=== PATIENT | female | born 1960 | race Caucasian/White ===

== ENCOUNTER 2018-08-29 16:00 | Outpatient (RCR) | payer BC, SELFPAY ==
--- NOTE | 2018-08-26 09:31 | HP.PCM_ITS ---
(1) Pilonidal cyst with abscess Status: Acute Current Visit: Yes Code(s): L05.01 - Pilonidal cyst with abscess (2) Open wound Status: Acute Current Visit: Yes Code(s): T14.8XXA - Other injury of unsp ecified body region, initial encounter History of Present Illness Date of Service: 08/26/18 Chief Complaint: Pilonidal cyst that was drained 08/21/18 at the [facility] ED. History of Wound: Patient has a history of pilonidal cysts. The last time she had one was 7 years ago. She has had a total of 4 occurances in her life, the first one being when she 16 years old. She went to the [facility] ED on Sunday08/21/18 where they drained it and placed her on clindamycin. She was referred to the wound center in [place], but she requested to come to [place] since it is closer to her home. Her wound was packed from the ED with iodiform guaze and then again from her PCP, Dr. Mayers, at the end of the last week where it was repacked. Past Medical History Surgical History: hysterectomy Lives: With Family Smoking Status: Never smoker Tobacco Use: Non-smoker Review of Systems Constitutional: Denies: Chills, Fever, Weight Change Eyes: Denies: Pain, Vision Change HEENT: Denies: Difficulty Hearing, Difficulty Swallowing, Sinus Congestion Cardiovascular: Denies: Chest Pain, Palpitations Gastrointestinal: Denies: Diarrhea, Nausea, Vomiting Genitourinary: Denies: Dysuria, Hematuria Musculoskeletal: Denies: Back Pain, Joint Pain Skin: Reports: Lesions - Pilonidal cyst that is open. Denies: Dryness Neurological: Denies: Balance problems, Blurred vision, Headaches Psychiatric: Denies: Anxiety, Depression Endocrine: Denies: Heat/ Cold Intolerance, Polydipsia, Polyuria Hematologic/ Lymphatic: Denies: Easy Bruising, Easy Bleeding - Physical Exam General: Alert, Oriented x3, Cooperative HEENT: Atraumatic Oral: Moist Mucosa Lungs: Clear to auscultation, Normal air movement, No rhonchi Cardiovascular: Regular rate, Regular Rhythm Abdomen: Bowel Sounds Present, Soft, Non Tender Extremities: No edema, Capillary Refill Less than 3 Seconds, No Calf Tenderness Skin: No rashes, Ulcer/ Wound - Opened wound, pilonidal cyst Musculoskeletal: No Tenderness to Palpation of Joints or Extremities, No Muscle Wasting Neurological: Neuro grossly intact Psych/Mental Status: Normal Affect, Appropriate Debridement Note Wound debrided: Pilonidal cyst Laterality: Not Applicable Type of Debridement: Excisional debridement Anesthesia Used: 4% Lidocaine Solution Depth: Down to and including healthy tissue, in the subcutaneous layer Percentage of wound debrided: 100 Instrument Used: 3mm curette Tissue Removed: Subcutaneous tissue and slough Severity: Limited To Skin Breakdown Amount of bleeding with debridement: Mild Bleeding Controlled with: Pressure, Compression and gauze Patient tolerated procedure well Assessment/Plan Active Problems Pilonidal cyst with abscess (Acute) Open wound (Acute) Assessment: 1. Pilonidal cyst with abscess. 2. Open wound Plan: Patient has an opened Pilonidal cyst that was was lanced on 08/21/18 in the [facility] ED. We will start doing aquacel silver robe wicked in the wound. She was placed on Clindamycin for 7 days in the ED. Will renew this. The patient works for [employer] and can be deployed at anytime. Will send her with a refill in case she would need it. Instructed to take a probiotic twice daily with the antibiotic. Instructed her to wash area with soap and water. Recommend a surgical consult for further debridement. Patient refuses due to work. She states she would consider that when she is not likely to get deployed such as the winter months of June-August and have enough time to heal. Follow up one week. Code Visit Office Visits / Consults: [id number] OV L3 Est - 25 modifier [id number]: [id number] Meagan subq tissue 20 sq cm/<
[2018-08-26 09:49] VITALS: BP 175/90; PULSE 61; RESP 18; TEMP 36.9; BMI 30.1
[2018-08-29 16:21] VITALS: BP 149/89; PULSE 69; RESP 18; TEMP 36.6; BMI 30.1
== END 2018-08-29 23:59 ==
LOC: WC 16:00
PROVIDERS: Visit Provider Nurse Practitioner Family
DX: L05.01 Pilonidal cyst with abscess (principal); L98.491 Non-pressure chronic ulcer of skin of other sites limited to breakdown of skin
CPT/HCPCS: 11042; 99203; 99212; G0463

== ENCOUNTER 2018-09-02 11:17 | Outpatient (RCR) | payer BC, SELFPAY ==
[2018-08-30 01:51] VITALS: BP 149/89; PULSE 69; RESP 18; TEMP 36.6
[2018-09-02 11:40] VITALS: BP 168/69; PULSE 78; RESP 20; TEMP 37; BMI 30.1
--- NOTE | 2018-09-02 12:59 | PCM.WC.PN ---
(1) Pilonidal cyst with abscess Status: Acute Current Visit: Yes Code(s): L05.01 - Pilonidal cyst with abscess (2) Open wound Status: Acute Current Visit: Yes Code(s): T14.8XXA - Other injury of unspecified body region, initial encounter Type of Wound Date of Service: 09/02/18 Chief Complaint: Pilonidal cyst that was drained 08/21/18 at the [facility] ED. History of Wound: Patient has a history of pilonidal cysts. The last time she had one was 7 years ago. She has had a total of 4 occurances in her life, the first one being when she 16 years old. She went to the [facility] ED on Sunday08/21/18 where they drained it and placed her on clindamycin. She was referred to the wound center in [place], but she requested to come to [place] since it is closer to her home. Her wound was packed from the ED with iodiform guaze and then again from her PCP, Dr. Mayers, at the end of the last week where it was repacked. Progress of Wound: Healed - Physical Exam Vital Signs Temp Pulse Resp BP 98.6 F 78 20 H 168/69 H 09/02/18 11:40 09/02/18 11:40 09/02/18 11:40 09/02/18 11:40 General: Alert, Oriented x3, Cooperative HEENT: Atraumatic Oral: Moist Mucosa Lungs: Normal air movement Cardiovascular: Regular rate Extremities: No edema, Capillary Refill Less than 3 Seconds, Peripheral Pulses Normal Skin: Ulcer/ Wound - Pilonidal cyst is healed Wound Measurements and Assessment WC - Nurse 1 - General Ulcer Measurement Start: 09/02/18 11:38 Freq: Status: Active Protocol: Activity Type Activity Date Activity User E-Sign Co-Sign Detail Recorded Client Recorded Date Recorded By Document 09/02/18 11:40 DL [id number] 09/02/18 11:46 DL 09/02/18 11:40 Wound Center Nurse 1 [Ulcer Assessment] pilonidal cyst -Current Size (cm) - Length 0 -Current Size (cm) - Width 0 -Current Size (cm) - Depth 0 -Total Square Cm 0 -Photo Taken Yes -Exudate Amt None Present -Wound Margin Flat & Intact -Granulation Amt Large (67-100%) -Granulation Quality [place] -Necrosis Amt None Present (0 %) -Structure Exposed N/A -Texture (Falguni-wound Skin Appearance) Scarring -Moisture (Falguni-wound Skin Appearance No Abnormality ) -Color (Falguni-wound Skin Appearance) No Abnormality -Temperature (Falguni-wound Skin No Abnormality Appearance) (Pt Warm) -Tenderness on Palpation (Falguni-wound No Skin Appearance) -Ulcer Cleansing Rinsed/ Irrigated with Saline -Foul Odor after Cleansing No WC - Nurse 2 - General Ulcer CM Notes Start: 09/02/18 11:38 Freq: Status: Active Protocol: Activity Type Activity Date Activity User E-Sign Co-Sign Detail Recorded Client Recorded Date Recorded By Document 09/02/18 12:07 DV [id number] 09/02/18 12:11 DV 09/02/18 12:07 Wound Center Nurse 2 [Procedure/Treatment] -Time 12:08 -Correct Patient Yes -Correct Side, Site, Position Yes -Procedure Performed No -Post Debridement Size (cm) - Length 0 -Post Debridement Size (cm) - Width 0 -Post Debridement Size (cm) - Depth 0 -Total Square Cm 0 -Wound/Ulcer Outcome Healed- Epithelialized [See Physician Procedure note for Specifics] Pain Scale: 0-10 Numeric [Pain] -Is Patient Pain Free? Yes Musculoskeletal: No Tenderness to Palpation of Joints or Extremities Neurological: Neuro grossly intact Psych/Mental Status: Normal Affect, Appropriate Debridement Note Post-Debridement Measurements/Treatment - Nurse 2 - General Ulcer CM Notes Start: 09/02/18 11:38 Freq: Status: Active Protocol: Activity Type Activity Date Activity User E-Sign Co-Sign Detail Recorded Client Recorded Date Recorded By Document 09/02/18 12:07 DV [id number] 09/02/18 12:11 DV 09/02/18 12:07 Wound Center Nurse 2 pilonidal cyst -Time 12:08 -Correct Patient Yes -Correct Side, Site, Position Yes -Procedure Performed No -Post Debridement Size (cm) - Length 0 -Post Debridement Size (cm) - Width 0 -Post Debridement Size (cm) - Depth 0 -Total Square Cm 0 -Wound/Ulcer Outcome Healed- Epithelialized Pain Scale: 0-10 Numeric Is Patient Pain Free? Yes No debridement was completed today Assessment/Plan Active Problems Pilonidal cyst with abscess (Acute) Open wound (Acute) Assessment: 1. Pilonidal cyst with abscess. 2. Open wound Plan: Patient has an opened Pilonidal cyst that was was lanced on 08/21/18 in the [facility] ED. We will start doing aquacel silver robe wicked in the wound. She was placed on Clindamycin for 7 days in the ED. Will renew this. She is now healed so will stop the aquacel silver. The patient works for [employer] and can be deployed at anytime. Will send her with a refill in case she would need it. Instructed to take a probiotic twice daily with the antibiotic. Instructed her to wash area with soap and water. She now appears healed. Instructed her to watch for this to open and if it does to come back or be seen for I&D at urgent care or ED. She is being deployed tommorrow. She will finish this round of antibiotics. Follow up as needed. Code Visit Office Visits / Consults: [id number] OV L3 Est
--- NOTE | 2018-09-03 11:06 | PN.PCM_ITS ---
(1) Pilonidal cyst with abscess Status: Acute Current Visit: Yes Code(s): L05.01 - Pilonidal cyst with abscess (2) Open wound Status: Acute Current Visit: Yes Code(s): T14.8XXA - Other injury of unsp ecified body region, initial encounter Type of Wound Date of Service: 09/02/18 Chief Complaint: Pilonidal cyst that was drained 08/21/18 at the [facility] ED. History of Wound: Patient has a history of pilonidal cysts. The last time she had one was 7 years ago. She has had a total of 4 occurances in her life, the first one being when she 16 years old. She went to the [facility] ED on Sunday08/21/18 where they drained it and placed her on clindamycin. She was referred to the wound center in [place], but she requested to come to [place] since it is closer to her home. Her wound was packed from the ED with iodiform guaze and then again from her PCP, Dr. Mayers, at the end of the last week where it was repacked. Progress of Wound: Healed - Physical Exam Vital Signs Temp Pulse Resp BP 98.6 F 78 20 H 168/69 H 09/02/18 11:40 09/02/18 11:40 09/02/18 11:40 09/02/18 11:40 General: Alert, Oriented x3, Cooperative HEENT: Atraumatic Oral: Moist Mucosa Lungs: Normal air movement Cardiovascular: Regular rate Extremities: No edema, Capillary Refill Less than 3 Seconds, Peripheral Pulses Normal Skin: Ulcer/ Wound - Pilonidal cyst is healed Wound Measurements and Assessment WC - Nurse 1 - General Ulcer Measurement Start: 09/02/18 11:38 Freq: Status: Active Protocol: Activity Type Activity Date Activity User E-Sign Co-Sign Detail Recorded Client Recorded Date Recorded By Document 09/02/18 11:40 DL [id number] 09/02/18 11:46 DL 09/02/18 11:40 Wound Center Nurse 1 [Ulcer Assessment] pilonidal cyst -Current Size (cm) - Length 0 -Current Size (cm) - Width 0 -Current Size (cm) - Depth 0 -Total Square Cm 0 -Photo Taken Yes -Exudate Amt None Present -Wound Margin Flat & Intact -Granulation Amt Large (67-100%) -Granulation Quality [place] -Necrosis Amt None Present (0 %) -Structure Exposed N/A -Texture (Falguni-wound Skin Appearance) Scarring -Moisture (Falguni-wound Skin Appearance No Abnormality ) -Color (Falguni-wound Skin Appearance) No Abnormality -Temperature (Falguni-wound Skin No Abnormality Appearance) (Pt Warm) -Tenderness on Palpation (Falguni-wound No Skin Appearance) -Ulcer Cleansing Rinsed/ Irrigated with Saline -Foul Odor after Cleansing No WC - Nurse 2 - General Ulcer CM Notes Start: 09/02/18 11:38 Freq: Status: Active Protocol: Activity Type Activity Date Activity User E-Sign Co-Sign Detail Recorded Client Recorded Date Recorded By Document 09/02/18 12:07 DV [id number] 09/02/18 12:11 DV 09/02/18 12:07 Wound Center Nurse 2 [Procedure/Treatment] -Time 12:08 -Correct Patient Yes -Correct Side, Site, Position Yes -Procedure Performed No -Post Debridement Size (cm) - Length 0 -Post Debridement Size (cm) - Width 0 -Post Debridement Size (cm) - Depth 0 -Total Square Cm 0 -Wound/Ulcer Outcome Healed- Epithelialized [See Physician Procedure note for Specifics] Pain Scale: 0-10 Numeric [Pain] -Is Patient Pain Free? Yes Musculoskeletal: No Tenderness to Palpation of Joints or Extremities Neurological: Neuro grossly intact Psych/Mental Status: Normal Affect, Appropriate Debridement Note Post-Debridement Measurements/Treatment - Nurse 2 - General Ulcer CM Notes Start: 09/02/18 11:38 Freq: Status: Active Protocol: Activity Type Activity Date Activity User E-Sign Co-Sign Detail Recorded Client Recorded Date Recorded By Document 09/02/18 12:07 DV [id number] 09/02/18 12:11 DV 09/02/18 12:07 Wound Center Nurse 2 pilonidal cyst -Time 12:08 -Correct Patient Yes -Correct Side, Site, Position Yes -Procedure Performed No -Post Debridement Size (cm) - Length 0 -Post Debridement Size (cm) - Width 0 -Post Debridement Size (cm) - Depth 0 -Total Square Cm 0 -Wound/Ulcer Outcome Healed- Epithelialized Pain Scale: 0-10 Numeric Is Patient Pain Free? Yes No debridement was completed today Assessment/Plan Active Problems Pilonidal cyst with abscess (Acute) Open wound (Acute) Assessment: 1. Pilonidal cyst with abscess. 2. Open wound Plan: Patient has an opened Pilonidal cyst that was was lanced on 08/21/18 in the [facility] ED. We will start doing aquacel silver robe wicked in the wound. She was placed on Clindamycin for 7 days in the ED. Will renew this. She is now healed so will stop the aquacel silver. The patient works for [employer] and can be deployed at anytime. Will send her with a refill in case she would need it. Instructed to take a probiotic twice daily with the antibiotic. Instructed her to wash area with soap and water. She now appears healed. Instructed her to watch for this to open and if it does to come back or be seen for I&D at urgent care or ED. She is being deployed tommorrow. She will finish this round of antibiotics. Follow up as needed. Code Visit Office Visits / Consults: [id number] OV L3 Est
== END 2018-09-29 23:59 ==
LOC: WC 11:17
PROVIDERS: Visit Provider Nurse Practitioner Family
DX: Z09 Encounter for follow-up examination after completed treatment for conditions other than malignant neoplasm (principal)
CPT/HCPCS: 99212; G0463

== ENCOUNTER → 2020-04-19 | Outpatient (CLI) | payer BC, SELFPAY ==
[2019-02-24 19:08] VITALS: BMI 30.1
== END | disposition home or self-care (01) ==
LOC: LABSPEC 15:26
PROVIDERS: Referring Provider Dermatology Pediatric Dermatology; Visit Provider Dermatology Pediatric Dermatology
DX: L02.91 Cutaneous abscess, unspecified (principal); L72.0 Epidermal cyst
CPT/HCPCS: 87070; 87205

== ENCOUNTER → 2025-04-10 | Outpatient (CLI) | payer BC, SELFPAY ==
[2025-04-10 10:36] LABS: Hematocrit 42.0 % (37-47); Hemoglobin 14.3 g/dL (12.0-15.0); Mean Corp Hgb Conc 34.0 g/dL (32-36); Mean Corpuscular Volume 88.2 fL (81-99); Mean Platelet Vol. 12.7 fl (6.2-12.0); Platelet Count 171 K/mm3 (150-450); RBC Distribution Width CV 12.4 % (11.6-14.6); RBC Distribution Width SD 40.2 fl (35.1-43.9); Red Blood Count 4.76 M/mm3 (4.2-5.4); White Blood Count 7.1 K/mm3 (4.4-11.0)
[2025-04-10 11:02] LABS: AST(SGOT) 23 U/L (<=31); Alanine Aminotransfer ALT/SGPT 19 U/L (<=34); Albumin, Serum 4.2 g/dL (3.4-4.8); Alkaline Phosphatase 74 U/L (35-104); Anion Gap 10 (5-15); BUN 17 mg/dL (4-19); BUN/Creat Ratio 26.6 RATIO (10-20); Calcium,Total 9.2 mg/dL (7.6-11.0); Carbon Dioxide 25.2 mmol/L (21.0-32.0); Chloride 104 mmol/L (98-108); Globulin 3.5 g/dL (2.2-4.2); Glucose 103 mg/dL (70-99); Magnesium 2.1 mg/dL (1.5-2.2); Potassium 3.9 mmol/L (3.3-5.1)
[2025-04-10 11:54] LABS: Vitamin B12 > 4000 pg/mL (180-914)
[2025-04-13 14:08] LABS: ANTINUCLEAR ANTIBODIES DIRECT Negative (Negative); Vitamin D 1,25-Dihydroxy 67.3 pg/mL (24.8-81.5)
[2025-04-14 22:07] LABS: Folate, Hemolysate Test 540.0 ng/mL (Not Estab.); Folate, RBC (Hct) Test 43.0 % (34.0-46.6); Folates, RBC Test 1256 ng/mL (>498); VITAMIN B6 12.8 ug/L (3.4-65.2); Vitamin B1, Thiamine 156.2 nmol/L (66.5-200.0)
== END | disposition home or self-care (01) ==
LOC: LAB.FUTURE 08:11
PROVIDERS: PCP Nurse Practitioner Family; Referring Provider Psychiatry & Neurology Neurology; Visit Provider Psychiatry & Neurology Neurology
DX: G51.31 Clonic hemifacial spasm, right (principal); G62.9 Polyneuropathy, unspecified
CPT/HCPCS: 36415; 80053; 82607; 82652; 82747; 83735; 83883; 84207; 84425; 84443; 85014; 85027; 85652; 86038; 86225

== ENCOUNTER → 2025-04-20 | Outpatient (CLI) | payer BC, SELFPAY ==
--- NOTE | 2025-04-20 13:13 | MRI_ITS ---
PROCEDURE: BRAIN W/WO CONTRAST 04/20/2025 REASON FOR EXAM: RIGHT HEMIFACIAL SPASM; R CHOLESTEATOMA RESECTION TECHNIQUE: Procedure Code: [id number] Modality: MR Procedure: BRAIN W/WO CONTRAST Multiplanar and multisequence images were obtained. CONTRAST: Clariscan VOLUME: 17 mL COMPARISON: None. FINDINGS: Brain: Few foci of hyperintense signal on T2 and FLAIR in the white matter which are nonspecific but most likely due to chronic small-vessel ischemia. No restricted diffusion. No hemorrhage. No abnormal enhancement. No masses or midline shift. The orbits are unremarkable. The craniocervical junction is unremarkable. IAC: No abnormal enhancement. No masses at the cerebellopontine angles or internal acoustic canals. The inner ears are unremarkable. Diffusion: No restricted diffusion. Ventricles: No ventriculomegaly. Major Intracranial Vessels: Patent. Sinuses: Opacification of the lateral ventricles. Mastoids: Fluid retention in the right mastoid cells. The left mastoid cells are clear. Other: Fluid and soft tissue intensity from the right middle ear. MRI/Brain W/WO Contrast IMPRESSION: Minimal white matter changes which are most likely due to chronic small-vessel ischemia. Otherwise unremarkable MRI of the brain and the internal acoustic canal and cer ebellopontine angles without mass lesions or abnormal enhancement. Fluid and soft tissue intensity from the right middle ear. High-resolution CT scan with temporal protocol may provide further evaluation. Reading Location: [facility]
== END | disposition home or self-care (01) ==
PROVIDERS: PCP Nurse Practitioner Family; Referring Provider Psychiatry & Neurology Neurology; Visit Provider Psychiatry & Neurology Neurology
DX: G51.31 Clonic hemifacial spasm, right (principal); Z86.69 Personal history of other diseases of the nervous system and sense organs
CPT/HCPCS: 70553; A9575; A4216

== ENCOUNTER → 2025-06-20 | Outpatient (CLI) | payer BC, SELFPAY ==
--- NOTE | 2025-06-20 07:52 | CT_ITS ---
PROCEDURE: ORB SELLA POST FOSSA EAR W/O 06/20/2025 REASON FOR EXAM: HISTORY OF CHOLESTEATOMA RESECTION (2022) TECHNIQUE: Thin cut axial CT imaging of the temporal bones without contrast using a high- resolution bone algorithm and multiplanar reformatting. One or more dose reduction techniques were used (e.g., Automated exposure control, adjustment of the mA and/or kV according to patient size, use of iterative reconstruction technique). RADIATION DOSE SUMMARY: CTDlvol: 67.5 mGy DLP: 1055.5 mGycm COMPARISON: April 20, 2025 FINDINGS: RIGHT TEMPORAL BONE: External Auditory Canal: Patent. Tympanic Membrane: Intact Middle Ear Cavity: No significant inner air-fluid. Ossicles: Opacified material is noted lateral to the ossicles contacting the tympanic membrane. Cochlea and Vestibule: Within normal limits. Semicircular Canals: Normal without evidence of dehiscence. Vestibular Aqueduct: Normal. Mastoid: Findings compatible with previous right mastoidectomy. Temporomandibular Joint: The right temporomandibular joint is normal. LEFT TEMPORAL BONE: External Auditory Canal: Patent Tympanic Membrane: Intact Middle Ear Cavity: No evidence of inner air-fluid. Ossicles: Middle ear ossicles are normal. Cochlea and Vestibule: Normal Semicircular Canals: Normal Vestibular Aqueduct: Normal Mastoid: Mastoid air cells are clear. Temporomandibular Joint: The left temporomandibular joint is normal Visualized intracranial contents are within normal limits. CT/Orb Sella Post Fossa Ear w/o IMPRESSION: 1. Opacified material within the right middle ear for which recurrent choleste atoma is a consideration. Prior computed tomographic exams would be helpful to establish chronicity of this finding. 2. Previous right mastoidectomy. Reading Location: [id number]
--- OUTSIDE RECORDS SUMMARY | 2025-06-20 07:54 | XMS RPT_ITS | CCD ---
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 Name Role Phone Queden BANQUET STEWARDESS.LISA Cherie A Primary Care Provider QUEDEN, CHERIE A Primary Care Unavailable VETOVITZ, ANAMARIA Referring Unavailable QUEDEN, CHERIE A Primary Care Unavailable PROVIDER, UNKNOWN Referring Unavailable QUEDEN, CHERIE A Primary Care Unavailable QUEDEN, CHERIE A Primary Care Unavailable Queden BANQUET STEWARDESS.DIRECTOR COMPLIANCE Cherie A Primary Care Provider VETOVITZ, ANAMARIA Attending Unavailable QUEDEN, CHERIE A Primary Care Unavailable HAURY, SARAH Attending Unavailable QUEDEN, CHERIE A Primary Care Unavailable VETOVITZ, ANAMARIA Attending Unavailable QUEDEN, CHERIE A Primary Care Unavailable VETOVITZ, ANAMARIA Attending Unavailable QUEDEN, CHERIE A Primary Care Unavailable HARRINGTON AL, MALKA Referring Unavailable HARRINGTON AL, MLAKA Attending Unavailable QUEDEN, CHERIE A Primary Care Unavailable QUEDEN, CHERIE A Attending Unavailable QUEDEN, CHERIE A Primary Care Unavailable QUEDEN, CHERIE A Attending Unavailable QUEDEN, CHERIE A Primary Care Unavailable QUEDEN, CHERIE A Primary Care Unavailable ANALI GOODMAN Attending Unavailable HAURY, SARAH Referring Unavailable QUEDEN, CHERIE A Primary Care Unavailable QUEDEN, CHERIE A Referring Unavailable QUEDEN, CHERIE A Primary Care Unavailable QUEDEN, CHERIE A Referring Unavailable QUEDEN, CHERIE A Primary Care Unavailable Care Physician, No Primary Primary Care Physicia n Unavailable Care Physician, No Primary Referring Provider Un available Madonna GARZA, Dr. Dixon Attending Physician Ekaterina ASSISTANT PROFESSOR OF MUSIC, Cherie Primary Care Unavailable Zack Peacock Attending Unavailable Zack Peacock Referring Unavailable Ekaterina ASSISTANT PROFESSOR OF MUSIC, Cherie Primary Care Unavailable Zack Peacock Attending Unavailable Zack Peacock Referring Unavailable Care Physician, No Primary Referring Unava ilable Zack Peacock Attending Unavailable Care Physician, No Primary Primary Care Unava ilable Allergies Allergy Classification Reported Allergen(s) Allergy Type Date of Onset Reaction(s) Facility Latex (1 source) Latex Substance Allergy Rash [facility] POISON VIVIANA EXTRACT (1 source) POISON VIVIANA EXTRACT Drug Allergy 2 Intolerance, Itching, Rash, Swelling [facility] (20 sources) Latex; Translations: [LATEX] Drug Allergy Rash [facility] (20 sources) POISON VIVIANA EXTRACT; Translations: [POISON VIVIANA EXTRACT] Drug Allergy 2 Intolerance, Itching, Rash, Swelling [facility] (1 source) natural latex rubber Allergy to substance 5 itch [facility] Comment on above: bumps (1 source) natural latex rubber Drug allergy (disorder) 5 [facility] Repository Medications Current Medications Medication Drug Class(es) Dates Sig (Normalized) Sig (Original) [id number] 200 actuat albuterol 0.09 mg/actuat metered dose inhaler (20 sources) beta2-Adrenergic Agonist Start: 08-04-2021 End: 10-20-2024 take 2 puff(s) by mouth every four to six hours albuterol HFA (PROVENTIL HFA, VENTOLIN HFA) 90 mcg/actuation inhaler Indications: SOB (shortness of breath) INHALE 2 PUFFS BY MOUTH EVERY 4 TO 6 HOURS 18 g 1 10/20/2024 Active Comment on above: INHALE 2 PUFFS BY MO UTH EVERY 4 TO 6 HOURS 12 hr amoxicillin 1000 mg / clavulanate 62.5 mg extended release oral tablet (1 source) Penicillin-class Antibacterial Start: 06-03-2024 End: 06-13-2024 take 2 tablets by mouth twice daily amoxicillin-clavula rich potassium (AUGMENTIN XR) 1,000-62.5 mg per tablet Indications: Right maxillary sinusitis Take 2 tablets by mouth two times a day for 10 days. 40 tablet 06/03/2024 06/13/2024 Active carBAMazepine 100 mg chewable tablet (1 source) Mood Stabilizer Start: 04-06-2025 take 1 tablet by mouth once daily, then take 1 tablet by mouth twice daily Carbamazepine 100 mg tablet,chewable Active 0 .ROUTE .COMPLEX 60 April 06, 2025 12:00am Take 1 tablet orally daily for 1 week then 1 tablet twice daily thereafter. Complies with drug therapy ergocalciferol, vitamin D2, (VITAMIN D2 PO) (2 sources) ergocalciferol, vitamin D2, (VITAMIN D2 PO) Take by mouth. Active ibuprofen 200 mg oral tablet (20 sources) Nonsteroidal Anti-inflammatory Drug take 1 tablet by mouth every six hours as needed ibuprofen (MOTRIN) 200 mg tablet Take 200 mg by mouth every 6 hours as needed. Active Comment on above: Take 200 mg by mouth every 6 hours as needed. iv contrast (will be provided with radiology test) (4 sources) Start: 12-12-2021 End: 12-13-2021 iv contrast (will be provided with radiology test) Indications: Post-acute sequelae of COVID-19 (PASC) , Positive D dimer , SOB (shortness of breath) CT Chest PE -Inject, intravenously, once for 1 dose.No IV access, insert saline lock prior to the beginning of sedation, infusion, injection of imaging exam. Discontinue saline lock post exam. If Pt. has a central line or IVAD, may access for administration according to line specific nursing protocol. Once exam is complete flush line and de-access according to line specific nursing protocol in the CT contrast administration guidelines link. 1 Each 0 12/12/2021 12/13/2021 Active Comment on above: CT Chest PE -Inject, intravenously, once for 1 dose.No IV access, insert saline lock prior to the beginning of sedation, infusion, injection of imaging exam. Discontinue saline lock post exam. If Pt. has a central line or IVAD, may access for administration according to line specific nursing protocol. Once exam is complete flush line and de-access according to line specific nursing protocol in the CT contrast administration guidelines link. MULTIVITAMIN ORAL (20 sources) MULTIVITAMIN ORA L Take by mouth once daily. Active MULTIVITAMIN ORA L Take by mouth once daily. 0 Active Comment on above: Take by mouth once d aily. nitrofurantoin, macrocrystals 25 mg / nitrofurantoin, monohydrate 75 mg oral capsule (2 sources) Nitrofuran Antibacterial Start: 01-17-20 End: 01-22-20 take 1 capsule by mouth twice daily nitrofurantoin monohydrate and macrocrystal (MACROBID) 100 mg capsule Indications: UTI symptoms Take 1 capsule by mouth twice daily for 5 days. 10 capsule 0 01/16/2022 01/21/2022 Active Comment on above: Take 1 capsule by [facility] twice daily for 5 days. omega-3/dha/epa/fish oil (OMEGA-3 ORAL) (20 sources) take 1000 mg by mouth once daily omega-3/dha/epa/fish oil (OMEGA-3 ORAL) Take 1,000 mg by mouth once daily. Active take 1000 mg by mouth once daily omega-3/dha/epa/fish oil (OMEGA-3 ORAL) Take 1,000 mg by mouth once daily. 0 Active Comment on above: Take 1,000 mg by [facility] once daily. perflutren lipid microspheres 1.3 mL in NaCl (PF) 0.9% 10 mL injection (DEFINITY) (12 sources) Start: End: perflutren lipid microspheres 1.3 mL in NaCl (PF) 0.9% 10 mL injection (DEFINITY) 125 ml sodium chloride 9 mg/ml prefilled syringe (12 sources) Start: End: sodium chloride 0.9 % (flush) 10 mL (BD POSIFLUSH) sulfamethoxazole 800 mg / trimethoprim 160 mg oral tablet (4 sources) Dihydrofolate Reductase Inhibitor Antibacterial, Sulfonamide Antimicrobial Start: End: take 1 tablet by mouth twice daily sulfamethoxazole-tri methoprim (BACTRIM DS) 800-160 mg per tablet Take 1 tablet by mouth twice daily for 5 days. 10 tablet 0 12/12/2021 12/17/2021 Active Comment on above: Take 1 tablet by [facility] twice daily for 5 days. triamcinolone acetonide 0.25 mg/ml topical cream (12 sources) Corticosteroid Start: triamcinolone (KENALOG) 0.025 % cream APPLY TO THE AFFECTED AREA(S) TWICE DAILY FOR 7 DAYS 80 g 1 02/03/2025 Active Start: 12-10-2023 End: 12-17-2023 triamcinolone (KENALOG) 0.02 5 % cream Apply to affected area twice daily for 7 days. 80 g 0 12/10/2023 12/17/2023 Active Start: 03-12-2022 End: 03-19-2022 triamcinolone (KENALOG) 0.02 5 % cream Apply to affected area twice daily for 7 days. 80 g 0 03/12/2022 03/19/2022 Active Start: 12-06-2021 End: 12-13-2021 triamcinolone (KENALOG) 0.02 5 % cream Apply to affected area twice daily for 7 days. 15 g 0 12/06/2021 12/13/2021 Active Comment on above: Apply to affected ar ea twice daily for 7 days. Completed/Discontinued Medications Medication Drug Class(es) Dates Sig (Normalized) Sig (Original) amoxicillin 875 mg oral tablet (2 sources) Penicillin-class Antibacterial Start: 02-24-2019 End: 04-06-2025 take 1 tablet by mouth twice daily Amoxicillin 875 mg tablet Discontinued 875 mg PO TWICE A DAY 20 2 February 24, 2019 7:16pm April 06, 2025 8:57am ergocalciferol 1.25 mg oral capsule (1 source) Provitamin D2 Compound End: 02-13-2025 take 1 capsule by mouth every week ergocalciferol 50,000 unit capsule (VITAMIN D2, DRISDOL) Take 50,000 Units by mouth one time a week. 02/13/2025 Discontinued GI-Revive 225 gram Powder ([employer]) (17 sources) Start: 01-23-2022 End: 05-19-2022 GI-Revive 225 gram Powder ([employer]) Indications: Abdominal bloating Take 1 teaspoon twice daily (1 teaspoon = 1.5 grams L-glut) 0 01/23/2022 05/19/2022 Discontinued (Discontinued by Patient) Start: 01-23-2022 GI-Revive 225 gram Powder ([employer]) Indications: Abdominal bloating Take 1 teaspoon twice daily (1 teaspoon = 1.5 grams L-glut) 0 01/23/2022 Active Comment on above: Take 1 teaspoon twic e daily (1 teaspoon = 1.5 grams L-glut) glucosamine hydrochloride 750 mg oral tablet (17 sources) End: 06-03-20 glucosamine HCl 750 mg tab Take 0.5 tablets by mouth once daily. Take one half tablet 06/03/2024 Discontinued Comment on above: Take 0.5 tablets by mouth once daily. Take one half tablet hydrOXYzine hydrochloride 25 mg oral tablet (3 sources) Antihistamine Start: 03-14-20 take 1 tablet by mouth every twenty-four hours as needed hydrOXYzine HCl (ATARAX) 25 mg tablet Take 1 tablet by mouth at bedtime as needed for anxiety. 30 tablet 0 03/14/2021 Active Comment on above: Take 1 tablet by riky [facility] at bedtime as needed for anxiety. loratadine 10 mg oral tablet (14 sources) Start: 05-07-20 End: 06-03-20 take 1 tablet by mouth once daily as needed loratadine (CLARITIN) 10 mg tablet Take 1 tablet by mouth once daily as needed. 05/07/2023 06/03/2024 Discontinued Comment on above: Take 1 tablet by riky [facility] once daily as needed. lovastatin 20 mg oral tablet (14 sources) HMG-CoA Reductase Inhibitor Start: 04-24-20 End: 09-30-19 take 1 tablet by mouth once daily at dinner lovastatin (MEVACOR) 20 mg tablet Take 1 tablet by mouth daily with dinner. 30 tablet 2 04/24/2022 09/29/2022 Discontinued (Discontinued by Patient) Comment on above: Take 1 tablet by riky [facility] daily with dinner. Magnesium glycinate (20 sources) Start: 01-24-20 End: 09-30-19 Magnesium Glycinate 120mg (Pure Encapsulations) Indications: Poor sleep Take 4 capsules 30 to 60 minutes prior to sleep 0 01/23/2022 09/29/2022 Discontinued Start: 01-23-2022 Magnesium Glyc inate 120mg (Pure Encapsulations) Indications: Poor sleep Take 4 capsules 30 to 60 minutes prior to sleep 0 01/23/2022 Active Comment on above: Take 4 capsules 30 t o 60 minutes prior to sleep methylPREDNISolone (20 sources) Corticosteroid Start: 06-03-2024 End: 08-05-2024 methylPREDNISolone (MEDROL, FRANCES,) 4 mg Dose-Pack Indications: Right maxillary sinusitis As Instructed per package 21 tablet 06/03/2024 08/05/2024 Discontinued Start: 06-03-2024 methylPREDNISo lone (MEDROL, FRANCES,) 4 mg Dose-Pack Indications: Right maxillary sinusitis As Instructed per package 21 tablet 06/03/2024 Active Start: 01-25-2023 End: 05-07-2023 methylPREDNISolone (MEDROL, FRANCES,) 4 mg Dose-Pack Indications: Swelling of left parotid gland As Instructed per package 21 tablet 0 01/25/2023 05/07/2023 Discontinued Start: 01-25-2023 methylPREDNISo lone (MEDROL, FRANCES,) 4 mg Dose-Pack Indications: Swelling of left parotid gland As Instructed per package 21 tablet 0 01/25/2023 Active Start: 12-06-2021 End: 01-10-2022 methylPREDNISolone (MEDROL, FRANCES,) 4 mg Dose-Pack As Instructed per package 1 Package 0 12/06/2021 01/10/2022 Discontinued (Course of therapy completed) Start: 12-06-2021 methylPREDNISo lone (MEDROL, FRANCES,) 4 mg Dose-Pack As Instructed per package 1 Package 0 12/06/2021 Active Start: 03-22-2021 methylPREDNISo lone (MEDROL, FRANCES,) 4 mg Dose-Pack As Instructed per package 1 Package 0 03/22/2021 Active Comment on above: As Instructed per isiah ross [id number] (PHYTOMULTI) 3-3-200 mg tab (20 sources) Start: 01-23-2022 End: 09-29-2022 take 1 tablet by mouth twice daily [id number] (PHYTOMULTI) 3-3-200 mg tab Indications: Poor diet Take 1 tablet by mouth twice daily. 1 tablet 0 01/23/2022 09/29/2022 Discontinued Start: 01-23-2022 take 1 tablet by riky [facility] twice daily [id number] (PHYTOMUL TI) 3-3-200 mg tab Indications: Poor diet Take 1 tablet by mouth twice daily. 1 tablet 0 01/23/2022 Active Comment on above: Take 1 tablet by riky [facility] twice daily. niacin 500 mg extended release oral tablet (20 sources) Nicotinic Acid Start: 06-02-2022 End: 09-15-2024 take 1 tablet by mouth once daily niacin 500 mg TbER Take 1 tablet by mouth once daily. 06/02/2022 09/15/2024 Discontinued (Side Effects) Comment on above: Take 1 tablet by riky once daily. O.N.E. Wray (Pure Encapsulations) (17 sources) Start: 01-23-2022 End: 05-19-2022 take 1 capsule by mouth twice daily O.N.E. Wray (Pure Encapsulations) Indications: Poor diet Take 1 capsule by mouth twice daily. 0 01/23/2022 05/19/2022 Discontinued (Discontinued by Patient) Start: 01-23-2022 take 1 capsule by [facility] [place] twice daily O.N.E. Wray (Pure Encapsulations) Indications: Poor diet Take 1 capsule by mouth twice daily. 0 01/23/2022 Active Comment on above: Take 1 capsule by [facility] [place] twice daily. 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 01/23/2022 09/15/2024 Discontinued (Course of therapy completed) Comment on above: Take [address] [facility] twice daily. Ther-Biotic Complete Capsules (klaire/Prothera) (17 sources) Start: End: take 1 capsule by mouth once daily Ther-Biotic Complete Capsules (klaire/Prothera) Indications: Abdominal bloating Take 1 capsule by mouth once daily. 0 01/23/2022 05/19/2022 Discontinued (Discontinued by Patient) Start: 01-23-2022 take 1 capsule by [facility] once daily Ther-Biotic Complete Capsules (klaire/Prothera) Indications: Abdominal bloating Take 1 capsule by mouth once daily. 0 01/23/2022 Active Comment on above: Take 1 capsule by [facility] once daily. topiramate 25 mg oral tablet (8 sources) Start: 09-25-2023 End: 06-03-2024 take 32-32.9 tablets by mouth once daily topiramate (TOPAMAX) 25 mg tablet Indications: Class 1 obesity with body mass index (BMI) of 32.0 to 32.9 in adult, unspecified obesity type, unspecified whether serious comorbidity present Take 1 tablet by mouth daily at bedtime. 30 tablet 2 09/25/2023 06/03/2024 Discontinued Comment on above: Take 1 tablet by riky [facility] daily at bedtime. Problems Active Problems Problem Classification Problem Date Documented Da te Episodic/Chronic Anxiety disorders (20 sources) Anxiety; Translations: [Anxiety disorder, unspecified] Onset: 03-11-2021 03-11-2021 Chronic Asthma (1 source) Mild intermittent asthma; Translations: [Mild intermittent asthma, uncomplicated] Chronic Diseases of mouth; excluding dental (1 source) Hypertrophy of parotid gland; Translations: [Hypertrophy of salivary gland] Episodic Disorders of lipid metabolism (20 sources) Mixed hyperlipidemia; Translations: [Mixed hyperlipidemia] Onset: 09-29-2022 Chronic Disorders usually diagnosed in infancy, childhood, or adolescence (20 sources) Facial tic disorder; 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, unspecified] Onset: 12-29-2022 Chronic E Codes: Fall (4 sources) Fall; Translations: [Unspecified fall, subsequent encounter] Onset: 07-31-2024 07-31-2024 Episodic E Codes: Natural/environment (1 source) Tick bite; Translations: [Bitten or stung by nonvenomous insect and other nonvenomous arthropods, initial encounter] 01-13-2024 Episodic Genitourinary symptoms and ill-defined conditions (1 source) Urinary symptoms ; Translations: [Unspecified symptoms and signs involving the genitourinary system] Episodic Immunizations and screening for infectious disease (4 sources) Patient encounter status; Translations: [Encounter for immunization] Episodic Joint disorders and dislocations; trauma-related (1 source) Acute tear of medial meniscus of left knee; Translations: [Other tear of medial meniscus, current injury, left knee, sequela] Episodic Nonmalignant breast conditions (2 sources) Breasts asymmetrical; Translations: [Other specified disorders of breast] Episodic Nonspecific chest pain (6 sources) Chest pain; Translations: [Chest pain, unspecified] Episodic Nutritional deficiencies (1 source) Diet poor; Translations: [Nutritional deficiency, unspecified] Episodic Other connective tissue disease (2 sources) Swelling of lower limb; Translations: [Other specified soft tissue disorders] Episodic Other connective tissue disease (1 source) Myalgia, unspecified site; Translations: [Myalgia and myositis, unspecified] Episodic Other connective tissue disease (1 source) Muscle pain; Translations: [Myalgia, unspecified site] Episodic Other connective tissue disease (1 source) Weakness of face muscles; Translations: [Facial weakness] Episodic Other connective tissue disease (1 source) Pain of left hand; Translations: [Pain in left hand] 07-31-2024 Episodic Other ear and sense organ disorders (20 sources) Hearing loss of right ear; Translations: [Unspecified hearing loss, right ear] Onset: 12-29-2022 Chronic Other ear and sense organ disorders (1 source) Hearing loss; Translations: [Other specified hearing loss, unspecified ear] Chronic Other ear and sense organ disorders (4 sources) Mixed conductive and sensorineural hearing loss, unilateral, right ear, with unrestricted hearing on the contralateral side; Translations: [Mixed hearing loss, unilateral] Chronic Other ear and sense organ disorders (20 sources) Mixed conductive AND sensorineural hearing loss; Translations: [Mixed conductive and sensorineural hearing loss, unilateral, right ear with restricted hearing on the contralateral side] Onset: 12-27-2022 12-27-2022 Chronic Other ear and sense organ disorders (1 source) Hearing loss of left ear; Translations: [Unspecified hearing loss, left ear] 09-07-2023 Chronic Other ear and sense organ disorders (1 source) Otalgia, left ear; Translations: [Otalgia, unspecified] 01-25-2023 Episodic Other female genital disorders (1 source) Vaginal discharge; Translations: [Other specified noninflammatory disorders of vagina] 09-13-2023 Episodic Other gastrointestinal disorders (5 sources) Abdominal bloating; Translations: [Abdominal distension (gaseous)] Episodic Other gastrointestinal disorders (2 sources) Abdominal distension (gaseous); Translations: [Bloating] Onset: 02-13-2025 Episodic Other infections; including parasitic (20 sources) Late effects of other and unspecified infectious and parasitic diseases; Translations: [Post-acute sequelae of COVID-19 (PASC)] Onset: 12-28-2021 Chronic Other infections; including parasitic (1 source) Post-viral disorder; Translations: [Post-COVID syndrome] 05-07-2023 Chronic Other injuries and conditions due to external causes (1 source) Open wound; Translations: [Other injury of unspecified body region, initial encounter] 08-26-2018 Episodic Other lower respiratory disease (6 sources) Cough; Translations: [Cough] Episodic Other lower respiratory disease (1 source) Other forms of dyspnea; Translations: [Other respiratory abnormalities] Episodic Other nervous system disorders (1 source) Chronic pain syndrome; Translations: [Chronic pain syndrome] Chronic Other nervous system disorders (2 sources) Polyneuropathy; Translations: [Polyneuropathy, unspecified] 04-06-2025 Chronic Other nervous system disorders (4 sources) Hemifacial spasm; Translations: [Clonic hemifacial spasm, right] Episodic Other nervous system disorders (2 sources) Clonic hemifacial spasm, right; Translations: [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] Onset: 09-15-2024 Episodic Other nervous system disorders (2 sources) H/O: ear disorder; Translations: [Personal history of other diseases of the nervous system and sense organs] 04-06-2025 Episodic Other nervous system disorders (1 source) Personal history of other diseases of the nervous system and sense organs; Translations: [Personal history of other diseases of the nervous system and sense organs] Onset: 04-06-2025 Episodic Other non-traumatic joint disorders (8 sources) Joint pain; Translations: [Pain in unspecified joint] Episodic Other non-traumatic joint disorders (1 source) Pain in unspecified joint; Translations: [Pain in joint, site unspecified] Episodic Other non-traumatic joint disorders (2 sources) Pain in left knee; Translations: [Pain in joint, lower leg] Episodic Other non-traumatic joint disorders (1 source) Pain in right knee; Translations: [Pain in joint, lower leg] 07-29-2024 Episodic Other nutritional; endocrine; and metabolic disorders (20 sources) Obese class I; Translations: [Obesity, unspecified] Onset: 01-08-2019 01-08-2019 Chronic Other nutritional; endocrine; and metabolic disorders (1 source) Obesity; Translations: [Obesity, unspecified] 09-25-2023 Chronic Other screening for suspected conditions (not mental disorders or infectious disease) (18 sources) Mammography abnormal; Translations: [Other abnormal and inconclusive findings on diagnostic imaging of breast] Onset: 09-15-2024 Episodic Other upper respiratory infections (2 sources) Maxillary sinusitis; Translations: [Chronic maxillary sinusitis] Onset: 06-03-2024 06-03-2024 Chronic Other upper respiratory infections (2 sources) Acute maxillary sinusitis; Translations: [Acute maxillary sinusitis, unspecified] 02-24-2019 Episodic Otitis media and related conditions (1 source) Dysfunction of bilateral eustachian tubes; Translations: [Unspecified Eustachian tube disorder, bilateral] 09-07-2023 Episodic Residual codes; unclassified (1 source) Pain; Translations: [Pain, unspecified] Episodic Residual codes; unclassified (1 source) Left parotid gland swelling; Translations: [Localized edema] 01-25-2023 Episodic Residual codes; unclassified (4 sources) Family history of malignant neoplasm of ovary; Translations: [Family history of malignant neoplasm of ovary] 02-13-2025 Episodic Residual codes; unclassified (2 sources) Menopause present; Translations: [Asymptomatic menopausal state] 02-13-2025 Episodic Residual codes; unclassified (2 sources) Family history of malignant neoplasm of ovary; Translations: [Family history of ovarian cancer] Onset: 02-13-2025 Episodic Residual codes; unclassified (1 source) Asymptomatic menopausal state; Translations: [Asymptomatic menopausal state] Onset: 02-13-2025 Episodic Skin and subcutaneous tissue infections (1 source) Pilonidal cyst with abscess; Translations: [Pilonidal cyst with abscess] 08-26-2018 Episodic Unclassified (1 source) Radiology CT Onset: 12-07-2023 Unclassified (2 sources) Patient encounter status 02-13-2025 Past or Other Problems Problem Classification Problem Date Documented Da te Episodic/Chronic Administrative/social admission (20 sources) Reduced mobility; Translations: [Other reduced mobility] Onset: 12-28-2021 Episodic Conditions associated with dizziness or vertigo (9 sources) Dizziness; Translations: [Dizziness and giddiness] Onset: 06-03-2024 Episodic Fracture of lower limb (13 sources) Closed fracture of tibial tuberosity; Translations: [Nondisplaced fracture of right tibial tuberosity, initial encounter for closed fracture] Onset: 07-24-2024 07-31-2024 Episodic Malaise and fatigue (20 sources) Asthenia; Translations: [Weakness] Onset: 12-28-2021 Episodic Nausea and vomiting (20 sources) Nausea; Translations: [Nausea] Onset: 05-07-2023 Episodic Other ear and sense organ disorders (20 sources) Cholesteatoma; Translations: [Unspecified cholesteatoma, right ear] Onset: 12-29-2022 Episodic Other lower respiratory disease (20 sources) Dyspnea; Translations: [Shortness of breath] Onset: 12-28-2021 Episodic Other nervous system disorders (20 sources) Facial paresthesia; Translations: [Anesthesia of skin] Onset: 12-29-2022 Episodic Residual codes; unclassified (20 sources) Total body pain syndrome; Translations: [Pain, unspecified] Onset: 05-19-2022 Episodic Results Test Name Value Interpretation Reference Range Facility OMEGA w/ Reflex Mult Confirmon 04-20-2025 ANTI-DNA (DS)AB TNP Normal [facility] Comment on above: Performed By: #### L 500.4050, L3100.5450, L501.9520, L503.0106, L3300.0960, L100.0500, L3300.8200, L3130.0010, L3300.8000, L3100.1725, L501.5200, L101.9900 #### [facility] Laboratory [facility] [place], [address] ANTI-SS-A TNP Normal [facility] Comment on above: Performed By: #### L 500.4050, L3100.5450, L501.9520, L503.0106, L3300.0960, L100.0500, L3300.8200, L3130.0010, L3300.8000, L3100.1725, L501.5200, L101.9900 #### [facility] Laboratory [address] [place], [place], [id number] ANTI-SS-B TNP Normal [facility] Comment on above: Performed By: #### L 500.4050, L3100.5450, L501.9520, L503.0106, L3300.0960, L100.0500, L3300.8200, L3130.0010, L3300.8000, L3100.1725, L501.5200, L101.9900 #### [facility] [address] [facility]. [place], [place], [id number] Brain W/WO Contraston 2024 Brain W/WO Contrast [facility] [address] [place], [place] [id number] Brain W/WO Contrast MR#: [id number] Acct: [id number] Name: VELMA CH Rep #: [id number] : 1960 F 65 From: Henry Davies MD PCP: JACOB bAel Status: REG CLI Study: Brain W/WO Contrast Date of Exam: 04/20/25 Exam# [id number] Ordering Dr: Zack Peacock MD PROCEDURE: BRAIN W/WO CONTRAST 04/20/2025 REASON FOR EXAM: RIGHT HEMIFACIAL SPASM; R CHOLESTEATOMA RESECTION TECHNIQUE: Procedure Code: MRIBRWW Modality: MR Procedure: BRAIN W/WO CONTRAST Multiplanar and multisequence images were obtained. CONTRAST: Clariscan VOLUME: 17 mL COMPARISON: None. FINDINGS: Brain: Few foci of hyperintense signal on T2 and FLAIR in the white matter which are nonspecific but most likely due to chronic small-vessel ischemia. No restricted diffusion. No hemorrhage. No abnormal enhancement. No masses or midline shift. The orbits are unremarkable. The craniocervical junction is unremarkable. IAC: No abnormal enhancement. No masses at the cerebellopontine angles or internal acoustic canals. The inner ears are unremarkable. Diffusion: No restricted diffusion. Ventricles: No ventriculomegaly. Major Intracranial Vessels: Patent. Sinuses: Opacification of the lateral ventricles. Mastoids: Fluid retention in the right mastoid cells. The left mastoid cells are clear. Other: Fluid and soft tissue intensity from the right middle ear. MRI/Brain W/WO Contrast IMPRESSION: Minimal white matter changes which are most likely due to chronic small-vessel ischemia. Otherwise unremarkable MRI of the brain and the internal acoustic canal and cerebellopontine angles without mass lesions or abnormal enhancement. Fluid and soft tissue intensity from the right middle ear. High-resolution CT scan with temporal protocol may provide further evaluation. Reading Location: [facility] CC: JACOB Tobar; Dr. Zack Peacock MD Property Consultant: Signed Normal [facility] Folates, RBCon 04-14-2025 Fol.,Hemolysate 540.0 ng/mL Normal Not Estab. [facility] Comment on above: Order Comment: Test( s) 581484-Ryoqejn B6 was developed and its performance characteristics determined by [employer]. It has not been cleared or approved by the Food and Drug Administration. Performed By: #### L 500.4050, L3100.5450, L501.9520, L503.0106, L3300.0960, L100.0500, L3300.8200, L3130.0010, L3300.8000, L3100.1725, L501.5200, L101.9900 #### [facility] [address] [place], [address] Folate, RBC 1256 ng/mL Normal >498 [facility] Comment on above: Order Comment: Test( s) 319727-Pjbwkld B6 was developed and its performance characteristics determined by [employer]. It has not been cleared or approved by the Food and Drug Administration. Performed By: #### L 500.4050, L3100.5450, L501.9520, L503.0106, L3300.0960, L100.0500, L3300.8200, L3130.0010, L3300.8000, L3100.1725, L501.5200, L101.9900 #### [facility] Laboratory [address] [place], [place], [phone] ([phone]) Hematocrit (Bld) [Volume fraction] 43.0 % Normal 34.0-46.6 [facility] Comment on above: Order Comment: Test( s) 451937-Ypxezmp B6 was developed and its performance characteristics determined by [facility]. It has not been cleared or approved by the Food and Drug Administration. Performed By: #### L 500.4050, L3100.5450, L501.9520, L503.0106, L3300.0960, L100.0500, L3300.8200, L3130.0010, L3300.8000, L3100.1725, L501.5200, L101.9900 #### [facility] [address] [place], [place], [phone] (136) [place] Lambda Light Chainson 04-14-2025 FR KAPPA LT CHN 18.8 mg/L Normal 3.3-19.4 [facility] Comment on above: Order Comment: Test( s) 138484-Uauaqfq B6was developed and its performance characteristicsdetermined by [facility]. It has not been cleared or approvedby the Food and Drug Administration. Performed By: #### L 500.4050, L3100.5450, L501.9520, L503.0106, L3300.0960, L100.0500, L3300.8200, L3130.0010, L3300.8000, L3100.1725, L501.5200, L101.9900 #### [facility] Laboratory [address] [place], [address] FR LAMBDA LT CH 16.8 mg/L Normal 5.7-26.3 [facility] Comment on above: Order Comment: Test( s) 961792-Ismuckq B6was developed and its performance characteristicsdetermined by [employer]. It has not been cleared or approvedby the Food and Drug Administration. Performed By: #### L 500.4050, L3100.5450, L501.9520, L503.0106, L3300.0960, L100.0500, L3300.8200, L3130.0010, L3300.8000, L3100.1725, L501.5200, L101.9900 #### [facility] [address] [place], [place], [address] KAPPA/LAMBDA % 1.12 Normal 0.26-1.65 [facility] Comment on above: Order Comment: Test( s) 743275-Kjqcklo B6was developed and its performance characteristicsdetermined by [employer]. It has not been cleared or approvedby the Food and Drug Administration. Performed By: #### L 500.4050, L3100.5450, L501.9520, L503.0106, L3300.0960, L100.0500, L3300.8200, L3130.0010, L3300.8000, L3100.1725, L501.5200, L101.9900 #### [facility] [address] [place], [address] L3300.8200on 04-14-2025 VITAMIN B6 12.8 ug/L Normal 3.4-65.2 [facility] Comment on above: Order Comment: Test( s) 162987-Lkrcexx B6was developed and its performance characteristicsdetermined by [employer]. It has not been cleared or approvedby the Food and Drug Administration. Result Comment: Defi ciency: <3.4 Marginal: 3.4 - 5.1 Adequate: >5.1 Performed By: #### L 500.4050, L3100.5450, L501.9520, L503.0106, L3300.0960, L100.0500, L3300.8200, L3130.0010, L3300.8000, L3100.1725, L501.5200, L101.9900 #### [facility] [address] [place], [place], [id number] Vitamin B1, Thiamineon 04-14 VIT B1 THIAMINE 156.2 nmol/L Normal 66.5-200.0 [facility] Comment on above: Order Comment: Test( s) 981750-Zfcqovs B6was developed and its performance characteristicsdetermined by [employer]. It has not been cleared or approvedby the Food and Drug Administration. Result Comment: Perf ormed at: [address] [id number] Digital Recruiter: Maximino Berrios PhD, Phone: [phone] Performed at: [address] [id number] Digital Recruiter: Benitez Vilchis MD, Phone: [phone] Performed By: #### L 500.4050, L3100.5450, L501.9520, L503.0106, L3300.0960, L100.0500, L3300.8200, L3130.0010, L3300.8000, L3100.1725, L501.5200, L101.9900 #### [facility] Laboratory [address] [place], [place], [id number] Vitamin D 1,25-Dihydroxyon 1 VIT D 1,25 DIHY 67.3 pg/mL Normal 24.8-81.5 [facility] Comment on above: Performed By: #### L 500.4050, L3100.5450, L501.9520, L503.0106, L3300.0960, L100.0500, L3300.8200, L3130.0010, L3300.8000, L3100.1725, L501.5200, L101.9900 #### [facility] [address] [place], [place], [phone] CBC-Complete Blood Cnt No Di ffon 04-10-2025 Erythrocyte distribution width (RBC) [Ratio] 12.4 % Normal 11.6-14.6 [facility] Comment on above: Performed By: #### L 500.4050, L3100.5450, L501.9520, L503.0106, L3300.0960, L100.0500, L3300.8200, L3130.0010, L3300.8000, L3100.1725, L501.5200, L101.9900 #### [facility] [address] [place], [address] Hematocrit (Bld) [Volume fraction] 42.0 % Normal 37-47 [facility] Comment on above: Performed By: #### L 500.4050, L3100.5450, L501.9520, L503.0106, L3300.0960, L100.0500, L3300.8200, L3130.0010, L3300.8000, L3100.1725, L501.5200, L101.9900 #### [facility] Laboratory [address] [facility] [place], [address] Hemoglobin (Bld) [Mass/Vol] 14.3 g/dL Normal 12.0-15.0 [facility] Comment on above: Performed By: #### L 500.4050, L3100.5450, L501.9520, L503.0106, L3300.0960, L100.0500, L3300.8200, L3130.0010, L3300.8000, L3100.1725, L501.5200, L101.9900 #### [facility] Laboratory [address] [facility]. [place], [place], [phone] MCH (RBC) [Entitic mass] 30.0 pg Normal 27.0-32.0 [facility] Comment on above: Performed By: #### L 500.4050, L3100.5450, L501.9520, L503.0106, L3300.0960, L100.0500, L3300.8200, L3130.0010, L3300.8000, L3100.1725, L501.5200, L101.9900 #### [facility] Laboratory [address] [place], [address] MCHC (RBC) [Mass/Vol] 34.0 g/dL Normal 32-36 [facility] Comment on above: Performed By: #### L 500.4050, L3100.5450, L501.9520, L503.0106, L3300.0960, L100.0500, L3300.8200, L3130.0010, L3300.8000, L3100.1725, L501.5200, L101.9900 #### [facility] Laboratory [address] [place], [address] MCV (RBC) [Entitic vol] 88.2 fL Normal 81-99 [facility] Comment on above: Performed By: #### L 500.4050, L3100.5450, L501.9520, L503.0106, L3300.0960, L100.0500, L3300.8200, L3130.0010, L3300.8000, L3100.1725, L501.5200, L101.9900 #### [facility] Laboratory [address] [place], [address] Platelet mean volume (Bld) [Entitic vol] 12.7 fL High 6.2-12.0 [facility] Comment on above: Performed By: #### L 500.4050, L3100.5450, L501.9520, L503.0106, L3300.0960, L100.0500, L3300.8200, L3130.0010, L3300.8000, L3100.1725, L501.5200, L101.9900 #### [facility] Laboratory [address] [place], [address] Platelets (Bld) [#/Vol] 171 10*3/uL Normal 150-450 [facility] Comment on above: Performed By: #### L 500.4050, L3100.5450, L501.9520, L503.0106, L3300.0960, L100.0500, L3300.8200, L3130.0010, L3300.8000, L3100.1725, L501.5200, L101.9900 #### [facility] Laboratory [address] [facility] [place], [address] RBC (Bld) [#/Vol] 4.76 10*6/uL Normal 4.2-5.4 [facility] Comment on above: Performed By: #### L 500.4050, L3100.5450, L501.9520, L503.0106, L3300.0960, L100.0500, L3300.8200, L3130.0010, L3300.8000, L3100.1725, L501.5200, L101.9900 #### [facility] Laboratory [address] [facility] [place], [place], [phone] (537) RDW SD 40.2 fl Normal 35.1-43.9 [facility] Comment on above: Performed By: #### L 500.4050, L3100.5450, L501.9520, L503.0106, L3300.0960, L100.0500, L3300.8200, L3130.0010, L3300.8000, L3100.1725, L501.5200, L101.9900 #### [facility] [address] [facility] [place], [place], [phone] (968) WBC (Bld) [#/Vol] 7.1 10*3/uL Normal 4.4-11.[address] [facility] Comment on above: Performed By: #### L 500.4050, L3100.5450, L501.9520, L503.0106, L3300.0960, L100.0500, L3300.8200, L3130.0010, L3300.8000, L3100.1725, L501.5200, L101.9900 #### [facility] Laboratory [address] [place], [place], [phone] (478) Comprehensive Metabolic Prof ilon 04-10-2025 Albumin [Mass/Vol] 4.2 g/dL Normal 3.4-4.8 [facility] Comment on above: Performed By: #### L 500.4050, L3100.5450, L501.9520, L503.0106, L3300.0960, L100.0500, L3300.8200, L3130.0010, L3300.8000, L3100.1725, L501.5200, L101.9900 #### [facility] Laboratory [address] [place], [place], [phone] (394) Albumin/Globulin [Mass ratio] 1.2 {ratio} Normal 0.9-2.4 [facility] Comment on above: Performed By: #### L 500.4050, L3100.5450, L501.9520, L503.0106, L3300.0960, L100.0500, L3300.8200, L3130.0010, L3300.8000, L3100.1725, L501.5200, L101.9900 #### [facility] Laboratory [address] [place], [place], [id number] ALK PHOS 74 U/L Normal 35-104 [facility] Comment on above: Performed By: #### L 500.4050, L3100.5450, L501.9520, L503.0106, L3300.0960, L100.0500, L3300.8200, L3130.0010, L3300.8000, L3100.1725, L501.5200, L101.9900 #### [facility] Laboratory [address] [place], [place], [phone] ALT [Catalytic activity/Vol] 19 U/L Normal <=34 [facility] Comment on above: Performed By: #### L 500.4050, L3100.5450, L501.9520, L503.0106, L3300.0960, L100.0500, L3300.8200, L3130.0010, L3300.8000, L3100.1725, L501.5200, L101.9900 #### [facility] Laboratory [address] [place], [address] AST [Catalytic activity/Vol] 23 U/L Normal <=31 [facility] Comment on above: Performed By: #### L 500.4050, L3100.5450, L501.9520, L503.0106, L3300.0960, L100.0500, L3300.8200, L3130.0010, L3300.8000, L3100.1725, L501.5200, L101.9900 #### [facility] Laboratory [address] [place], [address] Bilirubin [Mass/Vol] 0.40 mg/dL Normal 0.00-1.30 [facility] Comment on above: Performed By: #### L 500.4050, L3100.5450, L501.9520, L503.0106, L3300.0960, L100.0500, L3300.8200, L3130.0010, L3300.8000, L3100.1725, L501.5200, L101.9900 #### [facility] Laboratory [address] [place], [place], [phone] BUN/CRE 26.6 RATIO High 10-20 [facility] Comment on above: Performed By: #### L 500.4050, L3100.5450, L501.9520, L503.0106, L3300.0960, L100.0500, L3300.8200, L3130.0010, L3300.8000, L3100.1725, L501.5200, L101.9900 #### [facility] Laboratory [address] [place], [place], [phone] Calcium [Mass/Vol] 9.2 mg/dL Normal 7.6-11.0 [facility] Comment on above: Performed By: #### L 500.4050, L3100.5450, L501.9520, L503.0106, L3300.0960, L100.0500, L3300.8200, L3130.0010, L3300.8000, L3100.1725, L501.5200, L101.9900 #### [facility] Laboratory [address] [place], [place], [phone] (526) Chloride [Moles/Vol] 104 mmol/L Normal 98-108 [facility] Comment on above: Performed By: #### L 500.4050, L3100.5450, L501.9520, L503.0106, L3300.0960, L100.0500, L3300.8200, L3130.0010, L3300.8000, L3100.1725, L501.5200, L101.9900 #### [facility] Laboratory [address] [place], [place], [phone] (897) CO2 [Moles/Vol] 25.2 mmol/L Normal 21.0-32.0 [facility] Comment on above: Performed By: #### L 500.4050, L3100.5450, L501.9520, L503.0106, L3300.0960, L100.0500, L3300.8200, L3130.0010, L3300.8000, L3100.1725, L501.5200, L101.9900 #### [facility] [address] [place], [place], [phone] (809) Creatinine [Mass/Vol] 0.64 mg/dL Low 0.70-1.20 [facility] Comment on above: Performed By: #### L 500.4050, L3100.5450, L501.9520, L503.0106, L3300.0960, L100.0500, L3300.8200, L3130.0010, L3300.8000, L3100.1725, L501.5200, L101.9900 #### [facility] [address] [place], [place], [phone] (848) GAP 10 Normal 5-15 [facility] Comment on above: Performed By: #### L 500.4050, L3100.5450, L501.9520, L503.0106, L3300.0960, L100.0500, L3300.8200, L3130.0010, L3300.8000, L3100.1725, L501.5200, L101.9900 #### [facility] [address] [facility] [place], [address] GFR/1.73 sq M.predicted among non-blacks MDRD (S/P/Bld) [Vol rate/Area] 98 mL/min/{1.73_m2} Normal >60 [facility] Comment on above: Result Comment: mL/m in/1.73m2 CKD-EPI Creatinine Equation (2020) Performed By: #### L 500.4050, L3100.5450, L501.9520, L503.0106, L3300.0960, L100.0500, L3300.8200, L3130.0010, L3300.8000, L3100.1725, L501.5200, L101.9900 #### [facility] [address] [place], [address] Globulin (S) [Mass/Vol] 3.5 g/dL Normal 2.2-4.2 [facility] Comment on above: Performed By: #### L 500.4050, L3100.5450, L501.9520, L503.0106, L3300.0960, L100.0500, L3300.8200, L3130.0010, L3300.8000, L3100.1725, L501.5200, L101.9900 #### [facility] [address] [place], [address] Glucose [Mass/Vol] 103 mg/dL High 70-99 [facility] Comment on above: Performed By: #### L 500.4050, L3100.5450, L501.9520, L503.0106, L3300.0960, L100.0500, L3300.8200, L3130.0010, L3300.8000, L3100.1725, L501.5200, L101.9900 #### [facility] [address] [place], [address] Potassium [Moles/Vol] 3.9 mmol/L Normal 3.3-5.1 [facility] Comment on above: Performed By: #### L 500.4050, L3100.5450, L501.9520, L503.0106, L3300.0960, L100.0500, L3300.8200, L3130.0010, L3300.8000, L3100.1725, L501.5200, L101.9900 #### [facility] [address] [place], [place], [phone] (106) Sodium [Moles/Vol] 139 mmol/L Normal 133-145 [facility] Comment on above: Performed By: #### L 500.4050, L3100.5450, L501.9520, L503.0106, L3300.0960, L100.0500, L3300.8200, L3130.0010, L3300.8000, L3100.1725, L501.5200, L101.9900 #### [facility] [address] [place], [place], [phone] (658) T PROT 7.6 g/dL Normal 5.9-8.4 [facility] Comment on above: Performed By: #### L 500.4050, L3100.5450, L501.9520, L503.0106, L3300.0960, L100.0500, L3300.8200, L3130.0010, L3300.8000, L3100.1725, L501.5200, L101.9900 #### [facility] [address] [place], [place], [phone] (433) Urea nitrogen [Mass/Vol] 17 mg/dL Normal 4-19 [facility] Comment on above: Performed By: #### L 500.4050, L3100.5450, L501.9520, L503.0106, L3300.0960, L100.0500, L3300.8200, L3130.0010, L3300.8000, L3100.1725, L501.5200, L101.9900 #### [facility] [address] [place], [place], [phone] Erythrocyte Sed Rateon 04-10 SED RATE 35 mm/hr High 0-30 [facility] Comment on above: Performed By: #### L 500.4050, L3100.5450, L501.9520, L503.0106, L3300.0960, L100.0500, L3300.8200, L3130.0010, L3300.8000, L3100.1725, L501.5200, L101.9900 #### [facility] [address] [place], [place], [phone] Magnesiumon 04-10-2025 Magnesium [Mass/Vol] 2.1 mg/dL Normal 1.5-2.2 [facility] Comment on above: Performed By: #### L 500.4050, L3100.5450, L501.9520, L503.0106, L3300.0960, L100.0500, L3300.8200, L3130.0010, L3300.8000, L3100.1725, L501.5200, L101.9900 #### [facility] [address] [place], [place], [phone] Thyroid Stim Hormone (TSH)on 04-10-2025 TSH 2.690 uIU/mL Normal 0.300-4.200 [facility] Comment on above: Performed By: #### L 500.4050, L3100.5450, L501.9520, L503.0106, L3300.0960, L100.0500, L3300.8200, L3130.0010, L3300.8000, L3100.1725, L501.5200, L101.9900 #### [facility] [address] [place], [place], [phone] Vitamin B12on 04-10-2025 Cobalamin (Vitamin B12) [Mass/Vol] pg/mL High 180-914 [facility] Comment on above: Performed By: #### L 500.4050, L3100.5450, L501.9520, L503.0106, L3300.0960, L100.0500, L3300.8200, L3130.0010, L3300.8000, L3100.1725, L501.5200, L101.9900 #### [facility] [address] [place], [place], [address] Neurology Visit Reporton Neurology Visit Report [facility] [address] [facility], [address] [place], [place] [address] OFFICE VISIT Date of Service: 04/06/25 MR#: [id number] Acct: [id number] Name: VELMA CH Rep #: [id number] : 1960 Provider: Dr. Zack gomes MD Age/Sex: 65/F [place] [facility] [place] Signed HPI HPI Details: History: The patient is a 65-year-old right-handed woman with a past medical history of hyperlipidemia and long COVID syndrome (as a result of a COVID-vaccine received in 2020) who presents for evaluation of right hemifacial spasm. In mid 2022, she began to experience right hemifacial spasm. On further evaluation in that year she was found to have a right cholesteatoma and underwent surgical resection of this. Subsequent to this surgery her right hemifacial spasm worsened. She also had mild peripheral right facial palsy and right-sided hearing loss postoperatively. She denies having any facial pain, numbness, tinnitus, dizziness, speech difficulty, or swallowing difficulty. She reports having some visual impairment in the right eye that appears to be due to the narrowing of the palpebral fissure that occurs with her facial spasms rather than an intraocular problem. She had a fall in July 2024 and sustained a right tibial fracture; this was treated nonsurgically. She denies having neck pain, low back pain, or pain in the legs presently. She developed breathing difficulty, fatigue, weakness in the legs and urinary incontinence following receiving a COVID-19 vaccine in 2020. She reports having subsequent resolution of her urinary symptoms and improvement of her breathing, fatigue and lower extremity weakness though these persist to some degree. She is seeing another medical provider regarding her long COVID syndrome. Past Medical History: As above. There is no history of hypertension, diabetes mellitus, heart disease, stroke, seizure, thyroid disease, cancer, renal disease, or sleep apnea. She has shortness of breath but apparently has not been diagnosed with a primary pulmonary disease. Social History: There is no history of smoking tobacco. There is no history of alcohol abuse or illicit drug use. Family History: The patient's grandmother had a stroke. There is no family history of cerebral aneurysm, seizure, multiple sclerosis. Review of Systems: As above. The patient has not had any recent fever, rash, chest pain, gastrointestinal problems or urinary problems. She has had an intentional 8 pound weight loss over the past 6 months. She experiences some shortness of breath. She denies having depression. She feels well rested when she awakens in the morning. Physical Exam: General: Well-developed, well-nourished female in no acute distress. Neuro: The patient is awake and alert and responds appropriately; speech is fluent; language function is within normal limits Cranial nerves: PERRL, 3mm bilaterally; EOMI; visual murry are full; visual acuity is 20/50 bilaterally; she has a mild right peripheral facial palsy; tongue is midline; there are no deficits to pinprick; she exhibits frequent occurrences of right hemifacial spasm affecting the right upper and right lower face Cerebellar system: No nystagmus Deep tendon reflexes: +2 at the brachioradialis bilaterally in biceps bilaterally and absent at the triceps bilaterally, knees and ankles; plantar responses are downward on the left and upward on the right Motor: Strength 5/5 in the biceps bilaterally, abductor pollicis brevis muscles bilaterally, first dorsal interosseous muscles bilaterally, iliopsoas bilaterally, quadriceps bilaterally and foot dorsiflexors bilaterally; no drift Sensory: There are no deficits to soft touch or pinprick; decreased vibration is noted in both feet Gait: Unremarkable HEENT: Normocephalic; atraumatic; right tympanic membrane is not visualized due to cerumen; left panic membrane is clear Neck: No bruits Heart: Regular rhythm and rate Extremities: No cyanosis or edema; straight leg raise is negative bilaterally; dorsalis pedis pulses are +2 bilaterally Assessment and Plan Assessment and Plan (1) 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: Status: Acute (2) History of cholesteatoma: Status: Acute (3) Polyneuropathy: Status: Acute Orders: Orders Brain W/WO Contrast Today G51.31 - Clonic hemifacial spasm, right, Z86.69 - Personal history of other diseases of the nervous system and sense organs Vitamin D 1,25-Dihydroxy Today G51.31 - Clonic hemifacial spasm, right, G62.9 - Polyneuropathy, unspecified VITAMIN B6 Today G51.31 - Clonic hemifacial spasm, right, G62.9 - Polyneuropathy, unspecified Vitamin B12 Today G51.31 - Clonic hemifacial spasm, right, G62.9 - Polyneuropathy, unspecified Vitamin B1, Thiamine Today G51.31 - Clonic hemifacial spasm, right, G62.9 - Polyneuropathy, unspecified Folates, RBC Today G51.31 - Clonic fior (more content not included)... Normal [facility] DEEP SCREENING W TOMOon 02-19 DEEP SCREENING W BRANDEN * * *Final Report* * * DATE OF EXAM: Feb 19 2025 4:41PM LDW 0582 - DEEP SCREENING W BRANDEN / PROCEDURE REASON: Encounter for screening mammogram for malignant neoplasm of breast * * * * Physician Interpretation * * * * [address] [address] #[id number] - [facility] SCREENING W BRANDEN HISTORY: 65 year-old patient presents for screening. No current complaints. Patient states no personal history of breast cancer. The patient has a family history of ovarian cancer. COMPARISON STUDIES: The present examination has been compared to prior imaging studies dated 08/12/2020 (mammogram), 11/17/2020 (mammogram), 11/22/2021 (mammogram) and 11/24/2022 (mammogram). MAMMOGRAM TECHNIQUE: The study was acquired using full field digital technology and interpreted from soft copy. Digital Breast Tomosynthesis (DBT) images were obtained and used to assist in the interpretation of this examination. MAMMOGRAM FINDINGS: The breasts are heterogeneously dense, which may obscure small masses. No suspicious masses, calcifications or other abnormalities are seen in either breast. There are no significant interval changes. IMPRESSION: There is no mammographic evidence of malignancy in either breast. Routine screening mammogram is recommended. Annual mammogram will be due in 1 year. BI-RADS Category 1: Negative RISK: Based on the Tyrer-Cuzick (TC) risk assessment model, this patient has a 4.1% lifetime risk of developing breast cancer, meaning they are at average risk for developing breast cancer. However, this is only an estimate based on available history provided on the patient's questionnaire. We encourage all patients to talk with their providers about these results, further recommendations for managing breast health, and appropriate supplemental screening options if the patient has dense breast tissue. Interpreting Radiologist: Tab Bai M.D. Electronically signed on: 02/20/2025 Property Consultant: SCOTT Transcribe Date/Time: Feb 19 2025 4:16P Dictated by : TAB BAI MD This examination was interpreted and the report reviewed and electronically signed by: TAB BAI MD on Feb 20 2025 8:25AM EST [id number] Normal [facility] US FEMALE PELVIS TRANSVAGon 02-19-2025 US FEMALE PELVIS TRANSVAG * * *Final Report* * * DATE OF EXAM: Feb 19 2025 5:07PM LDU 1060 - US FEMALE PELVIS TRANSVAG / PROCEDURE REASON: multiple diagnoses * * * * Physician Interpretation * * * * EXAMINATION: FEMALE PELVIC ULTRASOUND CLINICAL HISTORY: Bloating Family history of ovarian cancer , 65 years old. Prior hysterectomy. TECHNIQUE: Sonography of the pelvis was performed by transvaginal technique. Images were obtained and stored in a permanent archive. MQ: [id number] COMPARISON: None RESULT: Uterus: The uterus is surgically absent. Right Ovary: Not visualized. Left Ovary: Not visualized. No sonographic evidence of pelvic mass. Free Fluid: No abnormal free fluid is present. IMPRESSION: No abnormality identified. Status post hysterectomy. The ovaries were not visualized. Property Consultant: DAPHNIE Transcribe Date/Time: Feb 21 2025 6:37P Dictated by : ANIKET WARE MD This examination was interpreted and the report reviewed and electronically signed by: ANIKET WARE MD on Feb 21 2025 6:38PM EST [id number] Normal [facility] CNOVon 02-13-2025 CNOV Office Visit (OBGYWM ) VELMA CH ([id number]) 1960 F Date Time Provider Department 02/13/25 10:15 AM SARAH AMADO OBGYWM During your visit today, we recorded the following information about you: Blood pressure Weight Height 142/90 83 kg 1.626 m Sarah Amado APRN.DIRECTOR COMPLIANCE 02/13/2025 10:31 AM Signed Scrubber Machine Tender offered: Patient declines. Velma is a 65 year old who presents for an annual gynecologic exam without complaints. 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 Seeing neurologist on April 07. Son getting tomorrow. Continues to work for [email or web address]. 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 Postmenopausal: Hysterectomy for AUB HRT use: No. Still get period: No Menopause symptoms: None control frequency: Never HPV vaccine: No; Last pap smear: 07/22/18 normal History of abnormal pap: Yes, cryo Bothersome pelvic pain: No Last mammogram: 2022 normal History of abnormal mammogram: Yes , follow up benign OB History Gravida5 Para4 Term4 Preterm0 AB1 Living4 SAB0 IAB0 Ectopic0 Multiple0 Live Births0 [employer] History LMP: Hysterectomy Age at Menarche: 12 Age at First : Age at Menopause: [employer] History Comments: Sexual Activity: Not Currently; No partner data on record Contraception: No contraception data on record PAST MEDICAL HISTORY Diagnosis Date Asthma (HCC) Broken tibia 07/2024 Cyst (solitary) of breast tailbone Ear mass, right PONV (postoperative nausea and vomiting) PAST SURGICAL HISTORY Procedure Laterality Date SECTION HX 1979 SECTION HX 1982 SECTION HX 1991 SECTION HX 1993 CYST/MOLE REMOVAL 01/2025 back HYSTERECTOMY HX 2006 still has ovaries PAST SURGICAL HISTORY OF Right removal of mass from right ear TONSILLECTOMY AND ADENOIDECTOMY FAMILY HISTORY Problem Relation Age of Onset Ovarian cancer Mother Diabetes Father Asthma Sister No Known Problems Sister Hypertension Brother No Known Problems Brother Mental illness Son Anesthesia Problems No Family History SOCIAL HISTORY Social History Tobacco Use Smoking status: Never Passive exposure: Never Smokeless tobacco: Never Tobacco comments: as a teenager, 6 cigarettes/day for a year Vaping Use Vaping status: Never Used Substance Use Topics Alcohol use: Not Currently Drug use: Never REVIEW OF SYSTEMS Abdomen: No abdominal pain, nausea, vomiting, diarrhea, or constipation. No early satiety, indigestion. + bloating/gas Bladder: No dysuria, gross hematuria, urinary frequency, urinary urgency, or incontinence Breast: No breast lumps, nipple d/c, overlying skin changes, redness or skin retraction Allergies and current medication updated:Yes SENSITIVE EXAM: The sensitive examination was discussed with the Patient or Patient's Authorized Grill Associate. As applicable, any other physician, advance practice provider, medical student, or other health professional student that will be observing or involved in the sensitive examination for educational or training purposes was discussed with the Patient or Authorized Grill Associate. The Patient or Authorized Grill Associate has agreed to proceed with the sensitive examination. (Sensitive examination includes inspection and/or palpation of the breasts, pelvis, prostate and anorectal regions). EXAM: BP 142/90 Ht 5' 4 (1.63m) Wt 183 lb (83.0kg) BMI 31.40 kg/(m2). GENERAL: pleasant, female in no apparent distress HEENT: Normocephalic, atraumatic, mucus membranes moist, and no lesions NECK: Supple, full range of motion, no adenopathy, and thyroid normal DERMATOLOGY: Normal, without lesions, non-icteric, and non-hirsute BREAST: soft, non-tender, symmetric, no dominant mass, normal nipple-areolar complex, no lymphadenopathy, and no nipple discharge CHEST: Normal inspiratory effort ABDOMEN: soft, non-tender, and no masses PELVIC: external genitalia normal, normal Bartholin's glands, urethra, Pierz's glands, no vulvar lesions, good vaginal support, physiologic discharge present, normal appearing perineal body and perianal region, cervix surgically absent BIMANUAL: no adnexal masses, non-tender, and uterus surgically absent RECTOVAGINAL: deferred. NEURO: alert and oriented x3,exam grossly non-focal EXTREMITIES: normal ASSESSMENT/PLAN: 1) Health maintenance: Pap/HPV screening no longer needed Mammogram ordered Routine health maintenance exams reviewed. Calcium/Vitamin D supplementation information provided. Colon cancer screening: Cologuard ordered TSH/lipids/glucose: followed by PCP BMD: ordered, broke tibia in July 2) Follow up one year or sooner as needed Bloating - ICD9: 787.3, ICD10: R14.0 Family history of ovarian cancer - ICD9: V16.41, ICD10: Z80.41 - PELVIC [facility] - CONSULT TO MEDICAL GENETICS - EDMdesigner (more content not included)... Normal [facility] 25(OH)D3 [facility] 25-hydroxyvitamin D3 [Mass/Vol] 69.0 ng/mL Normal >=30.0 [facility] Comment on above: Order Comment: Specusman cabral Type: BLOOD SPECIMEN Ordering Facility: [facility] Address: [address] [place] [address] Result Comment: Clas sification of 25 [place] Vitamin D status: Deficiency: <= 20.0 ng/ml. Insufficiency: 21.0-29.0 ng/ml. Sufficiency: >= 30.0 ng/ml. Performed By: #### 1 989-3 #### [facility] CLIA [id number] [address] [place] [address] STATES OF [facility] CBC W Auto Differential pane l (Bld)on 09-17-2024 Basophils (Bld) [#/Vol] 0.03 10*3/uL Normal <0.11 [facility] Comment on above: Order Comment: Speci [facility] Type: BLOOD SPECIMEN Ordering Facility: [facility] Address: [address] [place] [address] Performed By: #### 5 7021-8 #### [facility] CLIA [id number] [address] [place] [address] Basophils/100 WBC (Bld) 0.4 % Normal [facility] Comment on above: Order Comment: [facility] Type: BLOOD SPECIMEN Ordering Facility: [facility] Address: [address] [place] [address] Performed By: #### 5 7021-8 #### [facility] CLIA [id number] [address] [place] [address] [facility] [place] Differential cell count method Nom (Bld) Auto Normal [facility] Comment on above: Order Comment: Speci men Type: BLOOD SPECIMEN Ordering Facility: [facility] Address: [address] [place] [address] Performed By: #### 5 7021-8 #### [facility] CLIA [id number] [address] [place] [address] [place] Eosinophils (Bld) [#/Vol] 0.15 10*3/uL Normal <0.46 [facility] Comment on above: Order Comment: Speci men Type: BLOOD SPECIMEN Ordering Facility: [facility] Address: [address] [place] [address] Performed By: #### 5 7021-8 #### [facility] CLIA [id number] [address] [place] [id number] [place] Eosinophils/100 WBC (Bld) 1.9 % Normal [facility] Comment on above: Order Comment: Speci men Type: BLOOD SPECIMEN Ordering Facility: [facility] Address: [address] [place] [address] Performed By: #### 5 7021-8 #### [facility] CLIA [id number] [address] [place] [address] [place] Erythrocyte distribution width (RBC) [Ratio] 12.6 % Normal 11.5-15.0 [facility] Comment on above: Order Comment: Speci men Type: BLOOD SPECIMEN Ordering Facility: [facility] Address: [address] [place] [address] Performed By: #### 5 7021-8 #### [facility] CLIA [id number] [address] [place] [address] [place] Hematocrit (Bld) [Volume fraction] 45.8 % Normal 36.0-46.0 [facility] Comment on above: Order Comment: Speci men Type: BLOOD SPECIMEN Ordering Facility: [facility] Address: [address] [place] [address] Performed By: #### 5 7021-8 #### [facility] CLIA [id number] [address] [place] [address] [place] Hemoglobin (Bld) [Mass/Vol] 15.1 g/dL Normal 11.5-15.5 [facility] Comment on above: Order Comment: Speci men Type: BLOOD SPECIMEN Ordering Facility: [facility] Address: [address] [place] [address] Performed By: #### 5 7021-8 #### [facility] CLIA [id number] [address] [place] [address] [place] Immature granulocytes (Bld) [#/Vol] 0.03 10*3/uL Normal <0.10 [facility] Comment on above: Order Comment: Speci men Type: BLOOD SPECIMEN Ordering Facility: [facility] Address: [address] [place] [address] Performed By: #### 5 7021-8 #### [facility] CLIA [id number] [address] [place] [address] [place] Immature granulocytes/100 WBC (Bld) 0.4 % Normal [facility] Comment on above: Order Comment: Speci men Type: BLOOD SPECIMEN Ordering Facility: [facility] Address: [address] [place] [address] Performed By: #### 5 7021-8 #### [facility] CLIA [id number] [address] [place] [address] [place] Lymphocytes (Bld) [#/Vol] 2.98 10*3/uL Normal 1.00-4.00 [facility] Comment on above: Order Comment: Speci men Type: BLOOD SPECIMEN Ordering Facility: [facility] Address: [address] [place] [address] Performed By: #### 5 7021-8 #### [facility] CLIA [id number] [address] [place] [address] [facility] Lymphocytes/100 WBC (Bld) 38.4 % Normal [facility] Comment on above: Order Comment: Speci men Type: BLOOD SPECIMEN Ordering Facility: [facility] Address: [address] [place] [address] Performed By: #### 5 7021-8 #### [facility] CLIA [id number] [address] [place], [place] [address] [place] [address] [place] MCH (RBC) [Entitic mass] 29.9 pg Normal 26.0-34.0 [facility] Comment on above: Order Comment: Speci men Type: BLOOD SPECIMEN Ordering Facility: [facility] Address: [address] [place] [address] Performed By: #### 5 7021-8 #### [facility] CLIA [id number] [address] [place], [place] [address] [place] [address] [place] MCHC (RBC) [Mass/Vol] 33.0 g/dL Normal 30.5-36.0 [facility] Comment on above: Order Comment: Speci men Type: BLOOD SPECIMEN Ordering Facility: [facility] Address: [address] [place] [address] Performed By: #### 5 7021-8 #### [facility] CLIA [id number] [address] [place] MCV (RBC) [Entitic vol] 90.7 fL Normal 80.0-100.0 [facility] Comment on above: Order Comment: Speci men Type: BLOOD SPECIMEN Ordering Facility: [facility] Address: [address] [place] [address] Performed By: #### 5 7021-8 #### [facility] CLIA [id number] [address] [place] Monocytes (Bld) [#/Vol] 0.50 10*3/uL Normal <0.87 [facility] Comment on above: Order Comment: Speci men Type: BLOOD SPECIMEN Ordering Facility: [facility] Address: [address] [place] [address] Performed By: #### 5 7021-8 #### [facility] CLIA [id number] [address] [place] [address] [place] Monocytes/100 WBC (Bld) 6.4 % Normal [facility] Comment on above: Order Comment: Speci men Type: BLOOD SPECIMEN Ordering Facility: [facility] Address: [address] [place] [address] Performed By: #### 5 7021-8 #### [facility] CLIA [id number] [address] [place] [address] [place] Neutrophils (Bld) [#/Vol] 4.07 10*3/uL Normal 1.45-7.50 [facility] Comment on above: Order Comment: Speci men Type: BLOOD SPECIMEN Ordering Facility: [facility] Address: [address] [place] [address] Performed By: #### 5 7021-8 #### [facility] CLIA [id number] [address] [place] [address] [place] Neutrophils/100 WBC (Bld) 52.5 % Normal [facility] Comment on above: Order Comment: Speci men Type: BLOOD SPECIMEN Ordering Facility: [facility] Address: [address] [place] [address] Performed By: #### 5 7021-8 #### [facility] CLIA [id number] [address] [place] [address] [place] Nucleated RBC (Bld) [#/Vol] Normal [facility] Comment on above: Order Comment: Speci men Type: BLOOD SPECIMEN Ordering Facility: [facility] Address: [address] [place] [address] Performed By: #### 5 7021-8 #### [facility] CLIA [id number] [address] [place] [address] [place] Nucleated RBC/100 WBC (Bld) [Ratio] Normal [facility] Comment on above: Order Comment: Speci men Type: BLOOD SPECIMEN Ordering Facility: [facility] Address: [address] [place] [address] Performed By: #### 5 7021-8 #### [facility] CLIA [id number] [address] [place] [address] [place] Platelet mean volume (Bld) [Entitic vol] 11.6 fL Normal 9.0-12.7 [facility] Comment on above: Order Comment: Speci men Type: BLOOD SPECIMEN Ordering Facility: [facility] Address: [address] [place] [address] Performed By: #### 5 7021-8 #### [facility] CLIA [id number] [address] [place] [address] [place] Platelets (Bld) [#/Vol] 262 10*3/uL Normal 150-400 [facility] Comment on above: Order Comment: Speci men Type: BLOOD SPECIMEN Ordering Facility: [facility] Address: [address] [place] [address] Performed By: #### 5 7021-8 #### [facility] CLIA [id number] [address] [place] [address] [place] RBC (Bld) [#/Vol] 5.05 10*6/uL Normal 3.90-5.20 [facility] Comment on above: Order Comment: Speci men Type: BLOOD SPECIMEN Ordering Facility: [facility] Address: [address] [place] [address] Performed By: #### 5 7021-8 #### [facility] CLIA [id number] [address] [place] [address] [place] WBC (Bld) [#/Vol] 7.76 10*3/uL Normal 3.70-11.00 [facility] Comment on above: Order Comment: Speci men Type: BLOOD SPECIMEN Ordering Facility: [facility] Address: [address] [place] [address] Performed By: #### 5 7021-8 #### [facility] CLIA [id number] [address] [place] [address] [facility] Comprehensive metabolic 2000 panelon 09-17-2024 Albumin [Mass/Vol] 4.1 g/dL Normal 3.9-4.9 [facility] Comment on above: Order Comment: Speci men Type: BLOOD SPECIMEN Ordering Facility: [facility] Address: [address] [place] [address] Performed By: #### 2 4323-8, 00426-8 #### [facility] CLIA [id number] [address] [place] [address] [facility] ALP [Catalytic activity/Vol] 81 U/L Normal 34-123 [facility] Comment on above: Order Comment: Speci men Type: BLOOD SPECIMEN Ordering Facility: [facility] Address: [address] [place] [address] Performed By: #### 2 4323-8, 11717-4 #### [facility] CLIA [id number] [address] [place] [address] [facility] ALT With P-5'-P [Catalytic activity/Vol] 20 U/L Normal 7-38 [facility] Comment on above: Order Comment: Speci men Type: BLOOD SPECIMEN Ordering Facility: [facility] Address: [address] [place] [address] Performed By: #### 2 4323-8, 70947-2 #### [facility] CLIA [id number] [address] [place] [address] [facility] Anion gap [Moles/Vol] 9 mmol/L Normal 8-15 [facility] Comment on above: Order Comment: Speci men Type: BLOOD SPECIMEN Ordering Facility: [facility] Address: [address] [place] [address] Performed By: #### 2 4323-8, 82884-8 #### [facility] CLIA [id number] [address] [place] [address] [facility] [place] AST With P-5'-P [Catalytic activity/Vol] 30 U/L Normal 13-35 [facility] Comment on above: Order Comment: Speci men Type: BLOOD SPECIMEN Ordering Facility: [facility] Address: [address] [place] [address] Performed By: #### 2 4323-8, 15580-2 #### [facility] CLIA [id number] [address] [place] [address] [place] Bilirubin [Mass/Vol] 0.5 mg/dL Normal 0.2-1.3 [facility] Comment on above: Order Comment: Speci men Type: BLOOD SPECIMEN Ordering Facility: [facility] Address: [address] [place] [address] Performed By: #### 2 4323-8, 45790-3 #### [facility] CLIA [id number] [address] [place] [address] [place] Calcium [Mass/Vol] 9.6 mg/dL Normal 8.5-10.2 [facility] Comment on above: Order Comment: Speci men Type: BLOOD SPECIMEN Ordering Facility: [facility] Address: [address] [place] [address] Performed By: #### 2 4323-8, 42632-1 #### [facility] CLIA [id number] [address] [place] [address] [place] Chloride [Moles/Vol] 103 mmol/L Normal 98-107 [facility] Comment on above: Order Comment: Speci men Type: BLOOD SPECIMEN Ordering Facility: [facility] Address: [address] [place] [address] Performed By: #### 2 4323-8, 58419-6 #### [facility] [place] [facility] CLIA [id number] [address] [place] [address] [place] CO2 [Moles/Vol] 25 mmol/L Normal 22-30 [facility] Comment on above: Order Comment: Speci men Type: BLOOD SPECIMEN Ordering Facility: [facility] Address: [address] [place] [address] Performed By: #### 2 4323-8, 93560-7 #### [facility] [place] [facility] CLIA [id number] [address] [place] [address] [facility] Creatinine [Mass/Vol] 0.68 mg/dL Normal 0.58-0.96 [facility] Comment on above: Order Comment: Bairon cabral Type: BLOOD SPECIMEN Ordering Facility: [facility] Address: [address] [place] [address] Performed By: #### 2 4323-8, 37738-4 #### [facility] CLIA [id number] [address] [place], [place] [address] [facility] [place] Creatinine and Glomerular filtration rate.predicted panel (S/P/Bld) 97 mL/min/1.73m??? Normal >=60 [facility] Comment on above: Order Comment: Bairon cabral Type: BLOOD SPECIMEN Ordering Facility: [facility] Address: [address] [place] [address] Result Comment: Marisabel mated Glomerular Filtration Rate (eGFR) is calculated using the 2020 CKD-EPI creatinine equation. This equation utilizes serum creatinine, sex, and age as parameters. The creatinine assay has traceable calibration to isotope dilution-mass spectrometry. Refer to KDIGO guidelines for clinical interpretation. In patients with unstable renal function, e.g. those with acute kidney injury, the eGFR may not accurately reflect actual GFR. Performed By: #### 2 4323-8, 29193-1 #### [facility] CLIA [id number] [address] [place] [address] [place] Glucose [Mass/Vol] 107 mg/dL High 74-99 [facility] Comment on above: Order Comment: Bairon cabral Type: BLOOD SPECIMEN Ordering Facility: [facility] Address: [address] [place] [address] Result Comment: The [place] Diabetes Association (ADA) provides guidance for cutoff values for fasting glucose and random glucose. The ADA defines fasting as no caloric intake for at least 8 hours. Fasting plasma glucose results between 100 to 125 mg/dL indicate increased risk for diabetes (prediabetes). Fasting plasma glucose results greater than or equal to 126 mg/dL meet the criteria for diagnosis of diabetes. In the absence of unequivocal hyperglycemia, results should be confirmed by repeat testing. In a patient with classic symptoms of hyperglycemia or hyperglycemic crisis, random plasma glucose results greater than or equal to 200 mg/dL meet the criteria for diagnosis of diabetes. Reference: Standards of Medical Care in Diabetes 2016, [place] Diabetes Association. Diabetes Care. 2016.39(Suppl 1). Performed By: #### 2 4323-8, 81411-8 #### [facility] [place] [facility] CLIA [id number] [address] [place] [address] [place] Potassium [Moles/Vol] 4.5 mmol/L Normal 3.7-5.1 [facility] Comment on above: Order Comment: Speci men Type: BLOOD SPECIMEN Ordering Facility: [facility] Address: [address] [place] [address] Performed By: #### 2 432-8, 76556-0 #### [facility] [place] [facility] CLIA [id number] [address] [place] [address] [place] Protein [Mass/Vol] 7.7 g/dL Normal 6.3-8.0 [facility] Comment on above: Order Comment: Speci men Type: BLOOD SPECIMEN Ordering Facility: [facility] Address: [address] [place] [address] Performed By: #### 2 4323-8, 81382-9 #### [facility] [place] [facility] CLIA [id number] [address] [place] [address] [place] Sodium [Moles/Vol] 137 mmol/L Normal 136-144 [facility] Comment on above: Order Comment: Speci men Type: BLOOD SPECIMEN Ordering Facility: [facility] Address: [address] [place] [address] Performed By: #### 2 4323-8, 89106-6 #### [facility] [place] [facility] CLIA [id number] [address] [place] [address] [place] Urea nitrogen [Mass/Vol] 14 mg/dL Normal 7-21 [facility] Comment on above: Order Comment: Speci men Type: BLOOD SPECIMEN Ordering Facility: [facility] Address: [facility] [place] [id number] Performed By: #### 2 4323-8, 22942-4 #### [facility] [place] [facility] CLIA [id number] [address] [place] [address] [place] HbA1c (Bld)on 09-17-2024 Average glucose Estimated from glycated hemoglobin (Bld) [Mass/Vol] 100 mg/dL Normal [facility] Comment on above: Order Comment: Bairon cabral Type: BLOOD SPECIMEN Ordering Facility: [facility] Address: [address] [place] [address] Result Comment: eAG: (Estimated average glucose) is a calculated value from HgbA1c and is underwriting service representative of the average blood glucose level in the last 2-3 month period. Performed By: #### 5 5454-3 #### [facility] CLIA [id number] [address] [place] [address] [place] HbA1c (Bld) [Mass fraction] 5.1 % Normal 4.3-5.6 [facility] Comment on above: Order Comment: Bairon cabral Type: BLOOD SPECIMEN Ordering Facility: [facility] Address: [address] [place] [address] Result Comment: [place] Diabetes Association guidelines indicate that patients with HgbA1c in the range 5.7-6.4% are at increased risk for development of diabetes, and intervention by lifestyle modification may be beneficial. HgbA1c greater or equal to 6.5% is considered diagnostic of diabetes. Performed By: #### 5 5454-3 #### [facility] CLIA [id number] [address] [place] [address] [place] Lipid 1996 panelon 5 Cholesterol [Mass/Vol] 270 mg/dL High <200 [facility] Comment on above: Order Comment: Bairon cabral Type: BLOOD SPECIMEN Ordering Facility: [facility] Address: [address] [place] [address] Result Comment: <200 mg/dL, Desirable 200-239 mg/dL, Borderline high >239 mg/dL, High Performed By: #### 2 4323-8, 80554-3 #### [facility] [place] [facility] CLIA [id number] [address] [place] [address] [place] Cholesterol in HDL [Mass/Vol] 48 mg/dL Normal >39 [facility] Comment on above: Order Comment: Bairon cabral Type: BLOOD SPECIMEN Ordering Facility: [facility] Address: [address] [place] [address] Result Comment: 40-5 9 mg/dL, Acceptable >59 mg/dL, High: Negative risk factor for coronary heart disease <40 mg/dL, Low: Positive risk factor for coronary heart disease Performed By: #### 2 4323-8, 71795-0 #### [facility] [place] [facility] CLIA [id number] [address] Cholesterol in LDL [Mass/Vol] 158 mg/dL High <100 [facility] Comment on above: Order Comment: Bairon marianna Type: BLOOD SPECIMEN Ordering Facility: [facility] Address: [address] [place] [address] Result Comment: <100 mg/dL, Optimal 100-129 mg/dL, Near optimal/above optimal 130-159 mg/dL, Borderline high 160-189 mg/dL, High >189 mg/dL, Very high Secondary prevention optimal LDL Cholesterol levels are recommended to be < 70 mg/dL Performed By: #### 2 4323-8, 10870-1 #### [employer] [facility] [place] [facility] CLIA [id number] [address] Cholesterol in LDL/Cholesterol in HDL [Mass ratio] 3.29 {ratio} High <2.54 [facility] Comment on above: Order Comment: Francisusman cabral Type: BLOOD SPECIMEN Ordering Facility: [facility] Address: [address] [place] [address] Result Comment: Refe rence: 1. National Cholesterol Education Program ATP III Guideline At-A-Glance Quick Desk Reference: National Heart, Lung, and Blood [place]. National Institutes of Health. 2001: NIH Publication No. 01-3305. 2. An International Atherosclerosis Society position paper: global recommendations for the management of dyslipidemia: executive summary, Atherosclerosis. 2014: 232(2):410-413. Performed By: #### 2 4323-8, 64577-8 #### [facility] [place] [facility] CLIA [id number] [address] [place] [address] [facility] [place] Cholesterol in VLDL [Mass/Vol] 64 mg/dL High <30 [facility] Comment on above: Order Comment: Speci men Type: BLOOD SPECIMEN Ordering Facility: [facility] Address: [address] [place], [place] [address] Performed By: #### 2 4323-8, 33269-8 #### [facility] [place] [facility] CLIA [id number] [address] [place] [address] [facility] [place] Cholesterol non HDL [Mass/Vol] 222 mg/dL High <130 [facility] Comment on above: Order Comment: Speci men Type: BLOOD SPECIMEN Ordering Facility: [facility] Address: [address] [place] [address] Result Comment: <130 mg/dL, Optimal 130-159 mg/dL, Near optimal/above optimal 160-189 mg/dL, Borderline high 190-219 mg/dL, High >219 mg/dL, Very high Secondary prevention optimal non HDL Cholesterol levels are recommended to be <100 mg/dL Performed By: #### 2 4323-8, 15899-8 #### [facility] [place] [facility] CLIA [id number] [address] Cholesterol.total /Cholesterol in HDL [Mass ratio] 5.63 {ratio} High <5.10 [facility] Comment on above: Order Comment: Speci men Type: BLOOD SPECIMEN Ordering Facility: [facility] Address: [facility] [place] [address] Performed By: #### 2 4323-8, 73089-4 #### [facility] [place] [facility] CLIA [id number] [address] [place] [address] [facility] [place] FASTING TIME 12 hrs Normal [facility] Comment on above: Order Comment: Speci men Type: BLOOD SPECIMEN Ordering Facility: [facility] Address: [address] [place], [place] [address] Performed By: #### 2 4323-8, 61482-6 #### [facility] [place] [facility] CLIA [id number] [address] [place] [address] [place] Triglyceride [Mass/Vol] 321 mg/dL High <150 [facility] Comment on above: Order Comment: Bairon men Type: BLOOD SPECIMEN Ordering Facility: [facility] Address: [address], [place] [address] Result Comment: <150 mg/dL, Normal 150-199 mg/dL, Borderline high 200-499 mg/dL, High >499 mg/dL, Very high Performed By: #### 2 4323-8, 91073-7 #### [facility] CLIA [id number] [address] [place] [address] [facility] CNOVon 09-15-2024 CNOV Office Visit (AGFAMP LE) VELMA HC ([id number]) 1960 F Date Time Provider Department 09/15/24 9:40 AM CHERIE TOBAR During your visit today, we recorded the following information about you: Temperature Pulse Respiration Blood pressure 98 degrees 64/minute 18/minute 126/80 Weight Height 85.3 kg 1.619 m Cherie Tobar APRN.DIRECTOR COMPLIANCE 09/15/2024 2:17 PM Signed [address] [address] Date of Evaluation: 09/15/2024 Patient Name: Velma Ch : 1960 Velma Ch is a 64 year old female who presents for Wellness I reviewed past medical, surgical, social, and family histories today and updated chart. Allergies, chronic medications, and supplements were also reviewed. She fell back in July and went to the ER and XR confirmed right tibial fracture. Placed in immobilizer and was seen by ortho a week later. She was placed in a T-ROM and is now in a soft brace. She is able to walk well on it now. Exercise: Patient does not have an exercise routine currently due to recent right tibial fracture but she stays active. Weight Trend: Last 2 Encounter Wt Readings: Date: Wt: 09/15/2024 85.3 kg (188 lb) 07/24/2024 83.9 kg (185 lb) Eating Habits: Patient does maintain healthy eating habits. Types of food appropriate diet Caffeine- 1-2 servings Tobacco Use: Tobacco Use: Never Alcohol Use: None Active Problem List/Chronic Problems There are no active hospital problems to display for this patient. Health Maintenance Depression Screening Never done Mammogram Screening due on 11/25/2023 HEALTH MAINTENANCE REVIEW: Mammogram, Pneumovax, and Influenza Declines vaccinations Review of Systems Constitutional: Negative for appetite change, chills, diaphoresis, fatigue, fever and unexpected weight change. HENT: Negative. Eyes: Negative for visual disturbance. Respiratory: Negative for cough, chest tightness, shortness of breath and wheezing. Cardiovascular: Negative for chest pain, palpitations and leg swelling. Gastrointestinal: Negative for abdominal pain, constipation, diarrhea, nausea and vomiting. Endocrine: Negative. Genitourinary: Negative for dysuria, frequency, hematuria and urgency. Musculoskeletal: Positive for arthralgias. Negative for back pain, gait problem and joint swelling. Skin: Negative. Allergic/Immunologic: Negative. Neurological: Negative for dizziness, light-headedness and headaches. Hematological: Negative. Psychiatric/Behavioral: Negative for dysphoric mood and sleep disturbance. The patient is not nervous/anxious. PAIN: Negative for pain, history of chronic pain, or current treatment for a chronic pain condition. ALLERGIES Allergen Reactions Latex Rash Poison Viviana Extract Intolerance, Itching, Rash, Swelling albuterol HFA (PROVENTIL HFA, VENTOLIN HFA) 90 mcg/actuation inhaler INHALE 2 PUFFS BY MOUTH EVERY 4 TO 6 HOURS MULTIVITAMIN ORAL Take by mouth once daily. omega-3/dha/epa/fish oil (OMEGA-3 ORAL) Take 1,000 mg by mouth once daily. ibuprofen (MOTRIN) 200 mg tablet Take 200 mg by mouth every 6 hours as needed. PAST MEDICAL HISTORY Diagnosis Date Asthma Broken tibia 07/2024 Cyst (solitary) of breast tailbone Ear mass, right PONV (postoperative nausea and vomiting) PAST SURGICAL HISTORY Procedure Laterality Date SECTION HX 1979 SECTION HX 1982 SECTION HX 1991 SECTION HX 1994 HYSTERECTOMY HX 2006 still has ovaries PAST SURGICAL HISTORY OF Right removal of mass from right ear TONSILLECTOMY AND ADENOIDECTOMY FAMILY HISTORY Problem Relation Age of Onset Ovarian cancer Mother Diabetes Father Asthma Sister No Known Problems Sister Hypertension Brother No Known Problems Brother Mental illness Son Anesthesia Problems No Family History Last 3 Encounter BP Readings: Date: BP: 09/15/2024 136/80 07/24/2024 158/89 06/03/2024 116/70 BP 126/80 Pulse 64 Temp (Src) 98 (Oral) Resp 18 Ht 5' 3.75 (1.62m) Wt 188 lb (85.3kg) SpO2 98% BMI 32.53 kg/(m2). Physical Exam Vitals and nursing note reviewed. Constitutional: Appearance: Normal appearance. She is well-developed. HENT: Head: Normocephalic. Right Ear: Tympanic membrane, ear canal and external ear normal. Left Ear: Tympanic membrane, ear canal and external ear normal. Nose: Nose normal. Mouth/Throat: Lips: [place]. Mouth: Mucous membranes are moist. Pharynx: Oropharynx is clear. Eyes: General: Vision grossly intact. Conjunctiva/sclera: Conjunctivae normal. Pupils: Pupils are equal, round, and reactive to light. Neck: Thyroid: No thyroid mass or thyromegaly. Cardiovascular: Rate and Rhythm: Normal rate and regular rhythm. Pulses: Normal pulses. Heart sounds: Normal h (more content not included)... Normal [facility] CNOVon 09-04-2024 CNOV Office Visit (ORMDNA ) VELMA CH ([id number]) 1960 F Date Time Provider Department 09/04/24 8:30 AM ANAMARIA COOK During your visit today, we recorded the following information about you: Anamaria Cook PA-C 09/04/2024 9:01 AM Signed Anamaria Cook PA-C Department of Orthopaedics Orthopaedics [address] [address] Dept: [phone] September 04, 2024 CHIEF COMPLAINT: Established Patient, Follow Up, and Fracture of the Right Knee. ASSESSMENT: W19.XXXD Fall, subsequent encounter (primary encounter diagnosis) S82.154D Closed nondisplaced fracture of right tibial tuberosity with routine healing, subsequent encounter SUMMARY/PLAN: Patient presents a little over 6 weeks status post right tibial tuberosity fracture. Patient slipped and fell directly on her knees while feeding some animals outdoors. She has been in a T ROM brace since the incident. She denies any pain at today's visit. 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 Fracture is healing up quite nicely, we will have her remain in the T ROM for ambulation, T ROM can be unlocked to allow knee flexion and extension while ambulating. She can transition out of the T ROM next week as she is feels comfortable doing so. Follow-up on an as-needed basis. Exam: KNEE EXAM: Right: Alignment: Neutral Range of motion is 0 degrees in extension and 130 degrees of flexion. Extension La degrees Pain with ROM: No Effusion: None Tender to the palpation of None Pain with patellar compression: No Stability: Anterior/Posterior stable and Varus/Valgus stable Hip Exam: flexion to 100+ degrees, full extension, internal/external rotation adequate and no pain with log roll Neurovascular Status: Sensation Intact and Moves foot and ankle up AND down Imaging: See Epic Ms. Velma Ch was advised as to contrast therapies and/or to take analgesics/anti-inflammatorie s as needed and all contraindications were reviewed. Supporting Information Below: Medications: Current Outpatient Medications Medication Sig albuterol HFA (PROVENTIL HFA, VENTOLIN HFA) 90 mcg/actuation inhaler INHALE 2 PUFFS BY MOUTH EVERY 4 TO 6 HOURS niacin 500 mg TbER Take 1 tablet by mouth once daily. MULTIVITAMIN ORAL Take by mouth once daily. omega-3/dha/epa/fish oil (OMEGA-3 ORAL) Take 1,000 mg by mouth once daily. resveratroL 250 mg cap Take 2 capsules by mouth twice daily. ibuprofen (MOTRIN) 200 mg tablet Take 200 mg by mouth every 6 hours as needed. No current facility-administered medications for this visit. Allergies: Latex and Poison Viviana Extract This note was partially generated using [employer] voice recognition system, and there may be some incorrect words, spellings, and punctuation that were not noted in checking the note before saving. Anamaria Cook PA-C Allergies As of Date: 09/04/2024 Noted Allergy Reaction LATEX 2 - Rash POISON VIVIANA EXTRACT 05/19/2022 5 - Intolerance 9 - Itching 2 - Rash 7 - Swelling Date Reviewed: 09/04/2024 Reviewed by: Mehnaz Anthony MA - Fully Assessed Reason for Visit: Established Patient [175] Follow Up [171] Fracture [4131] Primary Visit Diagnosis:Fall, subsequent encounter [W19.XXXD] Other Visit Diagnosis:Closed nondisplaced fracture of right tibial tuberosity with routine healing, subsequent encounter [S82.154D] Prescriptions as of 09/04/2024 - albuterol HFA (PROVENTIL HFA, VENTOLIN HFA) 90 mcg/actuation inhaler INHALE 2 PUFFS BY MOUTH EVERY 4 TO 6 HOURS - niacin 500 mg TbER Take 1 tablet by mouth once daily. - MULTIVITAMIN ORAL Take by mouth once daily. - omega-3/dha/epa/fish oil (OMEGA-3 ORAL) Take 1,000 mg by mouth once daily. - resveratroL 250 mg cap Take 2 capsules by mouth twice daily. - ibuprofen (MOTRIN) 200 mg tablet Take 200 mg by mouth every 6 hours as needed. 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/2022 Cholesteatoma of right ear [H71.91] 12/29/2022 Facial tic [F95.9] 12/29/2022 Numbness and tingling of right face [R20.0, R20*12/29/2022 Hearing loss of right ear [H91.91] 12/29/2022 PONV (postoperative nausea and vomiting) [R11.2*05/07/2023 Encounter Status:Closed by ANAMARIA COOK on 09/04/24 Normal [facility] XR TIBIA FIBULA 2V AP/LAT RT on 09-04-2024 XR TIBIA FIBULA 2V AP/LAT RT * * *Final Report* * * DATE OF EXAM: Sep 04 2024 8:13AM [facility] 5266 - XR TIBIA FIBULA 2V AP/LAT RT / PROCEDURE REASON: S82.154D-Closed nondisplaced fracture of right tibial tuberosity with routine he * * * * Physician Interpretation * * * * PROCEDURE: Right tibia/fibula INDICATION: Closed nondisplaced fracture of right tibial tuberosity with routine healing, subsequent encounter .Follow-up for closed nondisplaced fx of right tibial tuberosity TECHNIQUE: XR TIBIA FIBULA 2V AP/LAT RT COMPARISON: 08/14/2024 FINDINGS: Stable tibial tuberosity fracture with mild increase sclerosis consistent with interval healing. Fracture line is still evident. Knee and ankle joints are maintained. IMPRESSION: Stable, healing tibial tuberosity fracture Property Consultant: [facility] Transcribe Date/Time: Sep 06 2024 8:15A Dictated by : PERRI JOHNSON MD This examination was interpreted and the report reviewed and electronically signed by: PERRI JOHNSON MD on Sep 06 2024 8:16AM EST [id number] [facility] Office Visit (ORMDNA ) VELMA CH ([id number]) 1960 F Date Time Provider Department 08/14/24 9:00 AM ANAMARIA COOK During your visit today, we recorded the following information about you: Anamaria Cook PA-C 08/19/2024 7:53 AM Signed Anamaria Cook PA-C Department of Orthopaedics Orthopaedics [address] [place] [address] Dept: [phone] August 14, 2024 CHIEF COMPLAINT: Follow Up and Knee Pain of the Right Knee. ASSESSMENT: W19.XXXD Fall, subsequent encounter (primary encounter diagnosis) S82.154A Closed nondisplaced fracture of right tibial tuberosity, initial encounter SUMMARY/PLAN: Patient presents 3 weeks status post right tibial tuberosity fracture. Patient was outside feeding some animals when she slipped and fell directly onto the right knee. She has been in a T ROM brace since the incident, she reports that her pain has almost completely resolved, having some discomfort but only a 2 out of 10 aching. She is taking intermittent Tylenol. 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 Exam: Right knee with a healing abrasion over the anterior aspect, there is minimal edema anteriorly. Some mild tenderness to palpation over the patellar tendon and tibial tuberosity. Range of motion of the knee was not tested. Imaging: * * *Final Report* * * DATE OF EXAM: Aug 14 2024 8:16AM [facility] 5266 - XR TIBIA FIBULA 2V AP/LAT RT / PROCEDURE REASON: S82.154A-Closed nondisplaced fracture of right tibial tuberosity, initial encoun * * * * Physician Interpretation * * * * EXAMINATION / TECHNIQUE: XR TIBIA FIBULA 2V AP/LAT RT HISTORY: FALL 07/23. CLOSED NONDISPLACED RIGHT TIBIA FX Closed nondisplaced fracture of right tibial tuberosity, initial encounter COMPARISON: 07/31/2024. FINDINGS: There is a healing tibial tubercle fracture with unchanged alignment. No new acute bony abnormality is identified. IMPRESSION IMPRESSION: Healing tibial tubercle fracture with unchanged alignment. Property Consultant: [facility] Transcribe Date/Time: Aug 18 2024 7:37P Dictated by : DORIAN DENISE MD This examination was interpreted and the report reviewed and electronically signed by: DORIAN DENISE MD on Aug 18 2024 7:38PM EST Ms. Velma Ch was advised as to contrast therapies and/or to take analgesics/anti-inflammatorie s as needed and all contraindications were reviewed. Supporting Information Below: Medications: Current Outpatient Medications Medication Sig albuterol HFA (PROVENTIL HFA, VENTOLIN HFA) 90 mcg/actuation inhaler INHALE 2 PUFFS BY MOUTH EVERY 4 TO 6 HOURS niacin 500 mg TbER Take 1 tablet by mouth once daily. MULTIVITAMIN ORAL Take by mouth once daily. omega-3/dha/epa/fish oil (OMEGA-3 ORAL) Take 1,000 mg by mouth once daily. resveratroL 250 mg cap Take 2 capsules by mouth twice daily. ibuprofen (MOTRIN) 200 mg tablet Take 200 mg by mouth every 6 hours as needed. No current facility-administered medications for this visit. Allergies: Latex and Poison Viviana Extract This note was partially generated using [employer] voice recognition system, and there may be some incorrect words, spellings, and punctuation that were not noted in checking the note before saving. Anamaria Cook PA-C Allergies As of Date: 08/14/2024 Noted Allergy Reaction LATEX 2 - Rash POISON VIVIANA EXTRACT 05/19/2022 5 - Intolerance 9 - Itching 2 - Rash 7 - Swelling Date Reviewed: 08/14/2024 Reviewed by: Sabine Goncalves MA - Fully Assessed Reason for Visit: Follow Up [171] Knee Pain [132] Primary Visit Diagnosis:Fall, subsequent encounter [W19.XXXD] Other Visit Diagnosis:Closed nondisplaced fracture of right tibial tuberosity, initial encounter [S82.154A] Prescriptions as of 08/19/2024 - albuterol HFA (PROVENTIL HFA, VENTOLIN HFA) 90 mcg/actuation inhaler INHALE 2 PUFFS BY MOUTH EVERY 4 TO 6 HOURS - niacin 500 mg TbER Take 1 tablet by mouth once daily. - MULTIVITAMIN ORAL Take by mouth once daily. - omega-3/dha/epa/fish oil (OMEGA-3 ORAL) Take 1,000 mg by mouth once daily. - resveratroL 250 mg cap Take 2 capsules by mouth twice daily. - ibuprofen (MOTRIN) 200 mg tablet Take 200 mg by mouth every 6 hours as needed. 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 Normal [facility] XR TIBIA FIBULA 2V AP/LAT RT on 08-14-2024 XR TIBIA FIBULA 2V AP/LAT RT * * *Final Report* * * DATE OF EXAM: Aug 14 2024 8:16AM SRINI 5266 - XR TIBIA FIBULA 2V AP/LAT RT / PROCEDURE REASON: S82.154A-Closed nondisplaced fracture of right tibial tuberosity, initial encoun * * * * Physician Interpretation * * * * EXAMINATION / TECHNIQUE: XR TIBIA FIBULA 2V AP/LAT RT HISTORY: FALL 07/23. CLOSED NONDISPLACED RIGHT TIBIA FX Closed nondisplaced fracture of right tibial tuberosity, initial encounter COMPARISON: 07/31/2024. FINDINGS: There is a healing tibial tubercle fracture with unchanged alignment. No new acute bony abnormality is identified. IMPRESSION: Healing tibial tubercle fracture with unchanged alignment. Property Consultant: DAPHNIE Transcribe Date/Time: Aug 18 2024 7:37P Dictated by : DORIAN DENISE MD This examination was interpreted and the report reviewed and electronically signed by: DORIAN DENISE MD on Aug 18 2024 7:38PM EST [id number] [facility] CNPNon 08-13-2024 [facility] Telephone (OTOLIN) VELMA CH ([id number]) 1960 F Date Time Provider Department 08/13/24 MALKA PABLO During your visit today, we recorded the following information about you: Higinio Walker Ma 08/13/2024 10:38 AM Signed Called patient to schedule surgery. She wants to hold off until possibly the fall of this year. She also wants to have a CT first to make sure she needs to have the procedure done. She recently broke her leg and is recovering from that, so she will call to schedule the CT and follow up with Dr. Millicent lA when she is ready. Higinio Walker Ma Allergies As of Date: 08/13/2024 Noted Allergy Reaction LATEX 2 - Rash POISON VIVIANA EXTRACT 05/19/2022 5 - Intolerance 9 - Itching 2 - Rash 7 - Swelling Date Reviewed: 07/31/2024 Reviewed by: Sasha Singh LPN - Fully Assessed Reason for Visit: Patient Update [1234] Prescriptions as of 08/13/2024 - albuterol HFA (PROVENTIL HFA, VENTOLIN HFA) 90 mcg/actuation inhaler INHALE 2 PUFFS BY MOUTH EVERY 4 TO 6 HOURS - niacin 500 mg TbER Take 1 tablet by mouth once daily. - MULTIVITAMIN ORAL Take by mouth once daily. - omega-3/dha/epa/fish oil (OMEGA-3 ORAL) Take 1,000 mg by mouth once daily. - resveratroL 250 mg cap Take 2 capsules by mouth twice daily. - ibuprofen (MOTRIN) 200 mg tablet Take 200 mg by mouth every 6 hours as needed. 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 Cholesteatoma of right ear [H71.91] 12/29/2022 Facial tic [F95.9] 12/29/2022 Numbness and tingling of right face [R20.0, R20*12/29/2022 Hearing loss of right ear [H91.91] 12/29/2022 PONV (postoperative nausea and vomiting) [R11.2*05/07/2023 Encounter Status:Closed by HIGINIO WALKER MA on 08/13/24 [facility] CNOVon 07-31-2024 CNOV Office Visit (ORMDNA ) DIMAVELMA ([id number]) 1960 F Date Time Provider Department 07/31/24 8:00 AM ANAMARIA COOK ORNICO During your visit today, we recorded the following information about you: Anamaria Cook PA-C 07/31/2024 11:23 AM Signed Anamaria Cook PA-C Department of Orthopaedics Orthopaed[facility] [address] [place] [id number] Dept: [phone] July 31, 2024 CHIEF COMPLAINT: New, Pain, and Fracture of the Right Leg Ms. Velma Ch is a 64 year old female who presents with an injury to her right knee which occurred 1 week ago, she was outside feeding animals, she was climbing some stairs back into her home when she slipped and fell directly onto both knees. Pain today is a 0 out of 10 aching. She has been in a knee immobilizer since the incident. 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 Does normally travel across the country. Denies any previous right knee injuries. Also complaining of some left hand pain as a result of her fall. ASSESSMENT: W19.XXXD Fall, subsequent encounter S82.154A Closed nondisplaced fracture of right tibial tuberosity, initial encounter M79.642 Pain of left hand PLAN: Will get some repeat images today, looks like she has a nondisplaced tibial tuberosity fracture. Will get her into a T ROM brace, discussed that she can ambulate while the brace is locked in extension. Would like her to try to keep the leg in extension. Will also get some x-rays of her left hand today. Ms. Velma Ch was advised as to contrast therapies and/or to take analgesics/anti-inflammatorie s as needed and all contraindications were reviewed. OBJECTIVE: Ms. Velma Ch is a pleasant 64 year old in no apparent distress. Gen:There were no vitals taken for this visit. nl development, obese, no deformities ENT: Normocephalic, normal hearing, moist mucosa CV: Pulses:DP/PT= 2+ and symmetric, capillary refill < 2 secs, no peripheral edema/varicosities Skin: no rash, bruising or lesions. Good turgor. Psych: cooperative and appropriate, alert and oriented x 3, good mood and affect. Musculoskeletal: Right knee with mild but appropriate edema, there is some abrasions over the anterior aspect of the knee, skin is otherwise intact. Some mild tenderness to palpation over the patellar tendon. Range of motion of the knee was not tested. Left hand with some pain on palpation at the palm just proximal to the middle digit. No tenderness over the A1 nida sites of any of the digits, no locking or catching of any of the digits on the left hand. Patient is able to form a loose composite fist and extend all digits with subjective stiffness. Sensation is intact in the radial and ulnar nerve distributions. Imaging: IMPRESSION: Transverse linear lucency through the tibial tuberosity suspected to represent fracture. Correlate clinically for tenderness in this area. Property Consultant: DAPHNIE Transcribe Date/Time: Jul 24 2024 11:01A Dictated by : BRITTANY MCCORMICK MD This examination was interpreted and the report reviewed and electronically signed by: BRITTANY MCCORMICK MD on Jul 24 2024 11:09AM EST Results-Findings * * *Final Report* * * DATE OF EXAM: Jul 24 2024 10:38AM LDX 5205 - XR KNEE 4V AP/LAT/OBLS RT / PROCEDURE REASON: Trauma * * * * Physician Interpretation * * * * EXAM TITLE: X-RAY RIGHT KNEE AND RIGHT TIBIA AND FIBULA. DATE: March 17, 2022 CLINICAL INDICATION/HISTORY: Right knee and mehta pain, fall COMPARISON: X-ray bilateral knees March 17, 2022 TECHNIQUE: AP, bilateral oblique and lateral views of the right knee. AP and lateral views of the tibia and fibula: FINDINGS: Right knee: No evidence of a dislocation. Linear lucency through the tibial tuberosity may represent fracture. No joint effusion. Enthesophytes at the insertion of the quadriceps and patellar tendon on the patella. No lytic or blastic osseous lesions. Right tibia and fibula: There is a linear lucency oriented transversely through the tibial tuberosity concerning for fracture. This lucency is not seen on prior x-ray from March 17, 2022. No lytic or blastic osseous lesions. Soft tissues are unremarkable. Supporting Subjective Information Below: Past Surgical History: PAST SURGICAL HISTORY Procedure Laterality Date SECTION HX 1979 SECTION HX 1982 SECTION HX 1991 SECTION HX 1993 HYSTERECTOMY HX 2006 still has ovaries PAST SURGICAL HISTORY OF Right removal of mass from right ear TONSILLECTOMY AND ADENOIDECTOMY Medications: Current Outpatient Medications Medication Sig albuterol HFA (PROVENTIL HFA, VENTOLIN HFA) 90 mcg/actuation inhaler INHALE 2 PUFFS BY MOUTH EVERY 4 TO 6 HOURS niacin 500 mg TbER Take 1 tablet by mouth once daily. MULTIVI (more content not included)... Normal [facility] XR HAND 3V PA/LAT/OBL LTon 0 07-31-2024 XR HAND 3V PA/LAT/OBL LT * * *Final Report* * * DATE OF EXAM: Jul 31 2024 8:26AM MDO 5345 - XR HAND 3V PA/LAT/OBL LT / PROCEDURE REASON: W19.XXXD-Fall, subsequent encounter * * * * Physician Interpretation * * * * PROCEDURE: Right knee and left hand INDICATION: Closed fracture of proximal end of right tibia with routine healing, unspecified fracture morphology, subsequent encounter .Pt states she had a fall last week, injuring her left hand and right knee; closed fx of proximal end of right tibia (accession [id number]), TECHNIQUE: XR KNEE 2V AP/LAT RT, XR HAND 3V PA/LAT/OBL LT COMPARISON: Right knee 07/24/2024 FINDINGS: Right knee: Stable, minimally displaced fracture of the tibial tuberosity. No bridging callus. Joint spaces are maintained. No joint effusion. Left hand: No acute fracture or dislocation. Small ossification at the dorsal base of the 2nd distal phalanx, perhaps representing remote fracture. Mild 1st CMC joint osteoarthrosis and multiple DIP joints. No erosion or focal soft tissue swelling. IMPRESSION: 1. Stable tibial tuberosity fracture. 2. No acute abnormality in the left hand Property Consultant: PSCB Transcribe Date/Time: Aug 02 2024 6:09A Dictated by : PERRI JOHNSON MD This examination was interpreted and the report reviewed and electronically signed by: PERRI JOHNSON MD on Aug 02 2024 6:14AM EST [id number] [facility] XR KNEE 2V AP/LAT RTon 07-31 XR KNEE 2V AP/LAT RT * * *Final Report* * * DATE OF EXAM: Jul 31 2024 8:26AM SRINI 5207 - XR KNEE 2V AP/LAT RT / PROCEDURE REASON: S82.101D-Closed fracture of proximal end of right tibia with routine healing, un * * * * Physician Interpretation * * * * PROCEDURE: Right knee and left hand INDICATION: Closed fracture of proximal end of right tibia with routine healing, unspecified fracture morphology, subsequent encounter .Pt states she had a fall last week, injuring her left hand and right knee; closed fx of proximal end of right tibia (accession [id number]), TECHNIQUE: XR KNEE 2V AP/LAT RT, XR HAND 3V PA/LAT/OBL LT COMPARISON: Right knee 07/24/2024 FINDINGS: Right knee: Stable, minimally displaced fracture of the tibial tuberosity. No bridging callus. Joint spaces are maintained. No joint effusion. Left hand: No acute fracture or dislocation. Small ossification at the dorsal base of the 2nd distal phalanx, perhaps representing remote fracture. Mild 1st CMC joint osteoarthrosis and multiple DIP joints. No erosion or focal soft tissue swelling. IMPRESSION: 1. Stable tibial tuberosity fracture. 2. No acute abnormality in the left hand Property Consultant: PSCB Transcribe Date/Time: Aug 02 2024 6:09A Dictated by : PERRI JOHNSON MD This examination was interpreted and the report reviewed and electronically signed by: PERRI JOHNSON MD on Aug 02 2024 6:14AM EST [id number] [facility] 07-28-2024 [facility] Telephone (OTOLIN) VELMA HC ([id number]) 1960 F Date Time Provider Department 07/28/24 MALKA PABLO During your visit today, we recorded the following information about you: Marisela Poole 07/28/2024 11:22 AM Signed Called patient to schedule a virtual appointment and would like to have a CT scan scheduled. Please call patient back at [phone]. Rolo Cruz RN 07/28/2024 11:29 AM Signed PSS: see telephone encounter dated 07/23/24. Dr. Malka Loja says she does NOT need another CT scan at this time. Just the virtual visit. Rolo Cruz RN 07/28/2024 1:09 PM Signed Virtual visit scheduled for 08/05/24. Allergies As of Date: 07/28/2024 Noted Allergy Reaction LATEX 2 - Rash POISON VIVIANA EXTRACT 05/19/2022 5 - Intolerance 9 - Itching 2 - Rash 7 - Swelling Date Reviewed: 07/24/2024 Reviewed by: Lyla Cevallos, ALBERT - Fully Assessed Reason for Visit: ct scan request [Other] Prescriptions as of 07/28/2024 - methylPREDNISolone (MEDROL, FRANCES,) 4 mg Dose-Pack As Instructed per package - albuterol HFA (PROVENTIL HFA, VENTOLIN HFA) 90 mcg/actuation inhaler INHALE 2 PUFFS BY MOUTH EVERY 4 TO 6 HOURS - niacin 500 mg TbER Take 1 tablet by mouth once daily. - MULTIVITAMIN ORAL Take by mouth once daily. - omega-3/dha/epa/fish oil (OMEGA-3 ORAL) Take 1,000 mg by mouth once daily. - resveratroL 250 mg cap Take 2 capsules by mouth twice daily. - ibuprofen (MOTRIN) 200 mg tablet Take 200 mg by mouth every 6 hours as needed. 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/27/2022 Cholesteatoma of right ear [H71.91] 12/29/2022 Facial tic [F95.9] 12/29/2022 Numbness and tingling of right face [R20.0, R20*12/29/2022 Hearing loss of right ear [H91.91] 12/29/2022 PONV (postoperative nausea and vomiting) [R11.2*05/07/2023 Encounter Status:Closed by ROLO CRUZ on 07/28/24 [facility] VEL[facility] ([id number]) 1960 F Date Time Provider Department 07/25/24 FARIHA PAULINO During your visit today, we recorded the following information about you: Paolo Lira 07/25/2024 6:59 AM Signed From wait list: rt knee/tibia fx x-ray in [facility] NEEDS TO BE SEEN JO SHE CAN BE REACHED AT [phone] Patient has an appointment on 07/30/[address] Paulino and has been seen in [place] [facility]. Okay to wait until then? Jami Bhat RN 07/25/2024 7:27 AM Signed 10am on Jul [address] Fleming Allergies As of Date: 07/25/2024 Noted Allergy Reaction LATEX 2 - Rash POISON VIVIANA EXTRACT 05/19/2022 5 - Intolerance 9 - Itching 2 - Rash 7 - Swelling Date Reviewed: 07/24/2024 Reviewed by: Lyla Cevallos, RN - Fully Assessed Reason for Visit: Appointment [186] Prescriptions as of 07/28/2024 - methylPREDNISolone (MEDROL, FRANCES,) 4 mg Dose-Pack As Instructed per package - albuterol HFA (PROVENTIL HFA, VENTOLIN HFA) 90 mcg/actuation inhaler INHALE 2 PUFFS BY MOUTH EVERY 4 TO 6 HOURS - niacin 500 mg TbER Take 1 tablet by mouth once daily. - MULTIVITAMIN ORAL Take by mouth once daily. - omega-3/dha/epa/fish oil (OMEGA-3 ORAL) Take 1,000 mg by mouth once daily. - resveratroL 250 mg cap Take 2 capsules by mouth twice daily. - ibuprofen (MOTRIN) 200 mg tablet Take 200 mg by mouth every 6 hours as needed. 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] 12/28/2021 SOB (shortness of breath) [R06.02] 12/28/2021 Weakness [R53.1] 12/28/2021 Decreased functional mobility and endurance [Z7*12/28/2021 Complaints of total body pain [R52] 05/19/2022 Hyperlipidemia, mixed [E78.2] 09/29/2022 Mixed conductive and sensorineural hearing loss*12/27/2022 Cholesteatoma of right ear [H71.91] 12/29/2022 Facial tic [F95.9] 12/29/2022 Numbness and tingling of right face [R20.0, R20*12/29/2022 Hearing loss of right ear [H91.91] 12/29/2022 PONV (postoperative nausea and vomiting) [R11.2*05/07/2023 Encounter Status:Closed by PAOLO LIRA on 07/28/24 [facility] 07-24-2024 [facility] HNO ID: [id number] Author: STACEY LINDQUIST RT(R) Service: Radiology Author Type: Distribution Operations Manager Type: [facility] Filed: 07/24/2024 10:46 Note Text: Radiology Service Progress Note PATIENT NAME: Velma Ch DATE OF SERVICE: July 24, 2024 TIME: 10:45 AM PATIENT IDENTITY VERIFICATION COMPLETED USING TWO (2) IDENTIFIERS: Name and Date of confirmed by patient verbally. FALL SCREENING: Has the patient had 2 falls in the last year or 1 fall with injury or currently using an Ambulatory Assistive Device (Walker, Cane, Wheelchair, Crutches, etc.)? Emergency Room Patient: Screened in ED PATIENT GENDER DATA: Assigned female at . status: : No status: NO. PATIENT RELEVANT IMPLANT DATA REVIEWED: Yes PATIENT PRESENTS WITH AN IMPLANTABLE OR ATTACHED PHOTO OPTICS TECHNICIAN: No RADIOLOGY DEPARTMENT: General X-ray: Exam(s) Completed: Lower Extremity X-Ray(s): Knee, AP / LAT Right and Tibia Fibula, Right PERIPHERAL IV DATA: Not applicable SIGNED BY: RT Porfirio(R) July 24, 2024 10:45 AM [facility] ED NOTEon 07-24-2024 ED NOTE HNO ID: [id number] Author: FRANCO PAINTER RN Service: Emergency Medicine Author Type: Registered Nurse Type: ED Notes Filed: 07/25/2024 09:05 Note Text: Patient Call Back Information How are you doing ? better Did we appropriately manage your pain? Yes Did you understand your discharge instructions? Yes Did you get your prescriptions filled? Yes Were you able to make a follow-up appointment with your physician? Yes Were you comfortable during your stay here? Yes Did a member of the ER nursing team round on you during your visit? Yes You will receive a patient satisfaction survey in the mail in the nest 2 weeks, please take the time to fill out the survey as your input from your ER visit is very important to us. Yes Can we do anything else to help you? No [facility] ED NOTE HNO ID: [id number] Author: LYLA CEVALLOS RN Service: ? Author Type: Registered Nurse Type: ED Notes Filed: 07/24/2024 10:19 Note Text: Pt slipped on ice, falling on concrete. Pt fell down onto knees and hands. Describes extreme pain when walking on right leg. Pain radiates from right knee to mid-mehta, pain is sharp. Denies N/T. Dimas hitting head. Last medication taken ASA / arthrirtis about 0915. [facility] ED PROV NOTEon 07-24-2024 ED PROV NOTE HNO ID: [id number] Author: ANALI GOODMAN MD Service: Emergency Medicine Author Type: Physician Type: ED Provider Notes Filed: 07/24/2024 12:19 Note Text: ED Provider Note Patient Name: Velma Ch : 1960 SERVICE DATE: 07/24/24 History Patient presents with: Fall Knee Injury The patient is a 64-year-old female presenting today with complaint of right knee pain. Patient states that yesterday about 5 PM she was trying to go up stairs and slipped on an icy step falling forward landing on both of her knees and hands. States the brunt of the fall hit her right knee. Afterwards she had difficulty getting up and ambulating on the right leg secondary to pain. States she feels pain from her mid knee down her mehta to about the mid mehta. She states that she thought that the pain would get better and so she waited overnight to reassess her injury before coming to the emergency department. Upon waking this morning she was still unable to bear weight and so she comes into the emergency department. She denies any numbness or tingling. Denies any pain to her hands or wrist or left knee. She did take aspirin as well as Aleve this morning with minimal relief of pain. PAST MEDICAL HISTORY Diagnosis Date - Asthma - Cyst (solitary) of breast tailbone - Ear mass, right - PONV (postoperative nausea and vomiting) PAST SURGICAL HISTORY Procedure Laterality Date - SECTION HX 1979 - SECTION HX 1982 - SECTION HX 1991 - SECTION HX 1993 - HYSTERECTOMY HX 2006 still has ovaries - PAST SURGICAL HISTORY OF Right removal of mass from right ear - TONSILLECTOMY AND ADENOIDECTOMY FAMILY HISTORY Problem Relation Age of Onset - Ovarian cancer Mother - Diabetes Father - Asthma Sister - No Known Problems Sister - Hypertension Brother - No Known Problems Brother - Mental illness Son - Anesthesia Problems No Family History Social History Tobacco Use - Smoking status: Never Passive exposure: Never - Smokeless tobacco: Never - Tobacco comments: as a teenager, 6 cigarettes/day for a year Vaping Use - Vaping status: Never Used Substance and Sexual Activity - Alcohol use: Not Currently - Drug use: Never - Sexual activity: Not Currently ALLERGIES Allergen Reactions - Latex Rash - Poison Viviana Extract Intolerance, Itching, Rash, Swelling Review of Systems Constitutional: Negative for activity change, appetite change, chills, fatigue and fever. HENT: Negative for congestion, ear pain, rhinorrhea and sore throat. Respiratory: Negative for cough and shortness of breath. Cardiovascular: Negative for chest pain and palpitations. Gastrointestinal: Negative for abdominal pain, diarrhea, nausea and vomiting. Genitourinary: Negative for dysuria, frequency and urgency. Musculoskeletal: Negative for arthralgias and myalgias. Skin: Negative for rash and wound. Neurological: Negative for dizziness and headaches. Psychiatric/Behavioral: Negative for self-injury and suicidal ideas. All other systems reviewed and are negative. Physical Exam Vitals [07/24/24 1019] BP Pulse Temp Temp src Resp SpO2 Weight Height 158/89 (!) 97 36.2 ?C (97.1 ?F) Temporal 16 100 % 83.9 kg (185 lb) 1.651 m (5' 5) Physical Exam Vitals and nursing note reviewed. Constitutional: General: She is not in acute distress. Appearance: She is well-developed. HENT: Head: Normocephalic and atraumatic. Nose: Nose normal. Mouth/Throat: Mouth: Mucous membranes are moist. Eyes: Pupils: Pupils are equal, round, and reactive to light. Cardiovascular: Rate and Rhythm: Normal rate and regular rhythm. Heart sounds: Normal heart sounds. Pulmonary: Effort: Pulmonary effort is normal. No respiratory distress. Breath sounds: Normal breath sounds. Abdominal: General: Bowel sounds are normal. There is no distension. Palpations: Abdomen is soft. Tenderness: There is no abdominal tenderness. Musculoskeletal: General: Normal range of motion. Cervical back: Normal range of motion and neck supple. Right knee: Swelling and bony tenderness present. No deformity, effusion, erythema, ecchymosis, lacerations or crepitus. Normal range of motion. Tenderness present over the patellar tendon. No LCL laxity, MCL laxity, ACL laxity or PCL laxity. Normal alignment, normal meniscus and normal patellar mobility. Normal pulse. Left knee: Normal. Right lower leg: No edema. Left lower leg: No edema. Comments: Tenderness to palpation over the proximal tibia particular over the tuberosity at the patella tendon insertion site. Over top of this patient has a superficial abrasion from the fall yesterday. Skin: General: Skin is warm and dry. Neurological: General: No focal deficit present. Mental Status: She is alert and oriented to person, place, and time. GCS: GCS eye subscore is 4. GCS verbal subscore is 5. GCS motor subscore is (more content not included)... Normal [facility] XR KNEE 4V AP/LAT/OBLS RTon 07-24-2024 XR KNEE 4V AP/LAT/OBLS RT * * *Final Report* * * DATE OF EXAM: Jul 24 2024 10:38AM LDX 5205 - XR KNEE 4V AP/LAT/OBLS RT / PROCEDURE REASON: Trauma * * * * Physician Interpretation * * * * EXAM TITLE: X-RAY RIGHT KNEE AND RIGHT TIBIA AND FIBULA. DATE: March 17, 2022 CLINICAL INDICATION/HISTORY: Right knee and mehta pain, fall COMPARISON: X-ray bilateral knees March 17, 2022 TECHNIQUE: AP, bilateral oblique and lateral views of the right knee. AP and lateral views of the tibia and fibula: FINDINGS: Right knee: No evidence of a dislocation. Linear lucency through the tibial tuberosity may represent fracture. No joint effusion. Enthesophytes at the insertion of the quadriceps and patellar tendon on the patella. No lytic or blastic osseous lesions. Right tibia and fibula: There is a linear lucency oriented transversely through the tibial tuberosity concerning for fracture. This lucency is not seen on prior x-ray from March 17, 2022. No lytic or blastic osseous lesions. Soft tissues are unremarkable. IMPRESSION: Transverse linear lucency through the tibial tuberosity suspected to represent fracture. Correlate clinically for tenderness in this area. Property Consultant: DAPHNIE Transcribe Date/Time: Jul 24 2024 11:01A Dictated by : BRITTANY MCCORMICK MD This examination was interpreted and the report reviewed and electronically signed by: BRITTANY MCCORMICK MD on Jul 24 2024 11:09AM EST [id number] Normal [facility] XR TIBIA FIBULA 2V AP/LAT RT on 07-24-2024 XR TIBIA FIBULA 2V AP/LAT RT * * *Final Report* * * DATE OF EXAM: Jul 24 2024 10:38AM LDX 5266 - XR TIBIA FIBULA 2V AP/LAT RT / PROCEDURE REASON: Fracture / Dislocation * * * * Physician Interpretation * * * * EXAM TITLE: X-RAY RIGHT KNEE AND RIGHT TIBIA AND FIBULA. DATE: March 17, 2022 CLINICAL INDICATION/HISTORY: Right knee and mehta pain, fall COMPARISON: X-ray bilateral knees March 17, 2022 TECHNIQUE: AP, bilateral oblique and lateral views of the right knee. AP and lateral views of the tibia and fibula: FINDINGS: Right knee: No evidence of a dislocation. Linear lucency through the tibial tuberosity may represent fracture. No joint effusion. Enthesophytes at the insertion of the quadriceps and patellar tendon on the patella. No lytic or blastic osseous lesions. Right tibia and fibula: There is a linear lucency oriented transversely through the tibial tuberosity concerning for fracture. This lucency is not seen on prior x-ray from March 17, 2022. No lytic or blastic osseous lesions. Soft tissues are unremarkable. IMPRESSION: Transverse linear lucency through the tibial tuberosity suspected to represent fracture. Correlate clinically for tenderness in this area. Property Consultant: DAPHNIE Transcribe Date/Time: Jul 24 2024 11:01A Dictated by : BRITTANY MCCORMICK MD This examination was interpreted and the report reviewed and electronically signed by: BRITTANY MCCORMICK MD on Jul 24 2024 11:09AM EST [id number] Normal [facility]OTOLCR[facility] VELMA CH Wero ([id number]) 1960 F Date Time Provider Department 07/23/24 MALKA PABLO OTOLCR During your visit today, we recorded the following information about you: Rosemarie James 07/23/2024 2:46 PM Signed Pt calling in stating that she is being discharged from her [employer] work and will be coming home and would like to reschedule her Virtual Appt (I was unable to find any slots) but the pt also mentioned needing to have a CT done and is unsure if she needs this done before she sees Dr. Millicent Al or after; there is also no CT order placed. Please advise Alina Medina RN 07/23/2024 3:06 PM Signed ANDRES 09/07/2023 CT completed on 12/07/2023 Patient was supposed to follow up in November but appt was cancelled due to [employer] deployment. Patient now requesting virtual appt. Just next available slot or do you want to determine the appt time? Also, she is questioning if she needs another CT. If yes, order needed. Please adviseAlina RN Nguyen Huynh, Anh, MD 07/26/2024 2:03 PM Signed I have asked our schedulers to schedule a virtual visit. No new CT is required at this time. Electronically signed by: Malka Al MD 07/26/2024 2:03 PM Allergies As of Date: 07/23/2024 Noted Allergy Reaction LATEX 2 - Rash POISON VIVIANA EXTRACT 05/19/2022 5 - Intolerance 9 - Itching 2 - Rash 7 - Swelling Date Reviewed: 06/03/2024 Reviewed by: Cherie Tobar APRN.DIRECTOR COMPLIANCE - Fully Assessed Reason for Visit: Patient Question [1477] Prescriptions as of 08/05/2024 - albuterol HFA (PROVENTIL HFA, VENTOLIN HFA) 90 mcg/actuation inhaler INHALE 2 PUFFS BY MOUTH EVERY 4 TO 6 HOURS - niacin 500 mg TbER Take 1 tablet by mouth once daily. - MULTIVITAMIN ORAL Take by mouth once daily. - omega-3/dha/epa/fish oil (OMEGA-3 ORAL) Take 1,000 mg by mouth once daily. - resveratroL 250 mg cap Take 2 capsules by mouth twice daily. - ibuprofen (MOTRIN) 200 mg tablet Take 200 mg by mouth every 6 hours as needed. 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] 12/28/2021 SOB (shortness of breath) [R06.02] 12/28/2021 Weakness [R53.1] 12/28/2021 Decreased functional mobility and endurance [Z7*12/28/2021 Complaints of total body pain [R52] 05/19/2022 Hyperlipidemia, mixed [E78.2] 09/29/2022 Mixed conductive and sensorineural hearing loss*12/27/2022 Cholesteatoma of right ear [H71.91] 12/29/2022 Facial tic [F95.9] 12/29/2022 Numbness and tingling of right face [R20.0, R20*12/29/2022 Hearing loss of right ear [H91.91] 12/29/2022 PONV (postoperative nausea and vomiting) [R11.2*05/07/2023 Encounter Status:Closed by ROSEMARIE JAMES on 08/05/24 [facility] CNOVon 06-03-2024 CNOV Office Visit (AGFAMP TANVIR) VELMA CH ([id number]) 1960 F Date Time Provider Department 06/03/24 8:00 AM CHERIE TOBAR During your visit today, we recorded the following information about you: Temperature Pulse Respiration Blood pressure 97.7 degrees 69/minute 16/minute 116/70 Weight Height 84.4 kg 1.619 m Cherie Tobar, BANQUET STEWARDESS.DIRECTOR COMPLIANCE 06/03/2024 1:16 PM Signed CHIEF COMPLAINT: Velma Ch is a 64 year old female who presents for intermittent dizziness and sinus pain and swelling. She was deployed for work in the [facility] and became ill down there at the end of April and was treated with Augmentin and Prednisone. Her symptoms improved but didn't completely resolved. The dizziness has worsened since last Sunday and primarily occurs when she is laying down or changes her position. She is having a lot of right sided facial pain and swelling. 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 She has also had more twitching of the right side of her face over the last week. I reviewed past medical, surgical, social, and family histories today and updated chart. Allergies, chronic medications, and supplements were also reviewed. The history is provided by the patient. Sinus Problem This is a recurrent problem. The current episode started in the past 7 days. The problem occurs constantly. The problem has been gradually worsening. Associated symptoms include congestion, fatigue, headaches, neck pain, swollen glands and vertigo (dizziness). Pertinent negatives include no chills, diaphoresis, fever or sore throat. She has tried acetaminophen for the symptoms. PAST MEDICAL HISTORY Diagnosis Date Asthma Cyst (solitary) of breast tailbone Ear mass, right PONV (postoperative nausea and vomiting) PAST SURGICAL HISTORY Procedure Laterality Date SECTION HX 1979 SECTION HX 1982 SECTION HX 1992 SECTION HX 1994 HYSTERECTOMY HX 2007 still has ovaries PAST SURGICAL HISTORY OF Right removal of mass from right ear TONSILLECTOMY AND ADENOIDECTOMY Social History Tobacco Use Smoking status: Never Passive exposure: Never Smokeless tobacco: Never Tobacco comments: as a teenager, 6 cigarettes/day for a year Vaping Use Vaping status: Never Used Substance Use Topics Alcohol use: Not Currently Drug use: Never ALLERGIES Allergen Reactions Latex Rash Poison Viviana Extract Intolerance, Itching, Rash, Swelling Family History Problem Relation Age of Onset Ovarian cancer Mother Diabetes Father Asthma Sister No Known Problems Sister Hypertension Brother No Known Problems Brother Mental illness Son Anesthesia Problems No Family History Current Outpatient Medications Medication Sig Dispense Refill albuterol HFA (PROVENTIL HFA, VENTOLIN HFA) 90 mcg/actuation inhaler INHALE 2 PUFFS BY MOUTH EVERY 4 TO 6 HOURS 18 g 1 niacin 500 mg TbER Take 1 tablet by mouth once daily. MULTIVITAMIN ORAL Take by mouth once daily. omega-3/dha/epa/fish oil (OMEGA-3 ORAL) Take 1,000 mg by mouth once daily. resveratroL 250 mg cap Take 2 capsules by mouth twice daily. ibuprofen (MOTRIN) 200 mg tablet Take 200 mg by mouth every 6 hours as needed. amoxicillin-clavulanate potassium (AUGMENTIN XR) 1,000-62.5 mg per tablet Take 2 tablets by mouth two times a day for 10 days. 40 tablet 0 methylPREDNISolone (MEDROL, FRANCES,) 4 mg Dose-Pack As Instructed per package 21 tablet 0 No current facility-administered medications for this visit. Review of Systems Constitutional: Positive for fatigue. Negative for appetite change, chills, diaphoresis and fever. HENT: Positive for congestion, ear pain, facial swelling, sinus pressure and sinus pain. Negative for ear discharge, hearing loss and sore throat. Respiratory: Negative. Cardiovascular: Negative. Gastrointestinal: Negative. Musculoskeletal: Positive for neck pain. Neurological: Positive for dizziness (with position change), vertigo (dizziness) and headaches. BP 116/70 Pulse 69 Temp 97.7 Resp 16 Ht 5' 3.75 (1.62m) Wt 186 lb (84.4kg) SpO2 99% BMI 32.19 kg/(m2). Physical Exam Vitals and nursing note reviewed. Constitutional: Appearance: Normal appearance. She is not ill-appearing. HENT: Head: Comments: Mild right sided facial swelling from sinus down to jawline Right Ear: Ear canal and external ear normal. A middle ear effusion is present. Tympanic membrane is scarred and bulging. Tympanic membrane is not erythematous. Left Ear: Ear canal and external ear normal. A middle ear effusion is present. Tympanic membrane is not erythematous. Nose: Congestion present. Mouth/Throat: Mouth: Mucous membranes are moist. Pharynx: No oropharyngeal exudate or posterior oropharyngeal erythema. Eyes: Extraocular Movements: Extraocular movements (more content not included)... Normal [facility] CT TEMP BONES WO IVCONon CT TEMP BONES WO IVCON * * *Final Report* * * DATE OF EXAM: Dec 07 2023 9:56AM [facility] [place] [facility]12 - CT TEMP BONES WO IVCON / PROCEDURE REASON: multiple diagnoses * * * * Physician Interpretation * * * * EXAMINATION: CT TEMP BONES WO IVCON CLINICAL HISTORY: Cholesteatoma right ear. Status post mastoidectomy. TECHNIQUE: Spiral 0.6 mm axial scans through the temporal bones without contrast in high resolution bony algorithm. Coronal planar reconstructions provided. MQ: [id number] CT Radiation dose: Integrated Dose-Length Product (DLP) for this visit = 704 mGy*cm. CT Dose Reduction Employed: Automated exposure control(AEC) and iterative recon COMPARISON: CT temporal bone from 01/08/2023 RESULT: RIGHT: External Auditory Canal/Superficial Soft Tissues: EAC is patent. Overlying superficial soft tissues and the tissues of the visualized inferotemporal fossa are within normal limits. Mastoid Air Cells and Middle Ear Cavities: There are interval postop changes of a right wall down mastoidectomy. There is soft tissue filling the right sided mastoidectomy defect which is nonspecific but concerning for underlying cholesteatoma. There is also opacification of the residual right mastoid air cells. Also noted is thickening of the right tympanic membrane. Size soft tissue opacifies right sinus tympani and facial nerve recess (series 2 image 36). Ossicles: The right malleus is visible but the right incus is no longer present. The right stapes is not clearly identified. There is a small amount of soft tissue in the right middle air cavity in the expected location of the right stapes which may be obscuring this bone. Inner Ear Structures: Inner ear structures are within normal limits. No evidence of dysmorphism, bony destruction or dehiscence. Internal Auditory Canals: IAC is within normal limits of caliber and configuration. Skull Base: No evidence of bony destruction. LEFT: External Auditory Canal/Superficial Soft Tissues: EAC is patent. Overlying superficial soft tissues and the tissues of the visualized inferotemporal fossa are within normal limits. Mastoid Air Cells and Middle Ear Cavities: Mastoid air cells and middle ear cavities are clear. Ossicles: Ossicles are normally aligned and intact. Inner Ear Structures: Inner ear structures are within normal limits. No evidence of dysmorphism, bony destruction or dehiscence. Internal Auditory Canals: IAC is within normal limits of caliber and configuration. Skull Base: No evidence of bony destruction. Localizer images: Unremarkable. IMPRESSION: Interval postop changes of a right-sided mastoidectomy and now with soft tissue filling the mastoidectomy defect which is concerning for underlying cholesteatoma. There is near complete opacification of the residual right mastoid air cells. Also noted is absence of the right incus and questionable absence of the right stapes. Small small amount of soft tissue density fills right facial nerve recess and sinus tympani. This is nonspecific but may represent a small amount of fluid but underlying inflammatory soft tissue such as cholesteatoma cannot be ruled out. Property Consultant: [facility]ITAL[facility]ites[facility] Transcribe Date/Time: Dec 07 2023 10:12A Dictated by : TOMY ONOFRE MD This examination was interpreted and the report reviewed and electronically signed by: TOMY ONOFRE MD on Dec 07 2023 10:22AM EST [id number] Normal [facility] Basic metabolic 2000 panelon 10-27-2022 Anion gap [Moles/Vol] 9 mmol/L 9 - 18 mmol/L [facility] Calcium [Mass/Vol] 9.4 mg/dL 8.5 - 10.2 mg/dL [facility] Chloride [Moles/Vol] 100 mmol/L 97 - 105 mmol/L [facility] CO2 [Moles/Vol] 30 mmol/L 22 - 30 mmol/L [facility] Creatinine [Mass/Vol] 0.74 mg/dL 0.58 - 0.96 mg/dL [facility] Estimated Glomerular Filtration Rate 92 mL/min/1.73m >=60 mL/min/1.73m [facility] Glucose [Mass/Vol] 114 mg/dL High 74 - 99 mg/dL [facility] Potassium [Moles/Vol] 3.7 mmol/L 3.7 - 5.1 mmol/L [facility] Sodium [Moles/Vol] 139 mmol/L 136 - 144 mmol/L [facility] Urea nitrogen [Mass/Vol] 17 mg/dL 7 - 21 mg/dL [facility] MAGNESIUM BLDon 10-27-2022 Magnesium [Mass/Vol] 2.0 mg/dL 1.7 - 2.3 mg/dL [facility] TSH BLDon 10-27-2022 TSH Qn 1.910 m[IU]/L 0.270 - 4.200 mIU/L [facility] VITAMIN B12 BLOODon 10-28-19 Cobalamin (Vitamin B12) [Mass/Vol] 850 pg/mL 232 - 1,245 pg/mL [facility] No Panel Informationon 06-14 [facility] XR KNEE GENERAL 4V AP BOTH/P A BOTH/LAT/MERC LEFTon 03-17-2022 [facility] ECHOon 12-29-2021 [facility] XR CHEST 2V FRONTAL/LATon [facility] No Panel Informationon 12-12 [facility] DEEP SCREENINGon 11-22-2021 [facility] DEEP SCREENINGon 08-12-2020 [facility] SCREENING Final Report DATE OF EXAM: Aug 12 2020 10:08AM [facility] 0581 - [facility] SCREENING / PROCEDURE REASON: Encounter for screening mammogram for breast cancer Physician Interpretation #[id number] - [facility] SCREENING BILATERAL DIGITAL SCREENING MAMMOGRAM WITH CAD: 08/12/2020 HISTORY: / Screening Mammogram-Patient reports NO symptoms. RESULT: TECHNIQUE: The study was acquired using full field digital technology and interpreted from soft copy. Current study was also evaluated with a Computer Aided Detection (CAD). Comparison is made to exams dated: 07/25/2018 mammogram, 02/15/2010 mammogram, and 08/27/2007 mammogram - [facility]. The tissue of both breasts is heterogeneously dense. This may lower the sensitivity of mammography. There is a possible focal asymmetry in the right breast at 11 o'clock anterior depth. No other significant masses, calcifications, or other findings are seen in either breast. IMPRESSION: INCOMPLETE: NEEDS ADDITIONAL IMAGING EVALUATION The possible focal asymmetry in the right breast is indeterminate. Additional views with possible ultrasound are recommended. Jose mason/leni:08/12/2020 13:12:51 Production Support Developer(s): Soren Jacques (Carissa)(M), [facility] letter sent: Additional Imaging Needed Mammogram BI-RADS: 0 Incomplete: needs additional imaging evaluation If this report indicates you need additional imaging, and it has NOT yet been performed, please call , to schedule. We sincerely thank you for choosing the [facility] for your breast imaging needs. Multiple national specialty organizations have released breast cancer screening guidelines for women at average risk for developing breast cancer - guidelines that are based on both evidence and opinion, yet differ on when to start and how often to screen for breast cancer. With representation from Breast Imaging, Internal Medicine, Women's Health, Family Medicine, and Medical/Surgical Oncology, the [facility] has carefully reviewed the data and reached the following consensus: 1) All women should engage in shared decision-making with their providers to decide when to start and how often to screen; 2) All women should have the opportunity to start screening mammography at age 40; 3) For women ages 45-55, we recommend annual screening mammograms; 4) For women ages 55 and over, we support both the transition from an annual to a biennial interval if this aligns more with patient's values and preferences, or continuation with annual screening; 5) All women should discuss with their providers when to stop screening mammograms. Property Consultant: Leni Transcribe Date/Time: Aug 12 2020 9:52A Dictated by : JOSE SUBRAMANIAN MD This examination was interpreted and the report reviewed and electronically signed by: JOSE SUBRAMANIAN MD on Aug 12 2020 1:12PM EST Normal [facility] CT NECK SOFT TISSUE W IVCONo n 04-27-2020 CT NECK SOFT TISSUE W IVCON Final Report DATE OF EXAM: Apr 27 2020 5:02PM [facility] 0013 - CT NECK SOFT TISSUE W IVCON / PROCEDURE REASON: Localized swelling, mass or lump of neck Physician Interpretation CT Neck Soft Tissue with Contrast HISTORY: Left 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 COMPARISON: 03/15/2020 CT TECHNIQUE: Helical scan of the neck from the petrous ridges through the upper mediastinum following IV administration of 100 Omnipaque 300. Dose-Length Product (DLP): 433.[address] Dose Reduction Employed: Automated exposure control (AEC) RESULT: GENERAL: Visualized portion lower brain is unremarkable without evidence of a subdural or epidural abscess. No evidence of vasogenic edema. Visualized portion of the orbits are unremarkable. Extensive chronic bilateral maxillary sinusitis. MUCOSAL SURFACES AND PHARYNGEAL MUCOSAL SPACE: Nasopharynx: Mild prominence of adenoid tissue mildly narrow the nasopharynx. Oral cavity: Redemonstration of left mandibular molar tooth extraction defects on sagittal image 166. No evidence of acute bone destruction. Oral cavity/oropharynx mild prominence of the lingual tonsils. Mild asymmetric prominence of the right palatine tonsil on axial image 30. This region was obscured by artifact on the previous exam. Hypopharynx and larynx appear normal. PRE-STYLOID PARAPHARYNGEAL SPACE: Fat and muscle planes are normal. DIAGNOSTIC CARDIAC SONOGRAPHER SPACE: Visualized mandible, muscles of mastication, pterygopalatine fossa and pterygomaxillary fissures are normal bilaterally. JAWS: No gross bony destructive lesions or dental inflammatory lesions identified. CAROTID SHEATH AND CONTENTS: The carotid arteries and jugular veins demonstrate normal contrast enhancement. . CERVICAL SOFT TISSUES AND LYMPH NODES: The deep cervical fascial planes, and prevertebral soft tissues are normal. Redemonstration multinodal station bilateral suprahyoid and infrahyoid mildly prominent lymph nodes. No evidence of necrotic or enhancing lymph nodes. MAJOR SALIVARY GLANDS: Significant reduction irregular rim-enhancing fluid collection superficial posterior aspect left parotid gland. Residual irregular soft tissue density is seen in this region/infra-auricular on axial image 19 and sagittal image 191 measuring 15 mm maximum dimension. On axial image 29 and sagittal image 194, stable 6 mm enhancing soft tissue nodules superficial portion of left parotid gland, unchanged. Stable small intraparotid lymph nodes anterior each parotid gland on axial image 18, unchanged. THYROID: Morphology and enhancement pattern of the thyroid is normal. VISIBLE TRACHEOBRONCHIAL TREE: No endoluminal masses are identified within the visualized tracheobronchial tree. Airway is patent to the viktor. LUNG APICES AND UPPER MEDIASTINUM: Lung apices are clear. No mediastinal masses are identified. IMPRESSION: 1.Significant reduction irregular rim-enhancing fluid collection superficial posterior aspect left parotid gland. Residual irregular soft tissue density is seen in this region/infra-auricular on axial image 19 and sagittal image 191 measuring 15 mm maximum dimension. 2.Redemonstration multinodal station bilateral suprahyoid and infrahyoid mildly prominent lymph nodes. Stable bilateral intraparotid lymph nodes. No evidence of necrotic or enhancing lymph nodes. 3.Oral cavity/oropharynx mild prominence of the lingual tonsils. Mild asymmetric prominence of the right palatine tonsil on axial image 30. This region was obscured by artifact on the previous exam. 4. If further imaging is clinically desired, consider PET scan imaging as an option. Property Consultant: PSCB Transcribe Date/Time: Apr 28 2020 11:43A Dictated by : MYRANDA RUTLEDGE MD This examination was interpreted and the report reviewed and electronically signed by: MYRANDA RUTLEDGE MD on Apr 28 2020 1:39PM EST Normal [facility] CT FACIAL BONE/MILA W IVCONo n 03-15-2020 CT FACIAL BONE/MILA W IVCON Final Report DATE OF EXAM: Mar 15 2020 1:01PM [facility] 0010 - CT FACIAL BONE/MILA W IVCON / PROCEDURE REASON: multiple diagnoses Physician Interpretation EXAMINATION: CT FACIAL BONE/MILA W IVCON CLINICAL HISTORY: Left-sided jaw pain, status post molar extraction Technique: Spiral high resolution axial unenhanced images were obtained through the facial bones with sagittal and coronal planar reconstructions. MQ: CTMFWO_1 Dose-Length Product (DLP): 482.[address] Dose Reduction Employed: No dose reduction techniques were required COMPARISON: None. RESULT: Visualized portion of the lower brain is unremarkable. Temporal and mastoid bones are clear. Soft Tissues: No significant superficial soft tissue swelling. Facial bones: No evidence of an acute fracture in the visualized facial bones. Orbits: No evidence of an acute fracture. The globes are intact. The soft tissue planes of the orbits are maintained. Paranasal Sinuses: Moderate degree bilateral chronic maxillary sinusitis with insufflated secretions and chronic wall thickening. Frontal and ethmoid sinuses are clear. Underdeveloped sphenoid sinus. Nasal cavity: Nasal septum is midline. Nasal cavity is patent. Foreign Bodies: No evidence of radiopaque foreign bodies. Other: Status post molar extraction defects is seen in the left mandibular molar region on sagittal image 63. No evidence of acute bone destruction. No evidence of an adjacent buccal space abscess. Loan Closer spaces are unremarkable. Best seen on axial image 35 and coronal image 56, irregular rim-enhancing hypodense/fluid density mass in the superficial portion of the left parotid gland measures 1.9 cm transverse by 1.5 cm AP and 1.5 cm craniocaudal. Edematous changes of the overlying subcutaneous fat. Small nonspecific bilateral intraparotid lymph nodes. Multinodal station bilateral suprahyoid and infrahyoid mildly prominent lymph nodes. No evidence of necrotic adenopathy. 1.9 cm left level 4 lymph node coronal image 62. IMPRESSION: 1.Best seen on axial image 35 and coronal image 56, irregular rim-enhancing hypodense/fluid density mass in the superficial portion of the left parotid gland measures 1.9 cm transverse by 1.5 cm AP and 1.5 cm craniocaudal. Leading diagnostic consideration is a malignant parotid gland neoplasm until proven otherwise. Less likely consideration is infectious inflammatory basis. Biopsy/needle aspiration is recommended 2.Multinodal station bilateral suprahyoid and infrahyoid mildly prominent lymph nodes. No evidence of necrotic adenopathy. 1.9 cm left level 4 lymph node coronal image 62. 3.Status post molar extraction defects is seen in the left mandibular molar region on sagittal image 63. No evidence of acute bone destruction. No evidence of an adjacent buccal space abscess. Property Consultant: [facility] Transcribe Date/Time: Mar 15 2020 1:06P Dictated by : MYRANDA RUTLEDGE MD This examination was interpreted and the report reviewed and electronically signed by: MYRANDA RUTLEDGE MD on Mar 15 2020 1:23PM EST Normal [facility] Comprehensive Panelon 2019 Albumin [Mass/Vol] 4.3 g/dL Normal 3.9-4.9 [facility] Comment on above: Performed By: #### L LP14 #### [place] [address] ALP [Catalytic activity/Vol] 74 U/L Normal 34-123 [facility] Comment on above: Performed By: #### L LP14 #### [facility] [address] [place] [address] ALT-SGPT Blood 15 U/L Normal 7-38 [facility] Comment on above: Performed By: #### L LP14 #### [facility] [address] [place] [address] Anion gap [Moles/Vol] 8 mmol/L Low 9-18 [facility] Comment on above: Performed By: #### L LP14 #### [facility] [address] [place] [address] AST-SGOT Blood 19 U/L Normal 13-35 [facility] Comment on above: Performed By: #### L LP14 #### [facility] [address] [place] [address] Bilirubin Ql (U) 0.5 mg/dL Normal 0.2-1.3 [facility] Comment on above: Performed By: #### L LP14 #### [facility] [address] [place] [address] Calcium [Mass/Vol] 9.5 mg/dL Normal 8.5-10.2 [facility] Comment on above: Performed By: #### L LP14 #### [facility] [address] [place] [address] Chloride [Moles/Vol] 102 mmol/L Normal 97-105 [facility] Comment on above: Performed By: #### L LP14 #### [facility] [address] [place] [address] CO2 Blood 28 mmol/L Normal 22-30 [facility] Comment on above: Performed By: #### L LP14 #### [facility] [address] [place] [address] Creatinine [Mass/Vol] 0.75 mg/dL Normal 0.58-0.96 [facility] Comment on above: Performed By: #### L LP14 #### [place] [address] Glucose [Mass/Vol] 106 mg/dL High 74-99 [facility] Comment on above: Result Comment: The [place] [employer] (ADA) provides guidance for cutoff values for fasting glucose and random glucose. The ADA defines fasting as no caloric intake for at least 8 hours.Fasting plasma glucose results between 100 to 125 mg/dL indicate increased risk for diabetes (prediabetes). Fasting plasma glucose results greater than or equal to 126 mg/dL meet the criteria for diagnosis of diabetes. In the absence of unequivocal hyperglycemia, results should be confirmed by repeat testing. In a patient with classic symptoms of hyperglycemia or hyperglycemic crisis, random plasma glucose results greater than or equal to 200 mg/dL meet the criteria for diagnosis of diabetes. Reference: Standards of Medical Care in Diabetes 2016; [place] [employer] Association. Diabetes Care. 2016;39(Suppl 1). Performed By: #### L LP14 #### [place] [address] Potassium [Moles/Vol] 4.5 mmol/L Normal 3.7-5.1 [facility] Comment on above: Performed By: #### L LP14 #### [place] [address] Protein [Mass/Vol] 7.9 g/dL Normal 6.3-8.0 [facility] Comment on above: Performed By: #### L LP14 #### [place] [address] Sodium [Moles/Vol] 138 mmol/L Normal 136-144 [facility] Comment on above: Performed By: #### L LP14 #### [address] [address] Urea nitrogen [Mass/Vol] 14 mg/dL Normal 7-21 [facility] Comment on above: Performed By: #### L LP14 #### [facility] [address] [place] [id number] Hemogram/Diffon 03-15-2020 Abs. Baso 0.03 thou/cmm Normal 0.00-0.08 [facility] Comment on above: Performed By: #### L CBCD #### [address] [address] Abs. [place] 0.47 thou/cmm Normal 0.20-1.00 [facility] Comment on above: Performed By: #### L CBCD #### [facility] [address] [place], [place] [address] Abs. Neut (ANC) 6.45 thou/cmm High 3.00-5.67 [facility] Comment on above: Performed By: #### L CBCD #### [facility] [address] [place], [place] [address] Basophils/100 WBC (Bld) 0.3 % Normal [facility] Comment on above: Performed By: #### L CBCD #### [address] [address] Eosinophils (Bld) [#/Vol] 0.22 thou/cmm Normal 0.00-0.41 [facility] Comment on above: Performed By: #### L CBCD #### [address] [address] Eosinophils/100 WBC (Bld) 2.3 % Normal [facility] Comment on above: Performed By: #### L CBCD #### [address] [address] Erythrocyte distribution width (RBC) [Ratio] 12.4 % Normal 11.5-15.9 [facility] Comment on above: Performed By: #### L CBCD #### [address] [address] Hematocrit (Bld) [Volume fraction] 45.5 % Normal 37.0-47.0 [facility] Comment on above: Performed By: #### L CBCD #### [address] [address] Hemoglobin (Bld) [Mass/Vol] 15.3 g/dL Normal 12.0-16.0 [facility] Comment on above: Performed By: #### L CBCD #### [address] [address] Lymphocytes (Bld) [#/Vol] 2.43 thou/cmm Normal 1.50-3.65 [facility] Comment on above: Performed By: #### L CBCD #### [facility] [address] [place], [place] [address] Lymphocytes/100 WBC (Bld) 25.3 % Normal [facility] Comment on above: Performed By: #### L CBCD #### [facility] [address] [place], [place] [address] MCH (RBC) [Entitic mass] 29.7 pg Normal 27.0-31.0 [facility] Comment on above: Performed By: #### L CBCD #### [facility] [address] [place], [place] [address] MCHC (RBC) [Mass/Vol] 33.6 % Normal 32.0-36.0 [facility] Comment on above: Performed By: #### L CBCD #### [facility] [address] [place] [address] MCV (RBC) [Entitic vol] 88.2 fL Normal 81.0-99.0 [facility] Comment on above: Performed By: #### L CBCD #### [facility] [address] [place], [place] [address] Monocytes/100 WBC (Bld) 4.9 % Normal [facility] Comment on above: Performed By: #### L CBCD #### [facility] [address] [place] [address] Platelet mean volume (Bld) [Entitic vol] 10.9 fL High 7.1-10.5 [facility] Comment on above: Performed By: #### L CBCD #### [facility] [address] [place], [place] [address] Platelets (Bld) [#/Vol] 236 thou/cmm Normal 150-400 [facility] Comment on above: Performed By: #### L CBCD #### [facility] [address] [place], [place] [address] RBC (Bld) [#/Vol] 5.16 mil/cmm Normal 4.20-5.40 [facility] Comment on above: Performed By: #### L CBCD #### [facility] [address] [place] [address] Seg Neutrophil 67.2 % Normal [facility] Comment on above: Performed By: #### L CBCD #### [facility] [address] [place], [place] [address] WBC (Bld) [#/Vol] 9.6 thou/cmm Normal 4.8-10.5 [facility] Comment on above: Performed By: #### L CBCD #### [facility] [address] [place] [id number] MDRD eGFRon 03-15-2020 GFR/1.73 sq M predicted among non-blacks MDRD (S/P/Bld) [Vol rate/Area] mL/min/{1.73_m2} Normal >60mL/min/1. 73m2 [facility] Comment on above: Result Comment: If t he patient is , multiply the result by 1.210. Performed By: #### L GFR #### [facility] [address] [place], [place] [address] XR KNEE 4V AP/LAT/OBLS LTon 08-16-2019 XR KNEE 4V AP/LAT/OBLS LT * * *Final Report* * * DATE OF EXAM: Aug 16 2019 6:48PM LDX 5204 - XR KNEE 4V AP/LAT/OBLS LT / PROCEDURE REASON: Bone pain, knee * * * * Physician Interpretation * * * * XR KNEE 4V AP/LAT/OBLS LT HISTORY: 59 years old Clinical information: Bone pain, knee fall over dog medial knee pain TECHNIQUE: Images: XR KNEE 4V AP/LAT/OBLS LT Comparison: 01/30/2019. RESULT: Superior patellar spurs. No gross effusion. Chronic incompletely fused tibial tuberosity. Mild degenerative narrowing of the medial compartment. No fractures or dislocations are seen. IMPRESSION: No acute traumatic pathology. Property Consultant: [facility] Transcribe Date/Time: Aug 16 2019 7:21P Dictated by : MYRANDA RUTLEDGE MD This examination was interpreted and the report reviewed and electronically signed by: MYRANDA RUTLEDGE MD on Aug 16 2019 7:22PM EST Normal [facility] Vital Signs Date Time Vital Sign Value Performing Clinician Faci lity 04-06-2025 08:56-0400 Body height 162.56 cm No Primary Care Physician [facility] 04-06-2025 08:56-0400 Body mass index (BMI) [Ratio] 31.2 kg/m2 No Primary Care Physician [facility] 04-06-2025 08:56-0400 Body temperature 98.6 [degF] No Primary Care Physician [facility] 04-06-2025 08:56-0400 Body weight 82.55 kg No Primary Care Physician [facility] 04-06-2025 08:56-0400 Diastolic blood pressure 77 mm[Hg] No Primary Care Physician [facility] 04-06-2025 08:56-0400 Heart rate 64 /min No Primary Care Physician [facility] 04-06-2025 08:56-0400 Respiratory rate 17 /min No Primary Care Physician [facility] 04-06-2025 08:56-0400 SaO2% (BldA) [Mass fraction] 99 % No Primary Care Physician [facility] 04-06-2025 08:56-0400 Systolic blood pressure 173 mm[Hg] No Primary Care Physician [facility] 02-13-2025 09:57-0400 Body height 162.6 cm Sarah Amado APRN.DIRECTOR COMPLIANCE Work Phone: [facility] 02-13-2025 09:57-0400 Body mass index (BMI) [Ratio] 31.41 kg/m2 Sarah Amado [employer]EWARD[employer].DIRECTOR COMPLIANCE Work Phone: [facility] 02-13-2025 09:57-0400 Body weight 83.01 kg Sarah Amado [employer].DIRECTOR COMPLIANCE Work Phone: [facility] 02-13-2025 09:57-0400 Diastolic blood pressure 90 mm[Hg] Sarah Haury [employer]ARD[employer].DIRECTOR COMPLIANCE Work Phone: [facility] 02-13-2025 09:57-0400 Systolic blood pressure 142 mm[Hg] Sarah Haury [employer]ARD[employer].DIRECTOR COMPLIANCE Work Phone: [facility] 09-15-2024 10:31-0400 Diastolic blood pressure 80 mm[Hg] Cherie Tobar [employer].DIRECTOR COMPLIANCE Work Phone: [facility] 09-15-2024 10:31-0400 Systolic blood pressure 126 mm[Hg] Cherie Queden [employer]EWARDESS.DIRECTOR COMPLIANCE Work Phone: [facility] 09-15-2024 09:46-0400 Body height 161.9 cm Cherie Queden [employer]EWARD[employer].DIRECTOR COMPLIANCE Work Phone: [facility] 09-15-2024 09:46-0400 Body mass index (BMI) [Ratio] 32.52 kg/m2 Cherie Queden [employer]ARD[employer].DIRECTOR COMPLIANCE Work Phone: [facility] 09-15-2024 09:46-0400 Body temperature 98.01 [degF] Cherie Queden [employer].DIRECTOR COMPLIANCE Work Phone: [facility] 09-15-2024 09:46-0400 Body weight 85.28 kg Cherie Queden [employer].DIRECTOR COMPLIANCE Work Phone: [facility] 09-15-2024 09:46-0400 Heart rate 64 /min Cherie Queden [employer]ARD[employer].DIRECTOR COMPLIANCE Work Phone: [facility] 09-15-2024 09:46-0400 Respiratory rate 18 /min Cherie Queden [employer]EWARDESS.DIRECTOR COMPLIANCE Work Phone: [facility] 09-15-2024 09:46-0400 SaO2% (BldA) [Mass fraction] 98 % Cherie Queden [employer]EWARDESS.DIRECTOR COMPLIANCE Work Phone: [facility] 06-03-2024 08:13-0500 Body height 161.9 cm Cherie Queden [employer]ARD[employer].DIRECTOR COMPLIANCE Work Phone: [facility] 06-03-2024 08:13-0500 Body mass index (BMI) [Ratio] 32.18 kg/m2 Cherie Queden [employer].DIRECTOR COMPLIANCE Work Phone: [facility] 06-03-2024 08:13-0500 Body temperature 97.7 [degF] Cherie Queden [employer]EWARDESS.DIRECTOR COMPLIANCE Work Phone: [facility] 06-03-2024 08:13-0500 Body weight 84.37 kg Cherie Queden [employer]EWARDESS.DIRECTOR COMPLIANCE Work Phone: [facility] 06-03-2024 08:13-0500 Diastolic blood pressure 70 mm[Hg] Cherie Queden [employer]ARD[employer].DIRECTOR COMPLIANCE Work Phone: [facility] 06-03-2024 08:13-0500 Heart rate 69 /min Cherie Queden [employer]ARD[employer].DIRECTOR COMPLIANCE Work Phone: [facility] 06-03-2024 08:13-0500 Respiratory rate 16 /min Cherie Queden [employer].DIRECTOR COMPLIANCE Work Phone: [facility] 06-03-2024 08:13-0500 SaO2% (BldA) [Mass fraction] 99 % Cherie Queden [employer].DIRECTOR COMPLIANCE Work Phone: [facility] 06-03-2024 08:13-0500 Systolic blood pressure 116 mm[Hg] Cherie Queden [employer].DIRECTOR COMPLIANCE Work Phone: [facility] 09-13-2023 07:37-0400 Body height 161.9 cm Sarah Haury [employer].DIRECTOR COMPLIANCE Work Phone: [facility] 09-13-2023 07:37-0400 Body weight 84.82 kg Sarah Haury [employer].DIRECTOR COMPLIANCE Work Phone: [facility] 09-13-2023 07:37-0400 Diastolic blood pressure 68 mm[Hg] Sarah Haury [employer].DIRECTOR COMPLIANCE Work Phone: [facility] 09-13-2023 07:37-0400 Systolic blood pressure 110 mm[Hg] Sarah Haury [employer].DIRECTOR COMPLIANCE Work Phone: [facility] 05-07-2023 09:53-0500 Body height 165.1 cm [facility] 05-07-2023 09:53-0500 Body weight 81.65 kg [facility] 05-07-2023 09:53-0500 Heart rate 88 /min [facility] 01-25-2023 08:31-0400 Body height 161.3 cm Cherie Queden [employer].DIRECTOR COMPLIANCE Work Phone: [facility] 01-25-2023 08:31-0400 Body temperature 97.81 [degF] Cherie Queden [employer]ARD[employer].DIRECTOR COMPLIANCE Work Phone: [facility] 01-25-2023 08:31-0400 Body weight 83.01 kg Cherie Queden [employer].DIRECTOR COMPLIANCE Work Phone: [facility] 01-25-2023 08:31-0400 Diastolic blood pressure 70 mm[Hg] Cherie Queden [employer].DIRECTOR COMPLIANCE Work Phone: [facility] 01-25-2023 08:31-0400 Heart rate 59 /min Cherie Queden [employer].DIRECTOR COMPLIANCE Work Phone: [facility] 01-25-2023 08:31-0400 Respiratory rate 18 /min Cherie Queden [employer].DIRECTOR COMPLIANCE Work Phone: [facility] 01-25-2023 08:31-0400 SaO2% (BldA) [Mass fraction] 98 % Cherie Queden [employer].DIRECTOR COMPLIANCE Work Phone: [facility] 01-25-2023 08:31-0400 Systolic blood pressure 122 mm[Hg] Cherie Queden [employer]ARD[employer].DIRECTOR COMPLIANCE Work Phone: [facility] 10-27-2022 08:05-0400 Body height 161.3 cm Cherie Queden [employer].DIRECTOR COMPLIANCE Work Phone: [facility] 10-27-2022 08:05-0400 Body temperature 98.2 [degF] Cherie Queden [employer].DIRECTOR COMPLIANCE Work Phone: [facility] 10-27-2022 08:05-0400 Body weight 84.37 kg Cherie Queden [employer].DIRECTOR COMPLIANCE Work Phone: [facility] 10-27-2022 08:05-0400 Diastolic blood pressure 70 mm[Hg] Cherie Queden [employer].DIRECTOR COMPLIANCE Work Phone: [facility] 10-27-2022 08:05-0400 Heart rate 84 /min Cherie Queden [employer].DIRECTOR COMPLIANCE Work Phone: [facility] 10-27-2022 08:05-0400 Respiratory rate 18 /min Cherie Queden [employer]ARD[employer].DIRECTOR COMPLIANCE Work Phone: [facility] 10-27-2022 08:05-0400 SaO2% (BldA) [Mass fraction] 100 % Cherie Queden [employer].DIRECTOR COMPLIANCE Work Phone: [facility] 10-27-2022 08:05-0400 Systolic blood pressure 126 mm[Hg] Cherie Queden [employer].DIRECTOR COMPLIANCE Work Phone: [facility] 09-29-2022 08:35-0400 Body height 161.3 cm Cherie Queden [employer].DIRECTOR COMPLIANCE Work Phone: [facility] 09-29-2022 08:35-0400 Body temperature 98.01 [degF] Cherie Queden [employer].DIRECTOR COMPLIANCE Work Phone: [facility] 09-29-2022 08:35-0400 Body weight 86.64 kg Cherie Queden [employer].DIRECTOR COMPLIANCE Work Phone: [facility] 09-29-2022 08:35-0400 Diastolic blood pressure 82 mm[Hg] Cherie Queden [employer].DIRECTOR COMPLIANCE Work Phone: [facility] 09-29-2022 08:35-0400 Heart rate 77 /min Cherie Queden [employer].DIRECTOR COMPLIANCE Work Phone: [facility] 09-29-2022 08:35-0400 Respiratory rate 18 /min Cherie Queden [employer].DIRECTOR COMPLIANCE Work Phone: [facility] 09-29-2022 08:35-0400 SaO2% (BldA) [Mass fraction] 99 % Cherie Queden [employer].DIRECTOR COMPLIANCE Work Phone: [facility] 09-29-2022 08:35-0400 Systolic blood pressure 132 mm[Hg] Cherie Queden [employer].DIRECTOR COMPLIANCE Work Phone: [facility] 06-14-2022 08:34-0500 Body height 161.3 cm Haley Posada MD Work Phone: [facility] 06-14-2022 08:34-0500 Body weight 85.6 kg Haley Posada MD Work Phone: [facility] 06-14-2022 08:34-0500 Diastolic blood pressure 88 mm[Hg] Haley Posada MD Work Phone: [facility] 06-14-2022 08:34-0500 Heart rate 69 /min Haley Posada MD Work Phone: [facility] 06-14-2022 08:34-0500 SaO2% (BldA) [Mass fraction] 98 % Haley Posada MD Work Phone: [facility] 06-14-2022 08:34-0500 Systolic blood pressure 158 mm[Hg] Haley Posada MD Work Phone: [facility] 05-19-2022 08:34-0500 Body height 165.1 cm Cherie Queden [employer].DIRECTOR COMPLIANCE Work Phone: [facility] 05-19-2022 08:34-0500 Body temperature 98.1 [degF] Cherie Queden [employer].DIRECTOR COMPLIANCE Work Phone: [facility] 05-19-2022 08:34-0500 Body weight 84.82 kg Cherie Queden [employer].DIRECTOR COMPLIANCE Work Phone: [facility] 05-19-2022 08:34-0500 Diastolic blood pressure 82 mm[Hg] Cherie Queden [employer].DIRECTOR COMPLIANCE Work Phone: [facility] 05-19-2022 08:34-0500 Heart rate 71 /min Cherie Queden [employer].DIRECTOR COMPLIANCE Work Phone: [facility] 05-19-2022 08:34-0500 Respiratory rate 18 /min Cherie Tobar [employer].DIRECTOR COMPLIANCE Work Phone: [facility] 05-19-2022 08:34-0500 SaO2% (BldA) [Mass fraction] 100 % Cherie Tobar [employer].DIRECTOR COMPLIANCE Work Phone: [facility] 05-19-2022 08:34-0500 Systolic blood pressure 132 mm[Hg] Cherie Quefady [employer].DIRECTOR COMPLIANCE Work Phone: [facility] 04-28-2022 14:25-0400 Diastolic blood pressure 86 mm[Hg] Anali Quinn MD Work Phone: [facility] 04-28-2022 14:25-0400 Heart rate 70 /min Anali Quinn MD Work Phone: [facility] 04-28-2022 14:25-0400 Systolic blood pressure 164 mm[Hg] Anali Quinn MD Work Phone: [facility] 04-28-2022 14:19-0400 Body height 165.1 cm Anali Quinn MD Work Phone: [facility] 04-28-2022 14:19-0400 Body temperature 97.81 [degF] Anali Quinn MD Work Phone: [facility] 04-28-2022 14:19-0400 Body weight 85.73 kg Anali Quinn MD Work Phone: [facility] 03-17-2022 08:24-0400 Body height 161.3 cm Louie Hayward MD Work Phone: [facility] 03-17-2022 08:24-0400 Body weight 87.09 kg Louie Hayward MD Work Phone: [facility] 02-14-2022 08:16-0400 Body height 161.3 cm Cherie Quefady [employer].DIRECTOR COMPLIANCE Work Phone: [facility] 02-14-2022 08:16-0400 Body temperature 98.29 [degF] Cherie Queden [employer].DIRECTOR COMPLIANCE Work Phone: [facility] 02-14-2022 08:16-0400 Body weight 87.09 kg Cherie Queden [employer].DIRECTOR COMPLIANCE Work Phone: [facility] 02-14-2022 08:16-0400 Diastolic blood pressure 74 mm[Hg] Cherie Queden [employer].DIRECTOR COMPLIANCE Work Phone: [facility] 02-14-2022 08:16-0400 Heart rate 70 /min Cherie Queden [employer].DIRECTOR COMPLIANCE Work Phone: [facility] 02-14-2022 08:16-0400 Respiratory rate 16 /min Cherie Queden [employer].DIRECTOR COMPLIANCE Work Phone: [facility] 02-14-2022 08:16-0400 SaO2% (BldA) [Mass fraction] 99 % Cherie Queden [employer].DIRECTOR COMPLIANCE Work Phone: [facility] 02-14-2022 08:16-0400 Systolic blood pressure 120 mm[Hg] Cherie Queden [employer].DIRECTOR COMPLIANCE Work Phone: [facility] 12-28-2021 09:00-0400 Heart rate 84 /min Anisha Bell PT, DPT Work Phone: [facility] 12-28-2021 09:00-0400 SaO2% (BldA) [Mass fraction] 98 % Anisha Bell PT, DPT Work Phone: [facility] 12-19-2021 13:36-0400 Body height 161.3 cm Respiratory Wstr Work Phone: [facility] 12-19-2021 13:36-0400 Body weight 87 kg Respiratory Wstr Work Phone: [facility] 12-19-2021 13:36-0400 Heart rate 98 /min Respiratory Wstr Work Phone: [facility] 12-19-2021 13:36-0400 Respiratory rate 14 /min Respiratory Wstr Work Phone: [facility] 12-19-2021 13:36-0400 SaO2% (BldA) [Mass fraction] 97 % Respiratory Wstr Work Phone: [facility] Encounters Encounter Date Encounter Type Care Provider Facility Start: 04-20-2025 End: 04-20-2025 ambulatory Cherie Tobar ASSISTANT PROFESSOR OF MUSIC Facility:[facility] Start: 04-10-2025 End: 04-10-2025 ambulatory Cherie Tobar ASSISTANT PROFESSOR OF MUSIC Facility:[facility] Start: 04-06-2025 End: 04-06-[address] Zack Peacock MD -[facility] Work Phone: Start: 04-06-2025 End: 04-06-2025 ambulatory No Primary Care Physician -[facility] Start: 02-19-2025 ambulatory SARAH AMADO Facility:[facility] Start: 02-19-2025 End: 02-19-2025 Subsequent hospital visit by physician [facility] Comment on above: Bloating [R14.0] Encounter for screen ing mammogram for malignant neoplasm of breast [Z12.31] Start: 02-13-2025 End: 02-13-2025 Patient encounter procedure Sarah Amado APRN.DIRECTOR COMPLIANCE Work Phone: OB/Gynecology Comment on above: Encounter for gyneco logical examination (general) (routine) without abnormal findings (Primary Dx); Encounter for screening mammogram for breast cancer; Encounter for screening for osteoporosis; Bloating; Family history of ovarian cancer; Screening for colon cancer; Asymptomatic menopausal state Start: 02-13-2025 End: 02-13-2025 Patient encounter status Sarah Amado APRN.DIRECTOR COMPLIANCE Work Phone: [facility] Start: 02-13-2025 End: 02-13-2025 ambulatory SARAH AMADO Facility:[facility] Start: 02-13-2025 Encounter for gynecological examination (general) (routine) without abnormal findings SARAH AMADO [facility] Start: 10-20-2024 End: 10-20-2024 Refill Cherie Tobar APRN.DIRECTOR COMPLIANCE Work Phone: [facility] Comment on above: Refill Request Start: 09-17-2024 End: 09-17-2024 ambulatory CHERIE TOBAR Facility:[facility] Start: 09-15-2024 End: 09-15-2024 Patient encounter procedure Cherie Tobar BANQUET STEWARDESS.DIRECTOR COMPLIANCE Work Phone: [facility] Comment on above: Well adult exam ([facility] Dx); Hyperlipidemia, mixed; 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; Screening for diabetes mellitus; Screening for depression; Closed nondisplaced fracture of right tibial tuberosity, initial encounter Start: 09-15-2024 End: 09-15-2024 Patient encounter status Cherie Tobar BANQUET STEWARDESS.DIRECTOR COMPLIANCE Work Phone: [facility] Work Phone: Start: 09-15-2024 End: 09-15-2024 ambulatory CHERIE TOBAR Facility:[facility] Start: 09-15-2024 Encounter for genera l adult medical examination without abnormal findings CHERIE TOBAR [facility] Start: 09-04-2024 End: 09-04-2024 Patient encounter procedure Anamaria Cook PA-C Work Phone: Orthopaedics Comment on above: Fall, subsequent enc ounter (Primary Dx); Closed nondisplaced fracture of right tibial tuberosity with routine healing, subsequent encounter Start: 09-04-2024 End: 09-04-2024 ambulatory CHERIE TOBAR Facility:[facility] Start: 09-04-2024 End: 09-04-2024 Subsequent hospital visit by physician Radio [facility] Work Phone: Radiology Comment on above: Closed nondisplaced fracture of right tibial tuberosity with routine healing, subsequent encounter [S82.154D] Start: 09-03-2024 End: 09-04-2024 Orders Only Anamaria Cook PA-C Work Phone: Orthopaedics Comment on above: Closed nondisplaced fracture of right tibial tuberosity with routine healing, subsequent encounter (Primary Dx) Start: 08-14-2024 End: 08-14-2024 ambulatory CHERIE Goodwin EKATERINA Facility:[facility] Start: 08-14-2024 End: 08-14-2024 Subsequent hospital visit by physician Radio [facility] Dee Causey Work Phone: Radiology Comment on above: Closed nondisplaced fracture of right tibial tuberosity, initial encounter [S82.154A] Start: 08-13-2024 End: 08-13-2024 Telephone encounter Malka Al MD Work Phone: Otolaryngology Comment on above: Patient Update Start: 08-07-2024 End: 08-07-2024 Orders Only Anamaria Cook PA-C Work Phone: Orthopaedics Comment on above: Closed nondisplaced fracture of right tibial tuberosity, initial encounter (Primary Dx) Start: 08-05-2024 End: 08-05-2024 ambulatory Malka Al MD Work Phone: Otolaryngology Comment on above: Cholesteatoma of rig ht ear (Primary Dx); 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 Start: 08-05-2024 End: 08-05-2024 Telemedicine consultation with patient Malka Al MD Work Phone: Otolaryngology Start: 07-31-2024 End: 07-31-2024 Subsequent hospital visit by physician Radio [facility] Dee Causey Work Phone: Radiology Comment on above: Closed fracture of p roximal end of right tibia with routine healing, unspecified fracture morphology, subsequent encounter [S82.101D] Start: 07-31-2024 End: 07-31-2024 ambulatory ANAMARIA COOK Facility:[facility] Start: 07-31-2024 End: 07-31-2024 Patient encounter procedure Anamaria Vetovitz PA-C Work Phone: Orthopaedics Comment on above: Closed nondisplaced fracture of right tibial tuberosity, initial encounter (Primary Dx); Fall, subsequent encounter; Pain of left hand Start: 07-29-2024 End: 07-29-2024 Orders Only Fariha Mcpherson Lora DO Work Phone: Orthopaedics Comment on above: Right knee pain, uns pecified chronicity (Primary Dx) Start: 07-28-2024 End: 07-28-2024 Telephone encounter Malka Al MD Work Phone: Otolaryngology Comment on above: ct scan request Start: 07-25-2024 End: 07-28-2024 Telephone encounter RafaelaVida Paulino DO Work Phone: Orthopaedics Comment on above: Appointment Start: 07-24-2024 End: 07-24-2024 Emergency department patient visit CHERIE A QUEDEN Facility:[facility] Start: 07-23-2024 End: 08-05-2024 Telephone encounter Malka Al MD Work Phone: Otolaryngology Comment on above: Patient Question Start: 06-03-2024 End: 06-03-2024 ambulatory CHERIE A QUEDEN Facility:[facility] Start: 06-03-2024 End: 06-03-2024 Patient encounter procedure Cherie A Queden BANQUET STEWARDESS.DIRECTOR COMPLIANCE Work Phone: [facility] Comment on above: Right maxillary sinu sitis (Primary Dx); Dizziness; Facial tic Start: 05-03-2024 End: 05-13-2024 ambulatory Cherie A Queden BANQUET STEWARDESS.DIRECTOR COMPLIANCE Work Phone: [facility] Comment on above: Back from Deployment Start: 01-29-2024 Refill Cherie A Qued en BANQUET STEWARDESS.DIRECTOR COMPLIANCE Work Phone: [facility] Comment on above: Refill Request Start: 01-10-2024 ambulatory Cherie A Qued en BANQUET STEWARDESS.DIRECTOR COMPLIANCE Work Phone: [facility] Comment on above: Bite possibly from t ick Start: 12-10-2023 MC Get Medical Advice Cherie A Queden BANQUET STEWARDESS.DIRECTOR COMPLIANCE Work Phone: [facility] Comment on above: [place] cream refil l Start: 12-08-2023 Refill Cherie Preston en BANQUET STEWARDESS.DIRECTOR COMPLIANCE Work Phone: [facility] Comment on above: Refill Request Start: 12-07-2023 ambulatory UNKNOWN PROVIDER Facili ty:[facility] Start: 12-04-2023 ambulatory Cheriereba Kirklandd en BANQUET STEWARDESS.DIRECTOR COMPLIANCE Work Phone: [facility] Start: 12-04-2023 Letter encounter Cherie Kirkland den BANQUET STEWARDESS.DIRECTOR COMPLIANCE Work Phone: [facility] Comment on above: Medical leave letter Start: 09-13-2023 End: 09-13-2023 Patient encounter procedure Sarah Beasleykira ANDRADEN.DIRECTOR COMPLIANCE Work Phone: OB/Gynecology Comment on above: Encounter for gyneco logical examination (general) (routine) without abnormal findings (Primary Dx); Encounter for screening mammogram for breast cancer; Vaginal discharge Start: 09-13-2023 End: 09-13-2023 Patient encounter status Sarah Amado BANQUET STEWARDESS.DIRECTOR COMPLIANCE Work Phone: [facility] Start: 09-11-2023 ambulatory Cherie Preston en BANQUET STEWARDESS.DIRECTOR COMPLIANCE Work Phone: [facility] Comment on above: Question for diet an d weight loss help Start: 09-07-2023 End: 09-07-2023 Patient encounter procedure Malka Al MD Work Phone: Otolaryngology Comment on above: Cholesteatoma of rig ht ear (Primary Dx); 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 Start: 05-07-2023 End: 05-07-2023 [facility] Start: 05-07-2023 End: 05-07-2023 ambulatory [facility] Pre Anest[facility] Comment on above: Preop examination (P rimary Dx); Hyperlipidemia, mixed; Post-COVID syndrome; PONV (postoperative nausea and vomiting) Start: 05-07-2023 End: 05-07-2023 [facility] Work [facility] Start: 02-16-2023 Refill Cherie A Isaeld en BANQUET STEWARDESS.DIRECTOR COMPLIANCE Work Phone: [facility] Comment on above: Refill Request Deployed Start: 01-25-2023 End: 01-25-2023 Patient encounter procedure Cherie Kirklandden BANQUET STEWARDESS.DIRECTOR COMPLIANCE Work Phone: [facility] Comment on above: Swelling of left par otid gland (Primary Dx); Left ear pain Start: 01-22-2023 Telephone encounter Cherie Tobar BANQUET STEWARDESS.DIRECTOR COMPLIANCE Work Phone: [facility] Comment on above: Results Start: 12-27-2022 End: 12-27-2022 Patient encounter procedure Elena Wagner MD Work Phone: Otolaryngology Comment on above: Cholesteatoma of rig ht ear (Primary Dx); 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 Start: 11-30-2022 End: 11-30-2022 Subsequent hospital visit by physician [facility] (1.5t) [facility] Comment on above: 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 [G51.31] Start: 11-28-2022 Documentation procedure Mammography Coordinator [facility] Start: 11-28-2022 Letter encounter Mammography Coordin ator [facility] Department Start: 11-28-2022 Telephone encounter Cherie Tobar APRN.DIRECTOR COMPLIANCE Work Phone: [facility] Comment on above: Results Start: 11-13-2022 ambulatory Tarun Rueda MD Work Phone: Neurology Comment on above: Notes correction Start: 11-06-2022 ambulatory Cherie Preston en BANQUET STEWARDESS.DIRECTOR COMPLIANCE Work Phone: [facility] Start: 11-06-2022 Patient encounter procedure Cherie Tobar BANQUET STEWARDESS.DIRECTOR COMPLIANCE Work Phone: [facility] Comment on above: I went to [facility] in Sunday morning. Start: 10-30-2022 Orders Only Elena Wagner MD Work Phone: Appointment Center Comment on above: Other specified hear ing loss, unspecified ear (Primary Dx) Consult Start: 10-27-2022 End: 10-27-2022 Patient encounter procedure Cherie Tobar BANQUET STEWARDESS.DIRECTOR COMPLIANCE Work Phone: [facility] Comment on above: Facial tic (Primary Dx); Numbness and tingling of right face; Hearing loss of right ear, unspecified hearing loss type; Screening for depression; Encounter for screening mammogram for malignant neoplasm of breast Start: 10-23-2022 Telephone encounter Cherie Tobar BANQUET STEWARDESS.DIRECTOR COMPLIANCE Work Phone: [facility] Comment on above: Lab Orders Start: 10-06-2022 ambulatory Cherie Preston en BANQUET STEWARDESS.DIRECTOR COMPLIANCE Work Phone: [facility] Comment on above: Facial ticking and d oing weird things more now Start: 09-29-2022 End: 09-29-2022 Patient encounter procedure Cherie Tobar BANQUET STEWARDESS.DIRECTOR COMPLIANCE Work Phone: [facility] Comment on above: 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); SOB (shortness of breath); Decreased functional mobility and endurance; Anxiety; Hyperlipidemia, mixed Start: 09-12-2022 ambulatory Mehnaz N Bal oun BANQUET STEWARDESS.DIRECTOR COMPLIANCE Work Phone: Pulmonary Medicine Comment on above: I m on deployment: R e Visit to doctor here in [place] Start: 08-17-2022 ambulatory Cherie A Qued en BANQUET STEWARDESS.DIRECTOR COMPLIANCE Work Phone: [facility] Comment on above: Deployment and Covid cases Start: 08-14-2022 Get Medical Advice Cherie A Queden BANQUET STEWARDESS.DIRECTOR COMPLIANCE Work Phone: [facility] Comment on above: Deployment order. De ploying out. 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); Mild intermittent asthma without complication Start: 06-06-2022 ambulatory Mehnaz N Bal oun BANQUET STEWARDESS.DIRECTOR COMPLIANCE Work Phone: [facility] Start: 06-02-2022 Orders Only Haley vance MD Work Phone: Pulmonary Medicine Comment on above: SOB (shortness of br eath) (Primary Dx) Start: 05-19-2022 End: 05-19-2022 Patient encounter procedure Cherie A Queden BANQUET STEWARDESS.DIRECTOR COMPLIANCE Work Phone: [facility] Comment on above: 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); Complaints of total body pain; Screening for depression; Encounter for immunization Start: 04-28-2022 End: 04-28-2022 Patient encounter procedure Anali Quinn MD Work Phone: Rheumatology Comment on above: Enlarged parotid gla nd (Primary Dx); Post-acute sequelae of COVID-19 (PASC); Weakness; Arthralgia, unspecified joint; Chronic pain syndrome; Myalgia Start: 04-24-2022 Telephone encounter Cherie Tobar BANQUET STEWARDESS.DIRECTOR COMPLIANCE Work Phone: [facility] Comment on above: Results Start: 04-16-2022 ambulatory Cherie Preston en BANQUET STEWARDESS.DIRECTOR COMPLIANCE Work Phone: [facility] Start: 04-16-2022 Letter encounter Cherie shrestha BANQUET STEWARDESS.DIRECTOR COMPLIANCE Work Phone: [facility] Comment on above: Re updated letter fo r [employer] job deployment Start: 03-17-2022 End: 03-17-2022 Patient encounter procedure Louie Hayward MD Work Phone: Orthopaedics Comment on above: Acute medial meniscu s tear of left knee, sequela (Primary Dx); Chronic pain of left knee Start: 03-17-2022 End: 03-17-2022 Subsequent hospital visit by physician Radio [facility] Dee Causey Work Phone: Radiology Comment on above: Pain [R52] Start: 03-10-2022 ambulatory Cherie Preston en BANQUET STEWARDESS.DIRECTOR COMPLIANCE Work Phone: [facility] Comment on above: Poison viviana again Start: 03-07-2022 ambulatory Mehnaz N Bal oun BANQUET STEWARDESS.DIRECTOR COMPLIANCE Work Phone: [facility] Comment on above: Question for testing in MyChart Start: 03-01-2022 Telephone encounter Cherie Tobar BANQUET STEWARDESS.DIRECTOR COMPLIANCE Work Phone: [facility] Comment on above: Lab Orders Start: 02-19-2022 ambulatory Jeramy Reynolds Work Phone: Functional Medicine Comment on above: Meetings Start: 02-14-2022 End: 02-14-2022 Patient encounter procedure Cherie Tobar APRN.DIRECTOR COMPLIANCE Work Phone: [facility] Comment on above: SOB (shortness of br eath) (Primary Dx); Chronic pain of left knee Start: 02-06-2022 End: 02-06-2022 Telemedicine consultation with patient Jeramy Aguilera MD Work Phone: [facility] Start: 02-06-2022 End: 02-06-2022 ambulatory Jeramy Aguilera MD Work Phone: Functional Medicine Comment on above: After Visit 02/06/22 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); SOB (shortness of breath); Obesity, Class I, BMI 30-34.9; Poor diet; Other fatigue; Abdominal bloating; Fatigue, unspecified type Start: 02-06-2022 E-mail encounter paz m caregiver Jeramy Aguilera MD Work Phone: [facility] Start: 01-30-2022 End: 01-30-[address] Work Phone: Functional Medicine Comment on above: Arrived Start: 01-23-2022 ambulatory Jeramy Reynolds Work Phone: Functional Medicine Comment on above: After Visit Summary 01/23/22 - [facility] Session 1 Start: 01-23-2022 E-mail encounter paz m caregiver Jeramy Aguilera MD Work Phone: [facility] Start: 01-20-2022 End: 01-20-2022 ambulatory Anisha Bell PT, DPT Work Phone: [facility] Comment on above: Post-acute sequelae of COVID-19 (PASC); SOB (shortness of breath); Decreased functional mobility and endurance Start: 01-16-2022 Telephone encounter Cherie Tobar APRN.DIRECTOR COMPLIANCE Work Phone: [facility] Comment on above: Results; Orders Start: 01-10-2022 End: 01-10-2022 ambulatory Mehnaz Tomas APRN.DIRECTOR COMPLIANCE Work Phone: [facility] Comment on above: 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); Nausea; Bloating Start: 01-10-2022 End: 01-10-2022 Telemedicine consultation with patient Mehnaz Sabrina Tomas APRN.DIRECTOR COMPLIANCE Work Phone: [facility] Start: 12-29-2021 End: 12-29-2021 Patient encounter procedure Echocardiogram [place] Work Phone: Cardiology Comment on above: Post-acute sequelae of COVID-19 (PASC); SOB (shortness of breath); Cough; Chest pain, unspecified type; Dizziness; Weakness; Arthralgia, unspecified joint; Fatigue, unspecified type Start: 12-28-2021 End: 12-28-2021 ambulatory Anisha Bell PT, DPT Work Phone: [facility] Comment on above: Decreased functional mobility and endurance (Primary Dx); Post-acute sequelae of COVID-19 (PASC); SOB (shortness of breath); Dizziness; Weakness; Arthralgia, unspecified joint Start: 12-19-2021 End: 12-19-2021 ambulatory [facility] Work Phone: Pulmonary Medicine Comment on above: Spirometry Start: 12-19-2021 End: 12-19-2021 Patient encounter procedure Respiratory Therapist [facility] Work Phone: [facility] Start: 12-19-2021 End: 12-19-2021 Subsequent hospital visit by physician [facility] Causey Work Phone: Radiology Comment on above: Post-acute sequelae of COVID-19 (PASC) [U09.9] Start: 12-13-2021 Telephone encounter Barb Meyer APRN.LISA Work Phone: [facility] Comment on above: Orders Start: 12-12-2021 Telephone encounter Mehnaz Tomas APRN.DIRECTOR COMPLIANCE Work Phone: [facility] Comment on above: Results Start: 12-12-2021 End: 12-12-2021 Subsequent hospital visit by physician [facility] Comment on above: Post-acute sequelae of COVID-19 (PASC) [U09.9] Start: 12-07-2021 ambulatory Cherie Kirklandd en BANQUET STEWARDESS.DIRECTOR COMPLIANCE Work Phone: [facility] Comment on above: Look At this Preside ntial Memorandum for Long Covid! Start: 12-06-2021 Telephone encounter Mehnaz Tomas BANQUET STEWARDESS.DIRECTOR COMPLIANCE Work Phone: [facility] Comment on above: Orders; Appointment Start: 12-06-2021 End: 12-06-2021 ambulatory Mehnaz Tomas BANQUET STEWARDESS.DIRECTOR COMPLIANCE Work Phone: [facility] Comment on above: SOB (shortness of br eath) (Primary Dx); Post-acute sequelae of COVID-19 (PASC); Cough; Chest pain, unspecified type; Dizziness; Weakness; Arthralgia, unspecified joint; Fatigue, unspecified type Start: 12-06-2021 End: 12-06-2021 Telemedicine consultation with patient Mehnaz Sabrina Tomas BANQUET STEWARDESS.DIRECTOR COMPLIANCE Work Phone: [facility] Start: 11-30-2021 Telephone encounter Mehnaz Tomas BANQUET STEWARDESS.DIRECTOR COMPLIANCE Work Phone: [facility] Comment on above: Appointment Start: 11-28-2021 Telephone encounter Cherie Tobar BANQUET STEWARDESS.DIRECTOR COMPLIANCE Work Phone: [facility] Comment on above: Results Start: 11-25-2021 ambulatory Cherie A Isaeld en BANQUET STEWARDESS.DIRECTOR COMPLIANCE Work Phone: [facility] Comment on above: Question on symptom I have 2x Start: 11-22-2021 Documentation procedure [facility] Start: 11-22-2021 Letter encounter Mammography Coordin ator [facility] Department Start: 11-22-2021 Telephone encounter Cherie Tobar BANQUET STEWARDESS.DIRECTOR COMPLIANCE Work Phone: [facility] Comment on above: Results Start: 11-22-2021 End: 11-22-2021 Subsequent hospital visit by physician Screen Mammo [facility] Comment on above: Encounter for screen ing mammogram for breast cancer [Z12.31] Start: 11-08-2021 Telephone encounter Cherie Tobar APRN.DIRECTOR COMPLIANCE Work Phone: [facility] Comment on above: Orders Start: 11-08-2021 End: 11-08-2021 Subsequent hospital visit by physician Mammo/Bone Density [facility]MO [facility] Comment on above: Canceled (Pt cx: Franco ointment Conflict) Procedures Date Procedure Procedure Detail Performing Clinician Start: 09-17-2024 Lipid 1995 panel - S june or Plasma Cherie Tobar APRN.DIRECTOR COMPLIANCE Work Phone: Start: 09-15-2024 Adult depression scr eening assessment Cherie Tobar APRN.DIRECTOR COMPLIANCE Work Phone: Start: 09-11-2023 HEARING TEST/AUDIOGRAM Kira Moe [employer] Student Work Phone: Start: 07-17-2023 Lipid 1995 panel - S june or Plasma Cherie Tobar APRN.DIRECTOR COMPLIANCE Work Phone: Start: 01-20-2023 Lipid 1996 panel - S june or Plasma [facility] Start: 11-24-2022 Mammography Cherie woodson BANQUET STEWARDESS.DIRECTOR COMPLIANCE Work Phone: Start: 06-14-2022 Nitric oxide gas determination Haley Posada MD Work Phone: Start: 06-14-2022 Brncdilat rspse spmt ry pre&post-brncdilat admn Haley Posada MD Work Phone: Start: 05-19-2022 INFLUENZA VACCINE QUADRIVALENT 6 MO - 64 YRS IM Cherie Tobar APRN.DIRECTOR COMPLIANCE Work Phone: Start: 03-17-2022 Radiologic exam knee complete 4/more views Louie Hayward MD Work Phone: Start: 03-07-2022 Adult depression scr eening assessment Mehnaz Tomas BANQUET STEWARDESS.[facility] Work Phone: Start: 01-09-2022 Adult depression scr eening assessment Mehnaz Tomas BANQUET STEWARDESS.DIRECTOR COMPLIANCE Work Phone: Start: 12-29-2021 Echo tthrc r-t 2d w/wom-mode compl spec&colr d Mehnaz Tomas BANQUET STEWARDESS.DIRECTOR COMPLIANCE Work Phone: Start: 12-19-2021 Brncdilat rspse spmt ry pre&post-brncdilat admn Mehnaz Tomas BANQUET STEWARDESS.[facility] Work Phone: Start: 12-19-2021 Radiologic exam ches t 2 views Mehnaz Tomas BANQUET STEWARDESS.[facility] Work Phone: Start: 12-12-2021 Ct thorax w/contrast material Mehnaz Tomas BANQUET STEWARDESS.DIRECTOR COMPLIANCE Work Phone: Start: 12-12-2021 Dup-scan xtr veins c omplete bilateral study Mehnaz Tomas BANQUET STEWARDESS.[facility] Work Phone: Start: 12-04-2021 Adult depression scr eening assessment Mehnaz Tomas B[employer]ET STEWARDESS.[facility] Work Phone: Start: 11-22-2021 End: 11-22-2021 Mammography Cherie Tobar B[employer] STEWARDESS.[facility] Work Phone: Start: 11-19-2020 Adult depression scr eening assessment Cherie Tobar BANQUET STEWARDESS.DIRECTOR COMPLIANCE Work Phone: Start: 08-12-2020 Mammography Cherie woodson B[employer]QU[employer] STEWARDESS.[facility] Work Phone: Plan of Treatment Date Care Activity Detail Author Start: 01-10-2035 RSV Vaccine (1 - 1-dose 75+ series) RSV Vaccine (1 - 1-dose 75+ series) [facility] Start: 09-17-2029 Lipid panel Lipid Screening [facility] Start: 07-17-2028 Lipid panel Lipid Screening [facility] Start: 01-21-2028 Lipid 1996 panel - Serum or Plasma Lipid Screening [facility] Start: 01-21-2028 Lipid panel Lipid Screening [facility] Start: 01-21-2028 LIPID SCREEN LIPID SCREEN [facility] Start: 09-18-2027 Diabetes Screening Diabetes Screening [facility] Start: 04-19-2027 LIPID SCREEN LIPID SCREEN [facility] Start: 11-19-2026 LIPID SCREEN LIPID SCREEN [facility] Start: 07-17-2026 Diabetes Screening Diabetes Screening [facility] Start: 10-27-2025 DIABETES SCREEN DIABETES SCREEN [facility] Start: 10-27-2025 Diabetes Screening Diabetes Screening [facility] Start: 09-30-2025 Screening for malignant neoplasm of cervix Cervical Cancer Screening [facility] Comment on above: Postponed from 07/22/2021 (Declined at t his time) Start: 09-15-2025 Depression Screening Depression Screening [facility] Start: 09-15-2025 Pneumococcal Vaccine: 50+ (1 of 1 - PCV) Pneumococcal Vaccine: 50+ (1 of 1 - PCV) [facility] Comment on above: Postponed from 01/10/2010 (Declined at t his time) Start: 08-30-2025 Screening for malignant neoplasm of colon Colorectal Cancer Screening [facility] Comment on above: Postponed from 01/10/2005 (Declined at t his time) Start: 06-03-2025 Shingrix Vaccine (2 of 2) Shingrix Vaccine (2 of 2) [facility] Comment on above: Postponed from 05/30/2021 (Declined at t his time) Start: 06-03-2025 Urine microalbumin profile DTaP,Tdap,Td Vaccine (2 - Td or Tdap) [facility] Comment on above: Postponed from 2021 (Declined at t his time) Start: 05-04-2025 DIABETES SCREEN DIABETES SCREEN [facility] Start: 04-06-2025 Complete blood count [facility] Start: 04-06-2025 Folic acid measurement, RBC [facility] Start: 04-06-2025 Thiamine measurement [facility] Start: 04-06-2025 Thyroid stimulating hormone measurement [facility] Start: 04-06-2025 Vitamin B12 measurement [facility] Start: 04-06-2025 Vitamin B6 measurement [facility] Start: 04-06-2025 Vitamin D, 1,25-dihydroxy measurement [facility] Start: 04-06-2025 [facility] Start: 03-02-2025 Influenza vaccination Influenza Vaccine (#1) [facility] Start: 02-19-2025 End: 02-19-2025 Patient encounter procedure [facility] Radiology Mammography and Bone Density Department Comment on above: us Start: 02-05-2025 End: 02-05-2025 Patient encounter procedure Mammogram Comment on above: Annual Exam Start: 01-10-2025 Advance Directive Discussion Advance Directive Discussion [facility] Start: 01-10-2025 Screening for osteoporosis Bone Density Screening [facility] Start: 12-29-2024 Influenza vaccination Influenza Vaccine (#1) [facility] Comment on above: Postponed from 03/02/2024 (Declined at t his time) Start: 11-19-2024 DIABETES SCREEN DIABETES SCREEN [facility] Start: 10-27-2024 End: 10-27-2024 Patient encounter procedure Mammogram Comment on above: DEEP SCREENING Annual Exam Start: 09-15-2024 End: 12-15-2024 25-hydroxyvitamin D3 [Mass/volume] in Serum or Plasma VITAMIN D 25 HYDROXY Lab Routine Well adult exam Expected: 09/15/2024, Expires: 12/15/2024 [facility] Comment on above: Expected: 09/15/2024, Expires: Start: 09-15-2024 End: 12-15-2024 CBC W Auto Differential panel - Blood COMPLETE BLOOD COUNT AND DIFFERENTIAL Lab Routine Well adult exam Expected: 09/15/2024, Expires: 12/15/2024 [facility] Comment on above: Expected: 09/15/2024, Expires: Start: 09-15-2024 End: 12-15-2024 Comprehensive metabolic 2000 panel - Serum or Plasma COMPREHENSIVE METABOLIC PANEL Lab Routine Well adult exam Expected: 09/15/2024, Expires: 12/15/2024 [facility] Comment on above: Expected: 09/15/2024, Expires: Start: 09-15-2024 End: 12-15-2024 Hemoglobin A1c in Blood HEMOGLOBIN A1C Lab Routine Well adult exam Expected: 09/15/2024, Expires: 12/15/2024 [facility] Comment on above: Expected: 09/15/2024, Expires: Start: 09-15-2024 End: 12-15-2024 Lipid 1996 panel - Serum or Plasma LIPID PANEL BASIC Lab Routine Hyperlipidemia, mixed Well adult exam Expected: 09/15/2024, Expires: 12/15/2024 [facility] Work Phone: Comment on above: Expected: 09/15/2024, Expires: Start: 09-04-2024 End: 09-04-2024 Patient encounter procedure 09/04/2024 8:30 AM EST Office Visit Orthopaedics [address] [address] Anamaria Cook PA-C [address] [place] [address] 3 week f/u Orthopaedics Comment on above: 3 week f/u Start: 08-14-2024 End: 08-14-2024 Patient encounter procedure 08/14/2024 9:00 AM EST Office Visit Orthopaedics [address] [address] Anamaria Cook PA-C [address] [place] [address] 2 week follow up Orthopaedics Comment on above: 2 week follow up Start: 08-05-2024 End: 08-05-2024 ambulatory 08/05/2024 8:30 AM EST [facility] [address] [place] [address] Malka Pablo MD [address] [facility] [address] [place] [address] f/u - per message from Dr Harrington Otolaryngology Comment on above: f/u - per message from Dr Harrington Start: 07-30-2024 End: 01-29-2025 Patient encounter procedure 07/30/2024 10:30 AM EST Office Visit Orthopaedics [address] [place] [address] Fariha Paulino DO [address] [place] [address] rt knee/tibia fx Orthopa[facility]ics Comment on above: rt knee/tibia fx Start: 07-16-2024 Covid-19 Vaccine () Covid-19 Vaccine () [facility] Comment on above: Postponed from 03/02/2023 (Declined at t his time) Start: 04-11-2024 DIABETES SCREEN DIABETES SCREEN [facility] Start: 03-02-2024 Covid-19 Vaccine () Covid-19 Vaccine () [facility] Start: 03-02-2024 Influenza vaccination [facility] Start: 01-30-2024 End: 01-30-2024 ambulatory 01/30/2024 2:30 PM EDT [facility] [address] [place] [address] Malka Pablo MD [address] [place] [address] virtual due to deployment Otolaryngology Comment on above: virtual due to deployment Start: 01-13-2024 End: 04-13-2024 Borrelia burgdorferi IgG and IgM panel - Serum LYME AB EARLY <=30 DAY SYMPTOMS Lab Routine Fatigue, unspecified type Tick bite, unspecified site, initial encounter Expected: 01/13/2024, Expires: 04/13/2024 [facility] Work Phone: Comment on above: Expected: 01/13/2024, Expires: Start: 12-30-2023 COVID-19 VACCINE (3 - Booster for Graham series) COVID-19 VACCINE (3 - Booster for Graham series) [facility] Comment on above: Postponed from 08/12/2021 (Declined at t his time) Start: 12-30-2023 Influenza vaccination Influenza Vaccine (#1) [facility] Comment on above: Postponed from 03/02/2023 (Declined at t his time) Start: 12-30-2023 Urine microalbumin profile [facility] Comment on above: Postponed from 2021 (Declined at t his time) Start: 12-07-2023 End: 12-07-2023 Patient encounter procedure 12/07/2023 9:45 AM EDT Appointment Radiology [address] [place] [address] Cholesteatoma of right ear [H71.91]; 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] Radiology Comment on above: Cholesteatoma of right ear [H71.91]; Mix ed conductive and sensorineural hearing loss of right ear with unrestricted hearing of left ear [H90.71] Start: 11-25-2023 Mammography [facility] Start: 11-25-2023 Screening for malignant neoplasm of breast Mammogram Screening [facility] Start: 09-30-2023 SHINGRIX VACCINE (2 of 2) SHINGRIX VACCINE (2 of 2) [facility] Comment on above: Postponed from 05/30/2021 (Declined at t his time) Start: 08-30-2023 End: 05-30-2024 HEARING TEST/AUDIOGRAM HEARING TEST/AUDIOGRAM Audiology Routine 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 Expected: 08/30/2023, Expires: 05/30/2024 [facility] Work Phone: Comment on above: Expected: 08/30/2023, Expires: Start: 07-22-2023 PAP TESTING PAP TESTING [facility] Start: 07-22-2023 Screening for malignant neoplasm of cervix Pap Testing [facility] Start: 07-02-2023 Behavioral Health Screening Behavioral Health Screening [facility] Start: 07-02-2023 Depression Assessment Depression Assessment [facility] Start: 03-07-2023 Adult depression screening assessment DEPRESSION SCREENING [facility] Start: 03-02-2023 Covid-19 Vaccine () Covid-19 Vaccine () [facility] Start: 03-02-2023 Influenza vaccination [facility] Start: 01-09-2023 Adult depression screening assessment DEPRESSION SCREENING [facility] Start: 12-04-2022 Adult depression screening assessment DEPRESSION SCREENING [facility] Start: 11-22-2022 Mammography MAMMOGRAM [facility] Start: 11-14-2022 COVID-19 VACCINE (3 - Booster for Graham series) COVID-19 VACCINE (3 - Booster for Graham series) [facility] Comment on above: Postponed from 10/16/2021 (Declined at t his time) Postponed from 08/12 (Declined at this time) Start: 11-14-2022 Urine microalbumin profile DTAP,TDAP,TD (2 - Td or Tdap) [facility] Comment on above: Postponed from 2021 (Declined at t his time) Start: 10-27-2022 End: 12-27-2022 25-hydroxyvitamin D3 [Mass/volume] in Serum or Plasma [facility] Work Phone: Comment on above: Expected: 10/27/2022, Expires: 3 Start: 07-09-2022 HPV TESTING HPV TESTING [facility] Start: 07-09-2022 Screening for malignant neoplasm of cervix HPV Testing [facility] Start: 07-02-2022 DEPRESSION ASSESSMENT DEPRESSION ASSESSMENT [facility] Start: 04-28-2022 End: 06-28-2022 Aldolase [Enzymatic activity/volume] in Serum or Plasma ALDOLASE BLD Lab Routine Myalgia Expected: 04/28/2022, Expires: 06/28/2022 [facility] Work Phone: Comment on above: Expected: 04/28/2022, Expires: 2 Start: 04-28-2022 End: 06-28-2022 OMEGA BY IFA WITH REFLEX OMEGA BY IFA WITH REFLEX Lab Routine Myalgia Expected: 04/28/2022, Expires: 06/28/2022 [facility] Work Phone: Comment on above: Expected: 04/28/2022, Expires: 2 Start: 04-28-2022 End: 06-28-2022 BLOOD TB SCREEN BLOOD TB SCREEN Lab Routine Enlarged parotid gland Chronic pain syndrome Expected: 04/28/2022, Expires: 06/28/2022 [facility] Work Phone: Comment on above: Expected: 04/28/2022, Expires: 2 Start: 04-28-2022 End: 06-28-2022 C reactive protein [Mass/volume] in Serum or Plasma C-REACTIVE PROTEIN (CRP) Lab Routine Enlarged parotid gland Chronic pain syndrome Expected: 04/28/2022, Expires: 06/28/2022 [facility] Work Phone: Comment on above: Expected: 04/28/2022, Expires: 2 Start: 04-28-2022 End: 06-28-2022 CBC W Auto Differential panel - Blood CBC + DIFF Lab Routine Enlarged parotid gland Chronic pain syndrome Expected: 04/28/2022, Expires: 06/28/2022 [facility] Work Phone: Comment on above: Expected: 04/28/2022, Expires: 2 Start: 04-28-2022 End: 06-28-2022 Complement C3 [Mass/volume] in Serum or Plasma C3 COMPLEMENT BLD Lab Routine Myalgia Expected: 04/28/2022, Expires: 06/28/2022 [facility] Work Phone: Comment on above: Expected: 04/28/2022, Expires: 2 Start: 04-28-2022 End: 06-28-2022 Complement C4 [Mass/volume] in Serum or Plasma C4 COMPLEMENT BLD Lab Routine Myalgia Expected: 04/28/2022, Expires: 06/28/2022 [facility] Work Phone: Comment on above: Expected: 04/28/2022, Expires: 2 Start: 04-28-2022 End: 06-28-2022 Comprehensive metabolic 2000 panel - Serum or Plasma COMP METABOLIC PANEL Lab Routine Enlarged parotid gland Chronic pain syndrome Expected: 04/28/2022, Expires: 06/28/2022 [facility] Work Phone: Comment on above: Expected: 04/28/2022, Expires: 2 Start: 04-28-2022 End: 06-28-2022 Creatine kinase [Enzymatic activity/volume] in Serum or Plasma CK CREATINE KINASE Lab Routine Myalgia Expected: 04/28/2022, Expires: 06/28/2022 [facility] Work Phone: Comment on above: Expected: 04/28/2022, Expires: 2 Start: 04-28-2022 End: 06-28-2022 Erythrocyte sedimentation rate SED RATE WESTERGREN Lab Routine Enlarged parotid gland Chronic pain syndrome Expected: 04/28/2022, Expires: 06/28/2022 [facility] Work Phone: Comment on above: Expected: 04/28/2022, Expires: 2 Start: 04-28-2022 End: 06-28-2022 Hepatitis B virus core Ab [Presence] in Serum HEP B CORE AB TOTAL Lab Routine Enlarged parotid gland Chronic pain syndrome Expected: 04/28/2022, Expires: 06/28/2022 [facility] Work Phone: Comment on above: Expected: 04/28/2022, Expires: 2 Start: 04-28-2022 End: 06-28-2022 Hepatitis B virus surface Ab [Presence] in Serum HEP B SURF AB QUAL Lab Routine Enlarged parotid gland Chronic pain syndrome Expected: 04/28/2022, Expires: 06/28/2022 [facility] Work Phone: Comment on above: Expected: 04/28/2022, Expires: 2 Start: 04-28-2022 End: 06-28-2022 Hepatitis B virus surface Ab [Presence] in Serum by Immunoassay HEP B SURF AG SCRN Lab Routine Enlarged parotid gland Chronic pain syndrome Expected: 04/28/2022, Expires: 06/28/2022 [facility] Work Phone: Comment on above: Expected: 04/28/2022, Expires: 2 Start: 04-28-2022 End: 06-28-2022 Hepatitis C virus Ab [Presence] in Serum HEP C AB IA W/CONF SCRN Lab Routine Enlarged parotid gland Chronic pain syndrome Expected: 04/28/2022, Expires: 06/28/2022 [facility] Work Phone: Comment on above: Expected: 04/28/2022, Expires: 2 Start: 04-28-2022 End: 06-28-2022 HIV 1+2 Ab [Presence] in Serum or Plasma by Immunoassay HIV 1 2 COMBO(AG/AB),WITH REFLEX TO DIFFERENTIATION Lab Routine Enlarged parotid gland Chronic pain syndrome Expected: 04/28/2022, Expires: 06/28/2022 [facility] Work Phone: Comment on above: Expected: 04/28/2022, Expires: 2 Start: 04-28-2022 End: 06-28-2022 IgE [Units/volume] in Serum or Plasma IGE BLD Lab Routine Enlarged parotid gland Chronic pain syndrome Expected: 04/28/2022, Expires: 06/28/2022 [facility] Work Phone: Comment on above: Expected: 04/28/2022, Expires: 2 Start: 04-28-2022 End: 06-28-2022 IgG subclass 4 [Mass/volume] in Serum IGG SUBCLASS 4 ONLY Lab Routine Enlarged parotid gland Chronic pain syndrome Expected: 04/28/2022, Expires: 06/28/2022 [facility] Work Phone: Comment on above: Expected: 04/28/2022, Expires: 2 Start: 04-28-2022 End: 06-28-2022 IMMUNOFIXATION SCREEN, SERUM IMMUNOFIXATION SCREEN, SERUM Lab Routine Myalgia Expected: 04/28/2022, Expires: 06/28/2022 [facility] Work Phone: Comment on above: Expected: 04/28/2022, Expires: 2 Start: 04-28-2022 End: 06-28-2022 IMMUNOGLOBULINS DELANO IMMUNOGLOBULINS DELANO Lab Routine Enlarged parotid gland Chronic pain syndrome Expected: 04/28/2022, Expires: 06/28/2022 [facility] Work Phone: Comment on above: Expected: 04/28/2022, Expires: 2 Start: 04-28-2022 End: 06-28-2022 KAPPA/NORWOOD,FREE,SER KAPPA/NORWOOD,FREE,SER Lab Routine Myalgia Expected: 04/28/2022, Expires: 06/28/2022 [facility] Work Phone: Comment on above: Expected: 04/28/2022, Expires: 2 Start: 04-28-2022 End: 06-28-2022 Lactate dehydrogenase [Enzymatic activity/volume] in Serum or Plasma LD LACTATE DEHYDRO Lab Routine Myalgia Expected: 04/28/2022, Expires: 06/28/2022 [facility] Work Phone: Comment on above: Expected: 04/28/2022, Expires: 2 Start: 04-28-2022 End: 06-28-2022 PROTEIN ELECT RND UR W/INTERP PROTEIN ELECT RND UR W/INTERP Lab Routine Myalgia Expected: 04/28/2022, Expires: 06/28/2022 [facility] Work Phone: Comment on above: Expected: 04/28/2022, Expires: 2 Start: 04-28-2022 End: 06-28-2022 PROTEIN ELECTROPHORESIS SERUM W/INTERP PROTEIN ELECTROPHORESIS SERUM W/INTERP Lab Routine Myalgia Expected: 04/28/2022, Expires: 06/28/2022 [facility] Work Phone: Comment on above: Expected: 04/28/2022, Expires: 2 Start: 04-28-2022 End: 06-28-2022 Protein/Creatinine [Mass Ratio] in Urine PROTEIN CREATININE RATIO Lab Routine Myalgia Expected: 04/28/2022, Expires: 06/28/2022 [facility] Work Phone: Comment on above: Expected: 04/28/2022, Expires: 2 Start: 04-28-2022 End: 06-28-2022 Rheumatoid factor [Units/volume] in Serum or Plasma RHEUMATOID FACTOR BL Lab Routine Myalgia Expected: 04/28/2022, Expires: 06/28/2022 [facility] Work Phone: Comment on above: Expected: 04/28/2022, Expires: 2 Start: 04-28-2022 End: 06-28-2022 SJOGREN ABS SSA/SSB SJOGREN ABS SSA/SSB Lab Routine Myalgia Expected: 04/28/2022, Expires: 06/28/2022 [facility] Work Phone: Comment on above: Expected: 04/28/2022, Expires: 2 Start: 04-28-2022 End: 06-28-2022 Urinalysis complete panel - Urine URINALYSIS WITH MICROSCOPIC, REFLEX CULTURE Lab Routine Myalgia Expected: 04/28/2022, Expires: 06/28/2022 [facility] Work Phone: Comment on above: Expected: 04/28/2022, Expires: 2 Start: 03-16-2022 End: 05-16-2022 Lipid 1996 panel - Serum or Plasma LIPID PANEL BASIC Lab Routine Hyperlipidemia, mixed Expected: 03/16/2022, Expires: 05/16/2022 [facility] Work Phone: Comment on above: Expected: 03/16/2022, Expires: 2 Start: 03-11-2022 COLORECTAL CANCER SCREENING COLORECTAL CANCER SCREENING [facility] Comment on above: Postponed from 01/10/2005 (Declined at t his time) Start: 03-02-2022 Influenza vaccination INFLUENZA (#1) [facility] Start: 12-13-2021 End: 02-12-2022 Fibrinogen [Mass/volume] in Platelet poor plasma by Coagulation assay FIBRINOGEN Lab Routine 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 Expected: 12/13/2021, Expires: 02/12/2022 [facility] Work Phone: Comment on above: Expected: 12/13/2021, Expires: 2 Start: 12-06-2021 End: 02-05-2022 C reactive protein [Mass/volume] in Serum or Plasma C-REACTIVE PROTEIN (CRP) Lab Routine Post-acute sequelae of COVID-19 (PASC) SOB (shortness of breath) Cough Chest pain, unspecified type Dizziness Weakness Arthralgia, unspecified joint Fatigue, unspecified type Expected: 12/06/2021, Expires: 02/05/2022 [facility] Work Phone: Comment on above: Expected: 12/06/2021, Expires: 2 Start: 12-06-2021 End: 02-05-2022 CARDIOLIPIN IGM ABS CARDIOLIPIN IGM ABS Lab Routine Post-acute sequelae of COVID-19 (PASC) SOB (shortness of breath) Cough Chest pain, unspecified type Dizziness Weakness Arthralgia, unspecified joint Fatigue, unspecified type Expected: 12/06/2021, Expires: 02/05/2022 [facility] Work Phone: Comment on above: Expected: 12/06/2021, Expires: 2 Start: 12-06-2021 End: 02-05-2022 Erythrocyte sedimentation rate SED RATE WESTERGREN Lab Routine Post-acute sequelae of COVID-19 (PASC) SOB (shortness of breath) Cough Chest pain, unspecified type Dizziness Weakness Arthralgia, unspecified joint Fatigue, unspecified type Expected: 12/06/2021, Expires: 02/05/2022 [facility] Work Phone: Comment on above: Expected: 12/06/2021, Expires: 2 Start: 12-06-2021 End: 02-05-2022 FERRITIN BLD FERRITIN BLD Lab Routine Post-acute sequelae of COVID-19 (PASC) SOB (shortness of breath) Cough Chest pain, unspecified type Dizziness Weakness Arthralgia, unspecified joint Fatigue, unspecified type Expected: 12/06/2021, Expires: 02/05/2022 [facility] Work Phone: Comment on above: Expected: 12/06/2021, Expires: 2 Start: 12-06-2021 End: 02-05-2022 Fibrin D-dimer FEU [Mass/volume] in Platelet poor plasma D-DIMER Lab Routine Post-acute sequelae of COVID-19 (PASC) SOB (shortness of breath) Cough Chest pain, unspecified type Dizziness Weakness Arthralgia, unspecified joint Fatigue, unspecified type Expected: 12/06/2021, Expires: 02/05/2022 [facility] Work Phone: Comment on above: Expected: 12/06/2021, Expires: 2 Start: 12-06-2021 End: 02-05-2022 Fibrinogen [Mass/volume] in Platelet poor plasma by Coagulation assay FIBRINOGEN Lab Routine Post-acute sequelae of COVID-19 (PASC) SOB (shortness of breath) Cough Chest pain, unspecified type Dizziness Weakness Arthralgia, unspecified joint Fatigue, unspecified type Expected: 12/06/2021, Expires: 02/05/2022 [facility] Work Phone: Comment on above: Expected: 12/06/2021, Expires: 2 Start: 12-06-2021 End: 02-05-2022 Folate [Mass/volume] in Serum or Plasma FOLATE SERUM Lab Routine Post-acute sequelae of COVID-19 (PASC) SOB (shortness of breath) Cough Chest pain, unspecified type Dizziness Weakness Arthralgia, unspecified joint Fatigue, unspecified type Expected: 12/06/2021, Expires: 02/05/2022 [facility] Work Phone: Comment on above: Expected: 12/06/2021, Expires: 2 Start: 12-06-2021 End: 02-05-2022 Natriuretic peptide.B prohormone N-Terminal [Mass/volume] in Serum or Plasma NT PRO BNP Lab Routine Post-acute sequelae of COVID-19 (PASC) SOB (shortness of breath) Cough Chest pain, unspecified type Dizziness Weakness Arthralgia, unspecified joint Fatigue, unspecified type Expected: 12/06/2021, Expires: 02/05/2022 [facility] Work Phone: Comment on above: Expected: 12/06/2021, Expires: 2 Start: 12-06-2021 End: 02-05-2022 OMEGACHECK OMEGACHECK Lab Routine Post-acute sequelae of COVID-19 (PASC) SOB (shortness of breath) Cough Chest pain, unspecified type Dizziness Weakness Arthralgia, unspecified joint Fatigue, unspecified type Expected: 12/06/2021, Expires: 02/05/2022 [facility] Work Phone: Comment on above: Expected: 12/06/2021, Expires: 2 Start: 12-06-2021 End: 02-05-2022 Prealbumin [Mass/volume] in Serum or Plasma PREALBUMIN BLD Lab Routine Post-acute sequelae of COVID-19 (PASC) SOB (shortness of breath) Cough Chest pain, unspecified type Dizziness Weakness Arthralgia, unspecified joint Fatigue, unspecified type Expected: 12/06/2021, Expires: 02/05/2022 [facility] Work Phone: Comment on above: Expected: 12/06/2021, Expires: 2 Start: 12-06-2021 End: 02-05-2022 Thyrotropin [Units/volume] in Serum or Plasma TSH BLD Lab Routine Post-acute sequelae of COVID-19 (PASC) SOB (shortness of breath) Cough Chest pain, unspecified type Dizziness Weakness Arthralgia, unspecified joint Fatigue, unspecified type Expected: 12/06/2021, Expires: 02/05/2022 [facility] Work Phone: Comment on above: Expected: 12/06/2021, Expires: 2 Start: 12-06-2021 End: 02-05-2022 TMAO TMAO Lab Routine Post-acute sequelae of COVID-19 (PASC) SOB (shortness of breath) Cough Chest pain, unspecified type Dizziness Weakness Arthralgia, unspecified joint Fatigue, unspecified type Expected: 12/06/2021, Expires: 02/05/2022 [facility] Work Phone: Comment on above: Expected: 12/06/2021, Expires: 2 Start: 12-06-2021 End: 02-05-2022 TRACE ELEMENTS/TPN TRACE ELEMENTS/TPN Lab Routine Post-acute sequelae of COVID-19 (PASC) SOB (shortness of breath) Cough Chest pain, unspecified type Dizziness Weakness Arthralgia, unspecified joint Fatigue, unspecified type Expected: 12/06/2021, Expires: 02/05/2022 [facility] Work Phone: Comment on above: Expected: 12/06/2021, Expires: 2 Start: 12-06-2021 End: 02-05-2022 Urinalysis complete panel - Urine URINALYSIS, WITH MICROSCOPIC Lab Routine Post-acute sequelae of COVID-19 (PASC) SOB (shortness of breath) Cough Chest pain, unspecified type Dizziness Weakness Arthralgia, unspecified joint Fatigue, unspecified type Expected: 12/06/2021, Expires: 02/05/2022 [facility] Work Phone: Comment on above: Expected: 12/06/2021, Expires: 2 Start: 12-06-2021 End: 02-05-2022 VITAMIN B12 BLOOD VITAMIN B12 BLOOD Lab Routine Post-acute sequelae of COVID-19 (PASC) SOB (shortness of breath) Cough Chest pain, unspecified type Dizziness Weakness Arthralgia, unspecified joint Fatigue, unspecified type Expected: 12/06/2021, Expires: 02/05/2022 [facility] Work Phone: Comment on above: Expected: 12/06/2021, Expires: 2 Start: 12-06-2021 End: 02-05-2022 VITAMIN D 25 HYDROXY VITAMIN D 25 HYDROXY Lab Routine Post-acute sequelae of COVID-19 (PASC) SOB (shortness of breath) Cough Chest pain, unspecified type Dizziness Weakness Arthralgia, unspecified joint Fatigue, unspecified type Expected: 12/06/2021, Expires: 02/05/2022 [facility] Work Phone: Comment on above: Expected: 12/06/2021, Expires: Start: 11-19-2021 Adult depression screening assessment DEPRESSION SCREENING [facility] Start: 10-16-2021 COVID-19 VACCINE (3 - Booster for Graham series) COVID-19 VACCINE (3 - Booster for Graham series) [facility] Start: 08-12-2021 COVID-19 VACCINE (3 - Booster for Graham series) COVID-19 VACCINE (3 - Booster for Graham series) [facility] Start: 08-12-2021 Mammography MAMMOGRAM [facility] Start: 07-22-2021 Screening for malignant neoplasm of cervix Cervical Cancer Screening [facility] Start: 07-02-2021 DEPRESSION ASSESSMENT DEPRESSION ASSESSMENT [facility] Start: 05-30-2021 SHINGRIX VACCINE (2 of 2) SHINGRIX VACCINE (2 of 2) [facility] Start: 2021 Urine microalbumin profile [facility] Start: 2020 RSV Vaccine (1 - 1-dose 60+ series) RSV Vaccine (1 - 1-dose 60+ series) [facility] Start: 01-10-2010 Pneumococcal Vaccine: 50+ (1 of 1 - PCV) Pneumococcal Vaccine: 50+ (1 of 1 - PCV) [facility] Start: 01-10-2005 COLOGUARD (FIT-DNA) COLOGUARD (FIT-DNA) [facility] Start: 01-10-2005 Colonoscopy COLONOSCOPY [facility] Start: 01-10-2005 COLORECTAL CANCER SCREENING COLORECTAL CANCER SCREENING [facility] Start: 01-10-[address] COLONOGRAPHY [facility] Start: 01-10-2005 FECAL OCCULT BLOOD FECAL OCCULT BLOOD [facility] Start: 01-10-2005 LIPID SCREEN LIPID SCREEN [facility] Start: 01-10-2005 Screening for malignant neoplasm of colon [facility] Start: 01-10-2005 SIGMOIDOSCOPY SIGMOIDOSCOPY [facility] Start: 01-10-1978 Depression Screening Depression Screening [facility] Start: 01-10-1978 HEPATITIS C SCREENING HEPATITIS C SCREENING [facility] Start: 01-10-1978 HIV SCREENING HIV SCREENING [facility] BACTERIAL VAGINOSIS NAAT BACTERI AL VAGINOSIS NAAT Lab Routine Vaginal discharge 09/13/2023 8:25 AM EDT [facility] Work Phone: End: 03-15-2026 BD DXA TRABECULAR BONE SCORE (TBS) BD DXA TRABECULAR BONE SCORE (TBS) Radiology Routine Encounter for screening for osteoporosis 1 Occurrences starting 02/13/2025 until 03/15/2026 [facility] Comment on above: 1 Occurrences starting 02/13/2025 until 03/15/2026 SCOTTY/TRICHOMONAS NAAT SCOTTY /TRICHOMONAS NAAT Lab Routine Vaginal discharge 09/13/2023 8:25 AM EDT [facility] Work Phone: COLOGUARD COLOGUARD Lab Ro utine Screening for colon cancer Ordered: 02/13/2025 [facility] Comment on above: Ordered: 02/13/2025 Comprehensive metabo lic 2000 panel - Serum or Plasma [facility] End: 01-26-2024 Ct orbit sella/post fossa/ear w/o contrast matrl CT TEMP BONES WO IVCON Radiology Routine Cholesteatoma of right ear 1 Occurrences starting 12/27/2022 until 01/26/2024 [facility] Work Phone: Comment on above: 1 Occurrences starting 12/27/2022 until 01/26/2024 End: 10-06-2024 CT Temporal bone WO contrast CT TEMP BONES WO IVCON Radiology Routine 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 1 Occurrences starting 09/07/2023 until 10/06/2024 [facility] Work Phone: Comment on above: 1 Occurrences starting 09/07/2023 until 10/06/2024 End: 09-04-2025 CT Temporal bone WO contrast CT TEMP BONES WO IVCON Radiology Routine 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 1 Occurrences starting 08/05/2024 until 09/04/2025 [facility] Work Phone: Comment on above: 1 Occurrences starting 08/05/2024 until 09/04/2025 Cytoplasmic ANCA Screen [facility] End: 03-15-2026 DBT Breast - bilateral screening DEEP SCREENING W BRANDEN Radiology Routine Encounter for screening mammogram for breast cancer 1 Occurrences starting 02/13/2025 until 03/15/2026 [facility] Work Phone: Comment on above: 1 Occurrences starting 02/13/2025 until 03/15/2026 DBT Breast - bilater al screening DEEP SCREENING W BRANDEN Radiology Routine Encounter for screening mammogram for malignant neoplasm of breast 02/19/2025 4:41 PM EDT [facility] Work Phone: End: 12-08-2022 Diagnostic mammography computer-aided detcj bi DEEP DIAGNOSTIC BILAT Radiology Routine Abnormal mammogram Breast asymmetry 1 Occurrences starting 11/08/2021 until 12/08/2022 [facility] Work Phone: Comment on above: 1 Occurrences starting 11/08/2021 until 12/08/2022 End: 03-15-2026 DXA Skeletal system.axial Views for bone density DXA-AXIAL SKELETON Radiology Routine Encounter for screening for osteoporosis Asymptomatic menopausal state 1 Occurrences starting 02/13/2025 until 03/15/2026 [facility] Comment on above: 1 Occurrences starting 02/13/2025 until 03/15/2026 End: 12-06-2022 ECG COMPLETE ECG COMPLETE ECG Routine Post-acute sequelae of COVID-19 (PASC) SOB (shortness of breath) Cough Chest pain, unspecified type Dizziness Weakness Arthralgia, unspecified joint Fatigue, unspecified type 1 Occurrences starting 12/06/2021 until 12/06/2022 [facility] Work Phone: Comment on above: 1 Occurrences starting 12/06/2021 until 12/06/2022 End: 12-06-2022 Echocardiography ECHO Cardiology Routine Post-acute sequelae of COVID-19 (PASC) SOB (shortness of breath) Cough Chest pain, unspecified type Dizziness Weakness Arthralgia, unspecified joint Fatigue, unspecified type 1 Occurrences starting 12/06/2021 until 12/06/2022 [facility] Work Phone: Comment on above: 1 Occurrences starting 12/06/2021 until 12/06/2022 Erythrocyte sedimentation rate [facility] Graft ear crtlg autogenous nose/ear GRAFT EAR CARTILAGE TO NOSE OR EAR AUTOGENOUS 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 [facility] Im adm prq id subq/i m njxs 1 vaccine IMADM PRQ ID SUBQ/IM NJXS 1 VACC Immunization/Injection Routine Encounter for immunization Ordered: 05/19/2022 [facility] Work Phone: Comment on above: Ordered: 05/19/2022 End: 01-05-2023 LUNG DIFFUSION CAPACITY (DLCO) LUNG DIFFUSION CAPACITY (DLCO) PFT Routine Post-acute sequelae of COVID-19 (PASC) SOB (shortness of breath) Cough Chest pain, unspecified type Dizziness Weakness Arthralgia, unspecified joint Fatigue, unspecified type 1 Occurrences starting 12/06/2021 until 01/05/2023 [facility] Work Phone: Comment on above: 1 Occurrences starting 12/06/2021 until 01/05/2023 End: 01-05-2023 LUNG VOLUMES LUNG VOLUMES PFT Routine Post-acute sequelae of COVID-19 (PASC) SOB (shortness of breath) Cough Chest pain, unspecified type Dizziness Weakness Arthralgia, unspecified joint Fatigue, unspecified type 1 Occurrences starting 12/06/2021 until 01/05/2023 [facility] Work Phone: Comment on above: 1 Occurrences starting 12/06/2021 until 01/05/[address] [facility] End: 11-26-2023 DEEP SCREENING DEEP SCREENING Radiology Routine Encounter for screening mammogram for malignant neoplasm of breast 1 Occurrences starting 10/27/2022 until 11/26/2023 [facility] Work Phone: Comment on above: 1 Occurrences starting 10/27/2022 until 11/26/2023 End: 10-12-2024 MG Breast Screening DEEP SCREENING Radiology Routine Encounter for screening mammogram for breast cancer 1 Occurrences starting 09/13/2023 until 10/12/2024 [facility] Work Phone: Comment on above: 1 Occurrences starting 09/13/2023 until 10/12/2024 MR Brain WO and W contrast IV [facility] End: 11-30-2022 Mri brain brain stem w/o w/contrast material [facility] Work Phone: Comment on above: 1 Occurrences starting 11/30/2022 until 11/30/2022 End: 04-16-2023 MRI KNEE WO IVCON LT MRI KNEE WO IVCON LT Radiology Routine Acute medial meniscus tear of left knee, sequela 1 Occurrences starting 03/17/2022 until 04/16/2023 [facility] Work Phone: Comment on above: 1 Occurrences starting 03/17/2022 until 04/16/2023 End: 01-05-2023 Radiologic exam chest 2 views XR CHEST 2V FRONTAL/LAT Radiology Routine Post-acute sequelae of COVID-19 (PASC) SOB (shortness of breath) Cough Chest pain, unspecified type Dizziness Weakness Arthralgia, unspecified joint Fatigue, unspecified type 1 Occurrences starting 12/06/2021 until 01/05/2023 [facility] Work Phone: Comment on above: 1 Occurrences starting 12/06/2021 until 01/05/2023 End: 01-05-2023 SPIROMETRY - BASELINE AND POST DILATOR SPIROMETRY - BASELINE AND POST DILATOR PFT Routine Post-acute sequelae of COVID-19 (PASC) SOB (shortness of breath) Cough Chest pain, unspecified type Dizziness Weakness Arthralgia, unspecified joint Fatigue, unspecified type 1 Occurrences starting 12/06/2021 until 01/05/2023 [facility] Work Phone: Comment on above: 1 Occurrences starting 12/06/2021 until 01/05/2023 SPIROMETRY - BASELIN E AND POST DILATOR SPIROMETRY - BASELINE AND POST DILATOR PFT Routine Post-acute sequelae of COVID-19 (PASC) SOB (shortness of breath) Cough Chest pain, unspecified type Dizziness Weakness Arthralgia, unspecified joint Fatigue, unspecified type 12/19/2021 12:59 PM EDT [facility] Work Phone: End: 07-02-2023 SPIROMETRY WITH DILATOR IF OBSTRUCTED SPIROMETRY WITH DILATOR IF OBSTRUCTED PFT Routine SOB (shortness of breath) 1 Occurrences starting 06/06/2022 until 07/02/2023 [facility] Work Phone: Comment on above: 1 Occurrences starting 06/06/2022 until 07/02/2023 SPIROMETRY WITH DILA TOR IF OBSTRUCTED SPIROMETRY WITH DILATOR IF OBSTRUCTED PFT Routine SOB (shortness of breath) 06/14/2022 8:05 AM EST [facility] Work Phone: Tmpp mastoidect ntc/rcnsted canal wall ocr TYMPANOPLASTY W/ MASTOIDECTOMY W/ INTACT OR RECONSTRUCTED WALL, W/ OSSICULAR CHAIN RECONSTRUCTION 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 [facility] End: 12-08-2022 Us breast uni real time with image complete US BREAST COMPLETE RT Radiology Routine Abnormal mammogram Breast asymmetry 1 Occurrences starting 11/08/2021 until 12/08/2022 [facility] Work Phone: Comment on above: 1 Occurrences starting 11/08/2021 until 12/08/2022 End: 03-15-2026 US Pelvis transvaginal US FEMALE PELVIS TRANSVAG Radiology Routine Bloating Family history of ovarian cancer 1 Occurrences starting 02/13/2025 until 03/15/2026 [facility] Comment on above: 1 Occurrences starting 02/13/2025 until 03/15/2026 US Pelvis transvaginal US FEMALE PELVIS TRANSVAG Radiology Routine Bloating Family history of ovarian cancer 02/19/2025 5:07 PM EDT [facility] Work Phone: End: 08-30-2025 XR Hand - left PA and Lateral and Oblique XR HAND GENERAL 3V PA/LAT/OBL LEFT Radiology Routine Fall, subsequent encounter 1 Occurrences starting 07/31/2024 until 08/30/2025 [facility] Comment on above: 1 Occurrences starting 07/31/2024 until 08/30/2025 XR Hand - left PA an d Lateral and Oblique XR HAND GENERAL 3V PA/LAT/OBL LEFT Radiology Routine Fall, subsequent encounter 07/31/2024 8:26 AM EST [facility] End: 08-30-2025 XR Knee - right AP and Lateral XR KNEE LIMITED 2V AP/LAT RIGHT Radiology Routine 1 Occurrences starting 07/31/2024 until 08/30/2025 [facility] Work Phone: Comment on above: 1 Occurrences starting 07/31/2024 until 08/30/2025 XR Knee - right AP a nd Lateral XR KNEE LIMITED 2V AP/LAT RIGHT Radiology Routine Closed fracture of proximal end of right tibia with routine healing, unspecified fracture morphology, subsequent encounter 07/31/2024 8:26 AM [facility] End: 09-06-2025 XR Tibia and Fibula - right AP and Lateral XR TIBIA FIBULA 2V AP/LAT RIGHT Radiology Routine Closed nondisplaced fracture of right tibial tuberosity, initial encounter 1 Occurrences starting 08/07/2024 until 09/06/2025 [facility] Work Phone: Comment on above: 1 Occurrences starting 08/07/2024 until 09/06/2025 XR Tibia and Fibula - right AP and Lateral XR TIBIA FIBULA 2V AP/LAT RIGHT Radiology Routine Closed nondisplaced fracture of right tibial tuberosity, initial encounter 08/14/2024 8:16 AM EST [facility] Work Phone: End: 10-03-2025 XR Tibia and Fibula - right AP and Lateral XR TIBIA FIBULA 2V AP/LAT RIGHT Radiology Routine Closed nondisplaced fracture of right tibial tuberosity with routine healing, subsequent encounter 1 Occurrences starting 09/04/2024 until 10/03/2025 [facility] Work Phone: Comment on above: 1 Occurrences starting 09/04/2024 until 10/03/2025 XR Tibia and Fibula - right AP and Lateral XR TIBIA FIBULA 2V AP/LAT RIGHT Radiology Routine Closed nondisplaced fracture of right tibial tuberosity with routine healing, subsequent encounter 09/04/2024 8:13 AM EST [facility] c [facility] c [facility] c [facility] c [facility] Immunizations Immunization Date Immunization Notes Care Provider Fa [facility] 05-19-2022 influenza, injectabl e, quadrivalent, contains preservative Cherie Queden BANQUET STEWARDESS.DIRECTOR COMPLIANCE Work Phone: [facility] 05-19-2022 influenza virus vaccine, unspecified formulation [facility] 04-04-2021 influenza virus vaccine, unspecified formulation Cherie Queden BANQUET STEWARDESS.DIRECTOR COMPLIANCE Work Phone: [facility] 04-04-2021 influenza, injectabl e, quadrivalent, preservative free Cherie Queden BANQUET STEWARDESS.DIRECTOR COMPLIANCE Work Phone: [facility] 04-04-2021 zoster vaccine recombinant Cherie Queden BANQUET STEWARDESS.DIRECTOR COMPLIANCE Work Phone: [facility] 09-09-2020 COVID-19 vaccine (G[place]HAM) Cherie Queden BANQUET STEWARDESS.DIRECTOR COMPLIANCE Work Phone: [facility] 07-09-2020 influenza, injectabl e, quadrivalent, contains preservative Cherie Queden BANQUET STEWARDESS.DIRECTOR COMPLIANCE Work Phone: [facility] Work Phone: 05-22-2019 influenza virus vaccine, unspecified formulation Cherie Queden BANQUET STEWARDESS.DIRECTOR COMPLIANCE Work Phone: [facility] Work Phone: 02-08-2011 hepatitis A and hepatitis B vaccine Cherie Queden BANQUET STEWARDESS.DIRECTOR COMPLIANCE Work Phone: [facility] 2011 hepatitis A and hepatitis B vaccine Cherie Queden BANQUET STEWARDESS.DIRECTOR COMPLIANCE Work Phone: [facility] 2011 poliovirus vaccine, inactivated Cherie Queden BANQUET STEWARDESS.DIRECTOR COMPLIANCE Work Phone: [facility] 2011 tetanus toxoid, redu kristie diphtheria toxoid, and acellular pertussis vaccine, adsorbed Cherie Queden BANQUET STEWARDESS.DIRECTOR COMPLIANCE Work Phone: [facility] Payers Date Payer Category Payer Self-pay 2017 [facility] [employer] FEP PPO [id number] 2017 Unknown ANTHEM AN[employer] BS FEP PPO [id number] 2017-Present [phone] [place] [address] [id number] 2017 Unknown ANTHEM ANTHEM [employer] BS FEP PPO [id number] 2017-Present [phone] [place] [address] [id number] 2017 Unknown [id number] Unknown [id number] Unknown [id number] Unknown [id number] Social History Date Type Detail Facility Start: 02-24-2019 End: 04-09-2020 Tobacco smoking status NHIS Never smoked tobacco [facility] Work Phone: Start: 04-09-2020 End: 09-13-2023 Tobacco use and exposure Smokeless tobacco non-user [facility] Work Phone: Start: 03-11-2021 End: 09-13-2023 Alcohol intake Current non-drinker of alcohol (finding) [facility] Start: 07-09-2017 End: 03-17-2022 Tobacco Comment as a teenager, 6 cigarettes/day for a year [facility] Start: 1960 Sex Assigned At Female [facility] Start: 10-25-2021 End: 05-19-2022 Exposure to SARS-CoV-2 (event) Not sure [facility] Start: 11-10-2022 End: 12-29-2022 History of Social function [facility] Start: 11-10-2022 End: 12-29-2022 Tobacco use panel [facility] Start: 06-02-2012 Adult Depression Screening Assessment 1 [facility] Start: 03-16-2020 Gender identity Identifies as female gender (finding) [facility] Start: 03-16-2020 Sexual orientation Heterosexual (fin ding) [facility] Start: 09-13-2023 Education 17 [facility] Start: 06-03-2024 End: 02-13-2025 Alcoholic beverage intake Ex-drinker (finding) [facility] How often to you hav e a drink containing alcohol? Never [facility] Start: 08-26-2018 Lives Lives [facility] Start: 08-30-2018 Tobacco Use Tobacco Use [facility] NEGATED: Highlighted rowStart: NINF History of tobacco use Passive smoker [facility] Functional Status Date Assessment Result Facility 02-13-2025 Total score [AUDIT-C] 0 02/14/20 9:56 AM Sherie Montejo MA [facility] Clinical Notes 11-08-2021 to 04-06-2025 Anthony Montenegro, TECHNOLOGIST - 02/19/2025 5:00 PM Delonte Jarrett RT(R) - 02/19/2025 4:30 PM EDTAddendum Note - Sarah Amado APRN.[facility] - 02/13/2025 10:33 AM EDTPatient Instructions Note Date & Type Note Facility 04-06-2025 Progress note [facility] 02-19-2025 History of Present illness Narrative Radiology Service Progress Note PATIENT NAME: Velma Ch DATE OF SERVICE: February 19, 2025 TIME: 5:08 PM PATIENT IDENTITY VERIFICATION COMPLETED USING TWO (2) IDENTIFIERS: Name and Date of confirmed by patient verbally. FALL SCREENING: Has the patient had 2 falls in the last year or 1 fall with injury or currently using an Ambulatory Assistive Device (Walker, Cane, Wheelchair, Crutches, etc.)? No PATIENT GENDER DATA: Assigned female at . status: : No status: NO. PATIENT RELEVANT IMPLANT DATA REVIEWED: Yes PATIENT PRESENTS WITH AN IMPLANTABLE OR ATTACHED PHOTO OPTICS TECHNICIAN: No RADIOLOGY DEPARTMENT: Ultrasound PERIPHERAL IV DATA: Not applicable SIGNED BY: TECHNOLOGIST Anabelle February 19, 2025 5:08 PM documented in this encounter [facility] 02-19-2025 Note HNO ID: [id number] Author: ANTHONY MONTENEGRO TECHNOLOGIST Service: ? Author Type: Technologist Type: Progress Notes Filed: 02/19/2025 17:08 Note Text: Radiology Service Progress Note PATIENT NAME: Velma Ch DATE OF SERVICE: February 19, 2025 TIME: 5:08 PM PATIENT IDENTITY VERIFICATION COMPLETED USING TWO (2) IDENTIFIERS: Name and Date of confirmed by patient verbally. FALL SCREENING: Has the patient had 2 falls in the last year or 1 fall with injury or currently using an Ambulatory Assistive Device (Walker, Cane, Wheelchair, Crutches, etc.)? No PATIENT GENDER DATA: Assigned female at . status: : No status: NO. PATIENT RELEVANT IMPLANT DATA REVIEWED: Yes PATIENT PRESENTS WITH AN IMPLANTABLE OR ATTACHED PHOTO OPTICS TECHNICIAN: No RADIOLOGY DEPARTMENT: Ultrasound PERIPHERAL IV DATA: Not applicable SIGNED BY: TECHNOLOGIST Anabelle February 19, 2025 5:08 PM [facility] 02-19-2025 History of Present illness Narrative Radiology Service Progress Note PATIENT NAME: Velma Ch DATE OF SERVICE: February 19, 2025 TIME: 4:13 PM PATIENT IDENTITY VERIFICATION COMPLETED USING TWO (2) IDENTIFIERS: Name and Date of confirmed by patient verbally. FALL SCREENING: Has the patient had 2 falls in the last year or 1 fall with injury or currently using an Ambulatory Assistive Device (Walker, Cane, Wheelchair, Crutches, etc.)? No PATIENT GENDER DATA: Assigned female at . status: : No status: N/A PATIENT RELEVANT IMPLANT DATA REVIEWED: Not Applicable PATIENT PRESENTS WITH AN IMPLANTABLE OR ATTACHED PHOTO OPTICS TECHNICIAN: No RADIOLOGY DEPARTMENT: Mammography PERIPHERAL IV DATA: Not applicable SIGNED BY: RT Georgie(Carissa) February 19, 2025 4:13 PM documented in this encounter [facility] 02-19-2025 Note HNO ID: [id number] Author: DELONTE BEYER RT(R) Service: Radiology Author Type: Technologist Type: Progress Notes Filed: 02/19/2025 16:14 Note Text: Radiology Service Progress Note PATIENT NAME: Velma Ch DATE OF SERVICE: February 19, 2025 TIME: 4:13 PM PATIENT IDENTITY VERIFICATION COMPLETED USING TWO (2) IDENTIFIERS: Name and Date of confirmed by patient verbally. FALL SCREENING: Has the patient had 2 falls in the last year or 1 fall with injury or currently using an Ambulatory Assistive Device (Walker, Cane, Wheelchair, Crutches, etc.)? No PATIENT GENDER DATA: Assigned female at . status: : No status: N/A PATIENT RELEVANT IMPLANT DATA REVIEWED: Not Applicable PATIENT PRESENTS WITH AN IMPLANTABLE OR ATTACHED PHOTO OPTICS TECHNICIAN: No RADIOLOGY DEPARTMENT: Mammography PERIPHERAL IV DATA: Not applicable SIGNED BY: RT Georgie(Carissa) February 19, 2025 4:13 PM [facility] 02-13-2025 Note Addended by: SARAH AMADO on: 02/13/2025 10:33 AM Modules accepted: Orders [facility] 02-13-2025 Miscellaneous Notes Addended by: SARAH AMADO on: 02/13/2025 10:33 AM Modules accepted: Orders documented in this encounter [facility] 02-13-2025 Instructions Sarah Amado APRN.CNP - 02/13/2025 10:09 AM EDT BONE MINERAL DENSITY PATIENT INSTRUCTIONS ======= Bone mineral density testing measures the amount of calcium in certain parts of your bones. This information determines how strong your bones are. The test is used to detect osteoporosis, a disease in which the bone's mineral content and density are low, increasing a person's risk of fractures. The lumbar spine (lower back) and the hip are the skeletal sites usually examined. For the test, remember that: 1. You cannot take this test if you are . 2. Eat a normal diet on the day of the test. 3. Take your medications as you normally would. 4. DO NOT take calcium supplements (such as Tums) for 24 hours before the test. 5. On the day of the test, leave valuables (jewelry or credit cards) at home. 6. The test should be performed prior to oral, rectal or IV contrast studies, or at least 7 days after any of these studies. For the test, you may be asked to wear a hospital gown. You will lie on your back, on a padded table, in a comfortable position. Generally, you can resume your usual activities immediately. Calcium and Vitamin D Supplementation For more information:My [facility] Osteopenia Calcium Age Recommended Daily Allowance Age 19-50 1000 mg elemental calcium per day Age > 50 or menopausal 1200 mg elemental calcium per day Vitamin D Age Recommended Daily Allowance Age < 70 600 international units Vitamin D per day Age > 70 800 international units Vitamin D per day Centers for Disease Control and Prevention recommends that all adults engage in at least 150 to 300 minutes per week of moderate-intensity activity or 75 minutes to 150 minutes per week of vigorous-intensity aerobic physical activity (or a combination of both). [place] [employer] Gyne[employer] (ACOG) and several other major osteoporosis guideline groups recommend screening for osteoporosis with Dual-energy X-ray Absorptiometry (DXA) in all postmenopausal documented in this encounter [facility] 02-13-2025 Note HNO ID: [id number] Author: SARAH AMADO APRN.CNP Service: ? Author Type: Nurse Practitioner Type: Progress Notes Filed: 02/13/2025 10:31 Note Text: Scrubber Machine Tender offered: Patient declines. Velma is a 65 year old who presents for an annual gynecologic exam without complaints. 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 Seeing neurologist on April 07. Son getting tomorrow. Continues to work for [email or web address]. 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 Postmenopausal: Hysterectomy for AUB HRT use: No. Still get period: No Menopause symptoms: None control frequency: Never HPV vaccine: No; Last pap smear: 07/22/18 normal History of abnormal pap: Yes, cryo Bothersome pelvic pain: No Last mammogram: 2022 normal History of abnormal mammogram: Yes , follow up benign OB History Gravida5 Para4 Term4 Preterm0 AB1 Living4 SAB0 IAB0 Ectopic0 Multiple0 Live Births0 [employer]able [employer] Bro[employer] History LMP: Hysterectomy Age at Menarche: 12 Age at First : Age at Menopause: [employer] History Comments: Sexual Activity: Not Currently; No partner data on record Contraception: No contraception data on record PAST MEDICAL HISTORY Diagnosis Date Asthma (HCC) Broken tibia 07/2024 Cyst (solitary) of breast tailbone Ear mass, right PONV (postoperative nausea and vomiting) PAST SURGICAL HISTORY Procedure Laterality Date SECTION HX 1979 SECTION HX 1982 SECTION HX 1991 SECTION HX 1993 CYST/MOLE REMOVAL 01/2025 back HYSTERECTOMY HX 2006 still has ovaries PAST SURGICAL HISTORY OF Right removal of mass from right ear TONSILLECTOMY AND ADENOIDECTOMY FAMILY HISTORY Problem Relation Age of Onset Ovarian cancer Mother Diabetes Father Asthma Sister No Known Problems Sister Hypertension Brother No Known Problems Brother Mental illness Son Anesthesia Problems No Family History SOCIAL HISTORY Social History Tobacco Use Smoking status: Never Passive exposure: Never Smokeless tobacco: Never Tobacco comments: as a teenager, 6 cigarettes/day for a year Vaping Use Vaping status: Never Used Substance Use Topics Alcohol use: Not Currently Drug use: Never REVIEW OF SYSTEMS Abdomen: No abdominal pain, nausea, vomiting, diarrhea, or constipation. No early satiety, indigestion. + bloating/gas Bladder: No dysuria, gross hematuria, urinary frequency, urinary urgency, or incontinence Breast: No breast lumps, nipple d/c, overlying skin changes, redness or skin retraction Allergies and current medication updated:Yes SENSITIVE EXAM: The sensitive examination was discussed with the Patient or Patient's Authorized Grill Associate. As applicable, any other physician, advance practice provider, medical student, or other health professional student that will be observing or involved in the sensitive examination for educational or training purposes was discussed with the Patient or Authorized Grill Associate. The Patient or Authorized Grill Associate has agreed to proceed with the sensitive examination. (Sensitive examination includes inspection and/or palpation of the breasts, pelvis, prostate and anorectal regions). EXAM: BP 142/90 Ht 5' 4 (1.63m) Wt 183 lb (83.0kg) BMI 31.40 kg/(m2). GENERAL: pleasant, female in no apparent distress HEENT: Normocephalic, atraumatic, mucus membranes moist, and no lesions NECK: Supple, full range of motion, no adenopathy, and thyroid normal DERMATOLOGY: Normal, without lesions, non-icteric, and non-hirsute BREAST: soft, non-tender, symmetric, no dominant mass, normal nipple-areolar complex, no lymphadenopathy, and no nipple discharge CHEST: Normal inspiratory effort ABDOMEN: soft, non-tender, and no masses PELVIC: external genitalia normal, normal Bartholin's glands, urethra, Pierz's glands, no vulvar lesions, good vaginal support, physiologic discharge present, normal appearing perineal body and perianal region, cervix surgically absent BIMANUAL: no adnexal masses, non-tender, and uterus surgically absent RECTOVAGINAL: deferred. NEURO: alert and oriented x3,exam grossly non-focal EXTREMITIES: normal ASSESSMENT/PLAN: 1) Health maintenance: Pap/HPV screening no longer needed Mammogram ordered Routine health maintenance exams reviewed. Calcium/Vitamin D supplementation information provided. Colon cancer screening: Cologuard ordered TSH/lipids/glucose: followed by PCP BMD: ordered, broke tibia in July 2) Follow up one year or sooner as needed Bloating - ICD9: 787.3, ICD10: R14.0 Family history of ovarian cancer - ICD9: V16.41, ICD10: Z80.41 - PELVIC US WHI - CONSULT TO MEDICAL GENETICS - GENERAL States BP is always high in healthcare offices. Follow up with PCP. Sarah Amado APRN.[facility] 02-13-2025 History of Present illness Narrative Scrubber Machine Tender offered: Patient declines. Velma is a 65 year old who presents for an annual gynecologic exam without complaints. 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 Seeing neurologist on April 07. Son getting tomorrow. Continues to work for [email or web address]. 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 Postmenopausal: Hysterectomy for AUB HRT use: No. Still get period: No Menopause symptoms: None control frequency: Never HPV vaccine: No; Last pap smear: 07/22/18 normal History of abnormal pap: Yes, cryo Bothersome pelvic pain: No Last mammogram: 2022 normal History of abnormal mammogram: Yes , follow up benign OB History Gravida5 Para4 Term4 Preterm0 AB1 Living4 SAB0 IAB0 Ectopic0 Multiple0 Live Births0 [employer] History LMP: Hysterectomy Age at Menarche: 12 Age at First : Age at Menopause: [employer] Bro[employer] History Comments: Sexual Activity: Not Currently; No partner data on record Contraception: No contraception data on record PAST MEDICAL HISTORY Diagnosis Date Asthma (HCC) Broken tibia 07/2024 Cyst (solitary) of breast tailbone Ear mass, right PONV (postoperative nausea and vomiting) PAST SURGICAL HISTORY Procedure Laterality Date SECTION HX 1979 SECTION HX 1982 SECTION HX 1991 SECTION HX 1993 CYST/MOLE REMOVAL 01/2025 back HYSTERECTOMY HX 2006 still has ovaries PAST SURGICAL HISTORY OF Right removal of mass from right ear TONSILLECTOMY & ADENOIDECTOMY <AGE 12 FAMILY HISTORY Problem Relation Age of Onset Ovarian cancer Mother Diabetes Father Asthma Sister No Known Problems Sister Hypertension Brother No Known Problems Brother Mental illness Son Anesthesia Problems No Family History SOCIAL HISTORY Social History Tobacco Use Smoking status: Never Passive exposure: Never Smokeless tobacco: Never Tobacco comments: as a teenager, 6 cigarettes/day for a year Vaping Use Vaping status: Never Used Substance Use Topics Alcohol use: Not Currently Drug use: Never REVIEW OF SYSTEMS Abdomen: No abdominal pain, nausea, vomiting, diarrhea, or constipation. No early satiety, indigestion. + bloating/gas Bladder: No dysuria, gross hematuria, urinary frequency, urinary urgency, or incontinence Breast: No breast lumps, nipple d/c, overlying skin changes, redness or skin retraction Allergies and current medication updated:Yes SENSITIVE EXAM: The sensitive examination was discussed with the Patient or Patient's Authorized Grill Associate. As applicable, any other physician, advance practice provider, medical student, or other health professional student that will be observing or involved in the sensitive examination for educational or training purposes was discussed with the Patient or Authorized Grill Associate. The Patient or Authorized Grill Associate has agreed to proceed with the sensitive examination. (Sensitive examination includes inspection and/or palpation of the breasts, pelvis, prostate and anorectal regions). EXAM: BP 142/90 Ht 5' 4 (1.63m) Wt 183 lb (83.0kg) BMI 31.40 kg/(m^2). GENERAL: pleasant, female in no apparent distress HEENT: Normocephalic, atraumatic, mucus membranes moist, and no lesions NECK: Supple, full range of motion, no adenopathy, and thyroid normal DERMATOLOGY: Normal, without lesions, non-icteric, and non-hirsute BREAST: soft, non-tender, symmetric, no dominant mass, normal nipple-areolar complex, no lymphadenopathy, and no nipple discharge CHEST: Normal inspiratory effort ABDOMEN: soft, non-tender, and no masses PELVIC: external genitalia normal, normal Bartholin's glands, urethra, Pierz's glands, no vulvar lesions, good vaginal support, physiologic discharge present, normal appearing perineal body and perianal region, cervix surgically absent BIMANUAL: no adnexal masses, non-tender, and uterus surgically absent RECTOVAGINAL: deferred. NEURO: alert and oriented x3,exam grossly non-focal EXTREMITIES: normal ASSESSMENT/PLAN: 1) Health maintenance: Pap/HPV screening no longer needed Mammogram ordered Routine health maintenance exams reviewed. Calcium/Vitamin D supplementation information provided. Colon cancer screening: Cologuard ordered TSH/lipids/glucose: followed by PCP BMD: ordered, broke tibia in July 03) Follow up one year or sooner as needed Bloating - ICD9: 787.3, ICD10: R14.0 Family history of ovarian cancer - ICD9: V16.41, ICD10: Z80.41 - PELVIC US WHI - CONSULT TO MEDICAL GENETICS - GENERAL States BP is always high in healthcare offices. Follow up with PCP. Sarah Amado APRN.CNP documented in this encounter [facility] 10-20-2024 Telephone encounter Note Patient comment: I am deployed in [place]. Can you send this to the [facility] in [facility] for me. I m almost out again. Thanks! Velma Ch [id number] [facility] 10-20-2024 Miscellaneous Notes Patient comment: I am deployed in [place]. Can you send this to the [facility] in [facility] for me. I m almost out again. Thanks! Velma Ch [id number] documented in this encounter [facility] 09-15-2024 Instructions Cherie Tobar APRN.CNP - 09/15/2024 10:25 AM EDT [facility] Outpatient Lab Hours For your convenience, the outpatient laboratory is open during the following hours: Sunday- Sunday 7 a.m. - 4:30 p.m. Sunday: 8 a.m. - 11:45 a.m. The outpatient lab is closed on Sundays and hols. documented in this encounter [facility] 09-15-2024 Note HNO ID: [id number] Author: CHERIE TOBAR APRN.LISA Service: ? Author Type: Nurse Practitioner Type: Progress Notes Filed: 09/15/2024 14:17 Note Text: [address] [address] Date of Evaluation: 09/15/2024 Patient Name: Velma Ch : 1960 Velma Ch is a 64 year old female who presents for Wellness I reviewed past medical, surgical, social, and family histories today and updated chart. Allergies, chronic medications, and supplements were also reviewed. She fell back in July and went to the ER and XR confirmed right tibial fracture. Placed in immobilizer and was seen by ortho a week later. She was placed in a T-ROM and is now in a soft brace. She is able to walk well on it now. Exercise: Patient does not have an exercise routine currently due to recent right tibial fracture but she stays active. Weight Trend: Last 2 Encounter Wt Readings: Date: Wt: 09/15/2024 85.3 kg (188 lb) 07/24/2024 83.9 kg (185 lb) Eating Habits: Patient does maintain healthy eating habits. Types of food appropriate diet Caffeine- 1-2 servings Tobacco Use: Tobacco Use: Never Alcohol Use: None Active Problem List/Chronic Problems There are no active hospital problems to display for this patient. Health Maintenance Depression Screening Never done Mammogram Screening due on 11/25/2023 HEALTH MAINTENANCE REVIEW: Mammogram, Pneumovax, and Influenza Declines vaccinations Review of Systems Constitutional: Negative for appetite change, chills, diaphoresis, fatigue, fever and unexpected weight change. HENT: Negative. Eyes: Negative for visual disturbance. Respiratory: Negative for cough, chest tightness, shortness of breath and wheezing. Cardiovascular: Negative for chest pain, palpitations and leg swelling. Gastrointestinal: Negative for abdominal pain, constipation, diarrhea, nausea and vomiting. Endocrine: Negative. Genitourinary: Negative for dysuria, frequency, hematuria and urgency. Musculoskeletal: Positive for arthralgias. Negative for back pain, gait problem and joint swelling. Skin: Negative. Allergic/Immunologic: Negative. Neurological: Negative for dizziness, light-headedness and headaches. Hematological: Negative. Psychiatric/Behavioral: Negative for dysphoric mood and sleep disturbance. The patient is not nervous/anxious. PAIN: Negative for pain, history of chronic pain, or current treatment for a chronic pain condition. ALLERGIES Allergen Reactions Latex Rash Poison Viviana Extract Intolerance, Itching, Rash, Swelling albuterol HFA (PROVENTIL HFA, VENTOLIN HFA) 90 mcg/actuation inhaler INHALE 2 PUFFS BY MOUTH EVERY 4 TO 6 HOURS MULTIVITAMIN ORAL Take by mouth once daily. omega-3/dha/epa/fish oil (OMEGA-3 ORAL) Take 1,000 mg by mouth once daily. ibuprofen (MOTRIN) 200 mg tablet Take 200 mg by mouth every 6 hours as needed. PAST MEDICAL HISTORY Diagnosis Date Asthma Broken tibia 07/2024 Cyst (solitary) of breast tailbone Ear mass, right PONV (postoperative nausea and vomiting) PAST SURGICAL HISTORY Procedure Laterality Date SECTION HX 1979 SECTION HX 1982 SECTION HX 1991 SECTION HX 1993 HYSTERECTOMY HX 2006 still has ovaries PAST SURGICAL HISTORY OF Right removal of mass from right ear TONSILLECTOMY AND ADENOIDECTOMY FAMILY HISTORY Problem Relation Age of Onset Ovarian cancer Mother Diabetes Father Asthma Sister No Known Problems Sister Hypertension Brother No Known Problems Brother Mental illness Son Anesthesia Problems No Family History Last 3 Encounter BP Readings: Date: BP: 09/15/2024 136/80 07/24/2024 158/89 06/03/2024 116/70 BP 126/80 Pulse 64 Temp (Src) 98 (Oral) Resp 18 Ht 5' 3.75 (1.62m) Wt 188 lb (85.3kg) SpO2 98% BMI 32.53 kg/(m2). Physical Exam Vitals and nursing note reviewed. Constitutional: Appearance: Normal appearance. She is well-developed. HENT: Head: Normocephalic. Right Ear: Tympanic membrane, ear canal and external ear normal. Left Ear: Tympanic membrane, ear canal and external ear normal. Nose: Nose normal. Mouth/Throat: Lips: [place]. Mouth: Mucous membranes are moist. Pharynx: Oropharynx is clear. Eyes: General: Vision grossly intact. Conjunctiva/sclera: Conjunctivae normal. Pupils: Pupils are equal, round, and reactive to light. Neck: Thyroid: No thyroid mass or thyromegaly. Cardiovascular: Rate and Rhythm: Normal rate and regular rhythm. Pulses: Normal pulses. Heart sounds: Normal heart sounds. No murmur heard. Pulmonary: Effort: Pulmonary effort is normal. No respiratory distress. Breath sounds: Normal breath sounds and air entry. Abdominal: General: Bowel sounds are normal. Palpations: Abdomen is soft. Tenderness: There is no abdominal tenderness. Musculoskeletal: Cervica (more content not included)... [facility] 09-15-2024 History of Present illness Narrative Images from the original note were not included. [address] [address] Date of Evaluation: 09/15/2024 Patient Name: Velma Ch : 1960 Velma Ch is a 64 year old female who presents for Wellness I reviewed past medical, surgical, social, and family histories today and updated chart. Allergies, chronic medications, and supplements were also reviewed. She fell back in July and went to the ER and XR confirmed right tibial fracture. Placed in immobilizer and was seen by ortho a week later. She was placed in a T-ROM and is now in a soft brace. She is able to walk well on it now. Exercise: Patient does not have an exercise routine currently due to recent right tibial fracture but she stays active. Weight Trend: Last 2 Encounter Wt Readings: Date: Wt: 09/15/2024 85.3 kg (188 lb) 07/24/2024 83.9 kg (185 lb) Eating Habits: Patient does maintain healthy eating habits. Types of food appropriate diet Caffeine- 1-2 servings Tobacco Use: Tobacco Use: Never Alcohol Use: None Active Problem List/Chronic Problems There are no active hospital problems to display for this patient. Health Maintenance Depression Screening Never done Mammogram Screening due on 11/25/2023 HEALTH MAINTENANCE REVIEW: Mammogram, Pneumovax, and Influenza Declines vaccinations Review of Systems Constitutional: Negative for appetite change, chills, diaphoresis, fatigue, fever and unexpected weight change. HENT: Negative. Eyes: Negative for visual disturbance. Respiratory: Negative for cough, chest tightness, shortness of breath and wheezing. Cardiovascular: Negative for chest pain, palpitations and leg swelling. Gastrointestinal: Negative for abdominal pain, constipation, diarrhea, nausea and vomiting. Endocrine: Negative. Genitourinary: Negative for dysuria, frequency, hematuria and urgency. Musculoskeletal: Positive for arthralgias. Negative for back pain, gait problem and joint swelling. Skin: Negative. Allergic/Immunologic: Negative. Neurological: Negative for dizziness, light-headedness and headaches. Hematological: Negative. Psychiatric/Behavioral: Negative for dysphoric mood and sleep disturbance. The patient is not nervous/anxious. PAIN: Negative for pain, history of chronic pain, or current treatment for a chronic pain condition. ALLERGIES Allergen Reactions Latex Rash Poison Viviana Extract Intolerance, Itching, Rash, Swelling albuterol HFA (PROVENTIL HFA, VENTOLIN HFA) 90 mcg/actuation inhaler INHALE 2 PUFFS BY MOUTH EVERY 4 TO 6 HOURS MULTIVITAMIN ORAL Take by mouth once daily. omega-3/dha/epa/fish oil (OMEGA-3 ORAL) Take 1,000 mg by mouth once daily. ibuprofen (MOTRIN) 200 mg tablet Take 200 mg by mouth every 6 hours as needed. PAST MEDICAL HISTORY Diagnosis Date Asthma Broken tibia 07/2024 Cyst (solitary) of breast tailbone Ear mass, right PONV (postoperative nausea and vomiting) PAST SURGICAL HISTORY Procedure Laterality Date SECTION HX 1979 SECTION HX 1982 SECTION HX 1991 SECTION HX 1993 HYSTERECTOMY HX 2006 still has ovaries PAST SURGICAL HISTORY OF Right removal of mass from right ear TONSILLECTOMY & ADENOIDECTOMY <AGE 12 FAMILY HISTORY Problem Relation Age of Onset Ovarian cancer Mother Diabetes Father Asthma Sister No Known Problems Sister Hypertension Brother No Known Problems Brother Mental illness Son Anesthesia Problems No Family History Last 3 Encounter BP Readings: Date: BP: 09/15/2024 136/80 07/24/2024 158/89 06/03/2024 116/70 BP 126/80 Pulse 64 Temp (Src) 98 (Oral) Resp 18 Ht 5' 3.75 (1.62m) Wt 188 lb (85.3kg) SpO2 98% BMI 32.53 kg/(m^2). Physical Exam Vitals and nursing note reviewed. Constitutional: Appearance: Normal appearance. She is well-developed. HENT: Head: Normocephalic. Right Ear: Tympanic membrane, ear canal and external ear normal. Left Ear: Tympanic membrane, ear canal and external ear normal. Nose: Nose normal. Mouth/Throat: Lips: [place]. Mouth: Mucous membranes are moist. Pharynx: Oropharynx is clear. Eyes: General: Vision grossly intact. Conjunctiva/sclera: Conjunctivae normal. Pupils: Pupils are equal, round, and reactive to light. Neck: Thyroid: No thyroid mass or thyromegaly. Cardiovascular: Rate and Rhythm: Normal rate and regular rhythm. Pulses: Normal pulses. Heart sounds: Normal heart sounds. No murmur heard. Pulmonary: Effort: Pulmonary effort is normal. No respiratory distress. Breath sounds: Normal breath sounds and air entry. Abdominal: General: Bowel sounds are normal. Palpations: Abdomen is soft. Tenderness: There is no abdominal tenderness. Musculoskeletal: Cervical back: Normal range of motion and neck supple. Right lower leg: No edema. Left lower leg: No edema. Skin: General: Skin is warm and dry. Neurological: General: No focal deficit present. Mental Status: She is alert and oriented to person, place, and time. Motor: Motor function is intact. Comments: Right facial spasm Psychiatric: Mood and Affect: Mood and affect normal. Speech: Speech normal. Behavior: Behavior normal. Behavior is cooperative. Thought Content: Thought content normal. Cognition and Memory: Cognition normal. Judgment: Judgment normal. ASSESSMENT / PLAN: 1. Well adult exam - ICD9: V70.0, ICD10: Z00.00 (primary diagnosis) - Counseled on healthy diet and regular exercise - Discussed need and benefit for weight loss. BMI 32.52 kg/(m^2) - Breast cancer screening - ordered mammogram. Scheduled next month. - Declined colon cancer screening - Last Pap was in 2019- Overdue - Follow up for annual exam in one year - LIPID PANEL BASIC - COMPLETE BLOOD COUNT AND DIFFERENTIAL - COMPREHENSIVE METABOLIC PANEL - HEMOGLOBIN A1C - VITAMIN D 25 HYDROXY 2. Hyperlipidemia, mixed - ICD9: 272.2, ICD10: E78.2 - Control undetermined, due for labs - Currently taking Wray-3 - Counseled on healthy diet and regular exercise - Discussed need for and benefit of weight loss. BMI 32.52 kg/(m^2) - LIPID PANEL BASIC 3. 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 - ICD9: 351.8, ICD10: G51.31 - Following with ENT 4. Screening for diabetes mellitus - ICD9: V77.1, ICD10: Z13.1 5. Screening for depression - ICD9: V79.0, ICD10: Z13.31 - DEPRESSION SCREENING 6. Closed nondisplaced fracture of right tibial tuberosity, initial encounter - ICD9: 823.00, ICD10: S82.154A - Following with Endo Discussed health maintenance, including regular aerobic exercise, low fat diet, and periodic exams. Return in about 1 year (around 09/15/2025) for well adult exam. Cherie Tobar APRN.DIRECTOR COMPLIANCE documented in this encounter [facility] 09-04-2024 Note HNO ID: [id number] Author: ANAMARIA COOK PA-C Service: ? Author Type: Physician Colorist Formulator Type: Progress Notes Filed: 09/04/2024 09:01 Note Text: Anamaria Cook PA-C Department of Orthopaedics Orthopaedics [address] [place] [id number] Dept: [phone] September 04, 2024 CHIEF COMPLAINT: Established Patient, Follow Up, and Fracture of the Right Knee. ASSESSMENT: W19.XXXD Fall, subsequent encounter (primary encounter diagnosis) S82.154D Closed nondisplaced fracture of right tibial tuberosity with routine healing, subsequent encounter SUMMARY/PLAN: Patient presents a little over 6 weeks status post right tibial tuberosity fracture. Patient slipped and fell directly on her knees while feeding some animals outdoors. She has been in a T ROM brace since the incident. She denies any pain at today's visit. 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 Fracture is healing up quite nicely, we will have her remain in the T ROM for ambulation, T ROM can be unlocked to allow knee flexion and extension while ambulating. She can transition out of the T ROM next week as she is feels comfortable doing so. Follow-up on an as-needed basis. Exam: KNEE EXAM: Right: Alignment: Neutral Range of motion is 0 degrees in extension and 130 degrees of flexion. Extension La degrees Pain with ROM: No Effusion: None Tender to the palpation of None Pain with patellar compression: No Stability: Anterior/Posterior stable and Varus/Valgus stable Hip Exam: flexion to 100+ degrees, full extension, internal/external rotation adequate and no pain with log roll Neurovascular Status: Sensation Intact and Moves foot and ankle up AND down Imaging: See Epic Ms. Velma Ch was advised as to contrast therapies and/or to take analgesics/anti-inflammatories as needed and all contraindications were reviewed. Supporting Information Below: Medications: Current Outpatient Medications Medication Sig albuterol HFA (PROVENTIL HFA, VENTOLIN HFA) 90 mcg/actuation inhaler INHALE 2 PUFFS BY MOUTH EVERY 4 TO 6 HOURS niacin 500 mg TbER Take 1 tablet by mouth once daily. MULTIVITAMIN ORAL Take by mouth once daily. omega-3/dha/epa/fish oil (OMEGA-3 ORAL) Take 1,000 mg by mouth once daily. resveratroL 250 mg cap Take 2 capsules by mouth twice daily. ibuprofen (MOTRIN) 200 mg tablet Take 200 mg by mouth every 6 hours as needed. No current facility-administered medications for this visit. Allergies: Latex and Poison Viviana Extract This note was partially generated using [employer] voice recognition system, and there may be some incorrect words, spellings, and punctuation that were not noted in checking the note before saving. Anamaria Cook PA-C [facility] 09-04-2024 History of Present illness Narrative Anamaria Cook PA-C Department of Orthopaedics Orthopaedics [address] [address] Dept: [phone] September 04, 2024 CHIEF COMPLAINT: Established Patient, Follow Up, and Fracture of the Right Knee. ASSESSMENT: W19.XXXD Fall, subsequent encounter (primary encounter diagnosis) S82.154D Closed nondisplaced fracture of right tibial tuberosity with routine healing, subsequent encounter SUMMARY/PLAN: Patient presents a little over 6 weeks status post right tibial tuberosity fracture. Patient slipped and fell directly on her knees while feeding some animals outdoors. She has been in a T ROM brace since the incident. She denies any pain at today's visit. 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 Fracture is healing up quite nicely, we will have her remain in the T ROM for ambulation, T ROM can be unlocked to allow knee flexion and extension while ambulating. She can transition out of the T ROM next week as she is feels comfortable doing so. Follow-up on an as-needed basis. Exam: KNEE EXAM: Right: Alignment: Neutral Range of motion is 0 degrees in extension and 130 degrees of flexion. Extension La degrees Pain with ROM: No Effusion: None Tender to the palpation of None Pain with patellar compression: No Stability: Anterior/Posterior stable and Varus/Valgus stable Hip Exam: flexion to 100+ degrees, full extension, internal/external rotation adequate and no pain with log roll Neurovascular Status: Sensation Intact and Moves foot and ankle up & down Imaging: See Epic Ms. Velma Ch was advised as to contrast therapies and/or to take analgesics/anti-inflammatories as needed and all contraindications were reviewed. Supporting Information Below: Medications: Current Outpatient Medications Medication Sig albuterol HFA (PROVENTIL HFA, VENTOLIN HFA) 90 mcg/actuation inhaler INHALE 2 PUFFS BY MOUTH EVERY 4 TO 6 HOURS niacin 500 mg TbER Take 1 tablet by mouth once daily. MULTIVITAMIN ORAL Take by mouth once daily. omega-3/dha/epa/fish oil (OMEGA-3 ORAL) Take 1,000 mg by mouth once daily. resveratroL 250 mg cap Take 2 capsules by mouth twice daily. ibuprofen (MOTRIN) 200 mg tablet Take 200 mg by mouth every 6 hours as needed. No current facility-administered medications for this visit. Allergies: Latex and Poison Viviana Extract This note was partially generated using [employer]inus voice recognition system, and there may be some incorrect words, spellings, and punctuation that were not noted in checking the note before saving. Anamaria Cook PA-C documented in this encounter [facility] 09-04-2024 History of Present illness Narrative Radiology Service Progress Note PATIENT NAME: Velma Ch DATE OF SERVICE: September 04, 2024 TIME: 8:16 AM PATIENT IDENTITY VERIFICATION COMPLETED USING TWO (2) IDENTIFIERS: Name and Date of confirmed by patient verbally. FALL SCREENING: Has the patient had 2 falls in the last year or 1 fall with injury or currently using an Ambulatory Assistive Device (Walker, Cane, Wheelchair, Crutches, etc.)? Yes, Patient High Risk for Falls What interventions were put in place to prevent falls during this visit? Yellow Falls Risk Wristband Applied PATIENT GENDER DATA: Assigned female at . status: : No status: NO. PATIENT RELEVANT IMPLANT DATA REVIEWED: Not Applicable PATIENT PRESENTS WITH AN IMPLANTABLE OR ATTACHED PHOTO OPTICS TECHNICIAN: No RADIOLOGY DEPARTMENT: General X-ray: Exam(s) Completed: Lower Extremity X-Ray(s): Tibia Fibula, Right PERIPHERAL IV DATA: Not applicable SIGNED BY: Hannah Sky September 04, 2024 8:16 AM documented in this encounter [facility] 09-04-2024 Note HNO ID: [id number] Author: ROSEMARIE HAWKINS Tech Service: Radiology Author Type: Distribution Operations Manager Type: Progress Notes Filed: 09/04/2024 08:16 Note Text: Radiology Service Progress Note PATIENT NAME: Velma Ch DATE OF SERVICE: September 04, 2024 TIME: 8:16 AM PATIENT IDENTITY VERIFICATION COMPLETED USING TWO (2) IDENTIFIERS: Name and Date of confirmed by patient verbally. FALL SCREENING: Has the patient had 2 falls in the last year or 1 fall with injury or currently using an Ambulatory Assistive Device (Walker, Cane, Wheelchair, Crutches, etc.)? Yes, Patient High Risk for Falls What interventions were put in place to prevent falls during this visit? Yellow Falls Risk Wristband Applied PATIENT GENDER DATA: Assigned female at . status: : No status: NO. PATIENT RELEVANT IMPLANT DATA REVIEWED: Not Applicable PATIENT PRESENTS WITH AN IMPLANTABLE OR ATTACHED PHOTO OPTICS TECHNICIAN: No RADIOLOGY DEPARTMENT: General X-ray: Exam(s) Completed: Lower Extremity X-Ray(s): Tibia Fibula, Right PERIPHERAL IV DATA: Not applicable SIGNED BY: Hannah Sky September 04, 2024 8:16 AM [facility] 08-14-2024 Note HNO ID: [id number] Author: ANAMARIA COOK PA-C Service: ? Author Type: Physician Colorist Formulator Type: Progress Notes Filed: 08/19/2024 07:53 Note Text: Anamaria Cook PA-C Department of Orthopaedics [facility] [address] [address] Dept: [phone] August 14, 2024 CHIEF COMPLAINT: Follow Up and Knee Pain of the Right Knee. ASSESSMENT: W19.XXXD Fall, subsequent encounter (primary encounter diagnosis) S82.154A Closed nondisplaced fracture of right tibial tuberosity, initial encounter SUMMARY/PLAN: Patient presents 3 weeks status post right tibial tuberosity fracture. Patient was outside feeding some animals when she slipped and fell directly onto the right knee. She has been in a T ROM brace since the incident, she reports that her pain has almost completely resolved, having some discomfort but only a 2 out of 10 aching. She is taking intermittent Tylenol. 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 Exam: Right knee with a healing abrasion over the anterior aspect, there is minimal edema anteriorly. Some mild tenderness to palpation over the patellar tendon and tibial tuberosity. Range of motion of the knee was not tested. Imaging: * * *Final Report* * * DATE OF EXAM: Aug 14 2024 8:16AM SRINI 5266 - XR TIBIA FIBULA 2V AP/LAT RT / PROCEDURE REASON: S82.154A-Closed nondisplaced fracture of right tibial tuberosity, initial encoun * * * * Physician Interpretation * * * * EXAMINATION / TECHNIQUE: XR TIBIA FIBULA 2V AP/LAT RT HISTORY: FALL 07/23. CLOSED NONDISPLACED RIGHT TIBIA FX Closed nondisplaced fracture of right tibial tuberosity, initial encounter COMPARISON: 07/31/2024. FINDINGS: There is a healing tibial tubercle fracture with unchanged alignment. No new acute bony abnormality is identified. IMPRESSION IMPRESSION: Healing tibial tubercle fracture with unchanged alignment. Property Consultant: [facility] Transcribe Date/Time: Aug 18 2024 7:37P Dictated by : DORIAN DENISE MD This examination was interpreted and the report reviewed and electronically signed by: DORIAN DENISE MD on Aug 18 2024 7:38PM EST Ms. Velma Ch was advised as to contrast therapies and/or to take analgesics/anti-inflammatories as needed and all contraindications were reviewed. Supporting Information Below: Medications: Current Outpatient Medications Medication Sig albuterol HFA (PROVENTIL HFA, VENTOLIN HFA) 90 mcg/actuation inhaler INHALE 2 PUFFS BY MOUTH EVERY 4 TO 6 HOURS niacin 500 mg TbER Take 1 tablet by mouth once daily. MULTIVITAMIN ORAL Take by mouth once daily. omega-3/dha/epa/fish oil (OMEGA-3 ORAL) Take 1,000 mg by mouth once daily. resveratroL 250 mg cap Take 2 capsules by mouth twice daily. ibuprofen (MOTRIN) 200 mg tablet Take 200 mg by mouth every 6 hours as needed. No current facility-administered medications for this visit. Allergies: Latex and Poison Viviana Extract This note was partially generated using [employer]inus voice recognition system, and there may be some incorrect words, spellings, and punctuation that were not noted in checking the note before saving. Anamaria Cook PA-C [facility] 08-14-2024 History of Present illness Narrative Radiology Service Progress Note PATIENT NAME: Velma Ch DATE OF SERVICE: August 14, 2024 TIME: 8:16 AM PATIENT IDENTITY VERIFICATION COMPLETED USING TWO (2) IDENTIFIERS: Name and Date of confirmed by patient verbally. FALL SCREENING: Has the patient had 2 falls in the last year or 1 fall with injury or currently using an Ambulatory Assistive Device (Walker, Cane, Wheelchair, Crutches, etc.)? Yes, Patient High Risk for Falls What interventions were put in place to prevent falls during this visit? Yellow Falls Risk Wristband Applied PATIENT GENDER DATA: Assigned female at . status: : No status: N/A PATIENT RELEVANT IMPLANT DATA REVIEWED: Not Applicable PATIENT PRESENTS WITH AN IMPLANTABLE OR ATTACHED PHOTO OPTICS TECHNICIAN: No RADIOLOGY DEPARTMENT: General X-ray: Exam(s) Completed: Lower Extremity X-Ray(s): Tibia Fibula, Right PERIPHERAL IV DATA: Not applicable SIGNED BY: RT Ruby(R) August 14, 2024 8:16 AM documented in this encounter [facility] 08-14-2024 Note HNO ID: [id number] Author: CODIE CABRERA RT(R) Service: ? Author Type: Technologist Type: Progress Notes Filed: 08/14/2024 08:17 Note Text: Radiology Service Progress Note PATIENT NAME: Velma Ch DATE OF SERVICE: August 14, 2024 TIME: 8:16 AM PATIENT IDENTITY VERIFICATION COMPLETED USING TWO (2) IDENTIFIERS: Name and Date of confirmed by patient verbally. FALL SCREENING: Has the patient had 2 falls in the last year or 1 fall with injury or currently using an Ambulatory Assistive Device (Walker, Cane, Wheelchair, Crutches, etc.)? Yes, Patient High Risk for Falls What interventions were put in place to prevent falls during this visit? Yellow Falls Risk Wristband Applied PATIENT GENDER DATA: Assigned female at . status: : No status: N/A PATIENT RELEVANT IMPLANT DATA REVIEWED: Not Applicable PATIENT PRESENTS WITH AN IMPLANTABLE OR ATTACHED PHOTO OPTICS TECHNICIAN: No RADIOLOGY DEPARTMENT: General X-ray: Exam(s) Completed: Lower Extremity X-Ray(s): Tibia Fibula, Right PERIPHERAL IV DATA: Not applicable SIGNED BY: RT Ruby(R) August 14, 2024 8:16 AM [facility] 08-13-2024 Telephone encounter Note Called patient to schedule surgery. She wants to hold off until possibly the fall of this year. She also wants to have a CT first to make sure she needs to have the procedure done. She recently broke her leg and is recovering from that, so she will call to schedule the CT and follow up with Dr. Millicent Al when she is ready. Higinio Walker Ma [facility] 08-13-2024 Miscellaneous Notes Called patient to schedule surgery. She wants to hold off until possibly the fall of this year. She also wants to have a CT first to make sure she needs to have the procedure done. She recently broke her leg and is recovering from that, so she will call to schedule the CT and follow up with Dr. Millicent Al when she is ready. Higinio Walker Ma documented in this encounter [facility] 08-05-2024 Note HNO ID: [id number] Author: MALKA PABLO MD Service: ? Author Type: Physician Type: Progress Notes Filed: 08/05/2024 09:17 Note Text: VIDEO APPOINTMENT VISIT Date: 08/05/2024 Velma Ch is a 64 year old female who has a video appointment visit for follow up of right ear cholesteatoma and hearing loss. She is status post right tympanomastoidectomy on 05/10/2023 for cholesteatoma. Findings on 05/10/2023: A right ear cholesteatoma in the posterior mesotympanum and aditus ad antrum was removed via [id number] tympanomastoidectomy. The cholesteatoma had eroded the long process of the incus and the superstructure of the stapes. Facial nerve was dehiscent in the posterior third of the oval window niche. The anterior third of the stapes footplate was mobilized when cholesteatoma was dissected from the remnant of the anterior jay. The footplate was reset and overlaid with tragal perichondrium. Chorda tympani was sacrificed. Tympanoplasty was performed with split thickness tragal cartilage graft. The patient could not follow through with second look surgery and ossicular chain reconstruction in 2023 due [employer] deployments. She was discharged last month, but then she fell and broke her leg 2 weeks ago. Her ears have been fine. She hears well in quiet. She has more difficulty hearing in noise and locating sounds. She denies otalgia, otorrhea, vertigo. 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 I discussed the need for 2nd look operation to remove any residual/recurrent cholesteatoma, to repair tympanic membrane retraction pocket to prevent future recurrence and to improve hearing if possible. I explained that ossicular chain reconstruction might not be possible if facial nerve is in the way or if stapes footplate is unstable. I addressed the procedure, alternatives, risks, and all questions. She would like to have revision right ear surgery after recovery from her broken leg and well before her son's wedding in January 2025. PLAN: - Revision right tympanoplasty and mastoidectomy with ossicular chain reconstruction, right ear cartilage graft in October 2024 - CT temporal bone for preoperative planning and follow up with me before surgery. [facility] on 08/05/24 CT TEMP BONES WO IVCON I have communicated my name and active licensure. The patient's identity and physical location were verified at the time of this visit. Either the patient or their legal underwriting service representative has been informed of the risks and benefits of -- and alternatives to -- treatment through a remote evaluation and consents to proceed with the evaluation remotely. Electronically signed by: Malka Al MD 08/05/2024 9:01 AM [facility] 08-05-2024 History of Present illness Narrative VIDEO APPOINTMENT VISIT Date: 08/05/2024 Velma Ch is a 64 year old female who has a video appointment visit for follow up of right ear cholesteatoma and hearing loss. She is status post right tympanomastoidectomy on 05/10/2023 for cholesteatoma. Findings on 05/10/2023: A right ear cholesteatoma in the posterior mesotympanum and aditus ad antrum was removed via [id number] tympanomastoidectomy. The cholesteatoma had eroded the long process of the incus and the superstructure of the stapes. Facial nerve was dehiscent in the posterior third of the oval window niche. The anterior third of the stapes footplate was mobilized when cholesteatoma was dissected from the remnant of the anterior jay. The footplate was reset and overlaid with tragal perichondrium. Chorda tympani was sacrificed. Tympanoplasty was performed with split thickness tragal cartilage graft. The patient could not follow through with second look surgery and ossicular chain reconstruction in 2023 due [employer] deployments. She was discharged last month, but then she fell and broke her leg 2 weeks ago. Her ears have been fine. She hears well in quiet. She has more difficulty hearing in noise and locating sounds. She denies otalgia, otorrhea, vertigo. CT temporal bone 12/07/2023: Personally reviewed and discussed with patient AD: status post [id number] tympanomastoidectomy, soft tissue in mastoid, soft tissue in sinus tympani and oval window niche, retraction pocket in attic : normal ASSESSMENT: (H71.91) Cholesteatoma of right ear (primary encounter diagnosis) (H90.71) 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 I discussed the nature of her condition and options for management with the help of diagrams and imaging studies. I discussed the need for 2nd look operation to remove any residual/recurrent cholesteatoma, to repair tympanic membrane retraction pocket to prevent future recurrence and to improve hearing if possible. I explained that ossicular chain reconstruction might not be possible if facial nerve is in the way or if stapes footplate is unstable. I addressed the procedure, alternatives, risks, and all questions. She would like to have revision right ear surgery after recovery from her broken leg and well before her son's wedding in January 2025. PLAN: - Revision right tympanoplasty and mastoidectomy with ossicular chain reconstruction, right ear cartilage graft in October 2024 - CT temporal bone for preoperative planning and follow up with me before surgery. [facility] on 08/05/24 CT TEMP BONES WO IVCON I have communicated my name and active licensure. The patient's identity and physical location were verified at the time of this visit. Either the patient or their legal underwriting service representative has been informed of the risks and benefits of -- and alternatives to -- treatment through a remote evaluation and consents to proceed with the evaluation remotely. Electronically signed by: Malka Al MD 08/05/2024 9:01 AM documented in this encounter [facility] 07-31-2024 History of Present illness Narrative Radiology Service Progress Note PATIENT NAME: Velma Ch DATE OF SERVICE: July 31, 2024 TIME: 8:27 AM PATIENT IDENTITY VERIFICATION COMPLETED USING TWO (2) IDENTIFIERS: Name and Date of confirmed by patient verbally. FALL SCREENING: Has the patient had 2 falls in the last year or 1 fall with injury or currently using an Ambulatory Assistive Device (Walker, Cane, Wheelchair, Crutches, etc.)? Yes, Patient High Risk for Falls What interventions were put in place to prevent falls during this visit? Yellow Falls Risk Wristband Applied, Offered Assistance with Transfers/Clothing, and Instructed Patient to Remain Seated (Not on Exam Table) Until Exam PATIENT GENDER DATA: Assigned female at . status: : No status: NO. PATIENT RELEVANT IMPLANT DATA REVIEWED: Not Applicable PATIENT PRESENTS WITH AN IMPLANTABLE OR ATTACHED PHOTO OPTICS TECHNICIAN: No RADIOLOGY DEPARTMENT: General X-ray: Exam(s) Completed: Lower Extremity X-Ray(s): Knee, AP / LAT Right Upper Extremity X-Ray(s): Hand, left PERIPHERAL IV DATA: Not applicable SIGNED BY: Hannah Sky July 31, 2024 8:27 AM documented in this encounter [facility] 07-31-2024 Note HNO ID: [id number] Author: ROSEMARIE HAWKINS Tech Service: Radiology Author Type: Distribution Operations Manager Type: Progress Notes Filed: 07/31/2024 08:27 Note Text: Radiology Service Progress Note PATIENT NAME: Velma Ch DATE OF SERVICE: July 31, 2024 TIME: 8:27 AM PATIENT IDENTITY VERIFICATION COMPLETED USING TWO (2) IDENTIFIERS: Name and Date of confirmed by patient verbally. FALL SCREENING: Has the patient had 2 falls in the last year or 1 fall with injury or currently using an Ambulatory Assistive Device (Walker, Cane, Wheelchair, Crutches, etc.)? Yes, Patient High Risk for Falls What interventions were put in place to prevent falls during this visit? Yellow Falls Risk Wristband Applied, Offered Assistance with Transfers/Clothing, and Instructed Patient to Remain Seated (Not on Exam Table) Until Exam PATIENT GENDER DATA: Assigned female at . status: : No status: NO. PATIENT RELEVANT IMPLANT DATA REVIEWED: Not Applicable PATIENT PRESENTS WITH AN IMPLANTABLE OR ATTACHED PHOTO OPTICS TECHNICIAN: No RADIOLOGY DEPARTMENT: General X-ray: Exam(s) Completed: Lower Extremity X-Ray(s): Knee, AP / LAT Right Upper Extremity X-Ray(s): Hand, left PERIPHERAL IV DATA: Not applicable SIGNED BY: Hannah Sky July 31, 2024 8:27 AM [facility] 07-31-2024 Note HNO ID: [id number] Author: ANAMARIA COOK PA-C Service: ? Author Type: Physician Colorist Formulator Type: Progress Notes Filed: 07/31/2024 11:23 Note Text: Anamaria Cook PA-C Department of Orthopaedics Orthopaedics [address] [address] Dept: [phone] July 31, 2024 CHIEF COMPLAINT: New, Pain, and Fracture of the Right Leg Ms. Velma Ch is a 64 year old female who presents with an injury to her right knee which occurred 1 week ago, she was outside feeding animals, she was climbing some stairs back into her home when she slipped and fell directly onto both knees. Pain today is a 0 out of 10 aching. She has been in a knee immobilizer since the incident. 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 Does normally travel across the country. Denies any previous right knee injuries. Also complaining of some left hand pain as a result of her fall. ASSESSMENT: W19.XXXD Fall, subsequent encounter S82.154A Closed nondisplaced fracture of right tibial tuberosity, initial encounter M79.642 Pain of left hand PLAN: Will get some repeat images today, looks like she has a nondisplaced tibial tuberosity fracture. Will get her into a T ROM brace, discussed that she can ambulate while the brace is locked in extension. Would like her to try to keep the leg in extension. Will also get some x-rays of her left hand today. Ms. Velma Ch was advised as to contrast therapies and/or to take analgesics/anti-inflammatories as needed and all contraindications were reviewed. OBJECTIVE: Ms. Velma Ch is a pleasant 64 year old in no apparent distress. Gen:There were no vitals taken for this visit. nl development, obese, no deformities ENT: Normocephalic, normal hearing, moist mucosa CV: Pulses:DP/PT= 2+ and symmetric, capillary refill < 2 secs, no peripheral edema/varicosities Skin: no rash, bruising or lesions. Good turgor. Psych: cooperative and appropriate, alert and oriented x 3, good mood and affect. Musculoskeletal: Right knee with mild but appropriate edema, there is some abrasions over the anterior aspect of the knee, skin is otherwise intact. Some mild tenderness to palpation over the patellar tendon. Range of motion of the knee was not tested. Left hand with some pain on palpation at the palm just proximal to the middle digit. No tenderness over the A1 nida sites of any of the digits, no locking or catching of any of the digits on the left hand. Patient is able to form a loose composite fist and extend all digits with subjective stiffness. Sensation is intact in the radial and ulnar nerve distributions. Imaging: IMPRESSION: Transverse linear lucency through the tibial tuberosity suspected to represent fracture. Correlate clinically for tenderness in this area. Property Consultant: DAPHNIE Transcribe Date/Time: Jul 24 2024 11:01A Dictated by : BRITTANY MCCORMICK MD This examination was interpreted and the report reviewed and electronically signed by: BRITTANY MCCORMICK MD on Jul 24 2024 11:09AM EST Results-Findings * * *Final Report* * * DATE OF EXAM: Jul 24 2024 10:38AM LDX 5205 - XR KNEE 4V AP/LAT/OBLS RT / PROCEDURE REASON: Trauma * * * * Physician Interpretation * * * * EXAM TITLE: X-RAY RIGHT KNEE AND RIGHT TIBIA AND FIBULA. DATE: March 17, 2022 CLINICAL INDICATION/HISTORY: Right knee and mehta pain, fall COMPARISON: X-ray bilateral knees March 17, 2022 TECHNIQUE: AP, bilateral oblique and lateral views of the right knee. AP and lateral views of the tibia and fibula: FINDINGS: Right knee: No evidence of a dislocation. Linear lucency through the tibial tuberosity may represent fracture. No joint effusion. Enthesophytes at the insertion of the quadriceps and patellar tendon on the patella. No lytic or blastic osseous lesions. Right tibia and fibula: There is a linear lucency oriented transversely through the tibial tuberosity concerning for fracture. This lucency is not seen on prior x-ray from March 17, 2022. No lytic or blastic osseous lesions. Soft tissues are unremarkable. Supporting Subjective Information Below: Past Surgical History: PAST SURGICAL HISTORY Procedure Laterality Date SECTION HX 1979 SECTION HX 1982 SECTION HX 1991 SECTION HX 1993 HYSTERECTOMY HX 2006 still has ovaries PAST SURGICAL HISTORY OF Right removal of mass from right ear TONSILLECTOMY AND ADENOIDECTOMY Medications: Current Outpatient Medications Medication Sig albuterol HFA (PROVENTIL HFA, VENTOLIN HFA) 90 mcg/actuation inhaler INHALE 2 PUFFS BY MOUTH EVERY 4 TO 6 HOURS niacin 500 mg TbER Take 1 tablet by mouth once daily. MULTIVITAMIN ORAL Take by mouth once daily. omega-3/dha/epa/fish oil (OMEGA-3 ORAL) Take 1,000 mg by mouth once daily. resveratroL 250 mg cap Take 2 capsules by mouth twice daily. ibuprof (more content not included)... [facility] 07-31-2024 History of Present illness Narrative Anamaria Cook PA-C Department of Orthopaedics Orthopaedics [address] [place] [id number] Dept: [phone] July 31, 2024 CHIEF COMPLAINT: New, Pain, and Fracture of the Right Leg Ms. Velma Ch is a 64 year old female who presents with an injury to her right knee which occurred 1 week ago, she was outside feeding animals, she was climbing some stairs back into her home when she slipped and fell directly onto both knees. Pain today is a 0 out of 10 aching. She has been in a knee immobilizer since the incident. 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 Does normally travel across the country. Denies any previous right knee injuries. Also complaining of some left hand pain as a result of her fall. ASSESSMENT: W19.XXXD Fall, subsequent encounter S82.154A Closed nondisplaced fracture of right tibial tuberosity, initial encounter M79.642 Pain of left hand PLAN: Will get some repeat images today, looks like she has a nondisplaced tibial tuberosity fracture. Will get her into a T ROM brace, discussed that she can ambulate while the brace is locked in extension. Would like her to try to keep the leg in extension. Will also get some x-rays of her left hand today. Ms. Velma Ch was advised as to contrast therapies and/or to take analgesics/anti-inflammatories as needed and all contraindications were reviewed. OBJECTIVE: Ms. Velma Ch is a pleasant 64 year old in no apparent distress. Gen:There were no vitals taken for this visit. nl development, obese, no deformities ENT: Normocephalic, normal hearing, moist mucosa CV: Pulses:DP/PT= 2+ and symmetric, capillary refill < 2 secs, no peripheral edema/varicosities Skin: no rash, bruising or lesions. Good turgor. Psych: cooperative and appropriate, alert and oriented x 3, good mood and affect. Musculoskeletal: Right knee with mild but appropriate edema, there is some abrasions over the anterior aspect of the knee, skin is otherwise intact. Some mild tenderness to palpation over the patellar tendon. Range of motion of the knee was not tested. Left hand with some pain on palpation at the palm just proximal to the middle digit. No tenderness over the A1 nida sites of any of the digits, no locking or catching of any of the digits on the left hand. Patient is able to form a loose composite fist and extend all digits with subjective stiffness. Sensation is intact in the radial and ulnar nerve distributions. Imaging: IMPRESSION: Transverse linear lucency through the tibial tuberosity suspected to represent fracture. Correlate clinically for tenderness in this area. Property Consultant: DAPHNIE Transcribe Date/Time: Jul 24 2024 11:01A Dictated by : BRITTANY MCCORMICK MD This examination was interpreted and the report reviewed and electronically signed by: BRITTANY MCCORMICK MD on Jul 24 2024 11:09AM EST Results-Findings * * *Final Report* * * DATE OF EXAM: Jul 24 2024 10:38AM LDX 5205 - XR KNEE 4V AP/LAT/OBLS RT / PROCEDURE REASON: Trauma * * * * Physician Interpretation * * * * EXAM TITLE: X-RAY RIGHT KNEE AND RIGHT TIBIA AND FIBULA. DATE: March 17, 2022 CLINICAL INDICATION/HISTORY: Right knee and mehta pain, fall COMPARISON: X-ray bilateral knees March 17, 2022 TECHNIQUE: AP, bilateral oblique and lateral views of the right knee. AP and lateral views of the tibia and fibula: FINDINGS: Right knee: No evidence of a dislocation. Linear lucency through the tibial tuberosity may represent fracture. No joint effusion. Enthesophytes at the insertion of the quadriceps and patellar tendon on the patella. No lytic or blastic osseous lesions. Right tibia and fibula: There is a linear lucency oriented transversely through the tibial tuberosity concerning for fracture. This lucency is not seen on prior x-ray from March 17, 2022. No lytic or blastic osseous lesions. Soft tissues are unremarkable. Supporting Subjective Information Below: Past Surgical History: PAST SURGICAL HISTORY Procedure Laterality Date SECTION HX 1979 SECTION HX 1982 SECTION HX 1991 SECTION HX 1993 HYSTERECTOMY HX 2006 still has ovaries PAST SURGICAL HISTORY OF Right removal of mass from right ear TONSILLECTOMY & ADENOIDECTOMY <AGE 12 Medications: Current Outpatient Medications Medication Sig albuterol HFA (PROVENTIL HFA, VENTOLIN HFA) 90 mcg/actuation inhaler INHALE 2 PUFFS BY MOUTH EVERY 4 TO 6 HOURS niacin 500 mg TbER Take 1 tablet by mouth once daily. MULTIVITAMIN ORAL Take by mouth once daily. omega-3/dha/epa/fish oil (OMEGA-3 ORAL) Take 1,000 mg by mouth once daily. resveratroL 250 mg cap Take 2 capsules by mouth twice daily. ibuprofen (MOTRIN) 200 mg tablet Take 200 mg by mouth every 6 hours as needed. methylPREDNISolone (MEDROL, FRANCES,) 4 mg Dose-Pack As Instructed per package No current facility-administered medications for this visit. Allergies: Latex and Poison Viviana Extract ROS: General (negative for fatigue, malaise, weight loss/gain) HEENT (negative for headache, earache, recent vision changes, sinus pain, sore throat) Respiratory (no recent shortness of breath, hemoptysis) CV (negative for chest tightness, palpitations) Musculoskeletal (see HPI) Psych (no depression, anxiety) This note was partially generated using [employer] voice recognition system, and there may be some incorrect words, spellings, and punctuation that were not noted in checking the note before saving. Anamaria Cook PA-C documented in this encounter [facility] 07-28-2024 Telephone encounter Note Virtual visit scheduled for 08/05/24. [facility] 07-28-2024 Miscellaneous Notes Virtual visit scheduled for 08/05/24. PSS: see telephone encounter dated 07/23/24. Dr. Malka Loja says she does NOT need another CT scan at this time. Just the virtual visit. Called patient to schedule a virtual appointment and would like to have a CT scan scheduled. Please call patient back at [phone]. documented in this encounter [facility] 07-28-2024 Telephone encounter Note PSS: see telephone encounter dated 07/23/24. Dr. Malka Loja says she does NOT need another CT scan at this time. Just the virtual visit. [facility] 07-28-2024 Telephone encounter Note Called patient to schedule a virtual appointment and would like to have a CT scan scheduled. Please call patient back at [phone]. [facility] 07-26-2024 Telephone encounter Note I have asked our schedulers to schedule a virtual visit. No new CT is required at this time. Electronically signed by: Malka Al MD 07/26/2024 2:03 PM [facility] [place] Work Phone: 07-26-2024 Miscellaneous Notes I have asked our schedulers to schedule a virtual visit. No new CT is required at this time. Electronically signed by: Malka Al MD 07/26/2024 2:03 PM [facility] 09/07/2023 CT completed on 12/07/2023 Patient was supposed to follow up in November but appt was cancelled due to [employer] deployment. Patient now requesting virtual appt. Just next available slot or do you want to determine the appt time? Also, she is questioning if she needs another CT. If yes, order needed. Please advise, Ailna Medina RN Pt calling in stating that she is being discharged from her [employer] work and will be coming home and would like to reschedule her Virtual Appt (I was unable to find any slots) but the pt also mentioned needing to have a CT done and is unsure if she needs this done before she sees Dr. Millicent Al or after; there is also no CT order placed. Please advise documented in this encounter [facility] 07-25-2024 Telephone encounter Note 10am on Jul [address] Fleming [facility] 07-25-2024 Miscellaneous Notes 10am on Jul [address] Fleming From wait list: rt knee/tibia fx x-ray in [facility] NEEDS TO BE SEEN JO SHE CAN BE REACHED AT [phone] Patient has an appointment on 07/30/[address] Paulino and has been seen in [place]. Okay to wait until then? documented in this encounter [facility] 07-25-2024 Telephone encounter Note From wait list: rt knee/tibia fx x-ray in [facility] NEEDS TO BE SEEN JO SHE CAN BE REACHED AT [phone] Patient has an appointment on 07/30/[address] Paulino and has been seen in [place]. Okay to wait until then? [facility] 07-23-2024 Telephone encounter Note [facility] 09/07/2023 CT completed on 12/07/2023 Patient was supposed to follow up in November but appt was cancelled due to [employer] deployment. Patient now requesting virtual appt. Just next available slot or do you want to determine the appt time? Also, she is questioning if she needs another CT. If yes, order needed. Please advise, Alina Medina, ALBERT [facility] 07-23-2024 Telephone encounter Note Pt calling in stating that she is being discharged from her [employer] work and will be coming home and would like to reschedule her Virtual Appt (I was unable to find any slots) but the pt also mentioned needing to have a CT done and is unsure if she needs this done before she sees Dr. Millicent Al or after; there is also no CT order placed. Please advise [facility] 06-03-2024 Instructions Cherie Tobar APRN.DIRECTOR COMPLIANCE - 06/03/2024 8:29 AM EST [facility] documented in this encounter [facility] 06-03-2024 Note HNO ID: [id number] Author: CHERIE TOBAR APRN.LISA Service: ? Author Type: Nurse Practitioner Type: Progress Notes Filed: 06/03/2024 13:16 Note Text: CHIEF COMPLAINT: Velma Ch is a 64 year old female who presents for intermittent dizziness and sinus pain and swelling. She was deployed for work in the [employer] and became ill down there at the end of April and was treated with Augmentin and Prednisone. Her symptoms improved but didn't completely resolved. The dizziness has worsened since last Sunday and primarily occurs when she is laying down or changes her position. She is having a lot of right sided facial pain and swelling. 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 She has also had more twitching of the right side of her face over the last week. I reviewed past medical, surgical, social, and family histories today and updated chart. Allergies, chronic medications, and supplements were also reviewed. The history is provided by the patient. Sinus Problem This is a recurrent problem. The current episode started in the past 7 days. The problem occurs constantly. The problem has been gradually worsening. Associated symptoms include congestion, fatigue, headaches, neck pain, swollen glands and vertigo (dizziness). Pertinent negatives include no chills, diaphoresis, fever or sore throat. She has tried acetaminophen for the symptoms. PAST MEDICAL HISTORY Diagnosis Date Asthma Cyst (solitary) of breast tailbone Ear mass, right PONV (postoperative nausea and vomiting) PAST SURGICAL HISTORY Procedure Laterality Date SECTION HX 1979 SECTION HX 1982 SECTION HX 1991 SECTION HX 1994 HYSTERECTOMY HX 2007 still has ovaries PAST SURGICAL HISTORY OF Right removal of mass from right ear TONSILLECTOMY AND ADENOIDECTOMY Social History Tobacco Use Smoking status: Never Passive exposure: Never Smokeless tobacco: Never Tobacco comments: as a teenager, 6 cigarettes/day for a year Vaping Use Vaping status: Never Used Substance Use Topics Alcohol use: Not Currently Drug use: Never ALLERGIES Allergen Reactions Latex Rash Poison Viviana Extract Intolerance, Itching, Rash, Swelling Family History Problem Relation Age of Onset Ovarian cancer Mother Diabetes Father Asthma Sister No Known Problems Sister Hypertension Brother No Known Problems Brother Mental illness Son Anesthesia Problems No Family History Current Outpatient Medications Medication Sig Dispense Refill albuterol HFA (PROVENTIL HFA, VENTOLIN HFA) 90 mcg/actuation inhaler INHALE 2 PUFFS BY MOUTH EVERY 4 TO 6 HOURS 18 g 1 niacin 500 mg TbER Take 1 tablet by mouth once daily. MULTIVITAMIN ORAL Take by mouth once daily. omega-3/dha/epa/fish oil (OMEGA-3 ORAL) Take 1,000 mg by mouth once daily. resveratroL 250 mg cap Take 2 capsules by mouth twice daily. ibuprofen (MOTRIN) 200 mg tablet Take 200 mg by mouth every 6 hours as needed. amoxicillin-clavulanate potassium (AUGMENTIN XR) 1,000-62.5 mg per tablet Take 2 tablets by mouth two times a day for 10 days. 40 tablet 0 methylPREDNISolone (MEDROL, FRANCES,) 4 mg Dose-Pack As Instructed per package 21 tablet 0 No current facility-administered medications for this visit. Review of Systems Constitutional: Positive for fatigue. Negative for appetite change, chills, diaphoresis and fever. HENT: Positive for congestion, ear pain, facial swelling, sinus pressure and sinus pain. Negative for ear discharge, hearing loss and sore throat. Respiratory: Negative. Cardiovascular: Negative. Gastrointestinal: Negative. Musculoskeletal: Positive for neck pain. Neurological: Positive for dizziness (with position change), vertigo (dizziness) and headaches. BP 116/70 Pulse 69 Temp 97.7 Resp 16 Ht 5' 3.75 (1.62m) Wt 186 lb (84.4kg) SpO2 99% BMI 32.19 kg/(m2). Physical Exam Vitals and nursing note reviewed. Constitutional: Appearance: Normal appearance. She is not ill-appearing. HENT: Head: Comments: Mild right sided facial swelling from sinus down to jawline Right Ear: Ear canal and external ear normal. A middle ear effusion is present. Tympanic membrane is scarred and bulging. Tympanic membrane is not erythematous. Left Ear: Ear canal and external ear normal. A middle ear effusion is present. Tympanic membrane is not erythematous. Nose: Congestion present. Mouth/Throat: Mouth: Mucous membranes are moist. Pharynx: No oropharyngeal exudate or posterior oropharyngeal erythema. Eyes: Extraocular Movements: Extraocular movements intact. Pupils: Pupils are equal, round, and reactive to light. Neck: Thyroid: No thyromegaly. Cardiovascular: Rate and Rhythm: Normal rate and regular rhythm. Heart sounds: Normal heart sounds, S1 normal and S2 normal. Pulmonary: Effort: Pulmonary effort is normal. Breath sounds: Normal breath sound (more content not included)... [facility] 06-03-2024 History of Present illness Narrative CHIEF COMPLAINT: Velma Ch is a 64 year old female who presents for intermittent dizziness and sinus pain and swelling. She was deployed for work in the [employer] and became ill down there at the end of April and was treated with Augmentin and Prednisone. Her symptoms improved but didn't completely resolved. The dizziness has worsened since last Sunday and primarily occurs when she is laying down or changes her position. She is having a lot of right sided facial pain and swelling. 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 She has also had more twitching of the right side of her face over the last week. I reviewed past medical, surgical, social, and family histories today and updated chart. Allergies, chronic medications, and supplements were also reviewed. The history is provided by the patient. Sinus Problem This is a recurrent problem. The current episode started in the past 7 days. The problem occurs constantly. The problem has been gradually worsening. Associated symptoms include congestion, fatigue, headaches, neck pain, swollen glands and vertigo (dizziness). Pertinent negatives include no chills, diaphoresis, fever or sore throat. She has tried acetaminophen for the symptoms. PAST MEDICAL HISTORY Diagnosis Date Asthma Cyst (solitary) of breast tailbone Ear mass, right PONV (postoperative nausea and vomiting) PAST SURGICAL HISTORY Procedure Laterality Date SECTION HX 1979 SECTION HX 1982 SECTION HX 1991 SECTION HX 1993 HYSTERECTOMY HX 2006 still has ovaries PAST SURGICAL HISTORY OF Right removal of mass from right ear TONSILLECTOMY & ADENOIDECTOMY <AGE 12 Social History Tobacco Use Smoking status: Never Passive exposure: Never Smokeless tobacco: Never Tobacco comments: as a teenager, 6 cigarettes/day for a year Vaping Use Vaping status: Never Used Substance Use Topics Alcohol use: Not Currently Drug use: Never ALLERGIES Allergen Reactions Latex Rash Poison Viviana Extract Intolerance, Itching, Rash, Swelling Family History Problem Relation Age of Onset Ovarian cancer Mother Diabetes Father Asthma Sister No Known Problems Sister Hypertension Brother No Known Problems Brother Mental illness Son Anesthesia Problems No Family History Current Outpatient Medications Medication Sig Dispense Refill albuterol HFA (PROVENTIL HFA, VENTOLIN HFA) 90 mcg/actuation inhaler INHALE 2 PUFFS BY MOUTH EVERY 4 TO 6 HOURS 18 g 1 niacin 500 mg TbER Take 1 tablet by mouth once daily. MULTIVITAMIN ORAL Take by mouth once daily. omega-3/dha/epa/fish oil (OMEGA-3 ORAL) Take 1,000 mg by mouth once daily. resveratroL 250 mg cap Take 2 capsules by mouth twice daily. ibuprofen (MOTRIN) 200 mg tablet Take 200 mg by mouth every 6 hours as needed. amoxicillin-clavulanate potassium (AUGMENTIN XR) 1,000-62.5 mg per tablet Take 2 tablets by mouth two times a day for 10 days. 40 tablet 0 methylPREDNISolone (MEDROL, FRANCES,) 4 mg Dose-Pack As Instructed per package 21 tablet 0 No current facility-administered medications for this visit. Review of Systems Constitutional: Positive for fatigue. Negative for appetite change, chills, diaphoresis and fever. HENT: Positive for congestion, ear pain, facial swelling, sinus pressure and sinus pain. Negative for ear discharge, hearing loss and sore throat. Respiratory: Negative. Cardiovascular: Negative. Gastrointestinal: Negative. Musculoskeletal: Positive for neck pain. Neurological: Positive for dizziness (with position change), vertigo (dizziness) and headaches. BP 116/70 Pulse 69 Temp 97.7 Resp 16 Ht 5' 3.75 (1.62m) Wt 186 lb (84.4kg) SpO2 99% BMI 32.19 kg/(m^2). Physical Exam Vitals and nursing note reviewed. Constitutional: Appearance: Normal appearance. She is not ill-appearing. HENT: Head: Comments: Mild right sided facial swelling from sinus down to jawline Right Ear: Ear canal and external ear normal. A middle ear effusion is present. Tympanic membrane is scarred and bulging. Tympanic membrane is not erythematous. Left Ear: Ear canal and external ear normal. A middle ear effusion is present. Tympanic membrane is not erythematous. Nose: Congestion present. Mouth/Throat: Mouth: Mucous membranes are moist. Pharynx: No oropharyngeal exudate or posterior oropharyngeal erythema. Eyes: Extraocular Movements: Extraocular movements intact. Pupils: Pupils are equal, round, and reactive to light. Neck: Thyroid: No thyromegaly. Cardiovascular: Rate and Rhythm: Normal rate and regular rhythm. Heart sounds: Normal heart sounds, S1 normal and S2 normal. Pulmonary: Effort: Pulmonary effort is normal. Breath sounds: Normal breath sounds and air entry. Musculoskeletal: Cervical back: Normal range of motion and neck supple. Tenderness present. No rigidity. Lymphadenopathy: Cervical: No cervical adenopathy. Skin: General: Skin is warm and dry. Findings: No rash. Neurological: Mental Status: She is alert and oriented to person, place, and time. Psychiatric: Mood and Affect: Mood normal. Behavior: Behavior normal. ASSESSMENT/PLAN: 1. Right maxillary sinusitis - ICD9: 473.0, ICD10: J32.0 (primary diagnosis) - Will begin treatment with Augmentin 2,000 mg BID for 10 days. (Completed course of regular dosing of Augmentin at the end of April). - The patient should also be given nasal saline gtts and suction prn for the first 5-7 days of treatment. - Supportive care with plenty of fluids, rest, and analgesia prn. - Follow up in one week if symptoms persist or worsen. May need to follow up with her ENT. - AMOXICILLIN-POTASSIUM CLAVULANATE 1,000 MG-62.5 MG TABLET,EXT.REL 12HR - METHYLPREDNISOLONE 4 MG TABLETS IN A DOSE PACK 2. Dizziness - ICD9: 780.4, ICD10: R42 - Suspect due to current sinus infection - Continue to monitor 3. 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 Discussed new medication dosage, usage, goals of therapy, and side effects. Patient has been apprised of any potential drug interactions to be aware of. Patient expresses understanding. Counseling completed in adopting health behaviors such as avoiding excessive alcohol use, avoid tobacco use, improve nutrition, and engage in physical activities. Copy of written care plan, clinical summary, treatment plan, new medications, goals, and self management requirements were given to patient. Cherie Tobar APRN.CNP documented in this encounter [facility] 01-29-2024 Telephone encounter Note patient electronically requesting refills as follows: Last seen 07/16/23 . Last refill 02/16/23 . Requested Prescriptions Pending Prescriptions Disp Refills albuterol HFA (PROVENTIL HFA, VENTOLIN HFA) 90 mcg/actuation inhaler 18 g 1 Sig: INHALE 2 PUFFS BY MOUTH EVERY 4 TO 6 HOURS Please review and advise. Janeen Gerard MA [facility] 01-29-2024 Miscellaneous Notes patient electronically requesting refills as follows: Last seen 07/16/23 . Last refill 02/16/23 . Requested Prescriptions Pending Prescriptions Disp Refills albuterol HFA (PROVENTIL HFA, VENTOLIN HFA) 90 mcg/actuation inhaler 18 g 1 Sig: INHALE 2 PUFFS BY MOUTH EVERY 4 TO 6 HOURS Please review and advise. Janeen Gerard MA documented in this encounter [facility] 12-10-2023 Telephone encounter Note pharm requesting refills: Last office visit 07/16/2023. Last refill 03/12/2022 nov. None Requested Prescriptions Pending Prescriptions Disp Refills triamcinolone (KENALOG) 0.025 % cream [Pharmacy Med Name: triamcinolone acetonide 0.025 % topical cream] 80 g 0 Sig: Apply to affected area twice daily for 7 days. Please review and advise. Brissa Moya MA [facility] 12-10-2023 Miscellaneous Notes pharm requesting refills: Last office visit 07/16/2023. Last refill 03/12/2022 nov. None Requested Prescriptions Pending Prescriptions Disp Refills triamcinolone (KENALOG) 0.025 % cream [Pharmacy Med Name: triamcinolone acetonide 0.025 % topical cream] 80 g 0 Sig: Apply to affected area twice daily for 7 days. Please review and advise. Brissa Moya MA documented in this encounter [facility] 12-07-2023 Note HNO ID: [id number] Author: FERNIE MCDOWELL RT(R) Service: Radiology Author Type: Technologist Type: Progress Notes Filed: 12/07/2023 10:36 Note Text: Radiology Service Progress Note PATIENT NAME: Velma Ch DATE OF SERVICE: December 07, 2023 TIME: 10:35 AM PATIENT IDENTITY VERIFICATION COMPLETED USING TWO (2) IDENTIFIERS: Name and Date of confirmed by patient verbally and Name and Date of confirmed by identification band. FALL SCREENING: Has the patient had 2 falls in the last year or 1 fall with injury or currently using an Ambulatory Assistive Device (Walker, Cane, Wheelchair, Crutches, etc.)? Emergency Room Patient: Screened in ED PATIENT GENDER DATA: Female. status: : No status: NO. PATIENT RELEVANT IMPLANT DATA REVIEWED: Yes PATIENT PRESENTS WITH AN IMPLANTABLE OR ATTACHED PHOTO OPTICS TECHNICIAN: No RADIOLOGY DEPARTMENT: CT; Exam(s) Completed: Temporal Bones PERIPHERAL IV DATA: Not applicable SIGNED BY: RT Berhane(R) December 07, 2023 10:35 AM [facility] 09-13-2023 Instructions Sarah Amado APRN.[facility] - 09/13/2023 8:01 AM EDT Take Yao Jeffrey probiotic. How To Perform Pelvic Floor (Kegel) Exercises These exercises help to strengthen the pelvic floor muscles and can help improve bladder control for women. 1. You should have been instructed in the office how to contract these muscles. At home, you can insert two fingers in the vagina and feel the contraction of these muscles as you squeeze. We call these muscles the pelvic floor because they help support the pelvic organs, especially during coughing and sneezing. Squeezing the pelvic floor while standing feels like you are lifting the area around the vagina, and will interrupt the stream of urine while voiding. Once you are certain which muscles to use, do not exercise while urinating. Make sure you are not bearing down, squeezing your buttocks, or straining abdominally: these are not the muscles to be exercised. You may wish to place hands on your buttock muscles to keep these muscles relaxed while performing the exercises. 2. Squeeze these muscles as hard as you can for a slow count of five, eventually working up to a slow count of ten. Rest for 15 seconds, and then start another contraction. At first. these muscles may feel sore, just as other muscles may feel sore after exercise. 3. You should perform 50 squeezes every day: make sure every squeeze count by olga as hard as you can! Many women try to do these exercises in sets of five or ten at a time. Remind yourself to do these exercises by starting them every time you are waiting at a red light, watching a television commercial, or on hold on the telephone. If you are having trouble concentrating, you may want to set aside a special time to perform sets of pelvic floor exercises. 4. In addition to the long, hard contractions you are doing try doing some quick flicks of these muscles throughout the day. 5. You should be seen in the office after starting these exercises to make sure you are performing the contraction correctly: you may have never known how to contract these muscles before starting pelvic floor exercises, and many patients mistakenly exercise the wrong muscles. If you still feel frustrated about which muscles to use ask us for help. There are physical therapy specialists who work with pelvic floor muscles. 6. Work hard! As with any exercise program, improvement often is related to how faithfully you adhere to your exercise program. Pelvic floor exercises do not have the side effects and expense associated with other treatments for urinary incontinence, and have been known to help with severe stress incontinence. It may take several months to see the full effect of your exercise program: if you are easily discouraged, see your doctor or doctor at regular visits to assess what progress you are making. Techniques to avoid urinary accidents: Empty your bladder regularly and prior to physical activity. Avoid activity that causes leakage, if possible. Avoid or moderate the intake of alcohol and caffeine products. Try to restrict fluids prior to planned activities. Wear appropriate protection. Prevent chronic coughing which can cause a loss of urinary control. Ways to prevent chronic coughing include treating asthma, restricting smoking, and removing allergy-causing agents from your environment. Calcium and Vitamin D Supplementation (from the National Institutes of Health Office of Dietary Supplements 2011) Calcium is required by the body for blood vessel, muscle, hormone and nerve functioning. Most of the body's calcium is stored in the bones and teeth where it supports structure and function. Bone is continuously broken down and reformed. When bone breakdown exceeds formation, especially in postmenopausal women, bone loss can increase the risk of osteoporosis and fractures. In addition to low calcium intake, women who smoke, have a family history of osteoporosis, are thin, or , or who take certain medications such as cancer chemotherapy, seizure mediations and steroids are at increased risk of osteoporosis. The calcium requirements in women change with age. The National Institutes of Health (NIH) recommends: 1000mg elemental calcium for premenopausal women age 19-50 1200mg elemental calcium for postmenopausal women and all women over 50 Milk, yogurt, and cheese are rich natural sources of calcium and are the major food contributors in the [place]. For example, 8oz of milk (whole, lowfat or skim) contains about 300mg calcium, 8oz of yogurt contains 415mg. Nondairy sources include salmon and sardines and vegetables, such as [place] cabbage, kale, and broccoli. Foods fortified with calcium include many fruit juices, tofu and cereals. For more food calcium content information, visit http://ods.od.nih.gov/factsheets/c alcium. Calcium supplements come in several different forms. Remember that the recommendations are for millgrams (mg) of elemental calcium which may be less than the total weight of the supplement. The amount of elemental calcium is required to be printed on the label. Calcium carbonate is the least expensive form. It must be taken on a full stomach to be properly absorbed. Some patients may experience gas or constipation. Calcium phosphate and calcium citrate may be taken either with or without food and tend to have less side effects but are generally more expensive. Because of its ability to neutralize stomach acid, calcium carbonate is found in some lser-div-blcjebc antacid products, such as Tums and Rolaids . Depending on its strength, each chewable pill or softchew provides 200 to 400 mg of elemental calcium. The percentage of calcium absorbed depends on the total amount of elemental calcium consumed at one time. Absorption is highest in doses <500mg. So a woman who takes 1,000mg/day of calcium from supplements should split the dose and take 500mg at two separate times during the day. Too much calcium can cause kidney stones, constipation, difficulty absorbing other nutrients and calcium buildup in blood vessels. Women under 50 should not exceed 2500mg/day (2000mg/day for women over 50) of calcium from food and supplements. Excessive alcohol and caffeine intake can inhibit absorption of calcium. Calcium can reduce the absorption of some medications if taken at the same time of day (bisphosphonates, thyroid medication, Phenytoin and other seizure medications, some antibiotics and iron supplements). Vitamin D promotes calcium absorption in the gut and maintains adequate blood levels of calcium and phosphate for normal bone growth and bone remodeling. Vitamin D also helps regulate cell growth as well as nerve, muscle and immune system function. Vitamin D is produced in the skin as a result of ultraviolet sunlight rays and must be altered in the liver and kidney to become its active form. Recommended intake according to the National Institutes of Health is 600 International Units (IU) for girls and women ages 1-70 and 800 IU for women over 70. Very few foods in nature contain vitamin D. The flesh of fatty fish (such as salmon, tuna, and mackerel) and fish liver oils are among the best sources. Small amounts of vitamin D are found in beef liver, cheese, mushrooms and egg yolks. Most people meet at least some of their vitamin D needs through exposure to sunlight. Season, time of day, length of day, cloud cover, smog, skin melanin content, and sunscreen are among the factors that affect UV radiation exposure and vitamin D synthesis. Despite the importance of the sun for vitamin D synthesis, it is prudent to limit exposure of skin to sunlight and avoid tanning beds. UV radiation is a carcinogen responsible for most of the estimated 1.5 million skin cancers that occur annually in the [place]. Lifetime cumulative UV damage to skin is also responsible for some age-associated dryness and other cosmetic changes. In supplements and fortified foods, vitamin D is available in two forms, D2 (ergocalciferol) and D3 (cholecalciferol). The two are equivalent at normal supplement doses. For women who require high supplement doses because of vitamin D deficiency, D3 may work better to raise blood levels. Some medications can prevent proper absorption of Vitamin D. These include laxatives, corticosteroids like prednisone, the seizure drugs phenobarbital and phenytoin, the weight-loss drug orlistat ( Xenical and AlliTM) and the cholesterol-lowering drug cholestyramine (Questran , LoCholest , and Prevalite ). Talk to your doctor about adjusting your recommended daily vitamin D dosage if you take these medications. You should not exceed 4000 mg of vitamin D supplementation daily unless specifically prescribed by your doctor. documented in this encounter [facility] 09-13-2023 History of Present illness Narrative Scrubber Machine Tender offered: Patient declinesAnnie Carreon is a 63 year old who presents for an annual gynecologic exam without complaints. Postmenopausal: Yes, hysterectomy (heavy bleeding) HRT use: No. Last Pap: 07/26/2018 normal HPV: unknown History of abnormal pap: Yes, cryo Last mammogram: 2022 normal History of abnormal mammogram: Yes , benign Sexually active: No History of STDS: None Patient concerns for STD exposure: No. 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 History Comments: Sexual Activity: Not Currently; No partner data on record Contraception: No contraception data on record PAST MEDICAL HISTORY Diagnosis Date Asthma Cyst (solitary) of breast tailbone Ear mass, right PONV (postoperative nausea and vomiting) PAST SURGICAL HISTORY Procedure Laterality Date SECTION HX 1979 SECTION HX 1982 SECTION HX 1991 SECTION HX 1993 HYSTERECTOMY HX 2006 still has ovaries PAST SURGICAL HISTORY OF Right removal of mass from right ear TONSILLECTOMY & ADENOIDECTOMY <AGE 12 FAMILY HISTORY Problem Relation Age of Onset Ovarian cancer Mother Diabetes Father Asthma Sister No Known Problems Sister Hypertension Brother No Known Problems Brother Mental illness Son Anesthesia Problems No Family History SOCIAL HISTORY Social History Tobacco Use Smoking status: Never Passive exposure: Never Smokeless tobacco: Never Tobacco comments: as a teenager, 6 cigarettes/day for a year Vaping Use Vaping Use: Never used Substance Use Topics Alcohol use: No Drug use: Never REVIEW OF SYSTEMS Abdomen: No abdominal pain, nausea, vomiting, diarrhea, or constipation. No bloating, early satiety, indigestion, or increased flatulence. Bladder: No dysuria, gross hematuria, urinary frequency, urinary urgency + stress incontinence Breast: No breast lumps, nipple d/c, overlying skin changes, redness or skin retraction Allergies and current medication updated:Yes EXAM: BP 110/68 Ht 5' 3.75 (1.62m) Wt 187 lb (84.8kg) BMI 32.36 kg/(m^2). GENERAL: pleasant, female in no apparent distress HEENT: Normocephalic, atraumatic, mucus membranes moist, and no lesions NECK: Supple, full range of motion, no adenopathy, and thyroid normal DERMATOLOGY: Normal, without lesions, non-icteric, and non-hirsute BREAST: soft, non-tender, symmetric, no dominant mass, normal nipple-areolar complex, no lymphadenopathy, and no nipple discharge CHEST: Normal inspiratory effort ABDOMEN: soft, non-tender, and no masses PELVIC: external genitalia normal, normal Bartholin's glands, urethra, Pierz's glands, no vulvar lesions, good vaginal support, physiologic discharge present, normal appearing perineal body and perianal region + white yellow thick vaginal discharge, cervix surgically absent BIMANUAL: no adnexal masses, and non-tender + uterus surgically absent RECTOVAGINAL: deferred. NEURO: alert and oriented x3,exam grossly non-focal EXTREMITIES: normal ASSESSMENT/PLAN: 1) Health maintenance: Pap/HPV screening no longer needed Mammogram ordered Nutrition, exercise and routine health maintenance exams reviewed. Calcium/Vitamin D supplementation information provided. Colon cancer screening: to follow up with PCP, has Cologuard at home TSH/lipids/glucose: followed by PCP 2) Follow up one year or sooner as needed Vaginal discharge - ICD9: 623.5, ICD10: N89.8 - Recommend [facility] Women probiotic - SCOTTY/TRICHOMONAS NAAT - BACTERIAL VAGINOSIS NAAT Mother with ovarian cancer in 70s. No genetic testing. Velma denies constipation, bloating, or early satiety. Sarah Amado APRN.LISA documented in this encounter [facility] 09-07-2023 Instructions Malka Pablo MD - 09/07/2023 10:[address] temporal bone and follow up in 3 months documented in this encounter [facility] 09-07-2023 History of Present illness Narrative Images from the original note were not included. OTOLOGY & NEUROTOLOGY ESTABLISHED PATIENT VISIT Date: 09/07/2023 Velma Ch is a 63 year old female status post right tympanomastoidectomy on 05/10/2023. She states she has been having random intermittent vertigo. She has tried exercises she found online and that has seemed to help some. She also reports she is still having facial spasms daily at random. Last seen 05/30/2023. Findings on 05/10/2023: A right ear cholesteatoma in the posterior mesotympanum and aditus ad antrum was removed via [id number] tympanomastoidectomy. The cholesteatoma had eroded the long process of the incus and the superstructure of the stapes. Facial nerve was dehiscent in the posterior third of the oval window niche. The anterior third of the stapes footplate was mobilized when cholesteatoma was dissected from the remnant of the anterior jay. The footplate was reset and overlaid with tragal perichondrium. Chorda tympani was sacrificed. Tympanoplasty was performed with split thickness tragal cartilage graft. The patient is indicated for a second look surgery and ossicular chain reconstruction in 6 months. Vital signs: There were no vitals taken for this visit. General: Well developed, well nourished, in no apparent distress, with fluent speech. Otomicroscopy: AD: Ear canal patent. TM intact with cartilage graft in posterosuperior quadrant. Prussak's space retraction deep but clean. Middle ear aerated. : Ear canal patent. TM intact. Middle ear aerated. Facial nerve normal bilaterally. No nystagmus. Normal gait. 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 The patient is indicated for a second look surgery and ossicular chain reconstruction in 12/2023, but she does not wish to schedule surgery because she is still dealing with long Covid symptoms. PLAN - CT temporal bones and follow-up in 3 months as she will be traveling for work with [email or web address] in the mean time. - Consider revision right tympanoplasty and mastoidectomy with ossicular chain reconstruction at next visit. Office Visit on 09/07/23 CT TEMP BONES WO IVCON Scribed by Anabela Barlow Theatre Professor for Malka Al MD on September 07, 2023. The above scribed note accurately describes my personal service to the patient. Electronically signed by: Malka Al MD 09/07/2023 10:37 AM documented in this encounter [facility] 09-07-2023 History of Present illness Narrative [facility] [place] AUDIOLOGIC EVALUATION REPORT Name: Velma Ch [facility]#: [id number] Date of Service: 09/07/2023 Date of : 1960 Age: [age] year old Referred by: Malka Al MD Referred for: Determination of the effect of treatment for disorder of hearing, tinnitus, or balance Referral documented: In an order in Epic Patient's major complaints: Post-operative monitoring of hearing sensitivity Velma Ch was seen for a recheck audiologic evaluation prior to consultation with Otology (Malka Al MD) with complaints of no change in hearing following tympanomastoidectomy on 05/10/2023. Previous audiologic evaluation was completed on 12/27/2022 and indicated mild high frequency hearing loss in the left ear and moderate sloping to profound mixed hearing loss in the right ear. Hearing loss: No change in hearing reported. Has a hard time localizing. She enjoys bird watching and can hear the birds but often struggles to know where the chirps are coming from. Tinnitus: Denied Ear pain: Denied Aural fullness: Denied Otorrhea: Denied History of ear infections: Hx right ear cholesteatoma. History of otologic surgeries: S/p right tympanomastoidectomy on 05/10/2023. Revision right tympanoplasty and mastoidectomy with ossicular chain reconstruction to be considered per Malka Al MD. Dizziness: Spinning sensation when getting out of bed and also randomly. Has been doing some at home head maneuvers that have seemed to help. Other concerns: History of long Covid. Random facial spasms and numbness on the right side of her head. See Audiogram in Procedures Tab for additional reported history and symptoms. Risk of Falls Documentation for over 65 years old: No history of falls reported so minimal to no risk IMPRESSIONS RIGHT EAR: Mixed (conductive and sensorineural) hearing loss LEFT EAR: Unspecified high frequency hearing loss Comparison of today's results with previous test results (12/27/2022): Today's results suggest a decrease in the right ear and reveal no significant change in the left ear. AUDIOLOGIC EVALUATION Following is a brief interpretation of the obtained findings from the audiologic evaluation. Refer to the Auditory Test Record for complete audiometric results. The patient was counseled about the test findings and appropriate audiologic recommendations were made. SUMMARY: Audiogram can be viewed under Procedures Tab OTOSCOPY RIGHT EAR: Otoscopic inspection revealed ear canal was clear, however, ear drum appeared surgical in nature. LEFT EAR: Otoscopic inspection revealed ear canal was clear TYMPANOMETRY Description of procedure: This test is an objective evaluation of middle ear function. CPT code: 19623 RIGHT EAR: Flat with minimal TM mobility consistent with presence of ME fluid. LEFT EAR: Negative (-160 daPa) pressure with normal TM compliance (mobility). ACOUSTIC REFLEXES Description of procedure: This test is an objective measure of auditory and facial nerve pathways. RIGHT EAR PROBE EAR: (ipsi right stimulus ear; contralateral left stimulus ear): Acoustic Reflex Pattern: Did not test Acoustic Reflex Decay (left stimulus ear): Did not test. LEFT EAR PROBE EAR: (ipsi left stimulus ear; contralateral right stimulus ear): Acoustic Reflex Pattern: Did not test Acoustic Reflex Decay (right stimulus ear): Did not test. PURE TONE AUDIOMETRY AND SPEECH TESTING Description of procedure: This test is an objective evaluation hearing sensitivity via air and bone conduction and speech recognition testing. CPT code: 19113 RIGHT EAR: Hearing Sensitivity: Essentially moderately severe MHL from 250 - 8000 Hz. Word Recognition Score: Excellent (100%). WRS is consistent with hearing sensitivity. Words were presented at 90 dB HL which is above (greater than or equal to 60 dB HL) intensity level for average conversational speech. The NU-6 Ordered by Difficulty Word List (10 words) was used for testing. and Contralateral masking was used. LEFT EAR: Hearing Sensitivity: WNL from 250 - 4000 Hz sloping to mild unspecified high frequency hearing loss. Word Recognition Score: Excellent (90%). WRS is consistent with hearing sensitivity. Words were presented at 50 dB HL which approximates (45-55 dB HL) intensity level for average conversational speech. The NU-6 Ordered by Difficulty Word List (10 words) was used for testing. RECOMMENDATIONS * Continue medical follow-up with Malka Al MD. * The patient was counseled regarding amplification options (bone-anchored implant vs traditional hearing aid) for the right ear. She is not interested in surgical options at this time. * Pending medical clearance, call [phone] to schedule an appointment to assess your need for hearing aids and request an HAE appointment. * Re-evaluation as medically indicated, or sooner, if a change in hearing is noted. Kira Moe BA (Alex) Doctor of Audiology ([place]) [employer] Testing was obtained under the direct supervision of Antonieta George CCC/Kay Pop CCC-Christa Clinical Flat Cutter [place] Abbrev- iation Definition Degree of hearing sensitivity dB range WNL within normal limits WNL 0 - 20 SNHL sensorineural hearing loss Mild 20-40 CHL conductive hearing loss Moderate 40-55 MHL mixed hearing loss Moderately-Severe 55-70 WRS word recognition score Severe 70-90 ME middle ear Profound 90 + TM tympanic membrane documented in this encounter [facility] 05-30-2023 Instructions Malka Pablo MD - 05/30/2023 11:26 AM EST Audiogram and follow up in 3 months documented in this encounter [facility] 05-30-2023 History of Present illness Narrative OTOLOGY & NEUROTOLOGY POSTOP VISIT Date: 05/30/2023 Velma Ch is a 63 year old female status post right tympanomastoidectomy on 05/10/2023. She has no complaint. Findings on 05/10/2023: A right ear cholesteatoma in the posterior mesotympanum and aditus ad antrum was removed via [id number] tympanomastoidectomy. The cholesteatoma had eroded the long process of the incus and the superstructure of the stapes. Facial nerve was dehiscent in the posterior third of the oval window niche. The anterior third of the stapes footplate was mobilized when cholesteatoma was dissected from the remnant of the anterior jay. The footplate was reset and overlaid with tragal perichondrium. Chorda tympani was sacrificed. Tympanoplasty was performed with split thickness tragal cartilage graft. The patient is indicated for a second look surgery and ossicular chain reconstruction in 6 months. Vital signs: There were no vitals taken for this visit. General: Well developed, well nourished, in no apparent distress, with fluent speech. Otomicroscopy: AD: Ear canal patent. TM intact with cartilage graft posterior superior quadrant. Middle ear edematous status unknown. : Ear canal patent. TM intact. Middle ear aerated. Facial nerve normal bilaterally. No nystagmus. Normal gait. 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 The patient is indicated for a second look surgery and ossicular chain reconstruction in 10/2023. PLAN - Prescribed Ciprofloxacin ear drops. - Audiogram and follow-up in 08/2023. - Revision right tympanoplasty and mastoidectomy with ossicular chain reconstruction to be scheduled in 10/2023 Office Visit on 05/30/23 HEARING TEST/AUDIOGRAM ofloxacin (OCUFLOX) 0.3 % ophthalmic solution Scribed by [facility] Scribe on May 30, 2023. The above scribed note accurately describes my personal service to the patient. Electronically signed by: Malka Al MD 07/02/2023 7:05 PM documented in this encounter [facility] 05-07-2023 Instructions Geri Fernando PA-C - 05/07/2023 10:11 AM EST PATIENT PREOPERATIVE INSTRUCTIONS Dr. Millicent Al has scheduled you for your procedure at this surgery center: [facility] Scheduling Office: [phone] --[address] [place] [address]. Please read below carefully for your personalized instructions. Dietary Restrictions: - No solid food after midnight. - You may have 12 ounces of clear liquids (water, clear juices such as apple juice or gatorade, carbonated beverages, clear tea, black coffee, jello) until 2 hours before scheduled arrival at facility. Medications: Unless instructed differently below, stay on all of your medications until your surgery. If you start any new medications after today's visit, please contact your surgeon. Pre-Surgery Med Instructions Medication Instructions loratadine (CLARITIN) 10 mg tablet Ok to take the morning of surgery (if needed) with a small sip of water albuterol HFA (PROVENTIL HFA, VENTOLIN HFA) 90 mcg/actuation inhaler Ok to use the morning of surgery (if needed) If you start any new medications after today's visit, please contact the surgeon's office. Blood Thinning Medications: - Stop NSAIDS (Ibuprofen, Advil, Aleve, Motrin, Celebrex, Mobic, etc.) 7 days before surgery, as directed by your surgeon. - Stop Aspirin 7 days before surgery, as directed by your surgeon. - Stop Vitamin E, ALL multi-vitamins, herbals and dietary supplements 14 days before surgery. - You may take Tylenol (Acetaminophen) or any of your pain medications that do not contain aspirin or NSAIDS as needed. Important Reminders: - If you are prescribed inhalers for breathing, continue using them. - Candy, mints, and tobacco products are NOT permitted the morning of surgery. - Hearing aids, dentures and glasses may be worn the morning of surgery. - NO jewelry, body piercings, makeup, hairpins or contacts are to be worn the day of surgery. If you develop symptoms such as a fever, cold, or flu, or have other changes to your health within TWO DAYS of scheduled surgery or the morning of surgery, please contact the surgery center above. Personal Belongings: -Please have photo ID and insurance cards. -If you do not have a copy of advance directives on file with us, please bring a copy with you on the day of surgery. - Leave ALL valuables and money at home or with family members. For Outpatient Procedures: - YOU MUST HAVE A RESPONSIBLE DIRECT CARE COUNSELOR TAKE YOU HOME. A AQUACULTURE FARM MANAGER OR DIRECTOR OF FUNDRAISING CANNOT BE MADE A RESPONSIBLE DIRECT CARE COUNSELOR. - We recommend that a responsible person stays with you overnight to take care of you. - You cannot stay in a hotel alone after outpatient surgery. You will not be permitted to have your surgery, if you do not have someone to take care of you. Arrival Time for Surgery: - To obtain your arrival time for surgery, call your physician's office the day before your surgery. - If your surgery is scheduled for Sunday, call the Sunday before. Your surgeon s planer feeder will tell you what time to call the office. - If you have not reached the departmental planer feeder by 5 P.M., call [phone] after 5 P.M. the day before your surgery. Please be aware that emergency situations arise, which may delay or change your surgical time. If this happens, we will notify you as soon as possible and regret any inconvenience. If you already have an Advance Directive, please fax a copy to [phone] or email to for it to be added to your chart. If you do not have an Advance Directive, you can find the appropriate form and more information at [email or web address]. We recommend that you complete the Advance Directive form found on the website and bring it with you the day of your surgery. It can be witnessed and scanned into your chart that day. Geri Fernando PA-C documented in this encounter [facility] 05-07-2023 History and physical note PREANESTHESIA CONSULT CLINIC TELEHEALTH VISIT Patient has been identified by name and date of : Yes This is a virtual visit using [employer] Video Visit. It require patient-provider interaction for the medical decision making as documented below. Reason for contact: PACC visit Accompanied by: Self Scheduled Surgery: Procedure(s) (LRB): TYMPANOPLASTY W/ MASTOIDECTOMY W/ INTACT OR RECONSTRUCTED WALL, W/ OSSICULAR CHAIN RECONSTRUCTION (Right) GRAFT EAR CARTILAGE TO NOSE OR EAR AUTOGENOUS (Right) I have communicated my name and active licensure. The patient's identity and physical location were verified at the time of this visit. Either the patient or their legal underwriting service representative has been informed of the risks and benefits of -- and alternatives to -- treatment through a remote evaluation and consents to proceed with the evaluation remotely. Subjective CHIEF COMPLAINT: Patient presents with: Pre-Op Visit HPI: This is a 63 year old female who presents with decreased hearing and intermittent (more recent) sensation of gurgling noises in her right ear. She states her hearing loss seemed to coincide with when she had COVID-19 in July 2020. She denies ear pain. She was diagnosed with cholesteatoma of right ear and elects to proceed with above procedure. ACTIVE PROBLEM LIST Obesity, Class I, Bmi 30-34.9 Anxiety Stress Reaction Post-Acute Sequelae of Covid-19 (Pasc) Sob (Shortness of Breath) Weakness Decreased Functional Mobility and Endurance Complaints of Total Body Pain Hyperlipidemia, Mixed Mixed Conductive and Sensorineural Hearing Loss of Right Ear With Restricted Hearing of Left Ear Cholesteatoma of Right Ear Facial Tic Numbness and Tingling of Right Face Hearing Loss of Right Ear Ponv (Postoperative Nausea and Vomiting) PAST MEDICAL HISTORY Diagnosis Date Asthma Cyst (solitary) of breast tailbone PONV (postoperative nausea and vomiting) PAST SURGICAL HISTORY Procedure Laterality Date SECTION HX 1979 SECTION HX 1982 SECTION HX 1991 SECTION HX 1993 HYSTERECTOMY HX 2006 still has ovaries TONSILLECTOMY & ADENOIDECTOMY <AGE 12 FAMILY HISTORY Problem Relation Age of Onset Diabetes Father Asthma Sister Hypertension Brother Mental illness Son Anesthesia Problems No Family History Social History Tobacco Use Smoking status: Never Smokeless tobacco: Never Tobacco comments: as a teenager, 6 cigarettes/day for a year Vaping Use Vaping Use: Never used Substance Use Topics Alcohol use: No Drug use: Never ALLERGIES Allergen Reactions Latex Rash Poison Viviana Extract Intolerance, Itching, Rash, Swelling MEDICATIONS: Current Outpatient Medications Medication Sig loratadine (CLARITIN) 10 mg tablet Take 1 tablet by mouth once daily as needed. albuterol HFA (PROVENTIL HFA, VENTOLIN HFA) 90 mcg/actuation inhaler INHALE 2 PUFFS BY MOUTH EVERY 4 TO 6 HOURS glucosamine HCl 750 mg tab Take 0.5 tablets by mouth once daily. Take one half tablet niacin 500 mg TbER Take 1 tablet by mouth once daily. MULTIVITAMIN ORAL Take by mouth once daily. omega-3/dha/epa/fish oil (OMEGA-3 ORAL) Take 1,000 mg by mouth once daily. resveratroL 250 mg cap Take 2 capsules by mouth twice daily. ibuprofen (MOTRIN) 200 mg tablet Take 200 mg by mouth every 6 hours as needed. No current facility-administered medications for this visit. COVID VACCINATION STATUS: Fully vaccinated REVIEW OF SYSTEMS: Pain Assessment: General: No weight loss, malaise or fevers. Neuro: No history of TIA's, stroke, NANOSYSTEMS ENGINEER tumor, impaired sensorium, hemiplegia, paraplegia or quadraplegia. No neurological symptoms or problems. Respiratory: Positive for Post-COVID SOB - seems to be triggered in yarsanism or sometimes grocery store. Hadn't needed Albuterol much the last 2 months. Uses it every 3 weeks at home. Allergy medication is helpful, Negative for COPD, Current cough, URI < 2 weeks Cardiovascular: Positive for: HLD, Negative for Recent NM, Arrhythmia, CAD, Chest Pain, CHF, Valvular Heart Disease, DVT/PE GI: Positive for occasional mild right lower abdominal discomfort - denies current symptoms, Negative for Heartburn, Nausea, Vomiting, Hepatitis, Pancreatitis : No history of dysuria, frequency or incontinence,, stones or chronic kidney disease ACTUARIAL SCIENCE PROFESSOR: Negative for abnormal vaginal bleeding, abnormal vaginal discharge. : N/A, No LMP recorded. Patient has had a hysterectomy. Endocrine: No history of diabetes. Has not taken steroids within the past 30 days. No history of endocrinological symptoms or problems. Hematology: No history of bleeding or clotting disorder. Pt is not taking anti-coagulation or platelet medications. No history of hematological symptoms or problems. Oncology: No history of CA metastasis, chemo within 30 days, or radiotherapy within 90 days. Has not lost 10% of body wt in 6 months. No history of oncological symptoms or problems. Psych: occasional anxiety related to her work - denies SI/HI Musculoskeletal: Negative for joint pain or swelling, back pain or muscle pain. Skin: Negative for lesions, rash and itching. Objective PHYSICAL EXAM: Pulse 88[patient counted[ Ht 5' 5[patient reported[ (1.65m) Wt 180 lb (81.6kg) BMI 29.95 kg/(m^2). VIDEO EXAM: (if completed, exam performed via video enabled technology) GENERAL: alert and appropriate, in no distress, well-hydrated, well nourished, and happy, smiling, interactive SKIN: no rash noted HEAD: normocephalic, no abnormality or lesion noted EYES: no injection NOSE: external nose normal without rhinorrhea NECK: full ROM RESPIRATORY: breathing non-labored and no grunting/flaring/retractions CHEST: equal chest rise with normal respiratory effort HEART: Patient confirmed radial pulse and counted aloud with regular rhythm. HR 88 BPM. No cyanosis ABDOMEN: soft and non-tender NEUROLOGIC: no cerebral deficits noted Diagnostic tests reviewed for today's visit: Lab Value Units Date High Low HB No results within date range. HCT No results within date range. WBC No results within date range. PLT No results within date range. NA No results within date range. K No results within date range. GLUC No results within date range. BUN No results within date range. CREAT No results within date range. PTSEC No results within date range. INR No results within date range. APTT No results within date range. ALT No results within date range. AST No results within date range. TBILI No results within date range. TSH No results within date range. Hemoglobin A1C (%) Date Value 11/19/2021 5.7 Spirometry 06/16/2022 IMPRESSION: Spirometry is normal. Echocardiogram 12/29/2021 CONCLUSIONS: - Exam indication: Shortness of Breath - The left ventricle is normal in size. Left ventricular systolic function is normal. EF = 58 5% (2D biplane) Definity contrast used for endocardial border detection. Grade I left ventricular diastolic dysfunction. - The right ventricle is normal in size. Right ventricular systolic function is normal. - There are no significant valvular abnormalities. - The patient has not had a prior [facility] echocardiographic exam for comparison. Impression/Recommendations ASSESSMENT: 1. Preop examination Scheduled for above procedure 2. PONV 3. Hyperlipidemia, mixed No current medications. Follows with PCP. Working on diet and exercise changes 4. Post-COVID syndrome Patient had COVID-19 in 2020 and developed significant difficulty walking (pain) and shortness of breath. She states she is able to get around without difficulty now. She does have an albuterol inhaler she uses prn, but states lately she is only using it every 3 weeks (typically in the grocery store or yarsanism where the air quality isn't quite as good). 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 She had normal spirometry and unremarkable echo to evaluate in 2021. She states she is feeling much better and does not feel limited by her symptoms. She is very active and doing well. Stable/improved. Pulmonary consultation Dr. Posada 06/14/2022 ASSESSMENT/PLAN: 1. Post-acute sequelae of COVID-19 (PASC) - ICD9: 139.8, ICD10: U09.9 (primary diagnosis) Continue exercising Improving Albuterol as needed 2. Mild intermittent asthma without complication - ICD9: 493.90, ICD10: J45.20 Exhaled Nitric oxide 10 Normal spirometry Continue albuterol as needed - NITRIC OXIDE, EXHALED Nardericn Christa Posada MD METS: Walk a block or two on level ground (2.75 METs) Climb a flight of stairs or walk up a hill (5.50 METs) Participate in moderate recreational activities, such as golf, bowling, dancing, doubles tennis, or throwing a baseball or football (6.00 METs) Patient denies any chest pain or undue shortness of breath with the above physical activity. Walking/hiking, walked 3 miles twice this past weekend States she has greatly improved with her [id number] symptoms ANESTHESIA FINDINGS: Intubation History: No history of difficult intubation Significant Anesthesia Considerations: Postop nausea/vomiting and Difficult IV/Vein Access: occasional difficulty, not consistently. Does well as long as the provider has experience. Has not required ultrasound guidance Airway Exam: General: Normal appearance Mallampati Score is CLASS II-III ULBT: Class II - Lower incisors can bite the upper lip below the steven line Neck: Limited movement extension (denies numbness, tingling or pain) Mouth: Normal tongue size and Mouth opening greater than 2 finger breaths Dentition: Caps/crowns and right upper missing tooth Airway History: No abnormal airway history STOP BANG Score: Criteria: Snoring Age over 50 (63 year old) Score = 2 PLAN: This patient is optimally prepared for surgery. Message sent to surgeon notifying that patient had taken Naproxen x 1 dose 05/06 and 05/05. She will discontinue it now. Ok to proceed per Dr. Millicent Al CONSULTS: Patient does not require consults for optimization at this time. The Following Tests/Procedures Have Been Initiated: EKG not indicated per PACC protocol Planned Anesthetic: Per anesthesia choice Instructions Given to Patient: Patient given verbal instructions and voices comprehension and compliance. Copy sent electronically via My Chart, email, or mobile device. Encouraged ongoing follow-up with PCP regarding intermittent abdominal pain. Patient denies current symptoms. This is a virtual visit. It required patient-provider interaction for the medical decision making as documented above. SIGNATURE: Geri Fernando PA-C PATIENT NAME: Velma Ch DATE: 05/07/2023 TIME: 9:50 AM PAGER/CONTACT #: documented in this encounter [facility] 02-16-2023 Miscellaneous Notes Patient comment: I am being deployed and I need this jo documented in this encounter [facility] 01-25-2023 History of Present illness Narrative Images from the original note were not included. CHIEF COMPLAINT: Velma Ch is a 63 year old female who presents for left ear pain and swelling below the left side of her jaw. I reviewed past medical, surgical, social, and family histories today and updated chart. Allergies, chronic medications, and supplements were also reviewed. She reports having left ear pain and swelling to the left side below her jaw 3-4 days ago. She has a history of parotitis in 2019 and was seen by an ENT. Also has a cholesteatoma of her right ear. She denies any fever, sore throat, headache, dizziness She hasn't taken anything for her symptoms The history is provided by the patient. No language translator was used. PAST MEDICAL HISTORY Diagnosis Date Asthma Cyst (solitary) of breast tailbone PAST SURGICAL HISTORY Procedure Laterality Date SECTION HX 1979 SECTION HX 1982 SECTION HX 1991 SECTION HX 1993 HYSTERECTOMY HX 2006 still has ovaries TONSILLECTOMY & ADENOIDECTOMY <AGE 12 Social History Tobacco Use Smoking status: Never Smokeless tobacco: Never Tobacco comments: as a teenager, 6 cigarettes/day for a year Vaping Use Vaping Use: Never used Substance Use Topics Alcohol use: No Drug use: Never ALLERGIES Allergen Reactions Latex Rash Poison Viviana Extract Intolerance, Itching, Rash, Swelling Family History Problem Relation Age of Onset Diabetes Father Asthma Sister Hypertension Brother Mental illness Son Current Outpatient Medications Medication Sig Dispense Refill glucosamine HCl 750 mg tab Take 0.5 tablets by mouth once daily. Take one half tablet albuterol HFA (PROVENTIL HFA, VENTOLIN HFA) 90 mcg/actuation inhaler INHALE 2 PUFFS BY MOUTH EVERY 4 TO 6 HOURS 18 g 1 niacin 500 mg TbER Take 1 tablet by mouth once daily. OTC PRODUCT Allergy OTC medication MULTIVITAMIN ORAL Take by mouth once daily. omega-3/dha/epa/fish oil (OMEGA-3 ORAL) Take 1,000 mg by mouth once daily. resveratroL 250 mg cap Take 2 capsules by mouth twice daily. ibuprofen (MOTRIN) 200 mg tablet Take 200 mg by mouth every 6 hours as needed. methylPREDNISolone (MEDROL, FRANCES,) 4 mg Dose-Pack As Instructed per package 21 tablet 0 No current facility-administered medications for this visit. Review of Systems Constitutional: Negative for appetite change, chills, diaphoresis, fatigue and fever. HENT: Positive for ear pain and facial swelling (under left jaw). Negative for congestion, postnasal drip, rhinorrhea, sinus pressure, sinus pain, sneezing and sore throat. Respiratory: Negative. Cardiovascular: Negative. Gastrointestinal: Negative. Skin: Negative. Neurological: Negative for dizziness, light-headedness and headaches. BP 122/70 Pulse 59 Temp 97.8 Resp 18 Ht 5' 3.5 (1.61m) Wt 183 lb (83.0kg) SpO2 98% BMI 31.90 kg/(m^2). Physical Exam Vitals and nursing note reviewed. Constitutional: Appearance: She is obese. She is not ill-appearing. HENT: Right Ear: External ear normal. Left Ear: Ear canal and external ear normal. Tympanic membrane is not injected or erythematous. Ears: Nose: Nose normal. Mouth/Throat: Mouth: Mucous membranes are moist. Pharynx: Oropharynx is clear. Eyes: Pupils: Pupils are equal, round, and reactive to light. Neck: Thyroid: No thyromegaly. Cardiovascular: Rate and Rhythm: Normal rate and regular rhythm. Heart sounds: Normal heart sounds. Pulmonary: Effort: Pulmonary effort is normal. Breath sounds: Normal breath sounds. Musculoskeletal: Cervical back: Normal range of motion and neck supple. Lymphadenopathy: Cervical: No cervical adenopathy. Skin: General: Skin is warm and dry. Neurological: Mental Status: She is alert and oriented to person, place, and time. Psychiatric: Mood and Affect: Mood normal. Behavior: Behavior is cooperative. Cognition and Memory: Cognition normal. ASSESSMENT/PLAN: 1. Swelling of left parotid gland - ICD9: 782.3, ICD10: R60.0 (primary diagnosis) - Contact ENT office if swelling or pain worsens - METHYLPREDNISOLONE 4 MG TABLETS IN A DOSE PACK 2. Left ear pain - ICD9: 388.70, ICD10: H92.02 - If pain persists or worsens, advised patient to contact the office on Sunday. May need an antibiotic. New medication(s) prescribed today: Yes: Nelia linn. Discussed new medication dosage, usage, goals of therapy, and side effects. Patient has been apprised of any potential drug interactions to be aware of. Patient expresses understanding. Counseling completed in adopting health behaviors such as avoiding excessive alcohol use, avoid tobacco use, improve nutrition, and engage in physical activities. Copy of written care plan, clinical summary, treatment plan, new medications, goals, and self management requirements were given to patient. Cherie Tobar APRN.LISA documented in this encounter [facility] 07-24-2023 Miscellaneous Notes Patient is informed Stacey Nice MA ----- Message from Cherie Tobar APRN.DIRECTOR COMPLIANCE sent at 01/21/2023 8:57 PM EDT ----- Lipid panel still above recommended levels but it has improved. Continue with diet and exercise efforts. documented in this encounter [facility] 12-27-2022 History of Present illness Narrative This consult is seen at the kind request of nurse practitioner Cherie Tobar of family medicine, and my final recommendations will be communicated to the requesting health care provider by way of shared electronic medical record. This note is formatted with the impression and plan first and the history and physical to follow. IMPRESSION 62-year-old female with right-sided mixed hearing loss and likely right-sided cholesteatoma. Exam showed deep retraction pocket on the right side with squamous debris. Patient also has slight right upper lip weakness and history of hemifacial spasm. RECOMMENDATION/PLAN I recommend obtaining a CT scan of the temporal bone to further evaluate the extent of her disease. I will refer her to our tilt wall supervisor for further treatment. Chief Complaint Hearing loss in the right ear History of Present Illness Velma Ch is a 62 year old female presents for evaluation of hearing loss in the right ear. Patient stated that her symptoms started 2020 after she had COVID-19 infection. Her hearing was muffled and never improved. Patient denies any ear pain or drainage. She had a hearing test today which showed essentially normal hearing on the left side. On the right side, she has moderate sloping to profound mixed hearing loss. Her tympanometry was normal on the left. She had low volume type B tympanometry on the right. Patient did recently have an MRI of her IAC. Imaging was reviewed and interpreted by me there is no evidence of acoustic neuroma. She did have mastoid effusion on the right side. There was mild mucosal thickening along bilateral maxillary sinus. Of note, patient also complains of hemifacial spasm on the right side since her symptoms started in 2020. PAST MEDICAL HISTORY Diagnosis Date Asthma Cyst (solitary) of breast tailbone PAST SURGICAL HISTORY Procedure Laterality Date SECTION HX 1979 SECTION HX 1982 SECTION HX 1991 SECTION HX 1993 HYSTERECTOMY HX 2006 still has ovaries TONSILLECTOMY & ADENOIDECTOMY <AGE 12 FAMILY HISTORY Problem Relation Age of Onset Diabetes Father Asthma Sister Hypertension Brother Mental illness Son CURRENT OUTPATIENT MEDICATIONS Current Outpatient Medications on File Prior to Visit Medication Sig albuterol HFA (PROVENTIL HFA, VENTOLIN HFA) 90 mcg/actuation inhaler INHALE 2 PUFFS BY MOUTH EVERY 4 TO 6 HOURS niacin 500 mg TbER Take 1 tablet by mouth once daily. OTC PRODUCT Allergy OTC medication MULTIVITAMIN ORAL Take by mouth once daily. omega-3/dha/epa/fish oil (OMEGA-3 ORAL) Take 1,000 mg by mouth once daily. resveratroL 250 mg cap Take 2 capsules by mouth twice daily. ibuprofen (MOTRIN) 200 mg tablet Take 200 mg by mouth every 6 hours as needed. No current facility-administered medications on file prior to visit. ALLERGIES ALLERGIES Allergen Reactions Latex Rash Poison Viviana Extract Intolerance, Itching, Rash, Swelling The remainder of the patient's history and review of systems is on the outpatient questionaire which was reviewed by me and placed in the outpatient chart. PHYSICAL EXAMINATION Appearance: General examination of the patient's external face, head and neck reveals no abnormalities. The patient is not retrognathic The patient's voice is strong and clear and they communicate easily. Ears: Left EAC patent, TM intact, middle ear space appears healthy. Right EAC with cerumen impaction and middle visualize TM. After removal of cerumen, there is a deep retraction pocket in the posterior aspect of the right TM with squamous debris deep in the retraction pocket. Middle ear space appears clear. Nose: External nasal exam was normal. Throat: There were no lesions to visualization or palpation of the lips, cheeks, gums, floor of mouth, tongue, hard and soft palate, tonsillar pillars or posterior pharyngeal wall. Neck: Palpation of the neck revealed no adenopathy, salivary gland masses or asymmetry, or thyroid masses or enlargement. Cranial nerve nerve VII: Right upper lip House-Brackman 2 out of 6. Remainder exam is normal. Preop diagnosis: Cerumen impaction. It cannot be removed without magnification and multiple instrumentations requiring physician skills. Postoperative diagnosis: same CERUMEN REMOVAL: Cerumen was removed under otomicroscopy from the Right ear with instrumentation. Elena Wagner MD Medical Decision Making: Problems: Moderate: New problem with uncertain prognosis and 2+ stable chronic illnesses Data: Independent interpretation of test from other physician/QHCP Risk: Moderate: Moderate risk from testing/treatment Medical Decision Making Level: 4 - Moderate documented in this encounter [facility] 11-30-2022 History of Present illness Narrative Radiology Service Progress Note DATE OF SERVICE: November 30, 2022 TIME: 1:44 PM PATIENT IDENTITY VERIFICATION COMPLETED USING TWO (2) STANDARD IDENTIFIERS: Name and Date of confirmed by patient verbally. FALL SCREENING: Has the patient had 2 falls in the last year or 1 fall with injury or currently using an Ambulatory Assistive Device (Walker, Cane, Wheelchair, Crutches, etc.)? No PATIENT GENDER DATA: Female. status: : No status: NO. PATIENT RELEVANT IMPLANT DATA REVIEWED: Yes ALLERGIES: Reviewed and unchanged CONTRAST ALLERGY: NO. EXAM: MRI - CONTRAST TYPE: GROUP I OR GROUP III RISK FACTORS: N/A CREATININE: Creatinine Date Value Ref Range Status 10/27/2022 0.74 0.58 - 0.96 mg/dL Final 05/04/2022 0.73 0.58 - 0.96 mg/dL Final 11/19/2021 0.68 0.58 - 0.96 mg/dL Final Estimated Glomerular Filtration Rate Date Value Ref Range Status 10/27/2022 92 >=60 mL/min/1.73m Final Comment: Estimated Glomerular Filtration Rate (eGFR) is calculated using the 2020 CKD-EPI creatinine equation. This equation utilizes serum creatinine, sex, and age as parameters. The creatinine assay has traceable calibration to isotope dilution-mass spectrometry. Refer to KDIGO guidelines for clinical interpretation. In patients with unstable renal function, e.g. those with acute kidney injury, the eGFR may not accurately reflect actual GFR. eGFR- Date Value Ref Range Status 11/19/2020 >60 Final P.O.C.T. RESULTS: N/A November 30, 2022 TREATMENT: N/A PERIPHERAL IV DATA: Ambulatory: A peripheral IV was started in the Left antecubital site with a Angio cath: 22 gauge. RADIOLOGY DEPARTMENT: MR; Exam(s) Completed: Head: Routine Brain SIGNATURE: Sujata Mane RDMS, CHRISTOPHER Holcomb ([facility]) PATIENT NAME: Velma Ch DATE: November 30, 2022 TIME: 1:44 PM documented in this encounter [facility] 11-28-2022 Miscellaneous Notes Patient is informed Stacey Nice MA ----- Message from Cherie Tobar APRN.DIRECTOR COMPLIANCE sent at 11/28/2022 2:23 PM EDT ----- Please let the patient know that her mammogram was negative. Recheck in 1 year. documented in this encounter [facility] 11-28-2022 Miscellaneous Notes November 29, 2022 PID: [id number] Velma Ch [address] [place] [address] Dear Ms. Ch, We are pleased to inform you that the results of your recent breast imaging exam on 11/24/2022 are normal. Your mammogram demonstrates that you have dense breast tissue, which could hide abnormalities. Dense breast tissue, in and of itself, is a relatively common condition. Therefore, this information is not provided to cause undue concern; rather, it is to raise your awareness and promote discussion with your health care provider regarding the presence of dense breast tissue in addition to other risk factors. Early detection of cancer is very important. We also understand recommendations regarding breast cancer screening are controversial. Please discuss with your primary care provider which strategy is best for you and whether a mammogram is right for you. Your imaging studies and report will be kept on file at [facility] as part of your permanent medical record and are available for your continuing care. Thank you for allowing us to help in meeting your health care needs. Sincerely, Dr. Becerra Interpreting Radiologist [facility] (Normal over 40) documented in this encounter [facility] 10-30-2022 Miscellaneous Notes My chart message sent. Brissa Moya MA ----- Message from Cherie Tobar APRN.LISA sent at 10/30/2022 2:05 PM EDT ----- All labs were normal. I saw her [employer] message regarding Dr. Subramanian, it is my understanding that Dr. Subramanian is strictly a neurologist for movement disorders such as Parkinson's , MS, etc. Did she call the office to confirm that she could be seen there? documented in this encounter [facility] 10-27-2022 Instructions Cherie Tobar APRN.CNP - 10/27/2022 8:[address] Wagner [facility] Medical Office Building [address] [place] [address] Driving Directions Appointment:[phone] Desk:[phone] documented in this encounter [facility] 10-27-2022 History of Present illness Narrative Images from the original note were not included. CHIEF COMPLAINT: Velma Ch is a 62 year old female who presents for concerns of a facial tic that started about a year ago but has become more frequent in the last month. It is only on the right side of her face and usually around her cheek and eye. Notices it more when she is talking or singing. Right sided facial tic has been more more frequent in the last month Notices it more with talking or singing, eating doesn't trigger it Not painful Having some N/T in the right side of her face, not constant Right ear- can't hear anything out of it The history is provided by the patient. No language translator was used. PAST MEDICAL HISTORY Diagnosis Date Asthma Cyst (solitary) of breast tailbone PAST SURGICAL HISTORY Procedure Laterality Date SECTION HX 1979 SECTION HX 1982 SECTION HX 1991 SECTION HX 1993 HYSTERECTOMY HX 2006 still has ovaries TONSILLECTOMY & ADENOIDECTOMY <AGE 12 Social History Tobacco Use Smoking status: Never Smokeless tobacco: Never Tobacco comments: as a teenager, 6 cigarettes/day for a year Vaping Use Vaping Use: Never used Substance Use Topics Alcohol use: No Drug use: Never ALLERGIES Allergen Reactions Latex Rash Poison Viviana Extract Intolerance, Itching, Rash, Swelling Family History Problem Relation Age of Onset Diabetes Father Asthma Sister Hypertension Brother Mental illness Son Current Outpatient Medications Medication Sig Dispense Refill albuterol HFA (PROVENTIL HFA, VENTOLIN HFA) 90 mcg/actuation inhaler INHALE 2 PUFFS BY MOUTH EVERY 4 TO 6 HOURS 18 g 1 niacin 500 mg TbER Take 1 tablet by mouth once daily. OTC PRODUCT Allergy OTC medication MULTIVITAMIN ORAL Take by mouth once daily. omega-3/dha/epa/fish oil (OMEGA-3 ORAL) Take 1,000 mg by mouth once daily. resveratroL 250 mg cap Take 2 capsules by mouth twice daily. ibuprofen (MOTRIN) 200 mg tablet Take 200 mg by mouth every 6 hours as needed. No current facility-administered medications for this visit. Review of Systems Constitutional: Negative. HENT: Positive for hearing loss (right ear). Negative for ear pain, tinnitus and trouble swallowing. Eyes: Negative for visual disturbance. Respiratory: Negative. Cardiovascular: Negative. Gastrointestinal: Negative. Genitourinary: Negative. Musculoskeletal: Negative. Skin: Negative. Neurological: Positive for numbness. Negative for dizziness, tremors, light-headedness and headaches. BP 126/70 Pulse 84 Temp 98.2 Resp 18 Ht 5' 3.5 (1.61m) Wt 186 lb (84.4kg) SpO2 100% BMI 32.43 kg/(m^2). Physical Exam Vitals and nursing note reviewed. Constitutional: General: She is not in acute distress. Appearance: Normal appearance. She is not ill-appearing. HENT: Head: Mouth/Throat: Mouth: Mucous membranes are moist. Pharynx: Oropharynx is clear. Eyes: Pupils: Pupils are equal, round, and reactive to light. Cardiovascular: Rate and Rhythm: Normal rate and regular rhythm. Heart sounds: Normal heart sounds, S1 normal and S2 normal. Pulmonary: Effort: Pulmonary effort is normal. Breath sounds: Normal breath sounds. Skin: General: Skin is warm and dry. Findings: No erythema or rash. Neurological: Mental Status: She is alert and oriented to person, place, and time. Sensory: Sensation is intact. Motor: Motor function is intact. Psychiatric: Mood and Affect: Mood and affect normal. Speech: Speech normal. Behavior: Behavior is cooperative. Thought Content: Thought content normal. Cognition and Memory: Cognition normal. ASSESSMENT/PLAN: 1. Facial tic - ICD9: 307.20, ICD10: F95.9 (primary diagnosis) - Rule out metabolic cause - Neuro exam intact - BASIC METABOLIC PNL - MAGNESIUM BLD - VITAMIN D 25 HYDROXY 2. Numbness and tingling of right face - ICD9: 782.0, ICD10: R20.0, R20.2 - Neuro exam intact, states the symptom comes and goes - BASIC METABOLIC PNL - MAGNESIUM BLD - TSH BLD - VITAMIN B12 BLOOD 3. Hearing loss of right ear, unspecified hearing loss type - ICD9: 389.9, ICD10: H91.91 - CONSULT TO ENT 4. Screening for depression - ICD9: V79.0, ICD10: Z13.31 - DEPRESSION SCREENING/ASSESSMENT 5. Encounter for screening mammogram for malignant neoplasm of breast - ICD9: V76.12, ICD10: Z12.31 - Set up for mammogram, yearly mammogram recommended - Encouraged monthly BSE - Follow up for annual exam in one year. - DEEP SCREENING New medication(s) prescribed today: None. Counseling completed in adopting health behaviors such as avoiding excessive alcohol use, avoid tobacco use, improve nutrition, and engage in physical activities. Copy of written care plan, clinical summary, treatment plan, new medications, goals, and self management requirements were given to patient. Cherie Tobar APRN.LISA documented in this encounter [facility] 10-23-2022 Miscellaneous Notes ----- Message from Brissa Moya MA sent at 04/24/2022 8:51 AM EDT ----- Remind pt. Time to recheck lipid panel after recommendations of healthier lifestyle. Brissa Moya MA documented in this encounter [facility] 09-29-2022 History of Present illness Narrative CHIEF COMPLAINT: Velma Ch is a 62 year old female who presents for routine follow up. I reviewed past medical, surgical, social, and family histories today and updated chart. Allergies, chronic medications, and supplements were also reviewed. 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 She did not take anything for her symptoms which are better now. Thinks it might have been anxiety and stress related. She never really started her statin. Wants to try diet and lifestyle changes. Started supplements- beet root. Still taking omega 3's and B complex. The history is provided by the patient. No language translator was used. PAST MEDICAL HISTORY Diagnosis Date Asthma Cyst (solitary) of breast tailbone PAST SURGICAL HISTORY Procedure Laterality Date SECTION HX 1979 SECTION HX 1982 SECTION HX 1991 SECTION HX 1993 HYSTERECTOMY HX 2006 still has ovaries TONSILLECTOMY & ADENOIDECTOMY <AGE 12 Social History Tobacco Use Smoking status: Never Smokeless tobacco: Never Tobacco comments: as a teenager, 6 cigarettes/day for a year Vaping Use Vaping Use: Never used Substance Use Topics Alcohol use: No Drug use: Never ALLERGIES Allergen Reactions Latex Rash Poison Viviana Extract Intolerance, Itching, Rash, Swelling Family History Problem Relation Age of Onset Diabetes Father Asthma Sister Hypertension Brother Mental illness Son Current Outpatient Medications Medication Sig Dispense Refill albuterol HFA (PROVENTIL HFA, VENTOLIN HFA) 90 mcg/actuation inhaler INHALE 2 PUFFS BY MOUTH EVERY 4 TO 6 HOURS 18 g 1 niacin 500 mg TbER Take 1 tablet by mouth once daily. OTC PRODUCT Allergy OTC medication MULTIVITAMIN ORAL Take by mouth once daily. omega-3/dha/epa/fish oil (OMEGA-3 ORAL) Take 1,000 mg by mouth once daily. resveratroL 250 mg cap Take 2 capsules by mouth twice daily. ibuprofen (MOTRIN) 200 mg tablet Take 200 mg by mouth every 6 hours as needed. lovastatin (MEVACOR) 20 mg tablet Take 1 tablet by mouth daily with dinner. (Patient not taking: No sig reported) 30 tablet 2 No current facility-administered medications for this visit. Review of Systems Constitutional: Negative for appetite change, chills, diaphoresis, fatigue, fever and unexpected weight change. Eyes: Negative for visual disturbance. Respiratory: Positive for shortness of breath (with strenuous exertion). Negative for cough, chest tightness and wheezing. Cardiovascular: Negative for chest pain, palpitations and leg swelling. Gastrointestinal: Negative for abdominal pain (resolved), blood in stool, nausea and vomiting. Endocrine: Negative. Genitourinary: Negative. Musculoskeletal: Positive for arthralgias, myalgias, neck pain and neck stiffness. Negative for gait problem. Neurological: Positive for numbness (in bottom of feet, not new). Negative for dizziness, light-headedness and headaches. BP 132/82 Pulse 77 Temp 98 Resp 18 Ht 5' 3.5 (1.61m) Wt 191 lb (86.6kg) SpO2 99% BMI 33.30 kg/(m^2). Physical Exam Vitals and nursing note reviewed. Constitutional: Appearance: Normal appearance. HENT: Mouth/Throat: Mouth: Mucous membranes are moist. Eyes: Conjunctiva/sclera: Conjunctivae normal. Pupils: Pupils are equal, round, and reactive to light. Cardiovascular: Rate and Rhythm: Normal rate and regular rhythm. Heart sounds: Normal heart sounds, S1 normal and S2 normal. Pulmonary: Effort: Pulmonary effort is normal. Breath sounds: Normal breath sounds and air entry. Abdominal: General: Bowel sounds are normal. There is no distension. Palpations: Abdomen is soft. Tenderness: There is no abdominal tenderness. Musculoskeletal: Cervical back: Neck supple. Skin: General: Skin is warm and dry. Neurological: Mental Status: She is alert and oriented to person, place, and time. Psychiatric: Mood and Affect: Mood normal. Cognition and Memory: Cognition normal. ASSESSMENT/PLAN: 1. Post-acute sequelae of COVID-19 (PASC) - ICD9: 139.8, ICD10: U09.9 (primary diagnosis) - Stable, follow up if symptoms worsen - Has seen [facility] recovery clinic before 2. SOB (shortness of breath) - ICD9: 786.05, ICD10: R06.02 - With strenuous exertion 3. Decreased functional mobility and endurance - ICD9: 780.99, ICD10: Z74.09 - Post Covid 4. Anxiety - ICD9: 300.00, ICD10: F41.9 - Doing well, continue to monitor 5. Hyperlipidemia, mixed - ICD9: 272.2, ICD10: E78.2 - Patient never started her statin. She wants to continue diet and lifestyle changes with supplements and exercise. - Encouraged following a low fat, low cholesterol diet. - Discussed the benefits of regular aerobic exercise and weight loss. - Check fasting lipid panel and ALT in 12 weeks. - Follow up in 12 weeks. - Encouraged following a low carbohydrate, healthy oil intake diet. New medication(s) prescribed today: None. Counseling completed in adopting health behaviors such as avoiding excessive alcohol use, avoid tobacco use, improve nutrition, and engage in physical activities. Copy of written care plan, clinical summary, treatment plan, new medications, goals, and self management requirements were given to patient. Cherie Tobar APRN.CNP documented in this encounter [facility] 09-21-2022 Miscellaneous Notes Made medical record release forms to fax over. Stacey Nice MA Please call the following facility to see if they will release her XR and lab results to us. Thanks! documented in this encounter [facility] 09-12-2022 History of Present illness Narrative [facility] Recovery [facility] Questionnaire Series Follow-up Follow-up: 9 months Call attempt: 1st Attempt Call status: Complete [facility] 3, 6, and 9 month Follow Up Assessment: Date of COVID positive test: 07/26/2021 Date of first re[facility] appointment: 12/06/2021 Symptoms since entering [facility] Fatigue: 8 Fever: 5 Same Cough: 7 Brain fo Dizziness: 7 Chest pain: 5 Same Palpitations: Never had Shortness of breath: 6 Exercise intolerance: 7 Loss of smell or taste: 7 Sleep disturbance: 7 Depression: 5 Same Anxiety: 5 Same GI disturbance (diarrhea, nausea, abdominal pain): 5 Same Overall Do you feel since entering [facility]: 5 Same New diagnoses since COVID was diagnosed? No Have you returned to work at the same level as before? No Have you returned to school at the same level as before? 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 Same as last call Patient Entered Questionnaires COVID Symptoms 06/11/2022 Onset: 07/26/2021 PROMIS/NeuroQoL Score Percentiles Physical Health 04/24/2022 01/17/2022 12/04/2021 Fatigue Percentile 31 12 31 Sleep Percentile - - 18* Mental Health 12/04/2021 NeuroQol Cognitive Function Percentile 14 PROMIS Global Health Scale 09/03/2022 06/05/2022 05/10/2022 Physical Health Percentile 31 15 15 Mental Health Percentile 26* 26* 26* Percentiles provide an indication of how a patient s score ranks in relation to the [place] general population. > 31st percentile is within normal limits or better * < 31st percentile is at least SD worse than population, which may be clinically relevant < 16th percentile is at least 1 SD worse than population and warrants attention PHQ-9 09/03/2022 05/19/2022 03/07/2022 PHQ-2 Score 0 1 2 PHQ-9 Score - - - PARISH - 2/7 SCORES 09/03/2022 06/05/2022 03/07/2022 PARISH-2 Score 2 3 1 PARISH-7 Score - 7 - IES-6 SCORE 06/11/2022 12/04/2021 IES-6 Score 1.5 0.67 documented in this encounter [facility] 07-17-2022 Miscellaneous Notes patient electronically requesting refills as follows: Last seen 05/19/22 . Last refill 08/04/21 . Requested Prescriptions Pending Prescriptions Disp Refills albuterol HFA (PROVENTIL HFA, VENTOLIN HFA) 90 mcg/actuation inhaler 18 g 1 Sig: INHALE 2 PUFFS BY MOUTH EVERY 4 TO 6 HOURS Please review and advise. Janeen Gerard MA documented in this encounter [facility] 06-14-2022 History of Present illness Narrative PULM FUNCTION SMARTBLOCK: Provider: Haley Posada MD Assisting Tech: Vaibhav Beasley RRT Exhaled Nitric Oxide: 1 documented in this encounter [facility] 06-14-2022 Procedure note Associated Ord er(s): NITRIC OXIDE, EXHALED RESPIRATORY THERAPY ORAL EXHALED NITRIC OXIDE SERVICE DATE: 06/14/2022 SERVICE TIME: 9:28 AM Oral Exhaled Nitric Oxide measurement: 10.0 (ppb) Normal: Adult 5-20 ppb, pediatric (<12 years) 5-15 ppb High Normal / Increased: Adult 20-35 ppb, pediatric (<12 years) 15-25 ppb Moderately raised exhaled Nitric Oxide may indicate underlying inflammation, but note that: Cold and influenza can raise exhaled Nitric Oxide and some patients have higher baseline exhaled Nitric Oxide levels than others. High: Adult >35 ppb, pediatric (<12 years) >25 ppb Indicative of ongoing eosinophilic inflammation. Symptomatic patient likely to respond to steroids. Possible causes (if already on steroids): Poor compliance, recent allergen exposure, steroid dose inadequate, and steroid resistance. Note that not all patients with high exhaled nitric oxide levels display symptoms. Oral Exhaled Nitric Oxide measurement (Previous Encounters) Test Date Oral Exhaled Nitric Oxide (ppb) 06/14/2022 10.0 NAME: Vaibhav Beasley RRT PATIENT NAME: Velma Ch DATE: June 14, 2022 TIME: 9:28 AM documented in this encounter [facility] 06-14-2022 History of Present illness Narrative Images from the original note were not included. [facility] OFFICE VISIT CONSULT 06/14/2022 Patient Name: Velma Ch PRIMARY CARE PHYSICIAN: Cherie Tobar APRN.DIRECTOR COMPLIANCE REASON FOR CONSULT: asthma-post covid syndrome REFERRING PHYSICIAN: Mehnaz Tomas APR* My final recommendations will be communicated to the requesting health care provider by way of the shared medical record for internal providers or by letter via [place] mail for external providers. CHIEF COMPLAINT: asthma-post covid syndrome HISTORY OF PRESENT ILLNESS: Velma Ch is a 62 year old female, Ht 161.3 cm (5' 3.5) BMI 32.9 kg/m2 with a PMH significant for mild intermittent asthma, diagnosed with COVID on July 2021 (did not require hospital admission), referred to our hospital for post-COVID syndrome. The patient was complaining about persistent shortness of breath following COVID. Her asthma symptoms were more pronounced after the COVID. She has been doing more exercises and eating healthy and following with functional medicine. Overall she is feeling better and her shortness of breath is getting better She does use albuterol as needed less than twice a week Her symptoms are mild, intermittent, occur mainly on exertion and relieved by rest and inhalers No snoring no daytime sleepiness No recent hospitalizations, ER visits or steroids use. No complaints today. CT scan chest November 2021 normal PFTs November 2021 with normal [facility]MRC Dyspnea Scale: 0. Not troubled by breathlessness except on strenuous exercise Short of breath when hurrying or walking up a slight hill Walks slower than contemporaries on the level because of breathlessness, or has to stop for breath when walking at own pace Stops for breath after about 100 m or after a few minutes on the level Too breathless to leave the house, or breathless when dressing or undressing Environmental/ Occupational Exposure History: Pets: No birds Asbestos: No significant exposure Silica: No significant exposure Luce: No significant exposure Mold: No significant exposure Hot tub: No significant exposure Fumes: No significant exposure Metal dust: No significant exposure Beryllium: No significant exposure Dust: No significant exposure Medications: No relevant exposure for interstitial lung diseases PAST MEDICAL HISTORY Diagnosis Date Asthma Cyst (solitary) of breast tailbone PAST SURGICAL HISTORY Procedure Laterality Date SECTION HX 1979 SECTION HX 1982 SECTION HX 1991 SECTION HX 1993 HYSTERECTOMY HX 2006 still has ovaries TONSILLECTOMY & ADENOIDECTOMY <AGE 12 FAMILY HISTORY Problem Relation Age of Onset Diabetes Father Asthma Sister Hypertension Brother Mental illness Son no pertinent family history Social History Tobacco Use Smoking status: Never Smokeless tobacco: Never Tobacco comments: as a teenager, 6 cigarettes/day for a year Vaping Use Vaping Use: Never used Substance Use Topics Alcohol use: No Drug use: No ALLERGIES ALLERGIES Allergen Reactions Latex Rash Poison Viviana Extract Intolerance, Itching, Rash, Swelling CURRENT OUTPATIENT MEDICATIONS niacin 500 mg TbER Take 1 tablet by mouth once daily. OTC PRODUCT Allergy OTC medication MULTIVITAMIN ORAL Take by mouth once daily. omega-3/dha/epa/fish oil (OMEGA-3 ORAL) Take 1,000 mg by mouth once daily. resveratroL 250 mg cap Take 2 capsules by mouth twice daily. Magnesium Glycinate 120mg (Pure Encapsulations) Take 4 capsules 30 to 60 minutes prior to sleep albuterol HFA (PROVENTIL HFA, VENTOLIN HFA) 90 mcg/actuation inhaler INHALE 2 PUFFS BY MOUTH EVERY 4 TO 6 HOURS ibuprofen (MOTRIN) 200 mg tablet Take 200 mg by mouth every 6 hours as needed. lovastatin (MEVACOR) 20 mg tablet Take 1 tablet by mouth daily with dinner. (Patient not taking: No sig reported) [id number] (PHYTOMULTI) 3-3-200 mg tab Take 1 tablet by mouth twice daily. REVIEW OF SYSTEMS Review of Systems Constitutional: Negative for chills, fever and weight loss. Respiratory: Positive for shortness of breath. Negative for cough, hemoptysis, sputum production and wheezing. Cardiovascular: Negative for chest pain and leg swelling. The remainder of review of systems was negative. PHYSICAL EXAM BP 158/88 Pulse 69 Ht 5' 3.504 (1.61m) Wt 188 lb 11.4 oz (85.6kg) SpO2 98% BMI 32.90 kg/(m^2). General appearance: Well appearing, alert, in no acute distress, well-hydrated, well nourished. Eyes: PERRLA Nose/Sinuses: Nares normal. Septum midline. Mucosa normal. No drainage or sinus tenderness. Oropharynx: Lips, mucosa, and tongue normal, teeth and gums normal, oropharynx normal Neck: no palpable masses Lungs: Lungs clear to auscultation. No wheezing, rhonchi, rales Heart: RRR without murmur, gallop, or rubs. No ectopy , normal peripheral pulses, no peripheral edema Abdomen: Abdomen soft, non-tender. Bowel sounds normal. No masses, organomegaly Extremities: Normal, Warm, No cyanosis, no clubbing, No edema, and Nontender Neuro: no focal weakness Psychiatry: Alert, Oriented X 3 DATA Diagnostic tests reviewed for today's visit, including films and specimens, personally reviewed by me: Most recent labs and imaging results. No results found for this or any previous visit (from the past 8760 hour(s)). Recent Results (from the past 42842 hour(s)) ECHO Collection Time: 12/29/21 8:19 AM Impression CONCLUSIONS: - Exam indication: Shortness of Breath - The left ventricle is normal in size. Left ventricular systolic function is normal. EF = 58 5% (2D biplane) Definity contrast used for endocardial border detection. Grade I left ventricular diastolic dysfunction. - The right ventricle is normal in size. Right ventricular systolic function is normal. - There are no significant valvular abnormalities. - The patient has not had a prior CC echocardiographic exam for comparison. * * * Final * * * XR CHEST 2V FRONTAL/LAT Result Date: 12/19/2021 IMPRESSION: No acute radiographic abnormality. Property Consultant: DAPHNIE Transcribe Date/Time: Dec 19 2021 2:01P Dictated by : ALBA KEE MD This examination was interpreted and the report reviewed and electronically signed by: ALBA KEE MD on Dec 19 2021 2:02PM EST No results found. ASSESSMENT/PLAN ASSESSMENT/PLAN: 1. Post-acute sequelae of COVID-19 (PASC) - ICD9: 139.8, ICD10: U09.9 (primary diagnosis) Continue exercising Improving Albuterol as needed 2. 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: Provider: Haley Posada MD Assisting Tech: Vaibhav Beasley RRT Spirometry: 1 documented in this encounter [facility] 06-06-2022 History of Present illness Narrative [facility] Questionnaire Series Follow-up Follow-up: 6 months Call attempt: 1st Attempt Call status: Complete [facility] re[facility] 3, 6, and 9 month Follow Up Assessment: Date of COVID positive test: 07/26/2021 Date of first reCOVer appointment: 12/06/2021 Symptoms since entering [facility] Fatigue: 7 Fever: 5 Same Cough: 7 Brain fo Same Dizziness: 7 Chest pain: 5 Same Palpitations: Never had Shortness of breath: 6 Exercise intolerance: 7 Loss of smell or taste: 5 Same Sleep disturbance: 7 Depression: 5 Same Anxiety: 5 Same GI disturbance (diarrhea, nausea, abdominal pain): 7 Overall Do you feel since entering [facility]: 5 Same New diagnoses since COVID was diagnosed? No Have you returned to work at the same level as before? No Have you returned to school at the same level as before? N / A Referrals made: Pulmonology, Rheumatology, Functional Medicine, and Physical Therapy Referrals seen: Pulmonology, Rheumatology, Functional Medicine, and Physical Therapy What did you find most helpful in your journey to recovery? 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 Have shared medical groups with individuals similar age and assistance with billing issues Patient Entered Questionnaires COVID Symptoms 12/04/2021 Onset: 07/24/2021 PROMIS/NeuroQoL Score Percentiles Physical Health 04/24/2022 01/17/2022 12/04/2021 Fatigue Percentile 31 12 31 Sleep Percentile - - 18* Mental Health 12/04/2021 NeuroQol Cognitive Function Percentile 14 PROMIS Global Health Scale 06/05/2022 05/10/2022 04/24/2022 Physical Health Percentile 15 15 15 Mental Health Percentile 26* 26* 34 Percentiles provide an indication of how a patient s score ranks in relation to the [place] general population. > 31st percentile is within normal limits or better * < 31st percentile is at least SD worse than population, which may be clinically relevant < 16th percentile is at least 1 SD worse than population and warrants attention PHQ-9 05/19/2022 03/07/2022 01/09/2022 PHQ-2 Score 1 2 0 PHQ-9 Score - - 5 PARISH - 2/7 SCORES 06/05/2022 03/07/2022 12/04/2021 PARISH-2 Score 3 1 2 PARISH-7 Score 7 - - IES-6 SCORE 12/04/2021 IES-6 Score 0.67 documented in this encounter [facility] 05-19-2022 History of Present illness Narrative Images from the original note were not included. CHIEF COMPLAINT: Velma hC is a 62 year old female who presents for F/U 3 Month. I reviewed past medical, surgical, social, and family histories today and updated chart. Allergies, chronic medications, and supplements were also reviewed. Has been following with Rheumatology and has had multiple tests ran Inflammation markers are going down Was told it may be Sjogren's syndrome Trying to walk more but has to take a break on 3rd day because of having pain all over Pain will sometimes affect her shoulders and other times it's her hip and knees. She also states she almost can't tolerate having her BP checked because the cuff is so painful She still has random episodes of twitching on the right side of her face. Will only last 15-20 seconds. States it makes her feel like her face is drooping which makes her scared because she states she had 2 TIAs while with one of her children. Needs Hep B series because she is not immune The history is provided by the patient. No language translator was used. PAST MEDICAL HISTORY Diagnosis Date Asthma Cyst (solitary) of breast tailbone PAST SURGICAL HISTORY Procedure Laterality Date SECTION HX 1979 SECTION HX 1982 SECTION HX 1991 SECTION HX 1993 HYSTERECTOMY HX 2007 still has ovaries TONSILLECTOMY & ADENOIDECTOMY <AGE 12 Social History Tobacco Use Smoking status: Never Smokeless tobacco: Never Tobacco comments: as a teenager, 6 cigarettes/day for a year Vaping Use Vaping Use: Never used Substance Use Topics Alcohol use: No Drug use: No ALLERGIES Allergen Reactions Latex Rash Poison Viviana Extract Intolerance, Itching, Rash, Swelling Family History Problem Relation Age of Onset Diabetes Father Asthma Sister Hypertension Brother Mental illness Son Current Outpatient Medications Medication Sig Dispense Refill OTC PRODUCT Allergy OTC medication MULTIVITAMIN ORAL Take by mouth once daily. omega-3/dha/epa/fish oil (OMEGA-3 ORAL) Take 1,000 mg by mouth once daily. resveratroL 250 mg cap Take 2 capsules by mouth twice daily. [id number]-hra-myeta-[id number] (PHYTOMULTI) 3-3-200 mg tab Take 1 tablet by mouth twice daily. 1 tablet albuterol HFA (PROVENTIL HFA, VENTOLIN HFA) 90 mcg/actuation inhaler INHALE 2 PUFFS BY MOUTH EVERY 4 TO 6 HOURS 18 g 1 ibuprofen (MOTRIN) 200 mg tablet Take 200 mg by mouth every 6 hours as needed. lovastatin (MEVACOR) 20 mg tablet Take 1 tablet by mouth daily with dinner. (Patient not taking: No sig reported) 30 tablet 2 Magnesium Glycinate 120mg (Pure Encapsulations) Take 4 capsules 30 to 60 minutes prior to sleep (Patient not taking: Reported on 05/19/2022) No current facility-administered medications for this visit. Review of Systems Constitutional: Positive for fatigue. Negative for appetite change, chills, diaphoresis, fever and unexpected weight change. Eyes: Negative for visual disturbance. Respiratory: Negative. Cardiovascular: Negative. Gastrointestinal: Negative. Genitourinary: Negative. Musculoskeletal: Positive for arthralgias, myalgias, neck pain and neck stiffness. Skin: Negative. Neurological: Positive for numbness (in bottom of her feet). Negative for dizziness, light-headedness and headaches. Twitching and drooping of the right side her face- lasts only seconds. Feels tingly. Brain fog Hematological: Negative. Psychiatric/Behavioral: Positive for dysphoric mood. Negative for sleep disturbance. The patient is nervous/anxious. BP 132/82 Pulse 71 Temp 98.1 Resp 18 Ht 5' 5 (1.65m) Wt 187 lb (84.8kg) SpO2 100% BMI 31.12 kg/(m^2). Physical Exam Vitals reviewed. Constitutional: Appearance: Normal appearance. She is overweight. HENT: Head: Normocephalic. Mouth/Throat: Mouth: Mucous membranes are moist. Pharynx: Oropharynx is clear. Eyes: Conjunctiva/sclera: Conjunctivae normal. Pupils: Pupils are equal, round, and reactive to light. Cardiovascular: Rate and Rhythm: Normal rate and regular rhythm. Heart sounds: Normal heart sounds, S1 normal and S2 normal. No murmur heard. Pulmonary: Effort: Pulmonary effort is normal. Breath sounds: Normal breath sounds. Chest: Chest wall: Tenderness present. Musculoskeletal: Cervical back: Neck supple. Tenderness present. Thoracic back: Tenderness present. Back: Skin: General: Skin is warm and dry. Findings: No rash. Neurological: Mental Status: She is alert and oriented to person, place, and time. Psychiatric: Mood and Affect: Mood and affect normal. Speech: Speech is rapid and pressured. Behavior: Behavior is cooperative. Cognition and Memory: Cognition normal. No visits with results within 1 Day(s) from this visit. Latest known visit with results is: Appointment on 05/04/2022 Component Date Value Ref Range Status CRP 05/04/2022 1.4 (A) <0.9 mg/dL Final [facility] 05/04/[facility]22 30 0 - 30 mm/hr Final Protein, Total 05/04/2022 7.7 6.3 - 8.0 g/dL Final Albumin 05/04/2022 4.3 3.9 - 4.9 g/dL Final Calcium, Total 05/04/2022 9.2 8.5 - 10.2 mg/dL Final Bilirubin, Total 05/04/2022 0.5 0.2 - 1.3 mg/dL Final Alkaline Phosphatase 05/04/2022 80 34 - 123 U/L Final AST 05/04/2022 26 13 - 35 U/L Final ALT 05/04/2022 25 7 - 38 U/L Final Glucose 05/04/2022 115 (A) 74 - 99 mg/dL Final The [place] Diabetes Association (ADA) provides guidance for cutoff values for fasting glucose and random glucose. The ADA defines fasting as no caloric intake for at least 8 hours. Fasting plasma glucose results between 100 to 125 mg/dL indicate increased risk for diabetes (prediabetes). Fasting plasma glucose results greater than or equal to 126 mg/dL meet the criteria for diagnosis of diabetes. In the absence of unequivocal hyperglycemia, results should be confirmed by repeat testing. In a patient with classic symptoms of hyperglycemia or hyperglycemic crisis, random plasma glucose results greater than or equal to 200 mg/dL meet the criteria for diagnosis of diabetes. Reference: Standards of Medical Care in Diabetes 2016, [place] Diabetes Association. Diabetes Care. 2016.39(Suppl 1). BUN 05/04/2022 15 7 - 21 mg/dL Final Creatinine 05/04/2022 0.73 0.58 - 0.96 mg/dL Final Sodium 05/04/2022 137 136 - 144 mmol/L Final Potassium 05/04/2022 4.1 3.7 - 5.1 mmol/L Final Chloride 05/04/2022 100 97 - 105 mmol/L Final CO2 05/04/2022 28 22 - 30 mmol/L Final Anion Gap 05/04/2022 9 9 - 18 mmol/L Final Estimated Glomerular Filtration Ra* 05/04/2022 93 >=60 mL/min/1.73m Final Estimated Glomerular Filtration Rate (eGFR) is calculated using the 2020 CKD-EPI creatinine equation. This equation utilizes serum creatinine, sex, and age as parameters. The creatinine assay has traceable calibration to isotope dilution-mass spectrometry. Refer to KDIGO guidelines for clinical interpretation. In patients with unstable renal function, e.g. those with acute kidney injury, the eGFR may not accurately reflect actual GFR. WBC 05/04/2022 6.97 3.70 - 11.00 k/uL Final RBC 05/04/2022 4.85 3.90 - 5.20 m/uL Final Hemoglobin 05/04/2022 14.5 11.5 - 15.5 g/dL Final Hematocrit 05/04/2022 42.9 36.0 - 46.0 % Final MCV 05/04/2022 88.5 80.0 - 100.0 fL Final MCH 05/04/2022 29.9 26.0 - 34.0 pg Final MCHC 05/04/2022 33.8 30.5 - 36.0 g/dL Final RDW-CV 05/04/2022 12.7 11.5 - 15.0 % Final Platelet Count 05/04/2022 204 150 - 400 k/uL Final MPV 05/04/2022 11.7 9.0 - 12.7 fL Final Neut% 05/04/2022 55.3 % Final Abs Neut 05/04/2022 3.85 1.45 - 7.50 k/uL Final Lymph% 05/04/2022 37.2 % Final Abs Lymph 05/04/2022 2.59 1.00 - 4.00 k/uL Final [place]% 05/04/2022 4.7 % Final Abs [place] 05/04/2022 0.33 <0.87 k/uL Final Eosin% 05/04/2022 2.4 % Final Abs Eosin 05/04/2022 0.17 <0.46 k/uL Final Baso% 05/04/2022 0.4 % Final Abs Baso 05/04/2022 0.03 <0.11 k/uL Final Diff Type 05/04/2022 Auto Final HIV 12 Combo (Ag/Ab) 05/04/2022 Nonreactive Nonreactive Final [place] Rev. Code 3701.243(E): This information has been disclosed to you from confidential records protected from disclosure by state law. You shall make no further disclosure of this information without the specific, written, and informed release of the individual to whom it pertains or as otherwise permitted by state law. A general authorization for the release of medical or other information is not sufficient for the purpose of the release of HIV test results or diagnoses. Test methodology for this assay has moved from [employer]ipheralsaur XP to [employer] irina 8000 effective April 04, 2022. Please note there may be a change in the reporting units and/or reference range. HIV-1/2 AB (Confirmatory) 05/04/2022 Final Test not indicated. HIV Interpretation 05/04/2022 Final No evidence of HIV-1 or HIV-2 infection. Should recent infection be suspected, repeat testing may be considered 2-3 weeks after this draw. HBsAg 05/04/2022 Negative Negative Final Hep B Surface Ab, Qual 05/04/2022 Negative Negative Final No evidence of antibodies to Hepatitis B surface antigen. Hepatitis B Core Ab, Total 05/04/2022 Negative Negative Final No evidence of current or past infection with Hepatitis B virus. Should recent infection be suspected, repeat testing may be considered 3-4 weeks after this draw. Hep C Antibody IA 05/04/2022 Negative Negative Final IgG Subclass 4 05/04/2022 31.8 3.9 - 86.4 mg/dL Final IgG 05/04/2022 1,417 700 - 1,600 mg/dL Final IgA 05/04/2022 329 70 - 400 mg/dL Final IgM 05/04/2022 76 40 - 230 mg/dL Final IgE 05/04/2022 328.0 (A) <114.0 kU/l Final CK 05/04/2022 85 42 - 196 U/L Final LD 05/04/2022 163 135 - 214 U/L Final Protein, Urine Random 05/04/2022 9 0 - 20 mg/dL Final Creatinine, Ur Random (UCRR) 05/04/2022 67.0 42.2 - 237.9 mg/dL Final Protein/Creat Ratio 05/04/2022 0.13 <0.15 mg/mg Final Adult Proteinuria Categories: <0.15 mg/mg is considered normal to mildly increased 0.15 - 0.50 mg/mg is considered moderately increased >0.50 mg/mg is considered severely increased KDIGO. (2013). KDIGO 2012 Clinical Practice Guideline for the Evaluation and Management of Chronic Kidney Disease. Official Journal of the International Society of Nephrology, 3(1), 1-150. Color 05/04/2022 Yellow Yellow Final Clarity 05/04/2022 Clear Clear Final Glucose, Urine 05/04/2022 Negative Negative Final Bilirubin, Urine 05/04/2022 Negative Negative Final Ketones, Urine 05/04/2022 Negative Negative Final Specific [place], Ur 05/04/2022 1.015 1.005 - 1.030 Final Hemoglobin/Blood,Ur 05/04/2022 Negative Negative Final pH, Urine 05/04/2022 7.0 5.0 - 8.0 Final Protein, Urine 05/04/2022 Negative Negative Final Urobilinogen 05/04/2022 0.2 EU/dL 0.2-1.0 EU/dL Final Nitrites 05/04/2022 Negative Negative Final Leuk Esterase 05/04/2022 2+ (A) Negative Final WBC, Urine 05/04/2022 6-10 /HPF (A) 0-5 /HPF Final RBC, Urine 05/04/2022 0-3 /HPF 0-3 /HPF Final Squamous Epithelial Cells 05/04/2022 Few /HPF Final [place] Pocket Free, Serum 05/04/2022 25.4 (A) 3.3 - 19.4 mg/L Final Rarely, increased serum free light chains levels may not be detected or accurately quantified due to prozone phenomenon or in high viscosity samples using this immunoturbidimetric assay. Correlation with other laboratory results and clinical findings is recommended. The [place] Pocket Free Light Chain was performed using the Binding Site Optilite immunoturbidimetric method. Result obtained with different assay methods or kits cannot be used interchangeably. Lambda Free, Serum 05/04/2022 17.2 5.7 - 26.3 mg/L Final Rarely, increased serum free light chains levels may not be detected or accurately quantified due to prozone phenomenon or in high viscosity samples using this immunoturbidimetric assay. Correlation with other laboratory results and clinical findings is recommended. The Lambda Free Light Chain was performed using the Binding Site Optilite immunoturbidimetric method. Result obtained with different assay methods or kits cannot be used interchangeably. K/L Ratio, Serum 05/04/2022 1.48 0.26 - 1.65 Final C4 Complement 05/04/2022 41 13 - 46 mg/dL Final C3 Complement 05/04/2022 163 86 - 166 mg/dL Final SSA Antibody IgG 05/04/2022 <0.2 <1.0 AI Final SSB Antibody 05/04/2022 <0.2 <1.0 AI Final SSA Antibody Qual 05/04/2022 Negative Negative Final Anti-SSA (anti-Ro) antibody is used as an aid in diagnosis of a variety of systemic autoimmune diseases, Sjogren's syndrome among others. Clinical correlation is required. Test Methodology: Multiplex flow immunoassay. SSB Antibody Qual 05/04/2022 Negative Negative Final Anti-SSB (anti-La) antibody is used as an aid in diagnosis of a variety of systemic autoimmune diseases, especially for Sjogren's syndrome and systemic lupus erythematosus. Clinical correlation is required. Test Methodology: Multiplex flow immunoassay. OMEGA 05/04/2022 Negative Negative Final Anti-nuclear antibody test is used as an aid in diagnosis of systemic autoimmune diseases. Where positive and clinically warranted, follow-up using disease-specific testing is recommended. Low positive titers are not uncommon with advanced age, certain chronic infections, and malignancies among others. Test methodology: Indirect fluorescence immunoassay (IFA) using HEp-2 cells. Rheumatoid Factor 05/04/2022 10 <16 IU/mL Final MPA Result 05/04/2022 No M protein is identified. No M protein is identified. Final Staff Review (MPA) 05/04/[address] Clay Benito MD Final Protein, Total 05/04/2022 7.2 6.3 - 8.0 g/dL Final Albumin for SPE 05/04/2022 3.40 3.37 - 4.23 g/dL Final Alpha 1 Globulin 05/04/2022 0.19 0.18 - 0.31 g/dL Final Alpha 2 Globulin 05/04/2022 0.86 0.52 - 0.97 g/dL Final Beta Globulin 05/04/2022 1.30 0.84 - 1.36 g/dL Final Gamma Globulin 05/04/2022 1.46 (A) 0.70 - 1.44 g/dL Final Interpretation (Prot Electro) 05/04/2022 No definitive M protein is identified on protein electrophoresis. No definitive M protein is identified on protein electrophoresis. Final M-Protein Location 05/04/2022 Final Not Applicable. M-Protein Concentration 05/04/2022 0.00 <=0.00 g/dL Final SPE Staff Review 05/04/[address] Clay Benito MD Final Protein, Urine Random 05/04/2022 10 0 - 20 mg/dL Final Albumin %, Urine (Prot Electro) 05/04/2022 44.38 % Final Alpha 1 Globulin %, Urine 05/04/2022 3.95 % Final Alpha 2 Globulin %, Urine 05/04/2022 15.68 % Final Beta Globulin %, Urine 05/04/2022 20.22 % Final Gamma Globulin %, Urine 05/04/2022 15.78 % Final Interpretation (Urine Electro) 05/04/2022 No definitive M protein is identified on protein electrophoresis. No definitive M protein is identified on protein electrophoresis. Final Interpretation Comment for Protein* 05/04/2022 Final Value:The absence of M-protein on urine protein electrophoresis does not entirely exclude the presence of monoclonal gammopathy in urine. Monoclonal protein analysis (immunofixation), a more definitive test to exclude monoclonal gammopathy, may be requested on this specimen if clinically indicated. Staff Review (Urine Electro) 05/04/[address] Clay Benito MD Final TB Nil 05/04/2022 0.04 <=8.00 IU/mL Final TB Gamma Interpretation 05/04/2022 Final Value:Infection with M. tuberculosis complex is unlikely. If latent tuberculosis infection is highly suspected, a negative result does not rule out the infection. Specimens from immunocompromised patients and those <5 years of age may show false negative results. In case of a contact investigation, please repeat 8-12 weeks after a known exposure. TB1 Ag minus Nil 05/04/2022 <0.00 <0.35 IU/mL Final TB2 Ag minus Nil 05/04/2022 <0.00 <0.35 IU/mL Final TB Result 05/04/2022 Negative Final Mitogen minus Nil 05/04/2022 7.46 >=0.50 IU/mL Final ASSESSMENT/PLAN: 1. Post-acute sequelae of COVID-19 (PASC) - ICD9: 139.8, ICD10: U09.9 (primary diagnosis) - Under the care of Rheumatology and COVID recovery clinic - Continue with follow ups 2. Complaints of total body pain - ICD9: 780.96, ICD10: R52 - See above, possible fibromyalgia? - Consider pain management 3. Screening for depression - ICD9: V79.0, ICD10: Z13.31 - Low risk - DEPRESSION SCREENING/ASSESSMENT 4. Encounter for immunization - ICD9: V03.89, ICD10: Z23 - INFLUENZA VACCINE QUADRIVALENT 6 MO - 64 YRS IM - IMADM PRQ ID SUBQ/IM NJXS 1 VACC New medication(s) prescribed today: None. Counseling completed in adopting health behaviors such as avoiding excessive alcohol use, avoid tobacco use, improve nutrition, and engage in physical activities. Copy of written care plan, clinical summary, treatment plan, new medications, goals, and self management requirements were given to patient. Cherie Tobar APRN.CNP documented in this encounter [facility] 04-28-2022 Instructions Anali Quinn MD - 04/28/2022 3:02 PM EDT Labs anytime Follow up 1-3 weeks, video ok, to go over blood work documented in this encounter [facility] 04-28-2022 History of Present illness Narrative Images from the original note were not included. Rheumatology CONSULTATION Date of Service: 04/28/2022 Patient: Velma Ch Medical Record: [id number] Primary Care Physician: Cherie Tobar APRN.CNP Last Rheumatology visit: None at [facility] Referring Provider: Mehnaz Tomas [id number] [facility] [id number] Chief Complaint: Patient presents with: New Patient Back Pain Velma Ch is here today at request of Dr. Tomas specifically for consultation of my opinion in regards to the chief complaint listed above. Correspondence will be shared today via the [facility] electronic health record or through regular mail, where applicable. HISTORY OF PRESENT ILLNESS Velma Ch is a 62 year old / female with a history of anxiety, parotitis who presents to rheumatology clinic for evaluation of arthralgia in the setting of post-COVID syndrome. Chart review reveals that she was diagnosed with COVID in July 2021 and has had multiple symptoms since that time including shortness of breath, brain fog, arthralgias. She saw orthopedics 03/17/2022 for knee pain with plans for MRI to evaluate left knee effusion and suspected meniscal tear. Today she presents to clinic alone. She states that she has had long COVID symptoms since July including all body pain. She has good days and bad days but still pushes herself and is able to walk 2 miles most days. She notes it is hard to go up steps due to the pain all over her body but she is still able to do it. She has fatigue, morning stiffness in her hips and legs, nausea, numbness on the bottom of her feet, and episodes of vertigo as well as temperature intolerance. She gets episodes of nausea which resolved with eating crackers. She has no pain in her hands, feet, ankles, wrists, elbows, knees. She has no fevers, headaches, history of uveitis, dry eye, dry mouth, sores in her nose or mouth, chest pain, vomiting, abdominal pain, constipation, diarrhea, blood in her urine or stool, rashes, Raynaud's. She has had 6 pregnancies, 4 children, 2 miscarriages 1 at 10 weeks 1 at 4 months, and no history of blood clots. She states she has clotting in her blood with an elevated D-dimer. Interestingly she does have a history of parotitis with history of biopsy that was nondiagnostic of her left parotid gland. She has been stable since 2020 and her last imaging was around that time as well. Pain Evaluation Pain Evaluation 11/25/2021 12/28/2021 01/20/2022 03/17/2022 04/28/2022 Pain Score 0 0 0 6 5 Location - - - Knee-Left - Location Comment - - - - - Description - - - Throbbing Aching Duration (#) - - - 2 - Duration (Timeframe) - - - Years Months Frequency - - - Continuous Continuous Intervention - - - Declined Declined PATIENT-ENTERED DATA PROMIS Assessments PROMIS Assessments 02/13/2022 03/07/2022 04/24/2022 Physical Health Percentile 15 % 22 % 15 % Mental Health Percentile 26 % 26 % 34 % Pain Score 3 3 3 Pain Interference Percentile - - 18 % Fatigue Percentile - - 31 % Physical Function Percentile - - 27 % RAPID 3 [place] Activities of Daily Living 04/24/2022 10:48 AM Dress self? Without ANY difficulty Get in and out of bed? Without ANY difficulty Walk outdoors? Without ANY difficulty Wash and dry body? Without ANY difficulty Get in and out of car? With SOME difficulty RAPID 3 Disease Activity Weighed Score Levels: 0 - 1: Near Remission 1.3 - 2.0: Low Severity 2.3 - 4.0: Moderate Severity 4.3 - 10.0: High Severity RAPID-3 Weighed Score 04/24/2022 RAPID 3 Weighed Score 3.56 (Moderate Severity (MS)) REVIEW OF SYSTEMS Complete ROS (HEENT, respiratory, cardiology, GI, , skin, psych, hematology, endocrine, neuro, musculoskeletal) negativee except as noted in HPI. 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 omega-3/dha/epa/fish oil (OMEGA-3 ORAL) Take 1,000 mg by mouth once daily. resveratroL 250 mg cap Take 2 capsules by mouth twice daily. gdmpzdxv-pns-towuc-lut-[id number] (PHYTOMULTI) 3-3-200 mg tab Take 1 tablet by mouth twice daily. O.N.E. Wray (Pure Encapsulations) Take 1 capsule by mouth twice daily. Magnesium Glycinate 120mg (Pure Encapsulations) Take 4 capsules 30 to 60 minutes prior to sleep Ther-Biotic Complete Capsules (klaire/Prothera) Take 1 capsule by mouth once daily. GI-Revive 225 gram Powder ([employer] for [employer]) Take 1 teaspoon twice daily (1 teaspoon = 1.5 grams L-glut) albuterol HFA (PROVENTIL HFA, VENTOLIN HFA) 90 mcg/actuation inhaler INHALE 2 PUFFS BY MOUTH EVERY 4 TO 6 HOURS ibuprofen (MOTRIN) 200 mg tablet Take 200 mg by mouth every 6 hours as needed. lovastatin (MEVACOR) 20 mg tablet Take 1 tablet by mouth daily with dinner. (Patient not taking: Reported on 04/28/2022) ALLERGIES ALLERGIES Allergen Reactions Latex Rash PHYSICAL EXAM VITAL SIGNS: BP 164/86 Pulse 70 Temp (Src) 97.8 (Temporal) Ht 5' 5 (1.65m) Wt 189 lb (85.7kg) BMI 31.45 kg/(m^2). GENERAL: Alert and oriented, appears stated age. In no acute distress. EYES: PERRL, EOMI, anicteric sclerae, no conjunctival injection HENT: Normal external examination of the ears and nose, lips, oropharynx and tongue. No oropharyngeal lesions or exudate. No oral or nasal sores. NECK: No mass or asymmetry. Slightly large parotid gland on left posterior submandibular area RESPIRATORY: Normal respiratory effort. Clear to auscultation bilaterally CARDIOVASCULAR: Regular in rate and rhythm with potential soft systolic murmur. ABDOMEN: Soft, nontender, nondistended NEUROLOGIC: No gross focal neurologic deficits. Cranial nerves II-XII grossly intact. SKIN: No rash, thickening, nodules, discoloration. Normal nails. Normal nailfold capillaries. MSK: Normal range of motion, no deformities, no swelling, and no tenderness in the hands, wrists, elbows, shoulders, spine, hips, knees, ankles, feet except as noted below: Tenderness as below No enthesitis, dactylitis, synovitis, tendinitis No hypermobility Joint Exam 04/28/2022 Right Left Cervical Spine Tender Thoracic Spine Tender Lumbar Spine Tender The following joints were examined and normal: Left Sternoclavicular, Right Sternoclavicular, Left Acromioclavicular, Right Acromioclavicular, Left Glenohumeral, Right Glenohumeral, Left Elbow, Right Elbow, Left Wrist, Right Wrist, Left MCP 1, Right MCP 1, Left MCP 2, Right MCP 2, Left MCP 3, Right MCP 3, Left MCP 4, Right MCP 4, Left MCP 5, Right MCP 5, Left IP, Right IP, Left PIP 2, Right PIP 2, Left PIP 3, Right PIP 3, Left PIP 4, Right PIP 4, Left PIP 5, Right PIP 5, Left Knee, Right Knee, Left Ankle, Right Ankle, Left Tarsometatarsal, Right Tarsometatarsal Joint Exam Data (across time) Joint Exam 04/28/2022 Total Tender 0 Total Swollen 0 LABS Reviewed in [facility], notable for: 12/12/2021: Ferritin 188.5 Negative cardiolipin CRP 1.2 ESR 57 Vitamin D 30.4 Normal TSH Creatinine 0.68 Normal LFTs Parotid biopsy 2019: CONVERTED FINAL DIAGNOSIS A. 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 Comment: The neoplasm cannot be classified further in this sample and the differential diagnosis includes both benign and malignant. Further characterization ought to await surgical excision. Immunohistochemistry was performed on sections of the cell block with the appropriate controls. The neoplastic cells are positive for CKAE1/AE3 and SOX10. There is non-specific, patchy staining for SMA and S100. The neoplastic cells are negative for DOG1, CD45, p63 and mucicarmine. The case has been reviewed in consultation with Dr. Nicolas Angeles, who concurs. Laboratory Developed Test (LDT) Disclaimer (CKAE1/AE3, CD45, p63): Positive and negative controls stain appropriately. Performance characteristics of immunohistochemical, immunofluorescent and chromogenic in-situ hybridization tests have been determined by [facility] [place] ([facility]) in a manner consistent with CLIA requirements. One or more of these tests have not been cleared or approved by the FDA. [facility] is regulated under CLIA as qualified to perform high-complexity testing. These tests are used for clinical purposes. They should not be regarded as investigational or for research. No validation on specimen type or on patient population (SOX10, SMA, S100, DOG1, mucicarmine): Positive and negative controls stain appropriately. One or more of these tests have not been validated for the specimen type submitted or its clinical utility has not been established for this patient population. The test results should be interpreted with caution and in the context of the patient's clinical CBC Latest Ref Rng & Units 10/01/2018 03/15/2020 11/19/2020 11/19/2021 WBC 3.70 - 11.00 k/uL 7.6 9.6 9.86 7.03 HGB 12.0 - 16.0 g/dL 14.4 15.3 - - HEMOGLOBIN 11.5 - 15.5 g/dL - - 14.0 14.4 HEMATOCRIT 36.0 - 46.0 % 43.4 45.5 41.8 43.4 PLATELETS 150 - 400 k/uL 223 236 227 226 ABS NEUT (ANC) 1.45 - 7.50 k/uL - - 6.98 4.02 ABS LYMPH 1.00 - 4.00 k/uL - - 2.23 2.43 CMP Latest Ref Rng & Units 10/01/2018 03/15/2020 11/19/2020 11/19/2021 SODIUM 136 - 144 mmol/L 141 138 140 140 POTASSIUM 3.7 - 5.1 mmol/L 3.8 4.5 4.4 4.0 CHLORIDE 97 - 105 mmol/L 105 102 104 104 CO2 22 - 30 mmol/L 29 28 28 24 GLUCOSE 74 - 99 mg/dL 101(H) 106(H) 96 109(H) BUN 7 - 21 mg/dL 19(H) 14 16 18 CREATININE 0.58 - 0.96 mg/dL 0.79 0.75 0.70 0.68 CALCIUM, TOTAL 8.5 - 10.2 mg/dL 9.7 9.5 9.4 9.8 AST 13 - 35 U/L 13 19 - 26 ALT 7 - 38 U/L 25 15 - 22 ALKALINE PHOSPHATASE 34 - 123 U/L 78 74 - 79 ESR, WSR Latest Ref Rng & Units 12/12/2021 WSR 0 - 20 mm/hr 57(H) CRP Latest Ref Rng & Units 12/12/2021 CRP <0.9 mg/dL 1.2(H) Antibodies Latest Ref Rng & Units 12/12/2021 CARDIOLIPIN AB, IGM <12.5 MPL <9.0 Urinalysis Latest Ref Rng & Units 12/12/2021 01/16/2022 PROTEIN, URINE Negative Negative Negative RBC, URINE 0-3 /HPF 0-3 /HPF 0-3 /HPF IMAGING Reviewed in [facility], notable for: 03/2020 CT facial bone: IMPRESSION: 1.Best seen on axial image 35 and coronal image 56, irregular rim-enhancing hypodense/fluid density mass in the superficial portion of the left parotid gland measures 1.9 cm transverse by 1.5 cm AP and 1.5 cm craniocaudal. Leading diagnostic consideration is a malignant parotid gland neoplasm until proven otherwise. Less likely consideration is infectious inflammatory basis. Biopsy/needle aspiration is recommended 2.Multinodal station bilateral suprahyoid and infrahyoid mildly prominent lymph nodes. No evidence of necrotic adenopathy. 1.9 cm left level 4 lymph node coronal image 62. 3.Status post molar extraction defects is seen in the left mandibular molar region on sagittal image 63. No evidence of acute bone destruction. No evidence of an adjacent buccal space abscess. 04/2020 CT neck soft tissue: IMPRESSION: 1.Significant reduction irregular rim-enhancing fluid collection superficial posterior aspect left parotid gland. Residual irregular soft tissue density is seen in this region/infra-auricular on axial image 19 and sagittal image 191 measuring 15 mm maximum dimension. 2.Redemonstration multinodal station bilateral suprahyoid and infrahyoid mildly prominent lymph nodes. Stable bilateral intraparotid lymph nodes. No evidence of necrotic or enhancing lymph nodes. 3.Oral cavity/oropharynx mild prominence of the lingual tonsils. Mild asymmetric prominence of the right palatine tonsil on axial image 30. This region was obscured by artifact on the previous exam. 4. If further imaging is clinically desired, consider PET scan imaging as an option. 07/2020 parotid ultrasound: IMPRESSION: INDETERMINATE LEFT PAROTID LYMPH NODES/LESIONS, ONE OF WHICH DISPLAYS IRREGULAR BORDERS DESCRIBED BUT APPEAR OVERALL STABLE FROM CT 04/27/2020. CONTINUED ATTENTION ON FOLLOW-UP IS RECOMMENDED. 11/2020 CT neck soft tissue: IMPRESSION: Small rim-enhancing lesion in the left superficial parotid lobe has decreased in size since 04/27/2020, likely representing evolving fluid collection or scarring. Stable asymmetric enlargement and enhancement in the left fossa of Rosenmuller and right palatine fossa, likely representing lymphoid tissues. Resolution of small calcification in the right palatine tonsil. There is a 0.9 cm heterogeneously enhancing area in the periphery right palatine tonsil, new from 2020. This is a nonspecific finding which may represent microcystic changes. Please correlate clinically. No cervical lymphadenopathy. ASSESSMENT Velma Ch is a 62 year old / female with a history of anxiety, parotitis who presents to rheumatology clinic for evaluation of arthralgia in the setting of post-COVID syndrome. At this time she does appear to have a chronic pain syndrome secondary to her COVID diagnosis. She is overall stable with that and unfortunately is not getting much relief. We talked about chronic pain management including working on her sleep, and participating in richard chi, continuing to get regular exercise, and working on her mental health. She is agreeable to all of these suggestions. Unrelated she does have a history of parotitis with a lesion in her parotid gland. That combined with fatigue and potential autonomic dysfunction with temperature dysregulation and vertigo/presyncope could be concerning for Sjogren's versus IgG4 related disease. We will get screening lab work below. If normal no further work-up would be needed. If abnormal we can consider reimaging and rebiopsy of the area as the previous biopsy was nondiagnostic. IMPRESSIONS Diagnoses: (K11.1) Enlarged parotid gland (primary encounter diagnosis) (U09.9) Post-acute sequelae of COVID-19 (PASC) (R53.1) Weakness (M25.50) Arthralgia, unspecified joint (G89.4) Chronic pain syndrome (M79.10) Myalgia PLAN 1. Labs as below 2. Continue working with [facility] on her chronic pain 3. Encouraged richard chi, regular exercise, good sleep hygiene, stress management 4. Follow-up in a 1 to 3 weeks to discuss lab results, virtual okay Orders this visit: Office Visit on 04/28/22 C-REACTIVE PROTEIN (CRP) SED RATE WESTERGREN COMP METABOLIC PANEL CBC + DIFF HIV 1 2 COMBO(AG/AB),WITH REFLEX TO DIFFERENTIATION BLOOD TB SCREEN HEP B SURF AG SCRN HEP B SURF AB QUAL HEP B CORE AB TOTAL HEP C AB IA W/CONF SCRN IGG SUBCLASS 4 ONLY IMMUNOGLOBULINS DELANO IGE BLD CK CREATINE KINASE ALDOLASE BLD LD LACTATE DEHYDRO PROTEIN ELECT RND UR W/INTERP PROTEIN CREATININE RATIO URINALYSIS WITH MICROSCOPIC, REFLEX CULTURE KAPPA/NORWOOD,FREE,SER PROTEIN ELECTROPHORESIS SERUM W/INTERP C4 COMPLEMENT BLD C3 COMPLEMENT BLD SJOGREN ABS SSA/SSB OMEGA BY IFA WITH REFLEX RHEUMATOID FACTOR BL IMMUNOFIXATION SCREEN, SERUM CONSULT TO RHEUM/IMMUN DISEASE Return in about 2 weeks (around 05/12/2022). I spent a total of 68 minutes on the date of the service which included preparing to see the patient, [id number] patient care, completing clinical documentation, obtaining and/or reviewing separately obtained history, performing a medically appropriate examination, counseling and educating the patient/family/caregiver, and ordering medications, tests, or procedures. This note was partially generated with the assistance of [employer] voice recognition software. An attempt was made to correct any dictation errors however there may be some incorrect words, spellings, and punctuation. ___ Anali Quinn MD Rheumatology Date: April 28, 2022 Time: 3:08 PM documented in this encounter [facility] 04-24-2022 Miscellaneous Notes Addended by: CHERIE TOBAR on: 04/24/2022 09:29 AM Modules accepted: Orders I sent in Lovastatin 20 mg daily. Patient left message stating she spoke with her brother and he takes lovastatin and does not have any problems with it. Patient states she is willing to try the lovastatin. Please advise. Janeen Gerard MA My chart message sent. Reminder placed. Brissa Moya MA I already sent the letter to her last night through her MyChart. I would recommend strictly following the Mediterranean diet but this could also be partly hereditary. Recheck in 6 months. Patient notified and states she is not interested in taking medication. She wants to know if there is a special diet she can try. Also patient would like a letter that she needs note stating she needs to be off until further noticed. Please advise. Brissa Moya MA ----- Message from Cherie Tobar APRN.CNP sent at 04/23/2022 7:08 PM EDT ----- Lipid panel has worsened with the total cholesterol and LDL (bad chol). I strongly recommend that we start her on something to decrease her overall cardiovascular risk. documented in this encounter [facility] 03-17-2022 History of Present illness Narrative ORTHOPEDIC CONSULT Louie Hayward MD [facility] Department of Orthopedics Consultation requested by Cherie Tobar APRN.LISA GARZA for an opinion regarding left knee pain. My final recommendations will be communicated back to the requesting physician by way of shared medical record or letter via US mail 62-year-old female here today regarding her left knee. Of note, her medical history is remarkable for being diagnosed with a long COVID disease. No symptoms are neurologic mainly involving numbness in her face is intermittent as well as shortness of breath and hypercoagulability. 2 years ago she fell and began getting medial sided knee pain. It is getting worse and she rates it as 5 out of 10. Because of his discomfort her knee occasionally gives out and catches. She is complaining of pain. She has done physical therapy. She has tried intermittent NSAIDs with relief that is temporary. Current Outpatient Medications Medication Sig triamcinolone (KENALOG) 0.025 % cream Apply to affected area twice daily for 7 days. MULTIVITAMIN ORAL Take by mouth once daily. omega-3/dha/epa/fish oil (OMEGA-3 ORAL) Take 1,000 mg by mouth once daily. resveratroL 250 mg cap Take 2 capsules by mouth twice daily. [id number] (PHYTOMULTI) 3-3-200 mg tab Take 1 tablet by mouth twice daily. O.N.E. Wray (Pure Encapsulations) Take 1 capsule by mouth twice daily. Magnesium Glycinate 120mg (Pure Encapsulations) Take 4 capsules 30 to 60 minutes prior to sleep Ther-Biotic Complete Capsules (klaire/Prothera) Take 1 capsule by mouth once daily. GI-Revive 225 gram Powder ([employer]) Take 1 teaspoon twice daily (1 teaspoon = 1.5 grams L-glut) albuterol HFA (PROVENTIL HFA, VENTOLIN HFA) 90 mcg/actuation inhaler INHALE 2 PUFFS BY MOUTH EVERY 4 TO 6 HOURS ibuprofen (MOTRIN) 200 mg tablet Take 200 mg by mouth every 6 hours as needed. No current facility-administered medications for this visit. ACTIVE PROBLEM LIST Obesity, Class I, Bmi 30-34.9 Anxiety Stress Reaction Post-Acute Sequelae of Covid-19 (Pasc) Sob (Shortness of Breath) Weakness Decreased Functional Mobility and Endurance PAST SURGICAL HISTORY Procedure Laterality Date SECTION HX 1979 SECTION HX 1982 SECTION HX 1991 SECTION HX 1993 HYSTERECTOMY HX 2006 still has ovaries TONSILLECTOMY & ADENOIDECTOMY <AGE 12 PAST MEDICAL HISTORY Diagnosis Date Asthma Cyst (solitary) of breast tailbone FAMILY HISTORY Problem Relation Age of Onset Diabetes Father Asthma Sister Hypertension Brother Mental illness Son Social History Tobacco Use Smoking status: Never Smokeless tobacco: Never Tobacco comments: as a teenager, 6 cigarettes/day for a year Vaping Use Vaping Use: Never used Substance Use Topics Alcohol use: No Drug use: No ALLERGIES Allergen Reactions Latex Rash REVIEW OF SYSTEMS General: NO fever, NO chills, NO night sweats Constitutional:NO recent unwanted weight loss, NO excessive weight Skin: NO rashes, NO chronic skin condition Head: NO seizures, NO headaches, NO dizziness Respiratory: NO cough Cardiovascular: NO chest pain Gastrointestinal: NO nausea, NO vomiting, NO abdominal painEndocrine: NO thyroid problems, NO heat intolerance Musculoskeletal: see HPI Neurologic: +numbness or tingling in extremities Examination: 62-year-old female no acute distress. Alert and oriented x3. 5 foot 4 inches tall 192 pounds. An effusion is noted. Range of motion is 0 to 130 degrees. Intact ligamentous exam with no tenderness. Intact anterior posterior cruciate ligament. Patellofemoral joint is nontender. No tenderness with valgus stress. There is tenderness in the medial joint line. Positive Franki's sign positive catching when going from flexion extension. Radiologic review: X-rays ordered by me and to my interpretation suggest some early narrowing that is equal between the left and right knee. Impression: #1 left knee effusion #2 left knee medial meniscal tear. Recommendation is an MRI anticipation of surgical intervention. Additionally, any sense of weakness the patient may perceive may be due to long COVID we will make that known to the referring provider. At the conclusion of the office visit, the patient was asked if they had any questions regarding the diagnosis or care. Also, ample time was provided for the patient to ask any questions regarding the diagnosis therefore plan of care. All the patient's questions if asked were answered to their satisfaction. This note was partially generated using [employer] voice recognition system and as such may contain grammatical or word errors Louie Hayward MD documented in this encounter [facility] 03-17-2022 History of Present illness Narrative Radiology Service Progress Note PATIENT NAME: Velma Ch DATE OF SERVICE: March 17, 2022 TIME: 8:06 AM PATIENT IDENTITY VERIFICATION COMPLETED USING TWO (2) IDENTIFIERS: Name and Date of confirmed by patient verbally. FALL SCREENING: Has the patient had 2 falls in the last year or 1 fall with injury or currently using an Ambulatory Assistive Device (Walker, Cane, Wheelchair, Crutches, etc.)? No PATIENT GENDER DATA: Female. status: : No status: NO. PATIENT RELEVANT IMPLANT DATA REVIEWED: Not Applicable RADIOLOGY DEPARTMENT: General X-ray: Exam(s) Completed: Lower Extremity X-Ray(s): Knee, AP / Lat / Tunne / Merchant Left and Wt. Bearing PERIPHERAL IV DATA: Not applicable SIGNED BY: ASHKAN Morales March 17, 2022 8:06 AM documented in this encounter [facility] 03-17-2022 Miscellaneous Notes Patient notified. Brissa Moya MA Fasting lipid panel order placed. ----- Message from Stacey Nice MA sent at 11/29/2021 9:19 AM EDT ----- Recheck lipids in 3 months. Stacey Nice MA documented in this encounter [facility] 03-07-2022 History of Present illness Narrative [facility] Questionnaire Series Follow-up Follow-up: 3 months Call attempt: 2nd Attempt Call status: Complete documented in this encounter [facility] 03-07-2022 History of Present illness Narrative [facility] Recovery [facility] Questionnaire Series Follow-up Follow-up: 3 months Call attempt: 1st Attempt Complete [facility] 3, 6, and 9 month Follow Up Assessment: Date of COVID positive test: 07/26/2021 Date of first reCOVer appointment: 12/06/2021 Symptoms since entering [facility] Fatigue: 5 Same Fever: 10 Better Cough: 5 Same Brain fo Same Dizziness: 4 Chest pain: Never had Palpitations: Never had Shortness of breath: 5 Same Exercise intolerance: 5 Same Loss of smell or taste: 10 Better Sleep disturbance: 3 Depression: 4 Anxiety: 10 Better GI disturbance (diarrhea, nausea, abdominal pain): 7 nausea Overall Do you feel since entering [facility]: 4 New diagnoses since COVID was diagnosed? Yes Have you returned to work at the same level as before? No Have you returned to school at the same level as before? N / A Referrals made: Pulmonology, Functional Medicine, and Physical Therapy Referrals seen: functional medicine What did you find most helpful in your journey to recovery? Getting the referrals for follow up What suggestions do you have for the [facility] clinic for us to help patients like yourself better? Help with the follow up Patient Entered Questionnaires COVID Symptoms 12/04/2021 Onset: 07/24/2021 PROMIS/NeuroQoL Score Percentiles Physical Health 01/17/2022 12/04/2021 Fatigue Percentile 12 31 Sleep Percentile - 18* Mental Health 12/04/2021 NeuroQol Cognitive Function Percentile 14 PROMIS Global Health Scale 03/07/2022 02/13/2022 02/13/2022 Physical Health Percentile 22* 15 15 Mental Health Percentile 26* 26* 26* Percentiles provide an indication of how a patient s score ranks in relation to the [place] general population. > 31st percentile is within normal limits or better * < 31st percentile is at least SD worse than population, which may be clinically relevant < 16th percentile is at least 1 SD worse than population and warrants attention PHQ-9 03/07/2022 01/09/2022 01/09/2022 PHQ-2 Score 2 0 0 PHQ-9 Score - 5 5 PARISH - 2/7 SCORES 03/07/2022 12/04/2021 PARISH-2 Score 1 2 IES-6 SCORE 12/04/2021 IES-6 Score 0.67 documented in this encounter [facility] 02-14-2022 Instructions Cherie Tobar APRN.CNP - 02/14/2022 8:[address] Aniket Louise- Orthopedics [facility] Medical Office Building [address] [place] [id number] Appointment: [phone] Desk: [phone] documented in this encounter [facility] 02-14-2022 History of Present illness Narrative CHIEF COMPLAINT: Velma Ch is a 62 year old female who presents for 3 month f/u SOB. I reviewed past medical, surgical, social, and family histories today and updated chart. Allergies, chronic medications, and supplements were also reviewed. Breathing is getting better OTC allergy medication for allergies Following COVID Recovery clinic Seeing Functional Medicine- trying to decrease inflammation in the body, on supplements Following an antiinflammatory diet- feeling better Has PT once a month Left knee- painful, decreased ROM, intermittent swelling, cracking Rates pain 7/[address] Sometimes takes Tylenol or Aleve Recommended to see ortho by PT Hasn't had imaging before Has been following with pulmonary PFTs were normal Will be seeing GI and Rheumatology The history is provided by the patient. No language translator was used. PAST MEDICAL HISTORY Diagnosis Date Asthma Cyst (solitary) of breast tailbone PAST SURGICAL HISTORY Procedure Laterality Date SECTION HX 1979 SECTION HX 1982 SECTION HX 1991 SECTION HX 1993 HYSTERECTOMY HX 2006 still has ovaries TONSILLECTOMY & ADENOIDECTOMY <AGE 12 Social History Tobacco Use Smoking status: Never Smokeless tobacco: Never Tobacco comments: as a teenager, 6 cigarettes/day for a year Vaping Use Vaping Use: Never used Substance Use Topics Alcohol use: No Drug use: No ALLERGIES Allergen Reactions Latex Rash Family History Problem Relation Age of Onset Diabetes Father Asthma Sister Hypertension Brother Mental illness Son Current Outpatient Medications Medication Sig Dispense Refill MULTIVITAMIN ORAL Take by mouth once daily. omega-3/dha/epa/fish oil (OMEGA-3 ORAL) Take 1,000 mg by mouth once daily. resveratroL 250 mg cap Take 2 capsules by mouth twice daily. [id number] (PHYTOMULTI) 3-3-200 mg tab Take 1 tablet by mouth twice daily. 1 tablet O.N.E. Wray (Pure Encapsulations) Take 1 capsule by mouth twice daily. Magnesium Glycinate 120mg (Pure Encapsulations) Take 4 capsules 30 to 60 minutes prior to sleep Ther-Biotic Complete Capsules (klaire/Prothera) Take 1 capsule by mouth once daily. GI-Revive 225 gram Powder ([employer]) Take 1 teaspoon twice daily (1 teaspoon = 1.5 grams L-glut) albuterol HFA (PROVENTIL HFA, VENTOLIN HFA) 90 mcg/actuation inhaler INHALE 2 PUFFS BY MOUTH EVERY 4 TO 6 HOURS 18 g 1 ibuprofen (MOTRIN) 200 mg tablet Take 200 mg by mouth every 6 hours as needed. No current facility-administered medications for this visit. Review of Systems Constitutional: Negative for appetite change, chills, diaphoresis, fatigue and fever. HENT: Positive for congestion, sinus pressure and sneezing. Negative for ear pain. Respiratory: Positive for cough, chest tightness, shortness of breath and wheezing. Cardiovascular: Negative for chest pain, palpitations and leg swelling. Gastrointestinal: Positive for constipation. Negative for abdominal pain, diarrhea, nausea and vomiting. Genitourinary: Negative. Musculoskeletal: Positive for arthralgias (left knee) and joint swelling. Negative for gait problem and myalgias. Skin: Negative for color change and rash. Allergic/Immunologic: Positive for environmental allergies. Neurological: Negative for dizziness, light-headedness and headaches. Hematological: Negative. Psychiatric/Behavioral: Negative for dysphoric mood and sleep disturbance. The patient is not nervous/anxious. BP 120/74 Pulse 70 Temp 98.3 Resp 16 Ht 5' 3.5 (1.61m) Wt 192 lb (87.1kg) SpO2 99% BMI 33.47 kg/(m^2). Physical Exam Vitals and nursing note reviewed. Constitutional: Appearance: Normal appearance. She is well-groomed. HENT: Mouth/Throat: Mouth: Mucous membranes are moist. Pharynx: Oropharynx is clear. Eyes: Conjunctiva/sclera: Conjunctivae normal. Pupils: Pupils are equal, round, and reactive to light. Cardiovascular: Rate and Rhythm: Normal rate and regular rhythm. Heart sounds: Normal heart sounds. No murmur heard. Pulmonary: Effort: Pulmonary effort is normal. Breath sounds: Normal breath sounds and air entry. Abdominal: General: Bowel sounds are normal. Palpations: Abdomen is soft. Tenderness: There is no abdominal tenderness. Musculoskeletal: Cervical back: Neck supple. Left knee: Crepitus present. No swelling, effusion, erythema or ecchymosis. Tenderness present. Normal alignment and normal patellar mobility. Instability Tests: Anterior drawer test negative. Posterior drawer test negative. Right lower leg: No edema. Left lower leg: No edema. Skin: General: Skin is warm and dry. Neurological: Mental Status: She is alert and oriented to person, place, and time. ASSESSMENT/PLAN: 1. SOB (shortness of breath) - ICD9: 786.05, ICD10: R06.02 (primary diagnosis) - Improving, following with [facility] - Albuterol prn 2. Chronic pain of left knee - ICD9: 719.46, 338.29, ICD10: M25.562, G89.29 - RICE therapy - Recommendation from PT - CONSULT TO ORTHOPAEDIC SURGERY Reviewed previous charts from functional medicine, [facility]. New medication(s) prescribed today: None. Counseling completed in adopting health behaviors such as avoiding excessive alcohol use, avoid tobacco use, improve nutrition, and engage in physical activities. Copy of written care plan, clinical summary, treatment plan, new medications, goals, and self management requirements were given to patient. Cherie Tobar APRN.LISA documented in this encounter [facility] 02-06-2022 History of Present illness Narrative DISTANCE HEALTH VISIT This Team Access Model visit is a virtual encounter. It required patient-provider interaction for the medical decision making as documented below. Telemedicine Visit - Distance Health Virtual Visit Note Patient seen on SulfurCell video visit platform. Location of patient: [place] Cherie Tobar APRN.CNP FUNCTIONAL MEDICINE ([facility] FOLLOW ASSESSMENT Patient: Velma Ch There is no height or weight on file to calculate BMI. Resting Metabolic Rate: 1411 Waist measurement: No waist measurement recorded. BP: ALLERGIES Allergen Reactions Latex Rash Current Outpatient Medications on File Prior to Visit Medication Sig MULTIVITAMIN ORAL Take by mouth once daily. omega-3/dha/epa/fish oil (OMEGA-3 ORAL) Take 1,000 mg by mouth once daily. resveratroL 250 mg cap Take 2 capsules by mouth twice daily. vjsqybug-[id number] (PHYTOMULTI) 3-3-200 mg tab Take 1 tablet by mouth twice daily. O.N.E. Wray (Pure Encapsulations) Take 1 capsule by mouth twice daily. Magnesium Glycinate 120mg (Pure Encapsulations) Take 4 capsules 30 to 60 minutes prior to sleep Ther-Biotic Complete Capsules (klaire/Prothera) Take 1 capsule by mouth once daily. GI-Revive 225 gram Powder ([employer]) Take 1 teaspoon twice daily (1 teaspoon = 1.5 grams L-glut) albuterol HFA (PROVENTIL HFA, VENTOLIN HFA) 90 mcg/actuation inhaler INHALE 2 PUFFS BY MOUTH EVERY 4 TO 6 HOURS ibuprofen (MOTRIN) 200 mg tablet Take 200 mg by mouth every 6 hours as needed. No current facility-administered medications on file prior to visit. PAST MEDICAL HISTORY Diagnosis Date Asthma Cyst (solitary) of breast tailbone PAST SURGICAL HISTORY Procedure Laterality Date SECTION HX 1979 SECTION HX 1982 SECTION HX 1991 SECTION HX 1993 HYSTERECTOMY HX 2006 still has ovaries TONSILLECTOMY & ADENOIDECTOMY <AGE 12 Family History Problem Relation Age of Onset Diabetes Father Asthma Sister Hypertension Brother Mental illness Son Social History Tobacco Use Smoking status: Never Smokeless tobacco: Never Tobacco comments: as a teenager, 6 cigarettes/day for a year Vaping Use Vaping Use: Never used Substance Use Topics Alcohol use: No Drug use: No EVALUATION SUBJECTIVE FFL Visit 3 Patient presents with: Established Patient: Post COVID Last Visit on 01/23/22 Symptoms What is the severity of your symptoms?Less inflammation - noting activity with 2 hours causing issue with flaring. Following the recommended food plan?Yes No - shifted diet at this time. Supplements Are you taking recommended supplements? Yes Which supplements are you using? Exercise Are you performing routine exercise at this time? Yes - What kind of exercise? Walking / activity Sleep Habit How long are you sleeping for? Ok Described the quality of your sleep Bowel Habits Do you have a daily bowel movement? Yes - No issues Weight Are you measuring your weight? Yes or No? What is your current weight? Review of Systems Constitutional: Positive for appetite change, fatigue and unexpected weight change (excessive weight ). HENT: Positive for sinus pressure, sinus pain and tinnitus. Mucus excessive Eyes: Positive for photophobia, discharge and redness. Respiratory: Positive for cough, chest tightness, shortness of breath and wheezing. Cardiovascular: Positive for palpitations. Gastrointestinal: Positive for abdominal distention, abdominal pain and constipation. Bloating Genitourinary: Positive for frequency and vaginal discharge. Genital itch / discharge Musculoskeletal: Positive for arthralgias, gait problem (coordination ) and myalgias. Skin: Positive for rash. Dry skin / hair loss Neurological: Positive for dizziness, weakness and headaches. Psychiatric/Behavioral: Positive for decreased concentration and sleep disturbance. The patient is nervous/anxious. There were no vitals filed for this visit. (not obtained due to virtual) Physical Exam Vitals reviewed. Constitutional: Appearance: Normal appearance. HENT: Head: Normocephalic and atraumatic. Right Ear: Hearing and external ear normal. Left Ear: Hearing and external ear normal. Eyes: General: Lids are normal. Extraocular Movements: Extraocular movements intact. Musculoskeletal: Cervical back: No pain with movement. Neurological: Mental Status: She is alert. Psychiatric: Attention and Perception: Attention and perception normal. Mood and Affect: Mood normal. Speech: Speech normal. Behavior: Behavior normal. Thought Content: Thought content normal. Cognition and Memory: Cognition and memory normal. Judgment: Judgment normal. 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) (primary encounter diagnosis) R06.02 SOB (shortness of breath) E66.9 Obesity, Class I, BMI 30-34.9 E63.9 Poor diet R53.83 Other fatigue R14.0 Abdominal bloating R53.83 Fatigue, unspecified type Matrix Nodes ASSIMILIATION: Dysbiosis, Malabsorption and Asthma STRUCTURAL INTEGRITY: Increase BHI and Intestinal Permeability Hysterectomy COMMUNICATION: Adrenal Dysfunction and Menopause TRANSPORT: Endothelial dysfunction DEFENSE AND REPAIR: Inflammation / Calprotectin and Infections ENERGY: Headache, Fatigue / brain fog, Anxiety and Stress DETOXIFICATION: Exposure to heavy metals , Exposure to POP's, Mold Exposure and Chemical Sensitivity FUNCTIONAL MEDICINE PLAN: Discussed impact of gut health in regards to food choices, stress and lifestyle modifications needed to balance overall health. Reviewed supplements in detail that have been recommended with indication and dosing when appropriate. LIFESTYLE PRESCRIPTION Functional Nutrition: ReNew Food Plan Sleep: Sleep hygeine - no bright lights or phones/laptops/TV an hour before bed. Exercise Prescription: Continue your current exercise as tolerated. Stress Management: Behavioral Health Therapist: Consider an individual appointment with our Functional Medicine Behavioral Health Therapist. Our Behavioral Health Therapist helps patients identify and understand feelings and behaviors, experience the process of making positive change, and gain healthy coping skills. Deep, mindful breathing 10 minutes per day, no phone, no computer, no TV-alone and quiet. This is a prescription! Future consider purchasing a Heart Math book-discuss with Health Dry Press Operator. No orders of the defined types were placed in this encounter. REMINDERS: Upcoming Sessions: Please make it a priority to attend all 10 classes to maximize your chances of achieving health and wellness. Ordering Supplementation: We recommend ordering supplementation online from the [facility] Healthy Living Shop as they are high quality therapeutic supplements. Instructions are in your packet. Choozle The [facility] offers an easy to use, convenient way to order supplementation recommended by your provider through the [facility]. All of the products offered are considered high-quality, and adhere to specific criteria for quality and effectiveness including good manufacturing practices, use of clean products, free of fillers, binders, and other antigens. In addition, we follow third democrat analysis for independent verification of active ingredients. Get started by following three easy steps: Visit the following webpage: [email or web address] Choozle Statements on this site have not been evaluated by the Food and Drug Administration Dr. Brittany Pate is an employee of [facility]. In addition, he is the President of [employer]. [email or web address] Create an account: Enter your first name, last name, email address which will be your username Create password Select a referring physician from the dropdown box. If they are not listed, select other If you are a new patient, enter the following provider code: functional Order recommended supplementation Enter the supplement name in the search box Add all supplements to your cart and proceed to checkout. Orders of $100 or more qualify for free shipping. *Please allow 5-7 business days for delivery. For issues with your MRN please call [phone] Thank you for joining us for the Functioning for Life Program. We are excited to partner with you in your journey to wellness. I spent a total of 35 minutes on the date of the service which included preparing to see the patient, [id number] patient care, completing clinical documentation, obtaining and/or reviewing separately obtained history, and counseling and educating the patient/family/caregiver. Jeramy Aguilera MD documented in this encounter [facility] 01-30-2022 Instructions Candi Bhatti, NIDIA - 01/30/2022 6:20 PM EDT [facility] NUTRITION GUIDELINES Your Prescribed Nutrition Plan: Plan to begin the ReNew Plan at the beginning of Week 3. In the meantime, here are steps to take to prepare: 1. Review resources on the [employer] Portal and brainstorm meals and snacks 2. Clean out your pantry: Eat up, throw out or give away 3. Decide on a method of food and symptom tracking (paper or Franco) mySymptoms (food diary and symptoms) Cronometer (nutrition, fitness and health data) Rise Up (relationship with food) 4. Begin introducing foods from the food plan ('foods to eat') Quality Proteins (1 palm-full at every meal, or 1-2 scoops of approved protein powder) Quality Fats (1-2 tablespoons at every meal) Quality carbohydrates (4-5 cups of non-starchy vegetables/day; 2 low-glycemic fruits/day) 1/2 your bodyweight in ounces of water per day About the ReNew Food Plan The ReNew Food Plan is an anti-inflammatory, low-glycemic, therapeutic approach to eating. The plan focuses on ridding the body and the plate of harmful components, identifying food triggers, and providing nutritional support for the body's detoxification systems. The ReNew Food Plan can guide you to use food as medicine for these areas of concern: 1. Elimination of toxins 2. Extinguishing inflammation 3. Identifying triggers for adverse food reactions 4. Healing the gut ReNew Food Plan Daily Recommendations Proteins 25g each meal (palmful of meat/seafood 3X per day or equivalent in protein powder) Eat lean red meat, eggs, edamame or tofu daily Liver up to 6oz per week Oily fish (salmon, mackerel, anchovies, sardines, hidalgo) at least two times per week Superfood: 2 oysters daily Non-starchy Vegetables Include 10 servings of plants daily >2 cups cruciferous vegetables or >1/2 cup broccoli sprouts >2 cups leafy greens daily Carrots, jara peppers, mushrooms or asparagus daily Fruits 2-3 servings per day 1/2 cup berries (blueberries, raspberries, cranberries) daily Kiwi, lemon and/or ottawa daily Nuts & Seeds At least one handful per day Prioritize sunflower seeds, pumpkin seeds, pistachios, almonds, or cashews Superfood: 2-3 Grant Nuts per day Fats & Oils Barnhart Oil or Avocado as the main added fat >3 tablespoons of extra virgin olive oil daily Herbs and Spices 1 tsp turmeric, thyme, vinod and/or 1-2 cloves of fresh garlic daily Beverages Consume 1/2 your body weight in water Include green tea at least three days per week Fermented Foods Include 1/4 cup fermented foods daily Saurkraut, Kimchi, Miso or Plant-based yogurt Other 1 tsp seaweed or algae flakes at least three days per week 1 tsp reishi or shitake mushrooms at least three days per week ADDITIONAL INSTRUCTIONS: How to Contact Your Functional Medicine Team (Open M-F 8am-5pm): 1. Yo que Voshart is the BEST form of communication to reach the Functional Medicine Team, see test results and request refills. Please allow 72 business hours for a response. Directions for signing up are included in your New Patient Folder. (Or you can go to [email or web address]) 2. For nutrition related questions or concerns, SulfurCell message your physician and include Attn: Candi Bhatti RD at the top of the message. S[employer]urCell messaging is meant to support implementation of previously outlined nutrition care plans. In the interest of safe, effective and personalized care, you are asked to schedule a follow-up appointment if: 1) It has been >6 months since your last nutrition appointment 2) Your question requires reassessment or involves a new plan of care 3) Your question concerns a new diagnosis, symptoms(s) and/or health concern Ordering Supplements: Supplements can be ordered from the [facility]'s Online Store: [email or web address] New patients to the Healthy Living Shop will need to enter the provider code FUNCTIONAL to register their account. Educational Materials and the EcoV[employer]is Platform All educational materials for the program are located on the EcoVadis platform. To create a [employer]is account, please visit: [email or web address], and follow the instructions below. Step 1: Create Your Account - Complete the following murry: username, password, email address, first name and last name. Click 'Create My New Account'. A message will display. Click continue. Step 2: Verify Your Account - Check your email for an email from [employer]. In the email, click the link provided to launch [employer] and complete registration. Step 3: Enroll in the 'Post-COVID Syndrome SMA' - Once you have launched [employer], hover over the Find Learning tab, and click on the drop-down option 'Courses'. Search for the course Post-COVID Syndrome SMA in the search field. In the search results, click the link to access the course. Step 4: Enter the Enrollment [place] - The enrollment [place] is PostCOVIDSMAprogram (this is case sensitive). Step 5: To login, visit: [email or web address] - Login under 'Non-Employee Login' using the username and password from Step 1. For issues with account creation ONLY, please contact [employer] desk. 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 No Nutritional Risk Screening (session 2 only) Weight loss over the last 3 months? No Has food intake declined over the last 3 months due to loss of appetite or digestive problems? Occasional GI upset Past Medical History: PAST MEDICAL HISTORY Diagnosis Date Asthma Cyst (solitary) of breast tailbone Anthropometrics: There were no vitals taken for this visit. Height: Last 1 Encounter Ht Readings: Date: Ht: 12/19/2021 161.3 cm (5' 3.5) Current weight: Last 1 Encounter Wt Readings: Date: Wt: 12/19/2021 87 kg (191 lb 12.8 oz) Wt: 87 kg (191 lb 12.8 oz) BMI: 33.44 kg/(m^2) Resting Metabolic Rate: 1411 Assessment and Progress Update: Current Diet: Regular; admits to low vegetables; daughter is a baez and pushes greens Progress towards Nutrition Goals: Goals just being set Nutrition Focus this Week: Introduction to nutrition and the Renew dieet Nutrition Diagnosis: Food and nutrition related knowledge deficit NB-1.1 related to lack of prior nutritional education regarding food-symptom connections as evidenced by patient's nutritional history Nutrition Intervention 01/30/2022: Nutrition education: Plan to begin the ReNew Plan at the beginning of Week 3. In the meantime, here are steps to take to prepare: 1. Review resources on the [employer] Portal and brainstorm meals and snacks 2. Clean out your pantry: Eat up, throw out or give away 3. Decide on a method of food and symptom tracking (paper or Franco) mySymptoms (food diary and symptoms) Cronometer (nutrition, fitness and health data) Rise Up (relationship with food) 4. Begin introducing foods from the food plan ('foods to eat') Quality Proteins (1 palm-full at every meal, or 1-2 scoops of approved protein powder) Quality Fats (1-2 tablespoons at every meal) Quality carbohydrates (4-5 cups of non-starchy vegetables/day; 2 low-glycemic fruits/day) 1/2 your bodyweight in ounces of water per day About the ReNew Food Plan The ReNew Food Plan is an anti-inflammatory, low-glycemic, therapeutic approach to eating. The plan focuses on ridding the body and the plate of harmful components, identifying food triggers, and providing nutritional support for the body's detoxification systems. The ReNew Food Plan can guide you to use food as medicine for these areas of concern: 1. Elimination of toxins 2. Extinguishing inflammation 3. Identifying triggers for adverse food reactions 4. Healing the gut ReNew Food Plan Daily Recommendations Proteins 25g each meal (palmful of meat/seafood 3X per day or equivalent in protein powder) Eat lean red meat, eggs, edamame or tofu daily Liver up to 6oz per week Oily fish (salmon, mackerel, anchovies, sardines, hidalgo) at least two times per week Superfood: 2 oysters daily Non-starchy Vegetables Include 10 servings of plants daily >2 cups cruciferous vegetables or >1/2 cup broccoli sprouts >2 cups leafy greens daily Carrots, jara peppers, mushrooms or asparagus daily Fruits 2-3 servings per day 1/2 cup berries (blueberries, raspberries, cranberries) daily Kiwi, lemon and/or ottawa daily Nuts & Seeds At least one handful per day Prioritize sunflower seeds, pumpkin seeds, pistachios, almonds, or cashews Superfood: 2-3 Grant Nuts per day Fats & Oils Barnhart Oil or Avocado as the main added fat >3 tablespoons of extra virgin olive oil daily Herbs and Spices 1 tsp turmeric, thyme, vinod and/or 1-2 cloves of fresh garlic daily Beverages Consume 1/2 your body weight in water Include green tea at least three days per week Fermented Foods Include 1/4 cup fermented foods daily Saurkraut, Kimchi, Miso or Plant-based yogurt Other 1 tsp seaweed or algae flakes at least three days per week 1 tsp reishi or shitake mushrooms at least three days per week Nutrition Monitoring & Evaluation: Adherence to renew food plan and reintroduction of foods as instructed Criteria: Patient recall, food diary Time Spent: 60 minutes Referred/Supervised by: Jeramy Aguilera MD Consult Billing Type: Group/60 minutes Number of Increments: 2 (60 minutes) Signed by: Candi Bhatti RD documented in this encounter [facility] 01-20-2022 History of Present illness Narrative Episode Visit Count: 2 Therapist That Will Oversee The Plan Of Care: Anisha Bell Start of Care Date: 12/28/21 Onset Date: 07/28/21 Patient Identified by Name and Date of : Yes REHABILITATION AND SPORTS THERAPY PHYSICAL THERAPY TREATMENT NOTE ASSESSMENT: Velma Ch tolerated the session with expected muscle soreness. She demonstrated some L knee pain in joint with step ups L so held. Education on recovery after recent illness. . The patient will continue to benefit from ongoing skilled physical therapy to progress toward set goals. PLAN FOR NEXT VISIT: Recheck note; 6 min walk test SUBJECTIVE: Patient Reason for Visit: Sick for a few days since last here. Back up to walking 2.5 miles. Pain: Pain Pain Level: 0 Frequency: At rest Post Treatment Pain Post Treatment Pain Level: No Change OBJECTIVE MEASURES WITH LEVEL OF FUNCTION: UE and Cervical Strength Cervical Strength: L Knee ROM: -3 to 123 TREATMENT: Therapeutic Exercise: 2: Nustep, seat & arms 9, level 2, x 5 minutes 3: Step ups (R only due to pain) x 15 4: Sled push/pull, 33# x 40 ft x 2 5: Side stepping; [address] x 2 6: Seated hs stretch 2 x 30 sec Skilled Intervention: Proper selection of treatments for this session based on clinical presentation, deficits, and needs. Patient educated on technique for exercises/activities performed this session. Billing Therapeutic Exercise Treatment Minutes: 32 Total Treatment Time Minutes (timed/untimed): 32 Anisha Bell PT, DPT documented in this encounter [facility] 01-16-2022 Miscellaneous Notes Patient notified and voiced understanding. Brissa Moya MA Please let the patient know that her UA only showed some WBCs and a small amount of bacteria but no blood or nitrites. Will start her on Macrobid due to her symptoms. Rx sent in. documented in this encounter [facility] 01-10-2022 Instructions Mehnaz Tomas APRN.CNP - 01/10/2022 9:49 AM EDT Welcome to [facility]'s [facility]COVer Clinic! The 'COV' represents SARS-CoV-2, also known as COVID-19. Our clinic's mission is to assess and guide individuals who are experiencing long-term effects of COVID-19 to state of the art care paths tailored to fit each person. You were just seen for your follow up visit to review test results. We have now determined the best care path for your specific needs. The next step is to follow up with a specialist(s) based on your unique presentation. Please call [phone] to schedule with rheumatology. Please call [phone] to schedule with gastroenterology. - The [facility]'s reCOVer Team documented in this encounter [facility] 01-10-2022 History of Present illness Narrative Images from the original note were not included. COVID ReCOVery Clinic Virtual Follow-up Evaluation This is a virtual visit using SulfurCell video visit. It required patient-provider interaction for the medical decision making as documented below. Initial reCOVer visit conducted: 12/06/21 with Mehnaz Tomas APRN.CNP for evaluation of prolonged, > 28 days, symptoms attributed to COVID-19 infection. COVID-19 testing was initially positive on 07/26/21 HPI: Velma Ch is a 62 year old female presenting with primary symptoms as listed below: Most significant symptoms copied directly from my initial note: SOB Was significant during her acute phase of illness Currently having difficulty when she is hiking long distances and most significant with elevations Even will have trouble breathing in stores Cough Dry cough that leads into a feeling of an asthma attack Noticing wheezing when she lies down flat Chest pain Intermittent, occurs a few times a month Describes as a vague pressure Dizziness Random occurrence Feeling like she has been imbalanced She had a near miss fall due to this Denies syncope Says hiking has been beneficial for her in the way of balance Fatigue Finds it difficult to wake up in the morning over the last 3 weeks Sleeping poorly intermittently Difficulty staying asleep, allows for 7-8 hours of sleep Has experienced weight gain Arthralgia/change in sensation Pain of the lower extremities Numbness from the knees down Joint stiffness Sometimes has trouble even lifting her legs to get into her home due to weakness and pain Staying active with hiking has helped keep these symptoms bearable Nausea States her stomach has changed Bloating and gas has been an ongoing issue Follows intermittent fasting Brain fog Notes that she takes a little longer when thinking through things at work things take me a few more seconds' Her focus has been diminished, insect and bird observation has helped challenge her in a good way Mood Has had a lot of trauma in her life- loss of her son and her father 1 month later Sees a lot of suffering working with [employer] Has great support in family Today's Update: Arthralgia has been unbearable Nausea and bloating is persistent Has burning sensation in her chest Took 4 Pepto bismol Sleep has improved with the exception of the last couple days due to GI and joint issues Took Bactrim for suspected UTI- resolved symptoms Tests & Evaluations ordered, completed, and reviewed: Echocardiogram 12/29/21 CONCLUSIONS: - Exam indication: Shortness of Breath - The left ventricle is normal in size. Left ventricular systolic function is normal. EF = 58 5% (2D biplane) Definity contrast used for endocardial border detection. Grade I left ventricular diastolic dysfunction. - The right ventricle is normal in size. Right ventricular systolic function is normal. - There are no significant valvular abnormalities. - The patient has not had a prior CC echocardiographic exam for comparison. Pulmonary Function Tests 12/19/21 Spirometry, Lung Volumes, and DLCO IMPRESSION: Spirometry is normal. There was not a significant bronchodilator response. The TLC, RV and RV/TLC are normal. The diffusing capacity is normal. Electronically Signed On 12-20-2021 15:44:42 EDT by Lilia Goodman M.D. CXR 12/19/21 IMPRESSION: No acute radiographic abnormality. Property Consultant: [facility] Transcribe Date/Time: Dec 19 2021 2:01P Dictated by : ALBA KEE MD CT Chest W contrast 12/12/21 Rule out PE due to elevated d dimer with symptoms IMPRESSION: No CT evidence of pulmonary embolism. Property Consultant: [facility] Transcribe Date/Time: Dec 12 2021 2:43P Dictated by : GERTRUDE EASON MD BL LE 12/12/21 Rule out DVT due to elevated d dimer with symptoms IMPRESSION: Negative study for proximal DVT in the left and right lower extremities. Negative study for calf DVT in the left and right lower extremities. Negative study for superficial thrombophlebitis in the imaged segments of the left and right lower extremities. Property Consultant: [facility] Transcribe Date/Time: Dec 12 2021 2:28P Dictated by : OSMANY DAVID MD Labs 12/12/21 Reviewed in detail. All labs unremarkable besides the following: Specific [place], Ur Date Value Ref Range Status 12/12/2021 1.020 1.005 - 1.030 Final Glucose, Urine Date Value Ref Range Status 12/12/2021 Negative Negative Final Bilirubin, Urine Date Value Ref Range Status 12/12/2021 Negative Negative Final Ketones, Urine Date Value Ref Range Status 12/12/2021 Negative Negative Final Hemoglobin/Blood,Ur Date Value Ref Range Status 12/12/2021 Trace (A) Negative Final Protein, Urine Date Value Ref Range Status 12/12/2021 Negative Negative Final Nitrites Date Value Ref Range Status 12/12/2021 Negative Negative Final WBC, Urine Date Value Ref Range Status 12/12/2021 11-25 /HPF (A) 0-5 /HPF Final Sed Rate, Westergren 0 - 20 mm/hr 57 High CRP <0.9 mg/dL 1.2 High D Dimer <500 ng/mL FEU 790 High OmegaCheck >5.4 % by wt 2.5 Physical Therapy Evaluation with Plan of Care 12/28/21 Copied directly from Gurwinder Bell PT's note Assessment: Velma Ch presents with diagnosis of Post COVID that interferes with stair negotiation;walking in the community;heavy exertion;physical activities;carrying (Wearing mask) . She presents with impairments in balance, overall function and endurance. PROMIS (Patient-Reported Outcomes Measurement Information System) scores were reviewed and physical function domain identified as a rehabilitation concern. Prognosis for therapy is Good due to: current objective clinical presentation;good support system/ coping skills . No decrease in vitals with outcomes. She will benefit from skilled therapy services to meet the goals established for this plan of care as noted below. Review of Systems Constitutional: Positive for activity change and fatigue. Respiratory: Positive for cough and shortness of breath. Cardiovascular: Positive for chest pain. Gastrointestinal: Positive for nausea. Musculoskeletal: Positive for arthralgias. Neurological: Positive for dizziness. Psychiatric/Behavioral: Positive for decreased concentration. PAST MEDICAL HISTORY Diagnosis Date Asthma Cyst (solitary) of breast tailbone Medication Review: Current Outpatient Medications on File Prior to Visit Medication Sig methylPREDNISolone (MEDROL, FRANCES,) 4 mg Dose-Pack As Instructed per package albuterol HFA (PROVENTIL HFA, VENTOLIN HFA) 90 mcg/actuation inhaler INHALE 2 PUFFS BY MOUTH EVERY 4 TO 6 HOURS ibuprofen (MOTRIN) 200 mg tablet Take 200 mg by mouth every 6 hours as needed. No current facility-administered medications on file prior to visit. Initial screening questionnaires: Patient Entered Questionnaires COVID Symptoms 12/04/2021 Onset: 07/24/2021 PROMIS/NeuroQoL Score Percentiles Physical Health 12/04/2021 Fatigue Percentile 31 Sleep Percentile 18* Mental Health 12/04/2021 NeuroQol Cognitive Function Percentile 14 PROMIS Global Health Scale 01/09/2022 01/09/2022 12/04/2021 Physical Health Percentile 22* 22* 22* Mental Health Percentile 34 34 34 Percentiles provide an indication of how a patient s score ranks in relation to the [place] general population. > 31st percentile is within normal limits or better * < 31st percentile is at least SD worse than population, which may be clinically relevant < 16th percentile is at least 1 SD worse than population and warrants attention PHQ-9 01/09/2022 01/09/2022 12/04/2021 PHQ-2 Score 0 0 1 PHQ-9 Score 5 5 - PARISH - 2/7 SCORES 12/04/2021 PARISH-2 Score 2 Objective Findings: Vitals: There were no vitals taken for this visit. Physical Examination (Video): Physical Exam Constitutional: General: She is not in acute distress. Appearance: Normal appearance. She is not ill-appearing, toxic-appearing or diaphoretic. Eyes: Conjunctiva/sclera: Conjunctivae normal. Pulmonary: Effort: Pulmonary effort is normal. Neurological: Mental Status: She is alert and oriented to person, place, and time. Cranial Nerves: No facial asymmetry. Psychiatric: Mood and Affect: Mood normal. Behavior: Behavior normal. Thought Content: Thought content normal. Judgment: Judgment normal. Assessment and Plan: Based on the patients symptomology and work-up, through shared-decision making between myself and the patient the following care paths have been initiated: Functional Medicine PASC, fatigue, sleep disturbance, interest in natural medicine Recommended patient start a daily dose of omega 3 supplement at 1,000-2,000 mg daily OTC Scheduled 01/23/22 Rheumatology Arthralgia, weakness, family hx of autoimmune disorder Not yet scheduled, # given to call Pulmonology SOB, chest pressure, cough Scheduled with Dr. Couch 02/10/22 We did discuss the possible need for a cardiology consult based on pulmonary eval for SOB, chest pain work up. ECHO was normal besides grade I diastolic dysfunction. Patient would like to hold off on this unless it is necessary based on pulm eval which I think is reasonable. PT SOB, activity intolerance Now established, follow up as planned GI Nausea, bloating # given to call if symptoms persist Return for Follow up with consulted specialists and PCP. I spent a total of 30 minutes on the date of the service which included preparing to see the patient, [id number] patient care, completing clinical documentation, obtaining and/or reviewing separately obtained history, performing a medically appropriate examination, counseling and educating the patient/family/caregiver, ordering medications, tests, or procedures, communicating with other HCPs (not separately reported) and care coordination (not separately reported). Mehnaz Tomas APRN.CNP January 10, 2022 7:20 AM documented in this encounter [facility] 12-29-2021 Nurse Note A #24 IV was placed in the patient's left AC on the first attempt for IV Definty administration. Patient tolerated IV Definity well without complaint. IV was removed at the completion of today's echocardiogram without any difficulty. documented in this encounter [facility] 12-28-2021 History of Present illness Narrative Episode Visit Count: 1 Therapist That Will Oversee The Plan Of Care: Anisha Bell Start of Care Date: 12/28/21 Onset Date: 07/28/21 Patient Identified by Name and Date of : Yes REHABILITATION AND SPORTS THERAPY PHYSICAL THERAPY EVALUATION PLAN OF CARE: Assessment: Velma Ch presents with diagnosis of Post COVID that interferes with stair negotiation;walking in the community;heavy exertion;physical activities;carrying (Wearing mask) . She presents with impairments in balance, overall function and endurance. PROMIS (Patient-Reported Outcomes Measurement Information System) scores were reviewed and physical function domain identified as a rehabilitation concern. Prognosis for therapy is Good due to: current objective clinical presentation;good support system/ coping skills . No decrease in vitals with outcomes. She will benefit from skilled therapy services to meet the goals established for this plan of care as noted below. Goals for Episode of Care: created on 12/28/21 through 03/03/22 Patient will demonstrate current home exercise program independently. Improve five time sit to stand by 2.3 seconds to meet MCID and decrease risk of falls. Patient will complete 6 min walk test Patient will verbalize ability to climb full flight of steps without shortness of breath. Improve 2 min step test by 5 steps on 1 side/10 total. Patient Goals: Return to baseline Planned Interventions, Frequency, and Duration: Current Frequency: 1x/week Duration: 8 weeks Total Number of Visits Planned: 8 Planned Treatment Interventions: Therapeutic exercise (85305);Neuromuscular re-education (16364);Manual therapy (55634);Therapeutic activities (15663);Self-custodial management (11165);Gait Training (13516);Patient/Family/Caregiver Education PLAN FOR NEXT VISIT: 6 min walk test. Step ups. Patient demonstrates good understanding of plan of care and treatment. The above goals and plan of care were discussed and agreed upon by patient/family. SUBJECTIVE: Velma Ch is a 61 year old female seen today for Pt with COVID in Jul 2021. No hospitalization. Had lots of trouble breathing. Walking 2 miles every other day. Just bought mini treadmill. Notes can't do daily walks as the 2 mile wipes her out. Knees down and UE feel weak. 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 Treadmill 2.5.-3.0 for 5-10 minutes Hobbies / Interests: Cleaning Home Environment Patient Lives With: Spouse Assistance Available: None Home Type: Multi-Level with First Floor Set-Up Entry To Home: Stairs;With Rail Number Of Stairs Into Home: 3 (slightly larger then normal) Laundry: 1st laundry Intake Information: Prescription present Falls Interview: Two or more falls in the last year;Comments Falls Comments: 3 falls since Jul. Mostly recently last week tripping. Pain: Pain Pain Level: 0 Post Treatment Pain Post Treatment Pain Level: 0 PROMIS Scales Higher is Better 12/04/2021 12/27/2021 Phys Func - Score - 44 (mild dysfunction) Phys Func - Percentile - 27 % Social Roles - Score - 48 (within normal limits) Social Role - Percentile - 42 % GH Physical - Score 42.3 (Good) - GH Physical - Percentile 22 % - GH Mental - Score 45.8 (Good) - GH Mental - Percentile 34 % - Self-Eff Symptom - Score - 46 (Average) Self-Eff Symptom - Percentile - 34 % T-scores: mean of general population = 50. 5 points is clinically meaningfully difference Percentiles provide an indication of how the patient's score ranks in relation to the general population. Higher percentile rankings indicate better function/quality of life. 50th percentile is the average of the general population and indicates half of respondents had a worse score. Lower is Better 12/04/2021 Fatigue - Score 55 (within normal limits) Fatigue - Percentile 31 % T-scores: mean of general population = 50. 5 points is clinically meaningfully difference Percentiles provide an indication of how the patient's score ranks in relation to the general population. Higher percentile rankings indicate better function/quality of life. 50th percentile is the average of the general population and indicates half of respondents had a worse score. OBJECTIVE MEASURES WITH LEVEL OF FUNCTION: UE and Cervical Strength Cervical Strength: UE strength B WNL LE Strength R LE Strength: Grossly 5/5 L LE Strength: Grossly 5/5 Functional Performance Test Results 30 Second Chair Stand Test: 15 reps 5 Times Sit to Stand Test : 10.5 sec 2 Minute Step Test: 82 4 Stage Balance Test Narrow base of support (sec): 10 sec Semi-tandem base of support (sec): 10 sec Tandem base of support (sec): 10 sec Single leg stance - right (sec): 23 sec (thigh quivering) Single leg stance - left (sec): 23 sec Education: Education Learning Preferences: Explanation Barriers: None Learning/educational needs: Home exercise program;Plan of Care;Health promotion Education Provided: Yes, see treatment interventions for education provided Education Provided To: Patient Education Mode/Type: Explanation/Discussion Response to Education/Teach Back: States/Identifies TREATMENT: PT Treatment Interventions: Neuromuscular Re-Education;Therapeutic Exercise Evaluation Therapeutic Exercise: 1: *Education on HEP: sit to stands x 15; slow marching x 1-2 min Skilled Intervention: Education as above. Neuromuscular Re-Education: 1: Outcomes completed Skilled Intervention: Proper implementation of objective outcomes with explanation of findings/deficits. Proper patient guarding to prevent falls/increase patient safety. Billing * Evaluation Low Complexity: 1 Unit Therapeutic Exercise Treatment Minutes: 3 Neuromuscular Re-Education Treatment Minutes: 10 Total Treatment Time Minutes (timed/untimed): 45 Anisha Bell, PT, DPT documented in this encounter [facility] 12-19-2021 History of Present illness Narrative PULM FUNCTION SMARTBLOCK: Provider: Mehnaz Tomas APRN.DIRECTOR COMPLIANCE Assisting Tech: MACEY Rhodes Spirometry w/BD: 1 DLCO: 1 LV - Box: 1 System: [id number] documented in this encounter [facility] 12-19-2021 History of Present illness Narrative Radiology Service Progress Note PATIENT NAME: Velma Ch DATE OF SERVICE: December 19, 2021 TIME: 12:36 PM PATIENT IDENTITY VERIFICATION COMPLETED USING TWO (2) IDENTIFIERS: Name and Date of confirmed by patient verbally. FALL SCREENING: Has the patient had 2 falls in the last year or 1 fall with injury or currently using an Ambulatory Assistive Device (Walker, Cane, Wheelchair, Crutches, etc.)? No PATIENT GENDER DATA: Female. status: : No status: NO. PATIENT RELEVANT IMPLANT DATA REVIEWED: Yes RADIOLOGY DEPARTMENT: General X-ray: Exam(s) Completed: Chest X-Ray PERIPHERAL IV DATA: Not applicable SIGNED BY: RT Lupe(R) December 19, 2021 12:36 PM documented in this encounter [facility] 12-13-2021 Miscellaneous Notes Thank you Barb for re-ordering and thank you to your team for notifying the patient for us! Mehnaz Tomas APRN.CNP Patient notified. Brissa Moya MA Please notify patient she needs to get fibrinogen drawn again. Barb Meyer APRN.CNP ----- Message from Joshua Nguyen sent at 12/13/2021 11:04 AM EDT ----- Regarding: Fibrinogen Specimen for Fibrinogen test was received >4 hours old and not frozen. Could not perform testing on this specimen. Test will need to be reordered. documented in this encounter [facility] 12-12-2021 Miscellaneous Notes Patient has been called and scheduled for all testing and follow-up Called and LM for patient to call and set up testing and follow-up Called patient to schedule follow-up,PT,PFT's, and ECHO. I was hung up on. Please assist patient in scheduling EKG, ECHO, PFTs, PT consult, and follow up with me. Has labs and CXR orders too. Prefers [facility], or [facility] if at all possible. Mehnaz Tomas APRN.CNP documented in this encounter [facility] 12-12-2021 Miscellaneous Notes Called and talked with patient. Patient has been scheduled for all testing and follow-up Called patient back and went over the below: Let patient know that US and CT of chest were negative for any blood clots. notified joey patient avilable to scheduled appointments. Thank you, Malinda Please notify patient that both her US and CT of chest were negative for any blood clots. Suspect post COVID related inflammation. Continue with plan for testing and consults as planned. Still needs initial testing set up. Transfer to [facility] to set up. Mehnaz Tomas APRN.CNP Great, thank you! I will await results. Mehnaz Tomas APRN.CNP Called patient and went over the below: Went over the below message from provider Patient stated that will follow up with functional medicine. She stated that will get that scheduled when gets back from tests today. Went over with patient that an antibiotic was sent to verified pharmacy. Advised patient to follow up with PCP or express care if symptoms persist, worsen or do not improve within 3 days of starting antibiotic. Patient expressed understanding. Ct of chest(2pm) and ultrasound(1pm) are scheduled today and patient aware Thank you, Malinda Noted. Inflammatory markers are also coming back elevated as these messages are going back and forth. Could be covid related along with the elevated d dimer. She and I discussed functional medicine referral at visit and it looks like they sent her a message 12/07/21. I would advise getting this set up as well to help control the inflammatory response naturally and holistically. Sent in Bactrim for suspected UTI. Have her monitor her symptoms. If no better or worse in 3 days, needs to have a follow up with PCP office or express care to recheck another urine and do an exam. Mehnaz Tomas APRN.CNP Called patient and went over the below: Let her know that a CT of the chest and ultrasound of leg was ordered. I let her know that I would call [facility] to have tests scheduled. Called [facility] and spoke radiology department and they said they would call patient and get her scheduled for today. I will check appointments to ensure setup. Triaged for UTI: -Denies burning during urination, change in color of urine, pain, or fever/chills -In the last few weeks has notice frequency/urgency and faint odor. -Patient was on menses at time of test (Yes/No/NA): NA Verified allergies/pharmacy Thank you Malinda Noted. This could be from inflammation related to COVID, however, we should check a CT of her chest and US of her legs to rule out blood clots in lungs or extremities to be on the safe side. Please assist in scheduling. If I remember correctly, she preferred [facility], or [facility]. Her urine results have come back since. Please ask about any urinary/UTI symptoms. Mehnaz Tomas APRN.CNP Tired home/mobile and went over the below with patient: Triaged for PE: Episodes of SOB along with the feeling you can't catch your breath: No to the above episodes. Patient did let me know that is constantly SOB since had COVID. Episodes of sweating and tachycardia: No Have the above episodes increased or changed in severity: No Chest Pain: No Triaged for DVT: Swelling in lower extremities: No Any discoloration of extremities:No Areas that are warm, sore or painful to touch: Yes, her legs feels numb/tingly/stiff which is new since COVID. Left leg seems to be affected more epically when it is warm outside. Notices that ankles swell when it is warm outside, more so in the left ankle. Chriss's Test: negative thank you, Malinda Please triage for PE/DVT due to elevated D dimer level. Mehnaz Tomas APRN.LISA documented in this encounter [facility] 12-06-2021 Instructions Mehnaz Tomas APRN.CNP - 12/06/2021 11:12 AM EDT Welcome to [facility]! The 'COV' represents SARS-CoV-2, also known as COVID-19. Our clinic's mission is to assess and guide individuals who are experiencing long-term effects of COVID-19 to state of the art care paths tailored to fit each person. You just had your initial visit with the [facility]! Next, you will be undergoing additional tests to further assess your current symptoms. Once you have these tests completed, you will have another visit to review these results. We will then direct you down the appropriate care path with a specialist for further treatment based on those results and your current symptoms. You may have your chest x-ray and labs at any [facility] location. We will call you to schedule you for pulmonary function tests, EKG, echocardiogram, physical therapy appointment, and our virtual follow up. The functional medicine group will contact you via [employer] with scheduling information. The pulmonology and rheumatology group will call you to schedule. - [facility] documented in this encounter [facility] 12-06-2021 History of Present illness Narrative Images from the original note were not included. COVID [facility] Virtual Initial Evaluation This is a virtual visit using [employer] video visit. It required patient-provider interaction for the medical decision making as documented below. Velma Ch presents to [facility] at the request of Cherie Tobar APRN* for evaluation of prolonged, > 28 days, symptoms attributed to COVID-19 infection. They have requested this consultation via eConsult and will be communicated to via the EMR or [place] Post Office Correspondence. HPI: Velma Ch is a 61 year old female with primary symptoms as below Positive COVID-19 Test: yes Date of Positive Test: 07/26/2021 Description of their course of COVID-19 illness. 1. Symptoms began on 07/24/21 2. Hospitalization? No 3. Was the patient on oxygen? No 4. Was patient discharged on oxygen? No 5. Was there an ICU stay? No 6. Was the patient intubated? No 7. Were there any COVID-19 medications given? No 8. Were there significant complications from the patients COVID-19 Illness? No 9. Has the patient received the COVID Vaccine? YES. Which vaccine? [facility] COVID-19 Symptom Review Shortness of Breath or Dyspnea on Exertion Recurred persistent Cough Recurred persistent Chest discomfort/chest pain Recurred intermittent Palpitations Never Exertional intolerance Recurred persistent Fatigue Recurred persistent Dizziness Recurred persistent Syncope or Near syncope Never Fever Resolved Joint pain/Body aches Recurred persistent Altered taste/smell Resolved Lack of concentration/brain fog Recurred persistent Memory deficits Recurred persistent Diarrhea or nausea Recurred persistent Headaches Never, resolved from acute phase Difficulty sleeping Recurred persistent HF Symptoms - Orthopnea/Edema Never Changes in mood Recurred persistent Most significant symptoms: SOB Was significant during her acute phase of illness Currently having difficulty when she is hiking long distances and most significant with elevations Even will have trouble breathing in stores Cough Dry cough that leads into a feeling of an asthma attack Noticing wheezing when she lies down flat Chest pain Intermittent, occurs a few times a month Describes as a vague pressure Dizziness Random occurrence Feeling like she has been imbalanced She had a near miss fall due to this Denies syncope Says hiking has been beneficial for her in the way of balance Fatigue Finds it difficult to wake up in the morning over the last 3 weeks Sleeping poorly intermittently Difficulty staying asleep, allows for 7-8 hours of sleep Has experienced weight gain Arthralgia/change in sensation Pain of the lower extremities Numbness from the knees down Joint stiffness Sometimes has trouble even lifting her legs to get into her home due to weakness and pain Staying active with hiking has helped keep these symptoms bearable Nausea States her stomach has changed Bloating and gas has been an ongoing issue Follows intermittent fasting Brain fog Notes that she takes a little longer when thinking through things at work things take me a few more seconds' Her focus has been diminished, insect and bird observation has helped challenge her in a good way Mood Has had a lot of trauma in her life- loss of her son and her father 1 month later Sees a lot of suffering working with [employer] Has great support in family Recent/previously completed testing: EKG none ECHO none PFT none CXR none Review of Systems Constitutional: Positive for activity change, appetite change and fatigue. Negative for fever. Respiratory: Positive for cough, shortness of breath and wheezing. Negative for chest tightness. Cardiovascular: Positive for chest pain (pressure). Negative for palpitations. Gastrointestinal: Positive for nausea. Negative for abdominal pain, diarrhea and vomiting. Musculoskeletal: Positive for arthralgias and myalgias. Neurological: Positive for dizziness, weakness and light-headedness. Negative for syncope and headaches. Psychiatric/Behavioral: Negative for confusion, decreased concentration, dysphoric mood and sleep disturbance. The patient is not nervous/anxious. PAST MEDICAL HISTORY Diagnosis Date Asthma Cyst (solitary) of breast tailbone Medication Review: Current Outpatient Medications on File Prior to Visit Medication Sig albuterol HFA (PROVENTIL HFA, VENTOLIN HFA) 90 mcg/actuation inhaler INHALE 2 PUFFS BY MOUTH EVERY 4 TO 6 HOURS ibuprofen (MOTRIN) 200 mg tablet Take 200 mg by mouth every 6 hours as needed. No current facility-administered medications on file prior to visit. Objective Findings: Vitals: There were no vitals taken for this visit. Initial Screening Questionaires review: COVID Symptoms 12/04/2021 Onset: 07/24/2021 PROMIS/NeuroQoL Score Percentiles Physical Health 12/04/2021 Fatigue Percentile 31 Sleep Percentile 18* Mental Health 12/04/2021 NeuroQol Cognitive Function Percentile 14 PROMIS Global Health Scale 12/04/2021 Physical Health Percentile 22* Mental Health Percentile 34 Percentiles provide an indication of how a patient s score ranks in relation to the [place] general population. > 31st percentile is within normal limits or better * < 31st percentile is at least SD worse than population, which may be clinically relevant < 16th percentile is at least 1 SD worse than population and warrants attention PHQ-9 12/04/2021 11/19/2020 08/19/2019 PHQ-2 Score 1 0 0 PHQ-9 Score - 0 0 PARISH - 2/7 SCORES 12/04/2021 PARISH-2 Score 2 Physical Examination: Physical Exam Constitutional: General: She is not in acute distress. Appearance: Normal appearance. She is not ill-appearing, toxic-appearing or diaphoretic. Eyes: Conjunctiva/sclera: Conjunctivae normal. Pulmonary: Effort: Pulmonary effort is normal. Neurological: Mental Status: She is alert and oriented to person, place, and time. Cranial Nerves: No facial asymmetry. Psychiatric: Mood and Affect: Mood normal. Behavior: Behavior normal. Thought Content: Thought content normal. Judgment: Judgment normal. Assessment and Plan: ASSESSMENT/PLAN: 1. SOB (shortness of breath) - ICD9: 786.05, ICD10: R06.02 (primary diagnosis) -The patient and I reviewed the below testing in detail. We discussed indications for testing and the benefits of results in directing the plan of care. - Will await test results and have a follow up visit to review and discuss appropriate care paths. - Recent blood work with PCP office - TSH BLD - VITAMIN B12 BLOOD - FOLATE SERUM - URINALYSIS, WITH MICROSCOPIC - VITAMIN D 25 HYDROXY - PREALBUMIN BLD - SPIROMETRY - BASELINE AND POST DILATOR - LUNG VOLUMES - LUNG DIFFUSION CAPACITY (DLCO) - XR CHEST 2V FRONTAL/LAT - PERFLUTREN LIPID MICROSPHERES 1.1 MG/ML INJECTION IN NS 10 ML - SODIUM CHLORIDE 0.9 % (FLUSH) INJECTION SYRINGE - ECG COMPLETE - TRACE ELEMENTS/TPN - SED RATE WESTERGREN - C-REACTIVE PROTEIN (CRP) - NT PRO BNP - ECHO - D-DIMER - CARDIOLIPIN IGM ABS - FERRITIN BLD - OMEGACHECK - TMAO - FIBRINOGEN 2. Post-acute sequelae of COVID-19 (PASC) - ICD9: 139.8, ICD10: U09.9 3. Cough - ICD9: 786.2, ICD10: R05.9 4. Chest pain, unspecified type - ICD9: 786.50, ICD10: R07.9 5. Dizziness - ICD9: 780.4, ICD10: R42 6. Weakness - ICD9: 780.79, ICD10: R53.1 7. Arthralgia, unspecified joint - ICD9: 719.40, ICD10: M25.50 8. Fatigue, unspecified type - ICD9: 780.79, ICD10: R53.83 Consults initiated today: - CONSULT TO FUNCTIONAL MEDICINE PASC, fatigue, sleep disturbance, interest in natural medicine - CONSULT TO RHEUM/IMMUN DISEASE Arthralgia, weakness, family hx of autoimmune disorder - CONSULT TO PULMONARY MEDICINE SOB, chest pressure, cough - CONSULT TO PHYSICAL THERAPY SOB, activity intolerance Return for Virtual follow-up to review results once complete. I spent a total of 60 minutes on the date of the service which included preparing to see the patient, [id number] patient care, completing clinical documentation, obtaining and/or reviewing separately obtained history, performing a medically appropriate examination, counseling and educating the patient/family/caregiver, ordering medications, tests, or procedures, communicating with other HCPs (not separately reported) and care coordination (not separately reported). Mehnaz Tomas APRN.CNP December 06, 2021 10:51 AM documented in this encounter [facility] 11-30-2021 Miscellaneous Notes Called Patient on November 30, 2021 regarding covid recover appointment and questionnaire. documented in this encounter [facility] 11-29-2021 Miscellaneous Notes Patient informed and reminder placed. Stacey Nice MA Please let the patient know that her A1C was 5.7 which is considered the start of prediabetes. CMP was only abnormal for a blood sugar of 109 CBC was normal Lipid panel showed her total cholesterol, triglycerides (376), and LDL were all elevated. This put her cardiovascular risk at 8%. I would recommend lifestyle changes with diet and exercise and recheck again in 3 months- please place reminder. If her numbers are still elevated, I would recommend that we may have to consider a medication. documented in this encounter [facility] 11-25-2021 Miscellaneous Notes Patient informed and was agreeable. Janeen Gerard MA Please call pt - she is having numbness and tingling of her face. She should go to the ED Tequila Garnica DO documented in this encounter [facility] 11-22-2021 Miscellaneous Notes Yes repeat in 1 year. Thank you. Patient notified . I adviced to repeat in one year. Please advise. That this is what you meant with repeat with screening mammogram again. Brissa Moya MA ----- Message from Cherie Tobar APRN.CNP sent at 11/22/2021 12:55 PM EDT ----- Screening mammogram was normal- repeat with screening mammogram again documented in this encounter [facility] 11-22-2021 Miscellaneous Notes November 22, 2021 PID: [id number] Velma [address] [place] [address] Dear Ms. Ch, We are pleased to inform you that the results of your recent breast imaging exam on 11/22/2021 are normal. Your mammogram demonstrates that you have dense breast tissue, which could hide abnormalities. Dense breast tissue, in and of itself, is a relatively common condition. Therefore, this information is not provided to cause undue concern; rather, it is to raise your awareness and promote discussion with your health care provider regarding the presence of dense breast tissue in addition to other risk factors. Early detection of cancer is very important. We also understand recommendations regarding breast cancer screening are controversial. Please discuss with your primary care provider which strategy is best for you and whether a mammogram is right for you. Your imaging studies and report will be kept on file at [facility] as part of your permanent medical record and are available for your continuing care. Thank you for allowing us to help in meeting your health care needs. Sincerely, Dr. Dubose Interpreting Radiologist [facility] (Normal over 40) documented in this encounter [facility] 11-22-2021 History of Present illness Narrative Radiology Service Progress Note PATIENT NAME: Velma Ch DATE OF SERVICE: November 22, 2021 TIME: 8:29 AM PATIENT IDENTITY VERIFICATION COMPLETED USING TWO (2) IDENTIFIERS: Name and Date of confirmed by patient verbally. FALL SCREENING: Has the patient had 2 falls in the last year or 1 fall with injury or currently using an Ambulatory Assistive Device (Walker, Cane, Wheelchair, Crutches, etc.)? No PATIENT GENDER DATA: Female. status: : No status: NO. PATIENT RELEVANT IMPLANT DATA REVIEWED: Not Applicable RADIOLOGY DEPARTMENT: Mammography PERIPHERAL IV DATA: Not applicable SIGNED BY: Susie Infante Piiku November 22, 2021 8:29 AM documented in this encounter [facility] 11-08-2021 Miscellaneous Notes Orders placed. ----- Message from Delonte Beyer RT(R) sent at 11/08/2021 12:24 PM EDT ----- Regarding: Need new mammogram order Contact: Cherie Velma is coming in today for a rt diagnostic mammogram, I need placed into epic a new mammogram order. It needs to be a bilateral diagnostic mammogram because she is over due for her yearly, also need a rt breast ultrasound order as well should the radiologist want an ultrasound for the rt breast. Thanks Delonte Beyer [facility] Radiology documented in this encounter [facility] 11-08-2021 Miscellaneous Notes Delonte from Radiology called, this patient has an appointment today, November 08, 2021 at 12:30 for a Mammogram. Per Delonte, Please place order for Bilateral Diagnostic mammogram and also Rt. Breast Ultrasound. Lily Strange documented in this encounter [facility] Evaluation note Diagnosis Abnormal mammogram- Primary Abnormal mammogram, unspecified Breast asymmetry Other specified disorders of breast [facility] Abnormal [facility]ogram Abnormal mammogram, unspecified Breast asymmetry Other specified disorders of breast [facility] Diagnosis Encounter for screening mammogram for breast cancer [facility] Diagnosis SOB (shortness of breath)- Primary Shortness of breath Post-acute sequelae of COVID-19 (PASC) Cough Chest pain, unspecified type Dizziness Dizziness and giddiness Weakness Other malaise and fatigue Arthralgia, unspecified joint Fatigue, unspecified type [facility] Diagnosis 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 Positive D dimer Abnormal coagulation profile SOB (shortness of breath) Shortness of breath Swelling of lower extremity [facility] Diagnosis Post-acute sequelae of COVID-19 (PASC) Positive D dimer Abnormal coagulation profile Swelling of lower extremity documented in this encounter [facility] note* Diagnosis Post-acute sequelae of COVID-19 (PASC) Positive D dimer Abnormal coagulation profile SOB (shortness of breath) Shortness of breath [facility] Diagnosis Post-COVID chronic joint pain- Primary Post-COVID chronic muscle pain Post-COVID chronic dyspnea [facility] Diagnosis Post-acute sequelae of COVID-19 (PASC) SOB (shortness of breath) Shortness of breath Cough Chest pain, unspecified type Dizziness Dizziness and giddiness Weakness Other malaise and fatigue Arthralgia, unspecified joint Fatigue, unspecified type [facility]* Diagnosis Post-acute sequelae of COVID-19 (PASC) SOB (shortness of breath) Shortness of breath Cough Chest pain, unspecified type Dizziness Dizziness and giddiness Weakness Other malaise and fatigue Arthralgia, unspecified joint Fatigue, unspecified type [facility] Diagnosis Post-acute sequelae of COVID-19 (PASC) SOB (shortness of breath) Shortness of breath Cough Chest pain, unspecified type Dizziness Dizziness and giddiness Weakness Other malaise and fatigue Arthralgia, unspecified joint Fatigue, unspecified type [facility] Diagnosis Decreased functional mobility and endurance- Primary Post-acute sequelae of COVID-19 (PASC) SOB (shortness of breath) Shortness of breath Dizziness Dizziness and giddiness Weakness Other malaise and fatigue Arthralgia, unspecified joint [facility] Diagnosis Post-acute sequelae of COVID-19 (PASC) SOB (shortness of breath) Shortness of breath Cough Chest pain, unspecified type Dizziness Dizziness and giddiness Weakness Other malaise and fatigue Arthralgia, unspecified joint Fatigue, unspecified type [facility]* Diagnosis 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 Nausea Nausea alone Bloating Flatulence, eructation, and gas pain documented in this encounter [facility] note* Diagnosis UTI symptoms- Primary Other symptoms involving urinary system documented in this encounter [facility] note* Diagnosis Post-acute sequelae of COVID-19 (PASC) SOB (shortness of breath) Shortness of breath Decreased functional mobility and endurance documented in this encounter [facility] note* Diagnosis 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 Dietary counseling and surveillance Dietary surveillance and counseling [facility]* Diagnosis 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 SOB (shortness of breath) Shortness of breath Obesity, Class I, BMI 30-34.9 Obesity, unspecified Poor diet Unspecified nutritional deficiency Fatigue, unspecified type Abdominal bloating Flatulence, eructation, and gas pain documented in this encounter [facility] note* Diagnosis SOB (shortness of breath)- Primary Shortness of breath Chronic pain of left knee Pain in joint, lower leg documented in this encounter [facility] note* Diagnosis Hyperlipidemia, mixed- Primary Mixed hyperlipidemia [facility]* Diagnosis Acute medial meniscus tear of left knee, sequela- Primary Chronic pain of left knee Pain in joint, lower leg [facility]* Diagnosis Pain Generalized pain [facility]* Diagnosis Enlarged parotid gland- Primary 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) Weakness Other malaise and fatigue Arthralgia, unspecified joint Chronic pain syndrome Myalgia Mylagia and myositis, unspecified [facility]* Diagnosis 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 Complaints of total body pain Generalized pain Screening for depression Encounter for immunization Need for other specified prophylactic vaccination against single bacterial disease documented in this encounter [facility] note* Diagnosis SOB (shortness of breath)- Primary Shortness of breath [facility] Diagnosis SOB (shortness of breath) Shortness of breath [facility] Diagnosis 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 Mild intermittent asthma without complication Unspecified asthma [facility] Diagnosis 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 SOB (shortness of breath) Shortness of breath Decreased functional mobility and endurance Anxiety Anxiety state, unspecified Hyperlipidemia, mixed Mixed hyperlipidemia [facility] Diagnosis Facial tic- Primary Tic disorder, unspecified Numbness and tingling of right face Disturbance of skin sensation Hearing loss of right ear, unspecified hearing loss type Screening for depression Encounter for screening mammogram for malignant neoplasm of breast Other screening mammogram [facility] Diagnosis Other specified hearing loss, unspecified ear- Primary [facility]* Diagnosis Facial tic- Primary Tic disorder, unspecified Numbness and tingling of right face Disturbance of skin sensation [facility]* Diagnosis 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 Facial droop Facial weakness Hearing loss of right ear, unspecified hearing loss type [facility]* Diagnosis Cholesteatoma of right ear- Primary Cholesteatoma, unspecified 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 [facility]* Diagnosis Swelling of left parotid gland- Primary Left ear pain Otalgia, unspecified [facility]* Diagnosis SOB (shortness of breath) Shortness of breath [facility]* Diagnosis Preop examination- Primary Preoperative examination, unspecified Hyperlipidemia, mixed Mixed hyperlipidemia Post-COVID syndrome PONV (postoperative nausea and vomiting) Nausea with vomiting Cholesteatoma of right ear Cholesteatoma, unspecified 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 [facility] Diagnosis Cholesteatoma of right ear- Primary Cholesteatoma, unspecified 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 [facility] Diagnosis Cholesteatoma of right ear- Primary Cholesteatoma, unspecified 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 [facility] Diagnosis Mixed conductive and sensorineural hearing loss of right ear with restricted hearing of left ear- Primary High frequency hearing loss, left Dysfunction of both eustachian tubes Dysfunction of Eustachian tube [facility] Diagnosis Encounter for gynecological examination (general) (routine) without abnormal findings- Primary Encounter for screening mammogram for breast cancer Vaginal discharge Leukorrhea, not specified as infective [facility] Diagnosis Class 1 obesity with body mass index (BMI) of 32.0 to 32.9 in adult, unspecified obesity type, unspecified whether serious comorbidity present- Primary [facility] Diagnosis Fatigue, unspecified type- Primary Tick bite, unspecified site, initial encounter [facility]* Diagnosis SOB (shortness of breath) Shortness of breath [facility] Diagnosis Right maxillary sinusitis- Primary Dizziness Dizziness and giddiness Facial tic Tic disorder, unspecified [facility] Diagnosis Right knee pain, unspecified chronicity- Primary [facility] Diagnosis Closed nondisplaced fracture of right tibial tuberosity, initial encounter- Primary Fall, subsequent encounter Pain of left hand Pain in limb [facility] Diagnosis Closed fracture of proximal end of right tibia with routine healing, unspecified fracture morphology, subsequent encounter Fall, subsequent encounter [facility] Diagnosis Cholesteatoma of right ear- Primary Cholesteatoma, unspecified 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 [facility] Diagnosis Closed nondisplaced fracture of right tibial tuberosity, initial encounter- Primary [facility] Diagnosis Closed nondisplaced fracture of right tibial tuberosity, initial encounter [facility] Diagnosis Closed nondisplaced fracture of right tibial tuberosity with routine healing, subsequent encounter- Primary [facility] Diagnosis Fall, subsequent encounter- Primary Closed nondisplaced fracture of right tibial tuberosity with routine healing, subsequent encounter [facility] Diagnosis Closed nondisplaced fracture of right tibial tuberosity with routine healing, subsequent encounter [facility] Diagnosis Well adult exam- Primary [facility] Hyperlipidemia, mixed Mixed hyperlipidemia 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 Screening for diabetes mellitus Screening for depression Closed nondisplaced fracture of right tibial tuberosity, initial encounter [facility] Diagnosis SOB (shortness of breath) Shortness of breath [facility] Diagnosis Encounter for gynecological examination (general) (routine) without abnormal findings- Primary Encounter for screening mammogram for breast cancer Encounter for screening for osteoporosis Special screening for osteoporosis Bloating Flatulence, eructation, and gas pain Family history of ovarian cancer Family history of malignant neoplasm of ovary Screening for colon cancer Special screening for malignant neoplasms, colon Asymptomatic menopausal state Asymptomatic postmenopausal status (age-related) (natural) [facility] Diagnosis Bloating Flatulence, eructation, and gas pain Family history of ovarian cancer Family history of malignant neoplasm of ovary [facility] Diagnosis Encounter for screening mammogram for malignant neoplasm of breast Other screening mammogram [facility] Diagnosis Onset Date Resolution Status Admit Date Hemifacial spasm of right si de of face acute April 06 8:50am History of cholesteatoma acute April 06, 2025 8:50am Polyneuropathy acute April 8:50am [facility] Work Phone: Progress note Author Zack Peacock [facility] Note Date/Time April 06, 2025 10 :10am [facility] [address] [place] [address], [address] [place] [address] OFFICE VISIT Date of Service: 04/06/25 MR#: [id number] Acct: [id number] Name: VELMA CH Rep #: [id number] : [id number] Provider: Dr. Dariela Peacock MD Age/Sex: 65/F [place] [facility] [place]: Signed HPI HPI Details: History: The patient is a 65-year-old right-handed woman with a past medical history of hyperlipidemia and long COVID syndrome (as a result of a COVID-vaccine received in 2020) who presents for evaluation of right hemifacial spasm. In [id number], she began to experience right hemifacial spasm. On further evaluation in that year she was found to have a right cholesteatoma and underwent surgical resection of this. Subsequent to this surgery her right hemifacial spasm worsened. She also had mild peripheral right facial palsy and right-sided hearing loss postoperatively. She denies having any facial pain, numbness, tinnitus, dizziness, speech difficulty, or swallowing difficulty. She reports having some visual impairment in the right eye that appears to be due to the narrowing of the palpebral fissure that occurs with her facial spasms rather than an intraocular problem. She had a fall in July 2024 and sustained a right tibial fracture; this was treated nonsurgically. She denies having neck pain, low back pain, or pain in the legs presently. She developed breathing difficulty, fatigue, weakness in the legs and urinaryincontinence following receiving a COVID-19 vaccine in 2020. She reports havingsubsequent resolution of her urinary symptoms and improvement of her breathing, fatigue and lower extremity weakness though these persist to some degree. She is seeing another medical provider regarding her long COVID syndrome. Past Medical History: As above. There is no history of hypertension, diabetes mellitus, heart disease, stroke, seizure, thyroid disease, cancer, renal disease, or sleep apnea. She has shortness of breath but apparently has not been diagnosed with aprimary pulmonary disease. Social History: There is no history of smoking tobacco. There is no history of alcohol abuseor illicit drug use. Family History: The patient's grandmother had a stroke. There is no family history of cerebral aneurysm, seizure, multiple sclerosis. Review of Systems: As above. The patient has not had any recent fever, rash, chest pain, gastrointestinal problems or urinary problems. She has had an intentional 8 pound weight loss over the past 6 months. She experiences some shortness of breath. She denies having depression. She feels well rested when she awakens in the morning. Physical Exam: General: Well-developed, well-nourished female in no acute distress. Neuro: The patient is awake and alert and responds appropriately; speech is fluent; language function is within normal limits Cranial nerves: PERRL, 3mm bilaterally; EOMI; visual murry are full; visual acuity is 20/50 bilaterally; she has a mild right peripheral facial palsy; tongue is midline; there are no deficits to pinprick; she exhibits frequent occurrences of right hemifacial spasm affecting the right upper and right lower face Cerebellar system: No nystagmus Deep tendon reflexes: +2 at the brachioradialis bilaterally in biceps bilaterally and absent at the triceps bilaterally, knees and ankles; plantar responses are downward on the left and upward on the right Motor: Strength 5/5 in the biceps bilaterally, abductor pollicis brevis muscles bilaterally, first dorsal interosseous muscles bilaterally, iliopsoas bilaterally, quadriceps bilaterally and foot dorsiflexors bilaterally; no drift Sensory: There are no deficits to soft touch or pinprick; decreased vibration isnoted in both feet Gait: Unremarkable HEENT: Normocephalic; atraumatic; right tympanic membrane is not visualized due to cerumen; left panic membrane is clear Neck: No bruits Heart: Regular rhythm and rate Extremities: No cyanosis or edema; straight leg raise is negative bilaterally; dorsalis pedis pulses are +2 bilaterally Assessment and Plan Assessment and Plan (1) 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: Status: Acute (2) History of cholesteatoma: Status: Acute (3) Polyneuropathy: Status: Acute Orders: Orders Brain W/WO Contrast Today G51.31 - Clonic hemifacial spasm, right, Z86.69 - Personal history of other diseases of the nervous system and sense organs Vitamin D 1,25-Dihydroxy Today G51.31 - Clonic hemifacial spasm, right, G62.9 -Polyneuropathy, unspecified VITAMIN B6 Today G51.31 - Clonic hemifacial spasm, right, G62.9 - Polyneuropathy, unspecified Vitamin B12 Today G51.31 - Clonic hemifacial spasm, right, G62.9 - Polyneuropathy, unspecified Vitamin B1, Thiamine Today G51.31 - Clonic hemifacial spasm, right, G62.9 - Polyneuropathy, unspecified Folates, RBC Today G51.31 - Clonic hemifacial spasm, right, G62.9 - Polyneuropathy, unspecified Thyroid Stim Hormone (TSH) Today G51.31 - Clonic hemifacial spasm, right, G62.9- Polyneuropathy, unspecified CBC-Complete Blood Cnt No Diff Today G51.31 - Clonic hemifacial spasm, right, G62.9 - Polyneuropathy, unspecified Comprehensive Metabolic Profil Today G51.31 - Clonic hemifacial spasm, right, G62.9 - Polyneuropathy, unspecified OMEGA w/ Reflex Mult Confirm Today G51.31 - Clonic hemifacial spasm, right, G62.9- Polyneuropathy, unspecified [place] Pocket Lambda Light Chains Today G51.31 - Clonic hemifacial spasm, right, G62.9 - Polyneuropathy, unspecified Magnesium Today G51.31 - Clonic hemifacial spasm, right, G62.9 - Polyneuropathy, unspecified Erythrocyte Sed Rate Today G51.31 - Clonic hemifacial spasm, right, G62.9 - Polyneuropathy, unspecified Medications: New carbamazepine Take 1 tablet orally daily for 1 week then 1 tablet twice daily thereafter. 60 tabs 4RF Plan Details Additional Comments: The patient has a right hemifacial spasm that began in 2022. On subsequent evaluation she was found to have a right cholesteatoma which was resected later in 2022. Postoperatively her right hemifacial spasm worsened and she also developed a mild right peripheral facial palsy and right-sided hearing loss. - She will be evaluated further with a head MRI with attention to the IAC/posterior fossa. - Carbamazepine 100 mg daily for 1 week then 100 mg twice daily thereafter will be initiated for her right hemifacial spasm. - If carbamazepine is ineffective, then treatment with Botox may be a future consideration. She has developed long COVID symptoms following receiving a COVID-19 vaccine in July 2020. Her symptoms have included fatigue, subjective bilateral lowerextremity weakness, shortness of breath and urinary incontinence. Her urinary incontinence has resolved and her other symptoms have improved though have not resolved completely. She has sensory loss in the feet which may be indicative of a polyneuropathy. She is not experiencing pain in the lower extremities. She denies having neck pain or low back pain. - She is being monitored by a medical provider at the [facility]. - A CBC, CMP, TSH, vitamin D, pyridoxine, folate, thiamine, serum free light chains, magnesium, OMEGA, and ESR will be checked. I will have her return for reassessment in 2 months. Intake Vital Signs 04/06/25 08:56 Height 5 ft 4 in Weight: 182 lb BMI 31.2 BP 173/77 H Blood Pressure Location Rt brachial Position Sitting Respiration 17 Pulse 64 Pulse Source Monitor Temp 98.6 F Pulse Oximetry (%) 99 Oxygen Delivery Method room air Intake Visit Reasons: FACIAL SPASMS POST CHOLESTEATOMA SURGERY Braid Folder Required: No Accompanied by: Self Allergies Latex, Natural Rubber Allergy (Mild, Verified 04/06/25 08:56) itch Medications ?Medication ?Instructions ?Recorded ?Confirmed ?Type carbamazepine 100 mg chewable See Rx Instructions .Rou te 04/06/25 04/06/25 Rx tablet .COMPLEX #60 tabs Have you fallen in the past year?: Yes (07/2024) PFSH Surgical History (Updated 02/24/19 @ 21:32 by Luna Hollins NP, ASSISTANT PROFESSOR OF MUSIC-[employer]) History of total abdominal hysterectomy Family History (Updated 02/24/19 @ 21:31 by Luna Hollins NP, ASSISTANT PROFESSOR [employer]) Other Diabetes FH: prostate cancer Family history of high cholesterol Hypertension Social History (Updated 02/24/19 @ 21:33 by Luna Hollins NP, ASSISTANT PROFESSOR [employer]) Smoking Status: Never smoker Clinical Quality Measures Falls Risk Screening/Assistive Devices Have you fallen in the past year?: Yes (07/2024) Coding Level of Care Code Off vis,new,level 4 Diagnoses 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 G51.31 History of cholesteatoma Z86.69 Polyneuropathy G62.9 04/06/25 1313 <Electronically signed by Zack patel MD> Date _ Zack Peacock MD Cosigner Signature: Date (if applicable) CC: Dr. Joey Walden MD ~ [facility] Work Phone: Reason for referral (narrative)* Diagnostic Procedure Only (Routine) - Open Specialty Diagnoses / Procedures Referred By Contac t Referred To Contact [facility] Diagnoses Abnormal mammogram Breast asymmetry Procedures US BREAST COMPLETE RT US BREAST UNI REAL TIME WITH IMAGE COMPLETE Cherie Tobar APRN.DIRECTOR COMPLIANCE [address] [place] [address] [facility] [address] [place] [address] Referral ID Status Reason Start Date Expiration Date V isits Requested Visits Authorized [id number] Open Auto-Generate d Referral 11/08/2021 12/08/2022 1 1 * Diagnostic Procedure Only (Routine) - Authorized Specialty Diagnoses / Procedures Referred By Nina t Referred To Contact [facility] Diagnoses Abnormal mammogram Breast asymmetry Procedures DEEP DIAGNOSTIC BILAT DIAGNOSTIC MAMMOGRAPHY COMPUTER-AIDED DETCJ BI Cherie Tobar APRN.DIRECTOR COMPLIANCE [address] [place] [address] [facility] [address] [place] [address] Referral ID Status Reason Start Date Expiration Date Visits Requested Visits Authorized [id number] Authorized Auto-Generat ed Referral 11/08/2021 12/08/2022 1 1 [facility] for referral (narrative)* Diagnostic Procedure Only (Routine) - Closed Specialty Diagnoses / Procedures [facility] Diagnoses Encounter for screening mammogram for breast cancer Procedures DEEP SCREENING SCREENING MAMMOGRAPHY BI 2-VIEW BREAST INC CAD Cherie Tobar APRN.DIRECTOR COMPLIANCE [address] [place] [address] [facility] [address] [place] [address] Referral ID Status Reason Start Date Expiration Date V isits Requested Visits Authorized [id number] Closed Auto-Generate d Referral 11/14/2021 12/14/2022 1 1 [facility] for referral (narrative)* Diagnostic Procedure Only (Urgent) - Closed Specialty Diagnoses / Procedures Referred By Contac t Referred To Contact [facility] Diagnoses Post-acute sequelae of COVID-19 (PASC) Positive D dimer Swelling of lower extremity Procedures US DVT LOWER BILAT DUP-SCAN XTR VEINS COMPLETE BILATERAL STUDY Mehnaz Tomas APRN.DIRECTOR COMPLIANCE [address] [place] [address] [facility] Referral ID Status Reason Start Date Expiration Date V isits Requested Visits Authorized [id number] Closed Auto-Generate d Referral 12/12/2021 2023 1 1 * MRI/CT (Urgent) - Closed Specialty Diagnoses / Procedures Referred By Contac t Referred To Contact CT IMAGING Diagnoses Post-acute sequelae of COVID-19 (PASC) Positive D dimer SOB (shortness of breath) Procedures CT CHEST W IVCON PE DIAGNOSTIC COMPUTED TOMOGRAPHY THORAX W/CONTRAST Mehnaz Tomas APRN.DIRECTOR COMPLIANCE [address] [place] [address] Ct Imaging Referral ID Status Reason Start Date Expiration Date V isits Requested Visits Authorized [id number] Closed Auto-Generate d Referral 12/12/2021 2022 1 1 [facility] for referral (narrative)* Diagnostic Procedure Only (Urgent) - Closed Specialty Diagnoses / Procedures Referred By Contac t Referred To Contact [facility] Diagnoses Post-acute sequelae of COVID-19 (PASC) Positive D dimer Swelling of lower extremity Procedures US DVT LOWER BILAT DUP-SCAN XTR VEINS COMPLETE BILATERAL STUDY Mehnaz Tomas APRN.DIRECTOR COMPLIANCE [address] [place] [address] Us [facility] Referral ID Status Reason Start Date Expiration Date V isits Requested Visits Authorized [id number] Closed Auto-Generate d Referral 12/12/2021 2023 1 1 [facility] for referral (narrative)* Diagnostic Procedure Only (Routine) - Closed Specialty Diagnoses / Procedures Referred By Contac t Referred To Contact XR IMAGING Diagnoses Pain Procedures XR KNEE GENERAL 4V AP BOTH/PA BOTH/LAT/MERC LEFT RADIOLOGIC EXAM KNEE COMPLETE 4/[place] [address] [place] [id number] Xr Imaging Referral ID Status Reason Start Date Expiration Date V isits Requested Visits Authorized [id number] Closed Auto-Generate d Referral 02/15/2022 03/17/2023 1 1 [facility] for referral (narrative)* Outpatient Procedure (Routine) - Pending Review Specialty Diagnoses / Procedures Referred By Contac t Referred To Contact [facility] [place] Diagnoses SOB (shortness of breath) Procedures SPIROMETRY WITH DILATOR IF OBSTRUCTED BRNCDILAT RSPSE SPMTRY PRE&POST-BRNCDILAT ADMN Haley Posada MD [address] [place] [address] [address] Referral ID Status Reason Start Date Expiration Date Visits Requested Visits Authorized [id number] Pending Review Auto-Generat ed Referral 06/06/2022 07/02/2023 1 1 [facility] for referral (narrative)* Outpatient Procedure (Routine) - Closed Specialty Diagnoses / Procedures Referred By Contac t Referred To Contact [facility] Diagnoses SOB (shortness of breath) Procedures NITRIC OXIDE, EXHALED NITRIC OXIDE GAS DETERMINATION Haley Posada MD [address] [place] [address] [place] [address] [place] [address] Referral ID Status Reason Start Date Expiration Date V isits Requested Visits Authorized [id number] Closed Auto-Generate d Referral 06/14/2022 07/14/2023 1 1 [facility] for referral (narrative)* Diagnostic Procedure Only (Routine) - Pending Review Specialty Diagnoses / Procedures Referred By Contac t Referred To Contact [facility] Diagnoses Encounter for screening mammogram for breast cancer Procedures DEEP SCREENING SCREENING MAMMOGRAPHY BI 2-VIEW BREAST INC CAD Sarah Amado APRN.DIRECTOR COMPLIANCE [address] [place] [address] [facility] [address] [place] [address] Referral ID Status Reason Start Date Expiration Date Visits Requested Visits Authorized [id number] Pending Review Auto-Generat ed Referral 10/30/2023 10/29/2024 1 1 [facility] for referral (narrative)* Diagnostic Procedure Only (Routine) - Closed Specialty Diagnoses / Procedures Referred By Contac t Referred To Contact XR IMAGING Diagnoses Fall, subsequent encounter Procedures XR HAND GENERAL 3V PA/LAT/OBL LEFT RADEX HAND MINIMUM 3 VIEWS Anamaria Cook, PA-C [address] [place] [address] [place] [address] Referral ID Status Reason Start Date Expiration Date V isits Requested Visits Authorized [id number] Closed Auto-Generate d Referral 07/31/2024 08/30/2025 1 1 * Diagnostic Procedure Only (Routine) - Closed Specialty Diagnoses / Procedures Referred By Nina t Referred To Contact XR IMAGING Diagnoses Closed fracture of proximal end of right tibia with routine healing, unspecified fracture morphology, subsequent encounter Procedures XR KNEE LIMITED 2V AP/LAT RIGHT RADIOLOGIC EXAMINATION KNEE 1/2 VIEWS Anamaria Cook PA-C [address] [place] [address] [place] [address] Referral ID Status Reason Start Date Expiration Date V isits Requested Visits Authorized [id number] Closed Auto-Generate d Referral 07/31/2024 08/30/2025 1 1 [facility] for referral (narrative)* Diagnostic Procedure Only (Routine) - New Request Specialty Diagnoses / Procedures Referred By Nina t Referred To Contact XR IMAGING Diagnoses Closed nondisplaced fracture of right tibial tuberosity, initial encounter Procedures XR TIBIA FIBULA 2V AP/LAT RIGHT RADIOLOGIC EXAMINATION TIBIA & FIBULA 2 VIEWS Anamaria Cook PA-C [address] [place] [address] [place] [address] Referral ID Status Reason Start Date Expiration Date Visits Requested Visits Authorized [id number] New Request Auto-Generat ed Referral 08/07/2024 09/06/2025 1 1 [facility] for referral (narrative)No reason for referral [facility] Work Phone: Reason for visit Narrative* Diagnostic Procedure Only (Routine) - Authorized Specialty Diagnoses / Procedures Referred By Nina t Referred To Contact [facility] Diagnoses Abnormal mammogram Procedures DEEP DIAGNOSTIC RT DIAGNOSTIC MAMMOGRAPHY COMPUTER-AIDED DETCJ UNI Cherie Tobar, BANQUET STEWARDESS.DIRECTOR COMPLIANCE [address] [place] [address] [facility] [address] [place] [address] Referral ID Status Reason Start Date Expiration Date Visits Requested Visits Authorized [id number] Authorized Auto-Generat ed Referral 07/18/2021 08/17/2022 1 1 [facility] for visit Narrative* Diagnostic Procedure Only (Routine) - Closed Specialty Diagnoses / Procedures Referred By Contac t Referred To Contact [facility] Diagnoses Encounter for screening mammogram for breast cancer Procedures DEEP SCREENING SCREENING MAMMOGRAPHY BI 2-VIEW BREAST INC CAD Cherie Tobar, BANQUET STEWARDESS.DIRECTOR COMPLIANCE [address] [place] [address] [facility] [address] [place] [address] Referral ID Status Reason Start Date Expiration Date V isits Requested Visits Authorized [id number] Closed Auto-Generate d Referral 11/14/2021 12/14/2022 1 1 [facility] for visit Narrative* Diagnostic Procedure Only (Urgent) - Closed Specialty Diagnoses / Procedures Referred By Contac t Referred To Contact [facility] Diagnoses Post-acute sequelae of COVID-19 (PASC) Positive D dimer Swelling of lower extremity Procedures US DVT LOWER BILAT DUP-SCAN XTR VEINS COMPLETE BILATERAL STUDY Mehnaz Tomas, BANQUET STEWARDESS.DIRECTOR COMPLIANCE [address] [place] [address] Us Imaging Referral ID Status Reason Start Date Expiration Date V isits Requested Visits Authorized [id number] Closed Auto-Generate d Referral 12/12/2021 2023 1 1 [facility] for visit Narrative* Outpatient Procedure (Routine) - Closed Specialty Diagnoses / Procedures Referred By Contac t Referred [facility] Diagnoses Post-acute sequelae of COVID-19 (PASC) SOB (shortness of breath) Cough Chest pain, unspecified type Dizziness Weakness Arthralgia, unspecified joint Fatigue, unspecified type Procedures ECHO ECHO TTHRC R-T 2D W/WOM-MODE COMPL SPEC&COLR D Mehnaz Tomas, BANQUET STEWARDESS.DIRECTOR COMPLIANCE [address] [place] [address] [facility] [address] [place] [address] Referral ID Status Reason Start Date Expiration Date V isits Requested Visits Authorized [id number] Closed Auto-Generate d Referral 12/06/2021 12/06/2022 1 1 [facility] for visit Narrative* Diagnostic Procedure Only (Routine) - Closed Specialty Diagnoses / Procedures Referred By Contac t Referred To Contact XR IMAGING Diagnoses Pain Procedures XR KNEE GENERAL 4V AP BOTH/PA BOTH/LAT/MERC LEFT RADIOLOGIC EXAM KNEE COMPLETE 4/[place] [address] [place] [address] Xr Imaging Referral ID Status Reason Start Date Expiration Date V isits Requested Visits Authorized [id number] Closed Auto-Generate d Referral 02/15/2022 03/17/2023 1 1 [facility] for visit Narrative* Diagnostic Procedure Only (Routine) - Closed Specialty Diagnoses / Procedures Referred By Contac t Referred To Contact XR IMAGING Diagnoses Fall, subsequent encounter Procedures XR HAND GENERAL 3V PA/LAT/OBL LEFT RADEX HAND MINIMUM 3 VIEWS Anamaria Cook PA-C [address] [place] [address] [place] [address] Referral ID Status Reason Start Date Expiration Date V isits Requested Visits Authorized [id number] Closed Auto-Generate d Referral 07/31/2024 08/30/2025 1 1 [facility] for visit Narrative* Diagnostic Procedure Only (Routine) - Closed Specialty Diagnoses / Procedures Referred By Contac t Referred To Contact X[facility]AG[facility] Diagnoses Closed nondisplaced fracture of right tibial tuberosity, initial encounter Procedures XR TIBIA FIBULA 2V AP/LAT RIGHT RADIOLOGIC EXAMINATION TIBIA & FIBULA 2 VIEWS Anamaria Cook PA-C [address] [place] [address] Phone: tel: fax: [place] [address] Referral ID Status Reason Start Date Expiration Date V isits Requested Visits Authorized [id number] Closed Auto-Generate d Referral 08/07/2024 09/06/2025 1 1 [facility] for visit Narrative* Diagnostic Procedure Only (Routine) - Closed Specialty Diagnoses / Procedures Referred By Contac t Referred To Contact X[facility] Diagnoses Closed nondisplaced fracture of right tibial tuberosity with routine healing, subsequent encounter Procedures XR TIBIA FIBULA 2V AP/LAT RIGHT RADIOLOGIC EXAMINATION TIBIA & FIBULA 2 VIEWS Anamaria Cook, PA-C [address] [place] [address] Phone: tel: fax: [place] [address] Referral ID Status Reason Start Date Expiration Date V isits Requested Visits Authorized [id number] Closed Auto-Generate d Referral 09/04/2024 10/03/2025 1 1 [facility] for visit Narrative* Diagnostic Procedure Only (Routine) - Closed Specialty Diagnoses / Procedures Referred By Contac t Referred To Contact [facility] Diagnoses Bloating Family history of ovarian cancer Procedures US FEMALE PELVIS TRANSVAG US TRANSVAGINAL Sarah Amado, BANQUET STEWARDESS.DIRECTOR COMPLIANCE [address] [place] [address] Phone: tel: fax: [place] [address] Referral ID Status Reason Start Date Expiration Date V isits Requested Visits Authorized [id number] Closed Auto-Generate d Referral 02/13/2025 03/15/2026 1 1 [facility] for visit Narrative* Diagnostic Procedure Only (Routine) - Closed Specialty Diagnoses / Procedures Referred By Contac t Referred To Contact [facility] Diagnoses Encounter for screening mammogram for malignant neoplasm of breast Procedures DEEP SCREENING W BRANDEN SCREENING DIGITAL BREAST TOMOSYNTHESIS BI SCREENING MAMMOGRAPHY BI 2-VIEW BREAST INC Cherie Morales, BANQUET STEWARDESS.DIRECTOR COMPLIANCE [address] [place] [address] Phone: tel: fax: [facility] [address] [place] [address] Referral ID Status Reason Start Date Expiration Date V isits Requested Visits Authorized [id number] Closed Auto-Generate d Referral 10/15/2024 11/14/2025 1 1 [facility] Summary Purpose Family History No Family History Records Found Relationship Condition Age at Onset Recorded Date/T checo Not Specified Family history of ma lignant neoplasm of prostate Unknown Diabetes mellitus Unknown Family history of hypercholesterolemia Un known Hypertension Unknown Advance Directives No Advanced Directives Records FoundDocuments on File Type Date Recorded Patient Grill Associate Expl anation Advance Directive(s) 08/16/2019 6:52 PM Advance Directive(s) 08/21/2018 6:19 AM Documents on File Type Date Recorded Patient Grill Associate Expl anation Advance Directive(s) 08/16/2019 6:52 PM Advance Directive(s) 08/21/2018 6:19 AM Documents on File Type Date Recorded Patient Grill Associate Expl anation Advance Directive(s) 11/25/2021 11:49 AM Advance Directive(s) 08/16/2019 6:52 PM Advance Directive(s) 08/21/2018 6:19 AM Documents on File Type Date Recorded Patient Grill Associate Expl anation Advance Directive(s) 11/25/2021 11:49 AM Advance Directive(s) 08/16/2019 6:52 PM Advance Directive(s) 08/21/2018 6:19 AM Reason for Referral Specialty Diagnoses / Procedures Referred By Contac t Referred To Contact [facility] Diagnoses Post-acute sequelae of COVID-19 (PASC) SOB (shortness of breath) Dizziness Weakness Arthralgia, unspecified joint Procedures CONSULT TO PHYSICAL THERAPY PHYSICAL THERAPY EVALUATION HIGH COMPLEX 45 MINS Mehnaz Tomas BANQUET STEWARDESS.DIRECTOR COMPLIANCE [address] [place] [address] [facility] [address] [place] [address] Referral ID Status Reason Start Date Expiration Date Visits Requested Visits Authorized [id number] Pending Review Auto-Generat ed Referral 12/06/2021 12/06/2022 1 1 Specialty Diagnoses / Procedures Referred By Contac t Referred To Contact Rheumatology Diagnoses Post-acute sequelae of COVID-19 (PASC) Weakness Arthralgia, unspecified joint Procedures CONSULT TO RHEUM/IMMUN DISEASE OFFICE/OUTPATIENT [facility] 60-74 MINUTES Mehnaz Tomas, BANQUET STEWARDESS.DIRECTOR COMPLIANCE [address] [place] [address] Referral ID Status Reason Start Date Expiration Date Visits Requested Visits Authorized [id number] Pending Review PCP Requested Referral 12/06/2021 12/06/2022 1 1 Specialty Diagnoses / Procedures Referred By Contac t Referred To Contact Diagnoses Post-acute sequelae of COVID-19 (PASC) Fatigue, unspecified type Procedures CONSULT TO FUNCTIONAL MEDICINE OFFICE/OUTPATIENT [facility] 60-74 MINUTES Mehnaz Tomas, BANQUET STEWARDESS.DIRECTOR COMPLIANCE [address] [place] [address] Referral ID Status Reason Start Date Expiration Date Visits Requested Visits Authorized [id number] Pending Review PCP Requested Referral 12/06/2021 12/06/2022 1 1 Specialty Diagnoses / Procedures Referred By Contac t [facility] [facility] [place] Diagnoses Post-acute sequelae of COVID-19 (PASC) SOB (shortness of breath) Cough Chest pain, unspecified type Dizziness Weakness Arthralgia, unspecified joint Fatigue, unspecified type Procedures ECHO ECHO TTHRC R-T 2D W/WOM-MODE COMPL SPEC&COLR D Mehnaz Tomas, BANQUET STEWARDESS.DIRECTOR COMPLIANCE [address] [place] [address] [facility] [address] [address] Referral ID Status Reason Start Date Expiration Date Visits Requested Visits Authorized [id number] Pending Review Auto-Generat ed Referral 12/06/2021 12/06/2022 1 1 Specialty Diagnoses / Procedures Referred By Contac t Referred To Contact [facility] Diagnoses Post-acute sequelae of COVID-19 (PASC) SOB (shortness of breath) Cough Chest pain, unspecified type Dizziness Weakness Arthralgia, unspecified joint Fatigue, unspecified type Procedures ECG COMPLETE ECG ROUTINE ECG W/LEAST 12 LDS W/I&R Mehnaz Tomas, BANQUET STEWARDESS.DIRECTOR COMPLIANCE [address] [place] [address] [address] Referral ID Status Reason Start Date Expiration Date Visits Requested Visits Authorized [id number] Pending Review Auto-Generat ed Referral 12/06/2021 12/06/2022 1 1 Specialty Diagnoses / Procedures Referred By Contac t Referred To Contact [facility] Diagnoses Post-acute sequelae of COVID-19 (PASC) SOB (shortness of breath) Cough Chest pain, unspecified type Dizziness Weakness Arthralgia, unspecified joint Fatigue, unspecified type Procedures LUNG DIFFUSION CAPACITY (DLCO) DIFFUSING CAPACITY Mehnaz Tomas, BANQUET STEWARDESS.DIRECTOR COMPLIANCE [address] [place] [address] [facility] [address] [place] [id number] Referral ID Status Reason Start Date Expiration Date Visits Requested Visits Authorized [id number] Pending Review Auto-Generat ed Referral 12/06/2021 01/05/2023 1 1 Specialty Diagnoses / Procedures Referred By Contac t Referred To Contact [facility] Diagnoses Post-acute sequelae of COVID-19 (PASC) SOB (shortness of breath) Cough Chest pain, unspecified type Dizziness Weakness Arthralgia, unspecified joint Fatigue, unspecified type Procedures LUNG VOLUMES Mehnaz Tomas BANQUET STEWARDESS.DIRECTOR COMPLIANCE [address] [place] [address] [facility] [address] [place] [address] Referral ID Status Reason Start Date Expiration Date Visits Requested Visits Authorized [id number] Pending Review Auto-Generat ed Referral 12/06/2021 01/05/2023 1 1 Specialty Diagnoses / Procedures Referred By Contac t Referred To Contact [facility] Diagnoses Post-acute sequelae of COVID-19 (PASC) SOB (shortness of breath) Cough Chest pain, unspecified type Dizziness Weakness Arthralgia, unspecified joint Fatigue, unspecified type Procedures SPIROMETRY - BASELINE AND POST DILATOR BRNCDILAT RSPSE SPMTRY PRE&POST-BRNCDILAT ADMN Mehnaz Tomas, BANQUET STEWARDESS.DIRECTOR COMPLIANCE [address] [place] [address] [address] Referral ID Status Reason Start Date Expiration Date Visits Requested Visits Authorized [id number] Pending Review Auto-Generat ed Referral 12/06/2021 01/05/2023 1 1 Specialty Diagnoses / Procedures Referred By Contac t Referred To Contact CT IMAGING Diagnoses Post-acute sequelae of COVID-19 (PASC) Positive D dimer SOB (shortness of breath) Procedures CT CHEST W IVCON PE DIAGNOSTIC COMPUTED TOMOGRAPHY THORAX W/CONTRAST Mehnaz Tomas BANQUET STEWARDESS.DIRECTOR COMPLIANCE [address] [place] [address] Ct Imaging Referral ID Status Reason Start Date Expiration Date V isits Requested Visits Authorized [id number] Closed Auto-Generate d Referral 12/12/2021 2022 1 1 Specialty Diagnoses / Procedures Referred By Contac t Referred To Contact Gastroenterology Diagnoses Nausea Bloating Procedures CONSULT TO GASTROENTEROLOGY OFFICE/OUTPATIENT [facility] 60-74 MINUTES Mehnaz Tomas BANQUET STEWARDESS.DIRECTOR COMPLIANCE [address] [place] [address] Referral ID Status Reason Start Date Expiration Date Visits Requested Visits Authorized [id number] Pending Review PCP Requested Referral 01/10/2022 01/10/2023 1 1 Specialty Diagnoses / Procedures Referred By Contac t Referred To Contact Orthopedics Diagnoses Chronic pain of left knee Procedures CONSULT TO ORTHOPAEDIC SURGERY OFFICE/OUTPATIENT [facility] 60-74 MINUTES Cherie Tobar, BANQUET STEWARDESS.DIRECTOR COMPLIANCE [address] [place] [address] Referral ID Status Reason Start Date Expiration Date Visits Requested Visits Authorized [id number] Pending Review PCP Requested Referral 02/14/2022 02/14/2023 1 1 Specialty Diagnoses / Procedures Referred By Contac t Referred To Contact MR IMAGING Diagnoses Acute medial meniscus tear of left knee, sequela Procedures MRI KNEE WO IVCON LT MRI ANY JT LOWER EXTREM W/[place] [address] [place] [address] Mr Imaging Referral ID Status Reason Start Date Expiration Date Visits Requested Visits Authorized [id number] Additional Clinical Info Needed Auto-Generat ed Referral 03/17/2022 04/16/2023 1 1 Specialty Diagnoses / Procedures Referred By Contact Referred To Contact Ent - Otolaryngology / [facility] Department Diagnoses Hearing loss of right ear, unspecified hearing loss type Procedures CONSULT TO ENT OFFICE/OUTPATIENT [facility] 60-74 MINUTES Cherie Tobar BANQUET STEWARDESS.DIRECTOR COMPLIANCE [address] [place] [address] Elena Wagner MD [address] [address] Referral ID Status Reason Start Date Expiration Date Visits Requested Visits Authorized [id number] Pending Review PCP Requested Referral 10/27/2022 10/27/2023 1 1 Specialty Diagnoses / Procedures Referred By Contac t Referred To Contact BR IM[facility] Diagnoses Encounter for screening mammogram for malignant neoplasm of breast Procedures DEEP SCREENING SCREENING MAMMOGRAPHY BI 2-VIEW BREAST INC CAD Cherie Tobar, BANQUET STEWARDESS.DIRECTOR COMPLIANCE [address] [place] [address] [facility] [address] [place] [address] Referral ID Status Reason Start Date Expiration Date Visits Requested Visits Authorized [id number] Authorized Auto-Generat ed Referral 10/27/2022 11/26/2023 1 1 Specialty Diagnoses / Procedures Referred By Contac t Referred To Contact Diagnoses Other specified hearing loss, unspecified ear Procedures HEARING TEST/AUDIOGRAM COMPRE AUDIOMETRY THRESHOLD EVAL Elena Lester MD [address] [place] [address] [facility] [address] [place] [address] Referral ID Status Reason Start Date Expiration Date Visits Requested Visits Authorized [id number] Pending Review Auto-Generat ed Referral 10/30/2022 01/28/2023 1 1 Specialty Diagnoses / Procedures Referred By Contac t Referred To Contact Diagnoses Facial tic Numbness and tingling of right face Procedures CONSULT TO NEUROLOGY OFFICE/OUTPATIENT [facility] 60-74 MINUTES Cherie Tobar, BANQUET STEWARDESS.DIRECTOR COMPLIANCE [address] [place] [address] Tarun Rueda MD [address] [facility] [address] Referral ID Status Reason Start Date Expiration Date Visits Requested Visits Authorized [id number] Pending Review PCP Requested Referral 11/07/2022 11/07/2023 1 1 Specialty Diagnoses / Procedures Referred By Contac t Referred To Contact MR IMAGING Diagnoses 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 Facial droop Hearing loss of right ear, unspecified hearing loss type Procedures MRI BRAIN WO/W IVCON MRI BRAIN BRAIN STEM W/O W/CONTRAST MATERIAL Tarun Rueda MD [address] [facility] [address] Mr Imaging Referral ID Status Reason Start Date Expiration Date V isits Requested Visits Authorized [id number] Closed Auto-Generate d Referral 07/02/2022 07/01/2023 1 1 Specialty Diagnoses / Procedures Referred By Contac t Referred To Contact CT IMAGING Diagnoses Cholesteatoma of right ear Procedures CT TEMP BONES WO IVCON CT ORBIT SELLA/POST FOSSA/EAR W/O CONTRAST NATL Elena Wagner MD [address] [place] [id number] Ct Imaging Referral ID Status Reason Start Date Expiration Date Visits Requested Visits Authorized [id number] Authorized Auto-Generat ed Referral 12/27/2022 01/25/2023 1 1 Specialty Diagnoses / Procedures Referred By Rondaac t Referred To Contact Diagnoses 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 Procedures HEARING TEST/AUDIOGRAM COMPRE AUDIOMETRY THRESHOLD [place] [address] [place] [address] [facility] [address] [place] [id number] Referral ID Status Reason Start Date Expiration Date Visits Requested Visits Authorized [id number] Pending Review Auto-Generat ed Referral 08/28/2023 1 1 Specialty Diagnoses / Procedures Referred By Contac t Referred To Contact CT IMAGING Diagnoses 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 Procedures CT TEMP BONES WO IVCON CT ORBIT SELLA/POST FOSSA/EAR W/O CONTRAST Malka Barillas MD [address] [address] [place] [address] Referral ID Status Reason Start Date Expiration Date Visits Requested Visits Authorized [id number] Pending Review Auto-Generat ed Referral 09/07/2023 10/06/2024 1 1 Specialty Diagnoses / Procedures Referred By Contac t Referred To Contact Procedures HEARING TEST/AUDIOGRAM COMPRE AUDIOMETRY THRESHOLD EVAL SP RECOGNIJ Otol [address] [place] [address] [facility] [address] [place] [address] Referral ID Status Reason Start Date Expiration Date Visits Requested Visits Authorized [id number] Pending Review Auto-Generat ed Referral 09/07/2023 09/07/2024 1 1 Referral ID Status Reason Start Date Expiration Date Visits Requested Visits Authorized [id number] New Request Auto-Generat ed Referral 08/05/2024 09/04/2025 1 1 Medications Administered Section Inactive Administered Medications - up to 3 most recent administrations Medication Order MAR Action Action Date Dose Rate Site perflutren lipid microspheres 1.3 mL in NaCl (PF) 0.9% 10 mL injection (DEFINITY) INTRAVENOUS, DIRECTED NEEDED, 1 dose, Starting on Sun12/06/21 at 1144, Until Jana 12/29/21 at 0900, Per Protocol - for use during ECHO procedure only, If no IV access, insert saline lock prior to administering contrast. Discontinue saline lock post exam. If patient has central line or IVAD, may access for administration according to line specific nursing protocol. Once exam is complete, flush line and de-access per line specific nursing protocol.Dilute 1.3 ml of Definity with 8.7 ml of preservative-free saline. Given 12/29/2021 9:00 AM EDT 0.5 mL sodium chloride 0.9 % (flush) 10 mL (BD POSIFLUSH) 10 mL, INTRAVENOUS, DIRECTED NEEDED, 1 dose, Starting on Sun12/06/21 at 1144, Until Jana 12/29/21 at 0900, Per Protocol - for use during ECHO procedure only, no IV access, insert saline lock prior to administering contrast. Discontinue saline lock post exam. If patient has central line or IVAD, may access for administration according to line specific nursing protocol. Once exam is complete, flush line and de-access per line specific nursing protocol. 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 O ctober 2024 8:50am History of cholesteatoma April 06 8:50am Polyneuropathy April 06, 2025 8: 50am Additional Source Comments INFORMATION SOURCE (unrecogn ized section and content) DATE CREATED AUTHOR 08/14/2020 [facility] DATE CREATED AUTHOR AUTHOR'S ORGANIZ ATION 09/08/2024 [facility] DATE CREATED AUTHOR AUTHOR'S ORGANIZ ATION 02/15/2025 [facility] DATE CREATED AUTHOR AUTHOR'S ORGANIZ ATION 02/21/2025 [facility] DATE CREATED AUTHOR AUTHOR'S ORGANIZ ATION 04/29/2025 [facility] Source Comments (unrecognize d section and content) In the event this informatio n is protected by the Federal Confidentiality of Alcohol and Drug Abuse Patient Records regulations: The Federal rules restrict any use of the information to criminally investigate or prosecute any alcohol or drug abuse patient.[facility] HospitalIn the event this information is protected by the Federal Confidentiality of Alcohol and Drug Abuse Patient Records regulations: The Federal rules restrict any use of the information to criminally investigate or prosecute any alcohol or drug abuse patient.[facility] HospitalIn the event this information is protected by the Federal Confidentiality of Alcohol and Drug Abuse Patient Records regulations: The Federal rules restrict any use of the information to criminally investigate or prosecute any alcohol or drug abuse patient.[facility] HospitalIn the event this information is protected by the Federal Confidentiality of Alcohol and Drug Abuse Patient Records regulations: The Federal rules restrict any use of the information to criminally investigate or prosecute any alcohol or drug abuse patient.[facility] HospitalIn the event this information is protected by the Federal Confidentiality of Alcohol and Drug Abuse Patient Records regulations: The Federal rules restrict any use of the information to criminally investigate or prosecute any alcohol or drug abuse patient.[facility] HospitalIn the event this information is protected by the Federal Confidentiality of Alcohol and Drug Abuse Patient Records regulations: The Federal rules restrict any use of the information to criminally investigate or prosecute any alcohol or drug abuse patient.[facility] HospitalIn the event this information is protected by the Federal Confidentiality of Alcohol and Drug Abuse Patient Records regulations: The Federal rules restrict any use of the information to criminally investigate or prosecute any alcohol or drug abuse patient.[facility] HospitalIn the event this information is protected by the Federal Confidentiality of Alcohol and Drug Abuse Patient Records regulations: The Federal rules restrict any use of the information to criminally investigate or prosecute any alcohol or drug abuse patient.[facility] HospitalIn the event this information is protected by the Federal Confidentiality of Alcohol and Drug Abuse Patient Records regulations: The Federal rules restrict any use of the information to criminally investigate or prosecute any alcohol or drug abuse patient.[facility] HospitalIn the event this information is protected by the Federal Confidentiality of Alcohol and Drug Abuse Patient Records regulations: The Federal rules restrict any use of the information to criminally investigate or prosecute any alcohol or drug abuse patient.[facility] HospitalIn the event this information is protected by the Federal Confidentiality of Alcohol and Drug Abuse Patient Records regulations: The Federal rules restrict any use of the information to criminally investigate or prosecute any alcohol or drug abuse patient.[facility] HospitalIn the event this information is protected by the Federal Confidentiality of Alcohol and Drug Abuse Patient Records regulations: The Federal rules restrict any use of the information to criminally investigate or prosecute any alcohol or drug abuse patient.[facility] HospitalIn the event this information is protected by the Federal Confidentiality of Alcohol and Drug Abuse Patient Records regulations: The Federal rules restrict any use of the information to criminally investigate or prosecute any alcohol or drug abuse patient.[facility] HospitalIn the event this information is protected by the Federal Confidentiality of Alcohol and Drug Abuse Patient Records regulations: The Federal rules restrict any use of the information to criminally investigate or prosecute any alcohol or drug abuse patient.[facility] HospitalIn the event this information is protected by the Federal Confidentiality of Alcohol and Drug Abuse Patient Records regulations: The Federal rules restrict any use of the information to criminally investigate or prosecute any alcohol or drug abuse patient.[facility] HospitalIn the event this information is protected by the Federal Confidentiality of Alcohol and Drug Abuse Patient Records regulations: The Federal rules restrict any use of the information to criminally investigate or prosecute any alcohol or drug abuse patient.[facility] HospitalIn the event this information is protected by the Federal Confidentiality of Alcohol and Drug Abuse Patient Records regulations: The Federal rules restrict any use of the information to criminally investigate or prosecute any alcohol or drug abuse patient.[facility] HospitalIn the event this information is protected by the Federal Confidentiality of Alcohol and Drug Abuse Patient Records regulations: The Federal rules restrict any use of the information to criminally investigate or prosecute any alcohol or drug abuse patient.[facility] HospitalIn the event this information is protected by the Federal Confidentiality of Alcohol and Drug Abuse Patient Records regulations: The Federal rules restrict any use of the information to criminally investigate or prosecute any alcohol or drug abuse patient.[facility] HospitalIn the event this information is protected by the Federal Confidentiality of Alcohol and Drug Abuse Patient Records regulations: The Federal rules restrict any use of the information to criminally investigate or prosecute any alcohol or drug abuse patient.[facility] HospitalIn the event this information is protected by the Federal Confidentiality of Alcohol and Drug Abuse Patient Records regulations: The Federal rules restrict any use of the information to criminally investigate or prosecute any alcohol or drug abuse patient.[facility] HospitalIn the event this information is protected by the Federal Confidentiality of Alcohol and Drug Abuse Patient Records regulations: The Federal rules restrict any use of the information to criminally investigate or prosecute any alcohol or drug abuse patient.[facility] HospitalIn the event this information is protected by the Federal Confidentiality of Alcohol and Drug Abuse Patient Records regulations: The Federal rules restrict any use of the information to criminally investigate or prosecute any alcohol or drug abuse patient.[facility] HospitalIn the event this information is protected by the Federal Confidentiality of Alcohol and Drug Abuse Patient Records regulations: The Federal rules restrict any use of the information to criminally investigate or prosecute any alcohol or drug abuse patient.[facility] HospitalIn the event this information is protected by the Federal Confidentiality of Alcohol and Drug Abuse Patient Records regulations: The Federal rules restrict any use of the information to criminally investigate or prosecute any alcohol or drug abuse patient.[facility] HospitalIn the event this information is protected by the Federal Confidentiality of Alcohol and Drug Abuse Patient Records regulations: The Federal rules restrict any use of the information to criminally investigate or prosecute any alcohol or drug abuse patient.[facility] HospitalIn the event this information is protected by the Federal Confidentiality of Alcohol and Drug Abuse Patient Records regulations: The Federal rules restrict any use of the information to criminally investigate or prosecute any alcohol or drug abuse patient.[facility] HospitalIn the event this information is protected by the Federal Confidentiality of Alcohol and Drug Abuse Patient Records regulations: The Federal rules restrict any use of the information to criminally investigate or prosecute any alcohol or drug abuse patient.[facility] HospitalIn the event this information is protected by the Federal Confidentiality of Alcohol and Drug Abuse Patient Records regulations: The Federal rules restrict any use of the information to criminally investigate or prosecute any alcohol or drug abuse patient.[facility] HospitalIn the event this information is protected by the Federal Confidentiality of Alcohol and Drug Abuse Patient Records regulations: The Federal rules restrict any use of the information to criminally investigate or prosecute any alcohol or drug abuse patient.[facility] HospitalIn the event this information is protected by the Federal Confidentiality of Alcohol and Drug Abuse Patient Records regulations: The Federal rules restrict any use of the information to criminally investigate or prosecute any alcohol or drug abuse patient.[facility] HospitalIn the event this information is protected by the Federal Confidentiality of Alcohol and Drug Abuse Patient Records regulations: The Federal rules restrict any use of the information to criminally investigate or prosecute any alcohol or drug abuse patient.[facility] HospitalIn the event this information is protected by the Federal Confidentiality of Alcohol and Drug Abuse Patient Records regulations: The Federal rules restrict any use of the information to criminally investigate or prosecute any alcohol or drug abuse patient.[facility] HospitalIn the event this information is protected by the Federal Confidentiality of Alcohol and Drug Abuse Patient Records regulations: The Federal rules restrict any use of the information to criminally investigate or prosecute any alcohol or drug abuse patient.[facility] HospitalIn the event this information is protected by the Federal Confidentiality of Alcohol and Drug Abuse Patient Records regulations: The Federal rules restrict any use of the information to criminally investigate or prosecute any alcohol or drug abuse patient.[facility] HospitalIn the event this information is protected by the Federal Confidentiality of Alcohol and Drug Abuse Patient Records regulations: The Federal rules restrict any use of the information to criminally investigate or prosecute any alcohol or drug abuse patient.[facility] HospitalIn the event this information is protected by the Federal Confidentiality of Alcohol and Drug Abuse Patient Records regulations: The Federal rules restrict any use of the information to criminally investigate or prosecute any alcohol or drug abuse patient.[facility] HospitalIn the event this information is protected by the Federal Confidentiality of Alcohol and Drug Abuse Patient Records regulations: The Federal rules restrict any use of the information to criminally investigate or prosecute any alcohol or drug abuse patient.[facility] HospitalIn the event this information is protected by the Federal Confidentiality of Alcohol and Drug Abuse Patient Records regulations: The Federal rules restrict any use of the information to criminally investigate or prosecute any alcohol or drug abuse patient.[facility] HospitalIn the event this information is protected by the Federal Confidentiality of Alcohol and Drug Abuse Patient Records regulations: The Federal rules restrict any use of the information to criminally investigate or prosecute any alcohol or drug abuse patient.[facility] HospitalIn the event this information is protected by the Federal Confidentiality of Alcohol and Drug Abuse Patient Records regulations: The Federal rules restrict any use of the information to criminally investigate or prosecute any alcohol or drug abuse patient.[facility] HospitalIn the event this information is protected by the Federal Confidentiality of Alcohol and Drug Abuse Patient Records regulations: The Federal rules restrict any use of the information to criminally investigate or prosecute any alcohol or drug abuse patient.[facility] HospitalIn the event this information is protected by the Federal Confidentiality of Alcohol and Drug Abuse Patient Records regulations: The Federal rules restrict any use of the information to criminally investigate or prosecute any alcohol or drug abuse patient.[facility] HospitalIn the event this information is protected by the Federal Confidentiality of Alcohol and Drug Abuse Patient Records regulations: The Federal rules restrict any use of the information to criminally investigate or prosecute any alcohol or drug abuse patient.[facility] HospitalIn the event this information is protected by the Federal Confidentiality of Alcohol and Drug Abuse Patient Records regulations: The Federal rules restrict any use of the information to criminally investigate or prosecute any alcohol or drug abuse patient.[facility] HospitalIn the event this information is protected by the Federal Confidentiality of Alcohol and Drug Abuse Patient Records regulations: The Federal rules restrict any use of the information to criminally investigate or prosecute any alcohol or drug abuse patient.[facility] HospitalIn the event this information is protected by the Federal Confidentiality of Alcohol and Drug Abuse Patient Records regulations: The Federal rules restrict any use of the information to criminally investigate or prosecute any alcohol or drug abuse patient.[facility] HospitalIn the event this information is protected by the Federal Confidentiality of Alcohol and Drug Abuse Patient Records regulations: The Federal rules restrict any use of the information to criminally investigate or prosecute any alcohol or drug abuse patient.[facility] HospitalIn the event this information is protected by the Federal Confidentiality of Alcohol and Drug Abuse Patient Records regulations: The Federal rules restrict any use of the information to criminally investigate or prosecute any alcohol or drug abuse patient.[facility] HospitalIn the event this information is protected by the Federal Confidentiality of Alcohol and Drug Abuse Patient Records regulations: The Federal rules restrict any use of the information to criminally investigate or prosecute any alcohol or drug abuse patient.[facility] HospitalIn the event this information is protected by the Federal Confidentiality of Alcohol and Drug Abuse Patient Records regulations: The Federal rules restrict any use of the information to criminally investigate or prosecute any alcohol or drug abuse patient.[facility] HospitalIn the event this information is protected by the Federal Confidentiality of Alcohol and Drug Abuse Patient Records regulations: The Federal rules restrict any use of the information to criminally investigate or prosecute any alcohol or drug abuse patient.[facility] HospitalIn the event this information is protected by the Federal Confidentiality of Alcohol and Drug Abuse Patient Records regulations: The Federal rules restrict any use of the information to criminally investigate or prosecute any alcohol or drug abuse patient.[facility] HospitalIn the event this information is protected by the Federal Confidentiality of Alcohol and Drug Abuse Patient Records regulations: The Federal rules restrict any use of the information to criminally investigate or prosecute any alcohol or drug abuse patient.[facility] HospitalIn the event this information is protected by the Federal Confidentiality of Alcohol and Drug Abuse Patient Records regulations: The Federal rules restrict any use of the information to criminally investigate or prosecute any alcohol or drug abuse patient.[facility] HospitalIn the event this information is protected by the Federal Confidentiality of Alcohol and Drug Abuse Patient Records regulations: The Federal rules restrict any use of the information to criminally investigate or prosecute any alcohol or drug abuse patient.[facility] HospitalIn the event this information is protected by the Federal Confidentiality of Alcohol and Drug Abuse Patient Records regulations: The Federal rules restrict any use of the information to criminally investigate or prosecute any alcohol or drug abuse patient.[facility] HospitalIn the event this information is protected by the Federal Confidentiality of Alcohol and Drug Abuse Patient Records regulations: The Federal rules restrict any use of the information to criminally investigate or prosecute any alcohol or drug abuse patient.[facility] HospitalIn the event this information is protected by the Federal Confidentiality of Alcohol and Drug Abuse Patient Records regulations: The Federal rules restrict any use of the information to criminally investigate or prosecute any alcohol or drug abuse patient.[facility] HospitalIn the event this information is protected by the Federal Confidentiality of Alcohol and Drug Abuse Patient Records regulations: The Federal rules restrict any use of the information to criminally investigate or prosecute any alcohol or drug abuse patient.[facility] HospitalIn the event this information is protected by the Federal Confidentiality of Alcohol and Drug Abuse Patient Records regulations: The Federal rules restrict any use of the information to criminally investigate or prosecute any alcohol or drug abuse patient.[facility] HospitalIn the event this information is protected by the Federal Confidentiality of Alcohol and Drug Abuse Patient Records regulations: The Federal rules restrict any use of the information to criminally investigate or prosecute any alcohol or drug abuse patient.[facility] HospitalIn the event this information is protected by the Federal Confidentiality of Alcohol and Drug Abuse Patient Records regulations: The Federal rules restrict any use of the information to criminally investigate or prosecute any alcohol or drug abuse patient.[facility] HospitalIn the event this information is protected by the Federal Confidentiality of Alcohol and Drug Abuse Patient Records regulations: The Federal rules restrict any use of the information to criminally investigate or prosecute any alcohol or drug abuse patient.[facility] HospitalIn the event this information is protected by the Federal Confidentiality of Alcohol and Drug Abuse Patient Records regulations: The Federal rules restrict any use of the information to criminally investigate or prosecute any alcohol or drug abuse patient.[facility] HospitalIn the event this information is protected by the Federal Confidentiality of Alcohol and Drug Abuse Patient Records regulations: The Federal rules restrict any use of the information to criminally investigate or prosecute any alcohol or drug abuse patient.[facility] HospitalIn the event this information is protected by the Federal Confidentiality of Alcohol and Drug Abuse Patient Records regulations: The Federal rules restrict any use of the information to criminally investigate or prosecute any alcohol or drug abuse patient.[facility] HospitalIn the event this information is protected by the Federal Confidentiality of Alcohol and Drug Abuse Patient Records regulations: The Federal rules restrict any use of the information to criminally investigate or prosecute any alcohol or drug abuse patient.[facility] HospitalIn the event this information is protected by the Federal Confidentiality of Alcohol and Drug Abuse Patient Records regulations: The Federal rules restrict any use of the information to criminally investigate or prosecute any alcohol or drug abuse patient.[facility] HospitalIn the event this information is protected by the Federal Confidentiality of Alcohol and Drug Abuse Patient Records regulations: The Federal rules restrict any use of the information to criminally investigate or prosecute any alcohol or drug abuse patient.[facility] HospitalIn the event this information is protected by the Federal Confidentiality of Alcohol and Drug Abuse Patient Records regulations: The Federal rules restrict any use of the information to criminally investigate or prosecute any alcohol or drug abuse patient.[facility] HospitalIn the event this information is protected by the Federal Confidentiality of Alcohol and Drug Abuse Patient Records regulations: The Federal rules restrict any use of the information to criminally investigate or prosecute any alcohol or drug abuse patient.[facility] HospitalIn the event this information is protected by the Federal Confidentiality of Alcohol and Drug Abuse Patient Records regulations: The Federal rules restrict any use of the information to criminally investigate or prosecute any alcohol or drug abuse patient.[facility] HospitalIn the event this information is protected by the Federal Confidentiality of Alcohol and Drug Abuse Patient Records regulations: The Federal rules restrict any use of the information to criminally investigate or prosecute any alcohol or drug abuse patient.[facility] HospitalIn the event this information is protected by the Federal Confidentiality of Alcohol and Drug Abuse Patient Records regulations: The Federal rules restrict any use of the information to criminally investigate or prosecute any alcohol or drug abuse patient.[facility] HospitalIn the event this information is protected by the Federal Confidentiality of Alcohol and Drug Abuse Patient Records regulations: The Federal rules restrict any use of the information to criminally investigate or prosecute any alcohol or drug abuse patient.[facility] HospitalIn the event this information is protected by the Federal Confidentiality of Alcohol and Drug Abuse Patient Records regulations: The Federal rules restrict any use of the information to criminally investigate or prosecute any alcohol or drug abuse patient.[facility] HospitalIn the event this information is protected by the Federal Confidentiality of Alcohol and Drug Abuse Patient Records regulations: The Federal rules restrict any use of the information to criminally investigate or prosecute any alcohol or drug abuse patient.[facility] HospitalIn the event this information is protected by the Federal Confidentiality of Alcohol and Drug Abuse Patient Records regulations: The Federal rules restrict any use of the information to criminally investigate or prosecute any alcohol or drug abuse patient.[facility] HospitalIn the event this information is protected by the Federal Confidentiality of Alcohol and Drug Abuse Patient Records regulations: The Federal rules restrict any use of the information to criminally investigate or prosecute any alcohol or drug abuse patient.[facility] HospitalIn the event this information is protected by the Federal Confidentiality of Alcohol and Drug Abuse Patient Records regulations: The Federal rules restrict any use of the information to criminally investigate or prosecute any alcohol or drug abuse patient.[facility] HospitalIn the event this information is protected by the Federal Confidentiality of Alcohol and Drug Abuse Patient Records regulations: The Federal rules restrict any use of the information to criminally investigate or prosecute any alcohol or drug abuse patient.[facility] HospitalIn the event this information is protected by the Federal Confidentiality of Alcohol and Drug Abuse Patient Records regulations: The Federal rules restrict any use of the information to criminally investigate or prosecute any alcohol or drug abuse patient.[facility] HospitalIn the event this information is protected by the Federal Confidentiality of Alcohol and Drug Abuse Patient Records regulations: The Federal rules restrict any use of the information to criminally investigate or prosecute any alcohol or drug abuse patient.[facility] HospitalIn the event this information is protected by the Federal Confidentiality of Alcohol and Drug Abuse Patient Records regulations: The Federal rules restrict any use of the information to criminally investigate or prosecute any alcohol or drug abuse patient.[facility] HospitalIn the event this information is protected by the Federal Confidentiality of Alcohol and Drug Abuse Patient Records regulations: The Federal rules restrict any use of the information to criminally investigate or prosecute any alcohol or drug abuse patient.[facility] HospitalIn the event this information is protected by the Federal Confidentiality of Alcohol and Drug Abuse Patient Records regulations: The Federal rules restrict any use of the information to criminally investigate or prosecute any alcohol or drug abuse patient.[facility] HospitalIn the event this information is protected by the Federal Confidentiality of Alcohol and Drug Abuse Patient Records regulations: The Federal rules restrict any use of the information to criminally investigate or prosecute any alcohol or drug abuse patient.[facility] HospitalIn the event this information is protected by the Federal Confidentiality of Alcohol and Drug Abuse Patient Records regulations: The Federal rules restrict any use of the information to criminally investigate or prosecute any alcohol or drug abuse patient.[facility] HospitalIn the event this information is protected by the Federal Confidentiality of Alcohol and Drug Abuse Patient Records regulations: The Federal rules restrict any use of the information to criminally investigate or prosecute any alcohol or drug abuse patient.[facility] HospitalIn the event this information is protected by the Federal Confidentiality of Alcohol and Drug Abuse Patient Records regulations: The Federal rules restrict any use of the information to criminally investigate or prosecute any alcohol or drug abuse patient.[facility] HospitalIn the event this information is protected by the Federal Confidentiality of Alcohol and Drug Abuse Patient Records regulations: The Federal rules restrict any use of the information to criminally investigate or prosecute any alcohol or drug abuse patient.[facility] HospitalIn the event this information is protected by the Federal Confidentiality of Alcohol and Drug Abuse Patient Records regulations: The Federal rules restrict any use of the information to criminally investigate or prosecute any alcohol or drug abuse patient.[facility] HospitalIn the event this information is protected by the Federal Confidentiality of Alcohol and Drug Abuse Patient Records regulations: The Federal rules restrict any use of the information to criminally investigate or prosecute any alcohol or drug abuse patient.[facility] HospitalIn the event this information is protected by the Federal Confidentiality of Alcohol and Drug Abuse Patient Records regulations: The Federal rules restrict any use of the information to criminally investigate or prosecute any alcohol or drug abuse patient.[facility] HospitalIn the event this information is protected by the Federal Confidentiality of Alcohol and Drug Abuse Patient Records regulations: The Federal rules restrict any use of the information to criminally investigate or prosecute any alcohol or drug abuse patient.[facility] HospitalIn the event this information is protected by the Federal Confidentiality of Alcohol and Drug Abuse Patient Records regulations: The Federal rules restrict any use of the information to criminally investigate or prosecute any alcohol or drug abuse patient.[facility] HospitalIn the event this information is protected by the Federal Confidentiality of Alcohol and Drug Abuse Patient Records regulations: The Federal rules restrict any use of the information to criminally investigate or prosecute any alcohol or drug abuse patient.[facility] HospitalIn the event this information is protected by the Federal Confidentiality of Alcohol and Drug Abuse Patient Records regulations: The Federal rules restrict any use of the information to criminally investigate or prosecute any alcohol or drug abuse patient.[facility] HospitalIn the event this information is protected by the Federal Confidentiality of Alcohol and Drug Abuse Patient Records regulations: The Federal rules restrict any use of the information to criminally investigate or prosecute any alcohol or drug abuse patient.[facility] Reason for Visit (unrecogniz ed section and content) Reason Comments Physical Therapy Specialty Diagnoses / Procedures Referred By Nina de paz Referred To Contact [facility] Diagnoses Post-acute sequelae of COVID-19 (PASC) SOB (shortness of breath) Dizziness Weakness Arthralgia, unspecified joint Procedures CONSULT TO PHYSICAL THERAPY PHYSICAL THERAPY EVALUATION HIGH COMPLEX 45 MINS Mehnaz Tomas, BANQUET STEWARDESS.DIRECTOR COMPLIANCE [address] [place] [address] [facility] [place] [address] [place] [address] Referral ID Status Reason Start Date Expiration Date V isits Requested Visits Authorized [id number] Authorized 07/02/2021 07/01/2022 50 50 Reason Comments Follow Up Specialty Diagnoses / Procedures Referred By Nina de paz Referred To Contact [facility] Diagnoses 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 Procedures CONSULT TO COVID [facility] Cherie Tobar, BANQUET STEWARDESS.DIRECTOR COMPLIANCE [address] [place] [address] [facility] [address] [place] [address] Referral ID Status Reason Start Date Expiration Date Visits Requested Visits Authorized [id number] Pending Review PCP Requested Referral 11/14/2021 11/14/2022 1 1 Reason Comments Orders Reason Comments Orders Reason Comments Results Reason Comments Appointment Reason Comments Consult Reason Comments Results Reason Comments Orders Appointment Specialty Diagnoses / Procedures [facility] To [facility] Diagnoses Post-acute sequelae of COVID-19 (PASC) Positive D dimer SOB (shortness of breath) Procedures CT CHEST W IVCON PE DIAGNOSTIC COMPUTED TOMOGRAPHY THORAX W/CONTRAST Mehnaz Tomas, BANQUET STEWARDESS.DIRECTOR COMPLIANCE [id number] [facility] Referral ID Status Reason Start Date Expiration Date V isits Requested Visits Authorized [id number] Closed Auto-Generate d Referral 12/12/2021 2022 1 1 Reason Comments Spirometry Specialty Diagnoses / Procedures [facility] Diagnoses Post-acute sequelae of COVID-19 (PASC) SOB (shortness of breath) Cough Chest pain, unspecified type Dizziness Weakness Arthralgia, unspecified joint Fatigue, unspecified type Procedures LUNG DIFFUSION CAPACITY (DLCO) DIFFUSING CAPACITY Mehnaz Tomas, BANQUET STEWARDESS.DIRECTOR COMPLIANCE [address] [place] [address] [facility] [address] [place] [id number] Referral ID Status Reason Start Date Expiration Date V isits Requested Visits Authorized [id number] Closed Auto-Generate d Referral 12/06/2021 01/05/2023 1 1 Specialty Diagnoses / Procedures [facility] Diagnoses Post-acute sequelae of COVID-19 (PASC) SOB (shortness of breath) Cough Chest pain, unspecified type Dizziness Weakness Arthralgia, unspecified joint Fatigue, unspecified type Procedures SPIROMETRY - BASELINE AND POST DILATOR BRNCDILAT RSPSE SPMTRY PRE&POST-BRNCDILAT ADMN Mehnaz Tomas, BANQUET STEWARDESS.DIRECTOR COMPLIANCE [address] [place] [address] [facility] [address] [place] [address] Referral ID Status Reason Start Date Expiration Date V isits Requested Visits Authorized [id number] Closed Auto-Generate d Referral 12/06/2021 01/05/2023 1 1 Specialty Diagnoses / Procedures Referred By [facility] Referred To [facility] Diagnoses Post-acute sequelae of COVID-19 (PASC) SOB (shortness of breath) Cough Chest pain, unspecified type Dizziness Weakness Arthralgia, unspecified joint Fatigue, unspecified type Procedures LUNG VOLUMES Mehnaz Tomas, BANQUET STEWARDESS.DIRECTOR COMPLIANCE [address] [place] [address] [facility] [address] [place] [address] Referral ID Status Reason Start Date Expiration Date V isits Requested Visits Authorized [id number] Closed Auto-Generate d Referral 12/19/2021 07/01/2022 1 1 Reason Comments PT Eval Patient Education Reason Comments Results Orders Specialty Diagnoses / Procedures Referred By [facility] t Referred To Contact [facility] Diagnoses Post-acute sequelae of COVID-19 (PASC) Fatigue, unspecified type Procedures CONSULT TO FUNCTIONAL MEDICINE OFFICE/OUTPATIENT [facility] 60-74 MINUTES Mehnaz Tomas, BANQUET STEWARDESS.DIRECTOR COMPLIANCE [address] [place] [address] [facility] [address] [place] [address] Referral ID Status Reason Start Date Expiration Date V isits Requested Visits Authorized [id number] Closed PCP Requested Referral Financial Clearance Not Required 12/06/2021 12/06/2022 1 1 Reason Comments Established Patient Post COVID Specialty Diagnoses / Procedures Referred By [facility] t Referred To Contact [facility] Diagnoses Post-acute sequelae of COVID-19 (PASC) Fatigue, unspecified type Procedures CONSULT TO FUNCTIONAL MEDICINE OFFICE/OUTPATIENT [facility] 60-74 MINUTES Mehnaz Tomas, BANQUET STEWARDESS.DIRECTOR COMPLIANCE [address] [place] [address] [facility] [address] [place] [address] Reason Comments 3 month f/u SOB Reason Comments Lab Orders Reason Comments New Knee Pain Specialty Diagnoses / Procedures Referred By Contac t Referred To Contact Orthopedics / [facility] Department Diagnoses Chronic pain of left knee Procedures CONSULT TO ORTHOPAEDIC SURGERY OFFICE/OUTPATIENT [facility] MDM 60-74 MINUTES Cherie Tobar, BANQUET STEWARDESS.DIRECTOR COMPLIANCE [address] [place] [address] [facility] Dept Referral ID Status Reason Start Date Expiration Date Visits Requested Visits Authorized [id number] Pending Review PCP Requested Referral 02/14/2022 02/14/2023 1 1 Reason Comments New Patient Back Pain Specialty Diagnoses / Procedures Referred By Contac t Referred To Contact Rheumatology Diagnoses Post-acute sequelae of COVID-19 (PASC) Weakness Arthralgia, unspecified joint Procedures CONSULT TO RHEUM/IMMUN DISEASE OFFICE/OUTPATIENT [facility] 60-74 MINUTES Mehnaz Tomas, BANQUET STEWARDESS.DIRECTOR COMPLIANCE [address] [place] [address] Referral ID Status Reason Start Date Expiration Date Visits Requested Visits Authorized [id number] Pending Review PCP Requested Referral 12/06/2021 12/06/2022 1 1 Reason Comments F/U 3 Month Specialty Diagnoses / Procedures Referred By [facility] Referred [facility] Diagnoses SOB (shortness of breath) Procedures SPIROMETRY WITH DILATOR IF OBSTRUCTED BRNCDILAT RSPSE SPMTRY PRE&POST-BRNCDILAT ADMN Haley Posada MD [address] [place] [address] [facility] [address] [place], [place] [id number] Referral ID Status Reason Start Date Expiration Date V isits Requested Visits Authorized [id number] Closed Auto-Generate d Referral 06/06/2022 07/02/2023 1 1 Specialty Diagnoses / Procedures Referred By [facility] Referred To Contact [facility] Diagnoses SOB (shortness of breath) Procedures NITRIC OXIDE, EXHALED NITRIC OXIDE GAS DETERMINATION Haley Posada MD [address] [place] [address] [facility] [address] [place] [address] Referral ID Status Reason Start Date Expiration Date V isits Requested Visits Authorized [id number] Closed Auto-Generate d Referral 06/14/2022 07/14/2023 1 1 Reason Comments New Patient Post covid - she had covid in July of 2021. Reports SOB and fatigue states that she has had clots all over. 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 Facial droop Hearing loss of right ear, unspecified hearing loss type Procedures MRI BRAIN WO/W IVCON MRI BRAIN BRAIN STEM W/O W/CONTRAST MATERIAL Tarun Rueda MD [address] [place] [address] [place] [address] Mr Imaging Referral ID Status Reason Start Date Expiration Date V isits Requested Visits Authorized [id number] Closed Auto-Generate d Referral 07/02/2022 07/01/2023 1 1 Reason Comments Consult Hearing loss- review audiogram from today Specialty Diagnoses / Procedures Referred By Contact Referred To Contact Ent - Otolaryngology / [facility] Department Diagnoses Hearing loss of right ear, unspecified hearing loss type Procedures CONSULT TO ENT OFFICE/OUTPATIENT NEW HIGH MDM 60-74 MINUTES Cherie Tobar, BANQUET STEWARDESS.DIRECTOR COMPLIANCE [address] [place] [address] Elena Wagner MD [address] [address] Referral ID Status Reason Start Date Expiration Date Visits Requested Visits Authorized [id number] Pending Review PCP Requested Referral 10/27/2022 10/27/2023 1 1 Reason Comments Left ear pain Reason Onset Date Comments Refill Request 02/16/2023 Reason Comments Pre-Op Visit Reason Comments Follow Up Est. Tympanoplasty 1 07/10/22, cholesteatoma right ear. Has facial spasm, random. Denies pain, drainage. Loose tooth post op. Reason Comments Follow Up Est.. andres 05/30/23, Cholesteatoma of right ear, vertigo, facial spasms, audio completed, denies pain/drainage Reason Comments Ear Problem Reason Comments Yearly Exam Reason Comments Refill Request Reason Onset Date Comments Refill Request 01/29/2024 Reason Comments Dizziness Duration: since last SundayDescription: She gets dizzy when laying down, and when get up from sitting position Reason Comments ct scan request Reason Comments New Pain Fracture Reason Comments Patient Question Reason Comments Patient Update Reason Comments Established Patient Follow Up Fracture Reason Comments Wellness Reason Onset Date Comments Refill Request 10/20/2024 Reason Comments Yearly Exam Care Teams (unrecognized sec tion and content) National Sales Trainer Relationship Specialty Start Date End Date Cherie Tobar, BANQUET STEWARDESS.DIRECTOR COMPLIANCE [address] [place] [address] PCP - General Family Practice 03/15/20 National Sales Trainer Relationship Specialty Start Date End Date Cherie Tobar, BANQUET STEWARDESS.DIRECTOR COMPLIANCE [address] [place] [address] PCP - General Family Practice 03/15/20 National Sales Trainer Relationship Specialty Start Date End Date Cherie Tobar, BANQUET STEWARDESS.DIRECTOR COMPLIANCE [address] [place] [address] PCP - General Family Practice 03/15/20 National Sales Trainer Relationship Specialty Start Date End Date Cherie Tobar, BANQUET STEWARDESS.DIRECTOR COMPLIANCE [address] [place] [address] PCP - General Family Practice 03/15/20 National Sales Trainer Relationship Specialty Start Date End Date Cherie Tobar, BANQUET STEWARDESS.DIRECTOR COMPLIANCE [address] [facility] [address] PCP - General Family Practice 03/15/20 National Sales Trainer Relationship Specialty Start Date End Date Cherie Tobar, BANQUET STEWARDESS.DIRECTOR COMPLIANCE [address] [facility] [place] [address] PCP - General Family Practice 03/15/20 National Sales Trainer Relationship Specialty Start Date End Date Cherie Tobar, BANQUET STEWARDESS.DIRECTOR COMPLIANCE [address] [place] [address] PCP - General Family Practice 03/15/20 National Sales Trainer Relationship Specialty Start Date End Date Cherie Tobar, BANQUET STEWARDESS.DIRECTOR COMPLIANCE [address] [place] [address] PCP - General Family Practice 03/15/20 National Sales Trainer Relationship Specialty Start Date End Date Cherie Tobar, BANQUET STEWARDESS.DIRECTOR COMPLIANCE [address] [place] [address] PCP - General Family Practice 03/15/20 National Sales Trainer Relationship Specialty Start Date End Date Cherie Tobar, BANQUET STEWARDESS.DIRECTOR COMPLIANCE [address] [place] [address] PCP - General Family Practice 03/15/20 National Sales Trainer Relationship Specialty Start Date End Date Cherie Tobar, BANQUET STEWARDESS.DIRECTOR COMPLIANCE [address] [place] [address] PCP - General Family Practice 03/15/20 National Sales Trainer Relationship Specialty Start Date End Date Cherie Tobar, BANQUET STEWARDESS.DIRECTOR COMPLIANCE [address] [place] [address] PCP - General Family Practice 03/15/20 National Sales Trainer Relationship Specialty Start Date End Date Cherie Tobar, BANQUET STEWARDESS.DIRECTOR COMPLIANCE [address] [place] [address] PCP - General Family Practice 03/15/20 National Sales Trainer Relationship Specialty Start Date End Date Cherie Tobar, BANQUET STEWARDESS.DIRECTOR COMPLIANCE [address] [place] [address] PCP - General Family Practice 03/15/20 National Sales Trainer Relationship Specialty Start Date End Date Cherie Tobar, BANQUET STEWARDESS.DIRECTOR COMPLIANCE [address] [place] [address] PCP - General Family Practice 03/15/20 National Sales Trainer Relationship Specialty Start Date End Date Cherie Tobar, BANQUET STEWARDESS.DIRECTOR COMPLIANCE [address] [place] [address] PCP - General Family Practice 03/15/20 National Sales Trainer Relationship Specialty Start Date End Date Cherie Tobar, BANQUET STEWARDESS.DIRECTOR COMPLIANCE [address] [place] [address] PCP - General Family Practice 03/15/20 National Sales Trainer Relationship Specialty Start Date End Date Cherie Tobar, BANQUET STEWARDESS.DIRECTOR COMPLIANCE [address] [place] [address] PCP - General Family Practice 03/15/20 National Sales Trainer Relationship Specialty Start Date End Date Cherie Tobar, BANQUET STEWARDESS.DIRECTOR COMPLIANCE [address] [place] [address] PCP - General Family Practice 03/15/20 National Sales Trainer Relationship Specialty Start Date End Date Cherie Tobar, BANQUET STEWARDESS.DIRECTOR COMPLIANCE [address] [place] [address] PCP - General Family Practice 03/15/20 National Sales Trainer Relationship Specialty Start Date End Date Cherie Tobar, BANQUET STEWARDESS.DIRECTOR COMPLIANCE [address] [place] [address] PCP - General Family Practice 03/15/20 National Sales Trainer Relationship Specialty Start Date End Date Cherie Tobar, BANQUET STEWARDESS.DIRECTOR COMPLIANCE [address] [place] [address] PCP - General Family Practice 03/15/20 National Sales Trainer Relationship Specialty Start Date End Date Cherie Tobar, BANQUET STEWARDESS.DIRECTOR COMPLIANCE [address] [place] [address] PCP - General Family Practice 03/15/20 National Sales Trainer Relationship Specialty Start Date End Date Cherie Tobar, BANQUET STEWARDESS.DIRECTOR COMPLIANCE [address] [place] [address] PCP - General Family Practice 03/15/20 National Sales Trainer Relationship Specialty Start Date End Date Cherie Tobar, BANQUET STEWARDESS.DIRECTOR COMPLIANCE [address] [place] [address] PCP - General Family Practice 03/15/20 National Sales Trainer Relationship Specialty Start Date End Date Cherie Tobar, BANQUET STEWARDESS.DIRECTOR COMPLIANCE [address] [place] [address] PCP - General Family Practice 03/15/20 National Sales Trainer Relationship Specialty Start Date End Date Cherie Tobar, BANQUET STEWARDESS.DIRECTOR COMPLIANCE [address] [place] [address] PCP - General Family Practice 03/15/20 National Sales Trainer Relationship Specialty Start Date End Date Cherie Tobar, BANQUET STEWARDESS.DIRECTOR COMPLIANCE [address] [place] [address] PCP - General Family Practice 03/15/20 National Sales Trainer Relationship Specialty Start Date End Date Cherie Tobar, BANQUET STEWARDESS.DIRECTOR COMPLIANCE [address] [place] [address] PCP - General Family Practice 03/15/20 National Sales Trainer Relationship Specialty Start Date End Date Cherie Tobar, BANQUET STEWARDESS.DIRECTOR COMPLIANCE [address] [place] [address] PCP - General Family Medicine 03/15/20 National Sales Trainer Relationship Specialty Start Date End Date Cherie Tobar, BANQUET STEWARDESS.DIRECTOR COMPLIANCE [address] [place] [address] PCP - General Family Medicine 03/15/20 National Sales Trainer Relationship Specialty Start Date End Date Cherie Tobar, BANQUET STEWARDESS.DIRECTOR COMPLIANCE [address] [place] [address] PCP - General Family Medicine 03/15/20 National Sales Trainer Relationship Specialty Start Date End Date Cherie Tobar, BANQUET STEWARDESS.DIRECTOR COMPLIANCE [address] [place] [address] PCP - General Family Medicine 03/15/20 National Sales Trainer Relationship Specialty Start Date End Date Cherie Tobar, BANQUET STEWARDESS.DIRECTOR COMPLIANCE [address] [place] [address] PCP - General Family Medicine 03/15/20 National Sales Trainer Relationship Specialty Start Date End Date Cherie Tobar, BANQUET STEWARDESS.DIRECTOR COMPLIANCE [address] [place] [address] PCP - General Family Medicine 03/15/20 National Sales Trainer Relationship Specialty Start Date End Date Cherie Tobar, BANQUET STEWARDESS.DIRECTOR COMPLIANCE [address] [place] [address] PCP - General Family Medicine 03/15/20 National Sales Trainer Relationship Specialty Start Date End Date Cherie Tobar, BANQUET STEWARDESS.DIRECTOR COMPLIANCE [address] [place] [address] PCP - General Family Medicine 03/15/20 National Sales Trainer Relationship Specialty Start Date End Date Cherie Tobar, BANQUET STEWARDESS.DIRECTOR COMPLIANCE [address] [place] [address] PCP - General Family Medicine 03/15/20 National Sales Trainer Relationship Specialty Start Date End Date Cherie Tobar, BANQUET STEWARDESS.DIRECTOR COMPLIANCE [address] [facility] [address] PCP - General Family Medicine 03/15/20 National Sales Trainer Relationship Specialty Start Date End Date Cherie Tobar, BANQUET STEWARDESS.DIRECTOR COMPLIANCE [address] [facility] [place] [address] PCP - General Family Medicine 03/15/20 National Sales Trainer Relationship Specialty Start Date End Date Cherie Tobar, BANQUET STEWARDESS.DIRECTOR COMPLIANCE [address] [facility] [address] PCP - General Family Medicine 03/15/20 National Sales Trainer Relationship Specialty Start Date End Date Cherie Tobar, BANQUET STEWARDESS.DIRECTOR COMPLIANCE [address] [facility] [place] [address] PCP - General Family Medicine 03/15/20 National Sales Trainer Relationship Specialty Start Date End Date Cherie Tobar, BANQUET STEWARDESS.DIRECTOR COMPLIANCE [address] [facility] [place] [address] PCP - General Family Medicine 03/15/20 National Sales Trainer Relationship Specialty Start Date End Date Cherie Tobar, BANQUET STEWARDESS.DIRECTOR COMPLIANCE [address] [facility] [place] [address] PCP - General Family Medicine 03/15/20 National Sales Trainer Relationship Specialty Start Date End Date Cherie Tobar, BANQUET STEWARDESS.DIRECTOR COMPLIANCE [address] [facility] [place] [address] PCP - General Family Medicine 03/15/20 National Sales Trainer Relationship Specialty Start Date End Date Cherie Tobar, BANQUET STEWARDESS.DIRECTOR COMPLIANCE [address] [facility] [place] [address] PCP - General Family Medicine 03/15/20 National Sales Trainer Relationship Specialty Start Date End Date Cherie Tobar, BANQUET STEWARDESS.DIRECTOR COMPLIANCE [address] [place] [address] PCP - General Family Medicine 03/15/20 National Sales Trainer Relationship Specialty Start Date End Date Queden, Cherie A, BANQUET STEWARDESS.DIRECTOR COMPLIANCE [address] [place] [address] PCP - General Family Medicine 03/15/20 National Sales Trainer Relationship Specialty Start Date End Date Queden, Cherie A, BANQUET STEWARDESS.DIRECTOR COMPLIANCE [address] [place] [address] PCP - General Family Medicine 03/15/20 National Sales Trainer Relationship Specialty Start Date End Date Queden, Cherie A, BANQUET STEWARDESS.DIRECTOR COMPLIANCE [address] [place] [address] PCP - General Family Medicine 03/15/20 National Sales Trainer Relationship Specialty Start Date End Date Queden, Cherie A, BANQUET STEWARDESS.DIRECTOR COMPLIANCE [address] [place] [address] PCP - General Family Medicine 03/15/20 National Sales Trainer Relationship Specialty Start Date End Date Queden, Cherie A, BANQUET STEWARDESS.DIRECTOR COMPLIANCE [address] [place] [address] PCP - General Family Medicine 03/15/20 National Sales Trainer Relationship Specialty Start Date End Date Queden, Cherie A, BANQUET STEWARDESS.DIRECTOR COMPLIANCE [address] [place] [address] PCP - General Family Medicine 03/15/20 National Sales Trainer Relationship Specialty Start Date End Date Queden, Cherie A, BANQUET STEWARDESS.DIRECTOR COMPLIANCE [address] [place] [address] PCP - General Family Medicine 03/15/20 National Sales Trainer Relationship Specialty Start Date End Date Cherie Tobar, BANQUET STEWARDESS.DIRECTOR COMPLIANCE [address] [place] [address] PCP - General Family Medicine 03/15/20 National Sales Trainer Relationship Specialty Start Date End Date Cherie Tobar, BANQUET STEWARDESS.DIRECTOR COMPLIANCE [address] [place] [address] PCP - General Family Medicine 03/15/20 National Sales Trainer Relationship Specialty Start Date End Date Cherie Tobar, BANQUET STEWARDESS.DIRECTOR COMPLIANCE [address] [place] [address] PCP - General Family Medicine 03/15/20 National Sales Trainer Relationship Specialty Start Date End Date Cherie Tobar, BANQUET STEWARDESS.DIRECTOR COMPLIANCE [address] [place] [address] PCP - General Family Medicine 03/15/20 National Sales Trainer Relationship Specialty Start Date End Date Cherie Tobar, BANQUET STEWARDESS.DIRECTOR COMPLIANCE [address] [place] [address] PCP - General Family Medicine 03/15/20 National Sales Trainer Relationship Specialty Start Date End Date Cherie Tobar, BANQUET STEWARDESS.DIRECTOR COMPLIANCE [address] [place] [address] PCP - General Family Medicine 03/15/20 National Sales Trainer Relationship Specialty Start Date End Date Cherie Tobar, BANQUET STEWARDESS.DIRECTOR COMPLIANCE [address] [place] [address] PCP - General Family Medicine 03/15/20 National Sales Trainer Relationship Specialty Start Date End Date Cherie Tobar, BANQUET STEWARDESS.DIRECTOR COMPLIANCE [address] [place] [address] PCP - General Family Medicine 03/15/20 National Sales Trainer Relationship Specialty Start Date End Date Cherie Tobar, BANQUET STEWARDESS.DIRECTOR COMPLIANCE [address] [place] [address] PCP - General Family Medicine 03/15/20 National Sales Trainer Relationship Specialty Start Date End Date Cherie Tobar, BANQUET STEWARDESS.DIRECTOR COMPLIANCE [address] [place] [address] PCP - General Family Medicine 03/15/20 National Sales Trainer Relationship Specialty Start Date End Date Cherie Tobar, BANQUET STEWARDESS.DIRECTOR COMPLIANCE [address] [place] [address] PCP - General Family Medicine 03/15/20 National Sales Trainer Relationship Specialty Start Date End Date Cherie Tobar, BANQUET STEWARDESS.DIRECTOR COMPLIANCE [address] [place] [address] PCP - General Family Medicine 03/15/20 National Sales Trainer Relationship Specialty Start Date End Date Cherie Tobar, BANQUET STEWARDESS.DIRECTOR COMPLIANCE [address] [place] [address] PCP - General Family Medicine 03/15/20 National Sales Trainer Relationship Specialty Start Date End Date Cherie Tobar, BANQUET STEWARDESS.DIRECTOR COMPLIANCE [address] [place] [address] PCP - General Family Medicine 03/15/20 National Sales Trainer Relationship Specialty Start Date End Date Queden, Cherie A, GABE.DIRECTOR COMPLIANCE [address] [facility] [place] [address] PCP - General Family Medicine 03/15/20 Team Status: Active Member Role/Relationship Status Dates No Primary Care Physician Primary care physician Activ e Team Status: Inactive Member Role/Relationship Status Dates No Primary Care Physician Primary care physician Activ e Start: April 06, 2025 End: April 06, 2025 No Primary Care Physician Referring Provider Active Start: April 06, 2025 End: April 06, 2025 Dr. Zack Peacock MD Attending physician Active Start: April 06, 2025 End: April 06, 2025 Goals (unrecognized section and content) Goals may be documented in a n alternate section FOR RECORDS PERTAINING TO PATIENTS WHO ARE OR HAVE BEEN ENROLLED IN A CHEMICAL DEPENDENCY/SUBSTANCEABUSE PROGRAM, SOME INFORMATION MAY BE OMITTED. This clinical summary was aggregated from multiple sources. Caution should be exercised in using it in the provision of clinical care. This summary normalizes information from multiple sources, and as a consequence, information in this document may materially change the coding, format and clinical context of patient data. In addition, data may be omitted in some cases. CLINICAL DECISIONS SHOULD BE BASED ON THE PRIMARY CLINICAL RECORDS. [employer] provides no warranty or guarantee of the accuracy or completeness of information in this document.
== END | disposition home or self-care (01) ==
PROVIDERS: PCP Nurse Practitioner Family; Referring Provider Psychiatry & Neurology Neurology; Visit Provider Psychiatry & Neurology Neurology
DX: Z86.69 Personal history of other diseases of the nervous system and sense organs (principal)
CPT/HCPCS: 70480